=== PATIENT | female | born 1975 | race Caucasian/White ===

== ENCOUNTER 2019-09-11 06:46 | Inpatient (IN) | payer MEDICARE, MEDICAID, SELFPAY ==
[2019-09-11] VITALS (16 sets, daily range): BP systolic 85–106; BP diastolic 39–73; PULSE 70–99; RESP 10–18; TEMP 36.2–36.6; O2SAT 93–100
--- NOTE | ~2019-09-11 | XR_ITS ---
EXAMINATION: XR abdomen NG/feed tube insert DATE: 09/11/2019 12:54 INDICATION: Small bowel traction. TECHNIQUE: An upright view of the abdomen was obtained. COMPARISON: CT abdomen and pelvis 09/11/2019 FINDINGS: The lower abdomen is excluded. There are multiple dilated loops of small bowel. The nasogas tric tube tip is in the stomach. Surgical clips in the right upper quadrant are likely from cholecyst ectomy. Median sternotomy wires are noted. There are retained epicardial pacer wires. IMPRESSION: 1. Nasogastric tube tip in the stomach. 2. Dilated small bowel, consistent with small bowel obstruction. Reviewed, dictated and finalized at location A. LY SHIFT MANAGER
--- NOTE | ~2019-09-11 | XR_ITS ---
EXAMINATION: XR chest 2V DATE: 09/11/2019 07:59 INDICATION: Chest pain. TECHNIQUE: Frontal and lateral views of the chest were obtained. COMPARISON: Chest single view 01/23/2019, CT abdomen and pelvis 06/18/2019 FINDINGS: The chest demonstrates clear lungs without pneumonia, pleural effusion, or pneumothorax. Th ere is blunting of the right posterior costophrenic angle correlating with prominent extrapleural fat on the prior CT. The heart size is normal. There are changes are heart valve replacement. Retained e picardial pacer wires are noted. IMPRESSION: 1. No acute cardiopulmonary disease. Reviewed, dictated and finalized at location A. T PANEL ASSEMBLER
--- NOTE | ~2019-09-11 | XR_ITS ---
EXAMINATION: XR abdomen obstructive series DATE: 09/12/2019 08:14 INDICATION: Possible small bowel obstruction TECHNIQUE: Supine and upright views of the abdomen. FINDINGS: 01/26/2019 and 09/11/2019 The visualized lung parenchyma is normal.. There is a nonobstructive bowel gas pattern. Gas and stool are seen throughout the colon to the level of the rectum. There is no free air. There is evidence f or failed renal transplant in the left pelvis. NG tube in the stomach. There are residual epicardial pacing leads. There are cholecystectomy clips. IMPRESSION: 1. No acute abdominal abnormality. Reviewed, dictated and finalized at location A. CAL UNDERWRITER
--- NOTE | ~2019-09-11 | CT_ITS ---
EXAMINATION: CT abdomen pelvis w con DATE: 09/11/2019 10:09 INDICATION: Mid abdominal pain. TECHNIQUE: Computed tomography (CT) of the abdomen and pelvis was performed with 100 mL Omnipaque 350 intravenous contrast. Automated exposure control and iterative reconstruction technique were employe d. The dose-length product was 510.03 mGy-cm. COMPARISON: CT abdomen and pelvis 06/18/2019 FINDINGS: The visualized portions of the lung bases demonstrate mild atelectasis. No pleural effusion . The heart size is normal. There are changes of tricuspid valve replacement. No pericardial effusion . Epicardial pacer wires are noted. The liver is normal. There are changes of cholecystectomy. The co mmon duct is dilated to 13 mm without change, likely not clinically significant given the normal live r function tests. There is a 7 mm cyst in the spleen. The pancreas and adrenal glands are normal. The re is severe atrophy of the [place] kidneys. There are cysts in the kidneys measuring up to 2.6 cm on the left. There are failed transplant kidneys bilaterally. There is diverticulosis of the colon witho ut evidence of diverticulitis. There are dilated loops of small bowel in the right abdomen with trans ition point, consistent with small bowel obstruction. There are no pathologically enlarged lymph node s. There is trace perihepatic ascites. There is severe lower lumbar spondylosis. There are Schmorl's nodes at multiple levels in the spine. IMPRESSION: 1. Dilated loops of small bowel in right abdomen with transition point, consistent with small bowel o bstruction. Reviewed, dictated and finalized at location A. Y WORKER IMPRESSION: 1. Dilated loops of small bowel in right abdomen with transition point, consist ent with small bowel obstruction.
--- NOTE | 2019-09-11 06:53 | ECG_ITS ---
Measurements Intervals [place] Rate: 83 P: 50 VT: 175 QRS: -64 QRSD: 126 T: 63 QT: 399 QTc: 471 Interpretive Statements SINUS RHYTHM RIGHT BUNDLE BRANCH BLOCK LOW VOLTAGE- PRECORDIAL LEADS BASELINE ARTIFACT- I, II, III, AVR, AVL, AVF, V1-V6 ABNORMAL ECG Electronically Signed On 09-11-2019 8:09:38 PLACER MINER by Geo Jackson D.O.
--- NOTE | 2019-09-11 07:31 | ED.ABDPAIN ---
HPI - Abdominal Pain General Chief Complaint: Abdominal Pain Stated Complaint: abd pain Time Seen by Provider: 09/11/19 07:06 Source: patient and EMS Mode of arrival: EMS Limitations: no limitations History of Present Illness HPI narrative: Patient is a 44-year-old female who presents for evaluation of abdominal pain. Patient reports feeling as if she has a bowel obstruction. She reports dull, aching abdominal pain in the center of her abdomen. Patient also reports chest pressure that began yesterday. She reports nausea without emesis. She is passing some flatus and has had some bowel movements which is atypical for her history of bowel obstruction in the past. She has history of numerous abdominal surgeries, tricuspid valve replacement, history of endocarditis all which were managed at [facility]. She denies fever, chills, cough or shortness of breath. No jaw pain or left arm pain. No recent surgeries. She denies lower extremity swelling or redness. Related Data Home Medications Medication Instructions Recorded Confirmed budesonide-formoterol HFA 160 2 puff INHALATION Q12H 08/20/19 mcg-4.5 mcg/actuation aerosol inhaler cholecalciferol (vitamin D3) 125 10,000 unit PO WEEKLY cap 08/20/19 mcg (5,000 unit) capsule clonazepam 1 mg tablet 1 mg PO BID tablet 08/20/19 levothyroxine 88 mcg tablet 88 mcg PO DAILY 08/20/19 omeprazole 10 mg capsule,delayed 20 mg PO DAILY cap 08/20/19 release warfarin 2 mg tablet 2 mg PO DAILY 08/20/19 warfarin 5 mg tablet 5 mg PO 2XW tablet 08/20/19 Allergies Allergy/AdvReac Type Severity Reaction Status Date / Time baclofen Allergy Unknown Muscle Verified 10/03/17 16:00 weakness hydrocodone Allergy Unknown Unknown Verified 08/20/19 11:47 pramipexole Allergy Unknown Unknown Verified 08/20/19 11:47 tramadol Allergy Unknown made Verified 08/15/17 21:20 restless leg symptoms worse, drowsiness vancomycin Allergy Unknown Unknown Verified 08/20/19 11:47 Review of Systems Review of Systems: Narrative: CONSTITUTIONAL: Denies fever, chills, or sweats. CARDIOVASCULAR: Reports chest pain, denies palpitations or edema RESPIRATORY: Denies cough or dyspnea. GASTROINTESTINAL: Reports abdominal pain and nausea GENITOURINARY: Denies dysuria or hematuria. SKIN: Denies rash or itching. MUSCULOSKELETAL: Denies back pain, joint pain, or myalgia. NEUROLOGIC: Denies headache, numbness, or weakness. [facility] Past Medical History Medical History Anemia in chronic kidney disease Anxiety Asthma Chronic low back pain History of L4-L5 herniated discs Diastolic CHF Last Echo October 2018 demonstrated an EF of 55% to 60% with diastolic dysfunction End-stage renal disease on hemodialysis since age 15 with a history of 3x renal transplants, first in 2000 which failed after 7 days due to factor V Leiden, second transplant 2005 that lasted 1.5 years, then she was converted to hemodialysis 2011. Factor V Leiden On Coumadin History of left heart catheterization History of pulmonary embolus (PE) due to Factor V Leiden on chronic Coumadin Hx SBO with adhesions. 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
[2019-09-11] MEDS: FAMOTIDINE 20 MG/2 ML VIAL IV PUSH ×2 (07:51→20:08)
[2019-09-11] MEDS: ONDANSETRON INJ 4 MG/2 ML VIAL IV PUSH ×2 (07:51→14:40)
[2019-09-11 07:59] LABS: Basophils Percent Auto 0.5 % (0.2-1.2); Hemoglobin 12.6 g/dL (12.0-15.0); Immature Granulocyte Absolute 0.01 K/mm3 (0.00-0.031); Immature Granulocyte Percent A 0.3 % (0-0.5); Lymphocytes Absolute Auto 0.78 K/mm3 (0.9-3.2); Lymphocytes Percent Auto 19.8 % (18.3-44.2); Mean Corpuscular HGB Conc 33.2 g/dl (32-36); Mean Corpuscular Hemoglobin 33.9 pg (26-34); Mean Corpuscular Volume 102.2 fl (80-100); Mean Platelet Volume 10.8 fl (7.4-10.4); Monocytes Absolute Auto 0.2 K/mm3 (0.1-0.6); Monocytes Percent Auto 4.6 % (2.6-8.5); Neutrophils Absolute Auto 2.9 K/mm3 (1.3-6.7); Neutrophils Percent Auto 73.8 % (45.5-73.1); Platelet Count Result 116 k/mm3 (150-375); Red Blood Count 3.72 M/mm3 (4.2-5.4); Red Cell Distribution Width 13.3 % (11.5-14.5); White Blood Count 3.9 K/mm3 (4.5-10.0)
[2019-09-11] MEDS: MORPHINE SULFATE 4 MG/ML INJ IV PUSH ×6 (08:05→23:02)
[2019-09-11] MEDS: SODIUM CHLORIDE 0.9% IV 1,000 ML 999 ML IV CONT ×2 (08:06→12:24)
[2019-09-11 08:11] LABS: INR 1.4; Prothrombin Time 16.6 Seconds (11.1-14.7)
[2019-09-11 08:12] LABS: Partial Thromboplastin Time 39.5 SECONDS (22.3-36.8)
--- NOTE | 2019-09-11 08:49 | PC.NURSE ---
called lab at 0824 to come redraw room 6
[2019-09-11 08:57] LABS: Alanine Aminotransferase 9 U/L (4-35); Albumin Level 3.8 g/dL (3.5-5.1); Alkaline Phosphatase 60 U/L (38-126); Aspartate Amino Transferase 18 U/L (14-36); Bilirubin,Total 0.3 mg/dL (0.2-1.3); Blood Urea Nitrogen 65 mg/dL (7-17); Calcium 6.8 mg/dL (8.4-10.2); Carbon Dioxide 19 mmol/L (22-30); Chloride 98 mmol/L (98-107); Estimated Glomerular Filt Rate 5; Glucose 96 mg/dL (65-105); Lipase 178 U/L (23-300); Potassium 3.9 mmol/L (3.4-5.0); Sodium 135 mmol/L (137-145)
[2019-09-11 09:08] LABS: Troponin I < 0.012 ng/mL (0.000-0.034)
[2019-09-11] MEDS: METOCLOPRAMIDE HCL INJ 10 MG/2 ML VIAL IV PUSH (10:31)
[2019-09-11 11:34] LABS: Troponin I 0.012 ng/mL (0.000-0.034)
--- NOTE | 2019-09-11 12:33 | PM.IMHP ---
H&P: HPI History of Present Illness Chief complaint: SBO Narrative: Shelli Jaramillo is a 44 year old female with the history of ESRD on hemodialysis, multiple abdominal surgeries and small bowel obstructions in the past, who presented to the ER with gradually worsening, waxing and waning, cramping umbilical abdominal pain. The patient reported yesterday around 10:00 a.m. she woke up having some abdominal discomfort. She was passing gas and had a normal bowel movement so she was not suspicious for another small-bowel obstruction. As the day progressed, she tried eating a piece of pizza for dinner then developed worsening sharp abdominal pain, nausea. Denies any vomiting. then around midnight her pain became even worse and she began having some substernal chest ache/ tightness with radiation to her back. She reported feeling similar to heartburn, but denies any belching. Currently she is having upper chest discomfort which she feels like is more muscular in nature from tensing up secondary to her increased pain in nausea. She denies any reproducible chest pain with palpation or pain with taking a deep breath. The patient's chest pain has improved since arrival to the ER after receiving pain meds. She denies any shortness of breath. She reports some chills, but denies any fever. Patient's initial labs showed temperature of 97.5?, blood pressure 106/72, heart rate 99, respiratory rate 13, oxygen saturation 100% on room air. Initial labs showed, leukopenia at 3.9, normal H&H, thrombocytopenia at 116, INR is subtherapeutic at 1.4, PT 16.6, PTT at 39.5, CMP showed slight hyponatremia at 135, creatinine is 9.1, BUN 65, serum bicarb 19, calcium low at 6.8, otherwise normal. Patient's initial troponin was 0.012 and we are trending. CT Abd/Pelvis showed Dilated loops of small bowel in right abdomen with transition point, consistent with small bowel obstruction. The patient was admitted under observation for a small-bowel obstruction, placed NPO, NG tube in place, started on IV fluid hydration, IV antiemetics, IV pain medications. Code Status: Full Code Power of Shuttle Filler: MelerLevon PCP: Dr. Padilla Review of Systems Review of Systems: All systems reviewed & are unremarkable except as noted in HPI and below Constitutional: Constitutional: Reports chills ENT: Denies nasal congestion and Denies nasal discharge Cardiovascular: Cardiovascular: Reports chest pain, Denies leg edema and Denies lightheadedness Respiratory: Respiratory: Denies chest congestion, Denies cough and Denies dyspnea Gastrointestinal: Gastrointestinal: Reports abdominal pain, Reports nausea and Denies vomiting Genitourinary: Comments: Anuria Musculoskeletal: Musculoskeletal: Reports back pain Integumentary/Breasts: Skin/Breast: Denies rash and Denies unusual bruising Neurologic: Denies vertigo and Denies headache(s) [facility] Past Medical History Medical History (Updated 09/11/19 @ 14:05 by Elizabeth Bailey PA-C) Anemia in chronic kidney disease Anxiety Asthma Chronic low back pain History of L4-L5 herniated discs Diastolic CHF Last Echo October 2018 demonstrated an EF of 55% to 60% with diastolic dysfunction End-stage renal disease on hemodialysis since age 15 with a history of 3x renal transplants, first in 2000 which failed after 7 days due to factor V Leiden, second transplant 2005 that lasted 1.5 years, then she was converted to hemodialysis 2011. Factor V Leiden On Coumadin History of left heart catheterization 2012 showed normal coronary arteries and pulmonary hypertension. History of pulmonary embolus (PE) due to Factor V Leiden on chronic Coumadin Hx SBO with adhesions. Patient reports history of 19 SBOs after last transplant in 2014 with the developement of an enterocutaneous fistula Hypertension Hypothyroidism (acquired) Kidney transplant failure and rejection Major depressive disorder Nephrolithiasis OCD (obsessive compulsive disorder)
[2019-09-11] MEDS: LIDOCAINE HCL 2% GEL UROJET 10 ML PKG (12:34)
--- NOTE | 2019-09-11 14:14 | PM.CNNEP ---
Assessment and Plan Assessment and plan (1) End-stage renal disease on hemodialysis: Code(s): N18.6 - End stage renal disease; Z99.2 - Dependence on renal dialysis Status: Acute Assessment and Plan: The patient is on home hemodialysis. She had her last treatment yesterday. Her fluid status looks okay. In fact she might be a little dry but so we will give her some IV fluids. Discussed with TISH Bailey. (2) SBO (small bowel obstruction): Code(s): K56.609 - Unspecified intestinal obstruction, unspecified as to partial versus complete obstruction Status: Acute Assessment and Plan: The patient has a small-bowel obstruction. She did start Velphoro recently. Sevelamer can cause of bezoar but she has not been taking this. She will get NG tube drainage and hopefully things will improve in a few days. (3) Hypothyroidism (acquired): Code(s): E03.9 - Hypothyroidism, unspecified Status: Acute Assessment and Plan: She is on thyroid supplements. (4) Kidney transplant status: Code(s): Z94.0 - Kidney transplant status Status: Acute Assessment and Plan: She has had a kidney transplant. This did not last very long. (5) Factor V Leiden: Code(s): D68.51 - Activated protein C resistance Status: Acute Assessment and Plan: She is on Coumadin for this. Has had clotting events in the past. 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 The patient has had recurrent bowel obstructions from the sclerosing peritonitis in the past. Her last time to the emergency room was about 7 months ago. She was admitted to the hospital, NG tube was placed to suction, she gradually improved with conservative therapy. Surgeons have seen the patient and it is too risky to go in and try operative intervention. The patient says she felt fine yesterday but this morning she could feel it coming on and gradually this some worsened with nausea. She has a little bit of abdominal fullness but no vomiting. When she went to the ER they put the NG tube in and she feels better. although traditionally she has hypertension, lately her blood pressure has been somewhat soft. Review of Systems Constitutional: Constitutional: Reports no additional constitutional complaints Eyes: Eyes: Reports no additional eye complaints ENT: Reports system reviewed and no additional complaints, except as documented Cardiovascular: Cardiovascular: Reports no additional cardiovascular complaints Respiratory: Respiratory: Reports no additional respiratory complaints Gastrointestinal: Gastrointestinal: Reports no additional gastrointestinal complaints Genitourinary: Genitourinary: Reports no additional female genitourinary complaints Musculoskeletal: Musculoskeletal: Reports no additional musculoskeletal complaints Integumentary/Breasts: Skin/Breast: Reports system reviewed and no additional complaints, except as docu Neurologic: Reports system reviewed and no additional complaints, except as documented Psychiatric: Psychiatric: Reports no additional psychiatric complaints PMFSH Past Medical History Medical History Anemia in chronic kidney disease Anxiety Asthma Chronic low back pain History of L4-L5 herniated discs Diastolic CHF Last Echo October 2018 demonstrated an EF of 55% to 60% with diastolic dysfunction End-stage renal disease on hemodialysis since age 15 with a history of 3
[2019-09-11] MEDS: HEPARIN SOD/D5W 100 UNITS/ML 25,000 UNITS/250 ML BAG 8 UNITS IV CONT (14:40)
[2019-09-11] MEDS: SODIUM CHLORIDE 0.9% IV 1,000 ML 60 ML IV CONT (14:40)
--- NOTE | 2019-09-11 15:08 | ADMGEN ---
This patient, Shelli Jaramillo, was admitted to IMU Room 210-01at 1330 on 09/11/2019. Patient/family oriented to hospital policies and general routines including ID bracelet, bed and alarms, visiting hours, pain management, procedures, bathroom and other care routines, personal items, smoking policy, room service/diet, and visiting hours. Valuables list has been completed. Information on how to activate the Rapid Response Team has been discussed. Patient/Family are encouraged to report perceived risks to care and to ask questions if they do not understand what they are told or what they should do.
[2019-09-11 15:16] LABS: Basophils Percent Auto 0.6 % (0.2-1.2); Eosinophils Percent Auto 1.3 % (0-4.4); Hemoglobin 10.5 g/dL (12.0-15.0); Immature Granulocyte Absolute 0.01 K/mm3 (0.00-0.031); Immature Granulocyte Percent A 0.3 % (0-0.5); Lymphocytes Percent Auto 25.6 % (18.3-44.2); Mean Corpuscular HGB Conc 32.8 g/dl (32-36); Mean Corpuscular Hemoglobin 34.4 pg (26-34); Mean Corpuscular Volume 104.9 fl (80-100); Mean Platelet Volume 11.2 fl (7.4-10.4); Monocytes Absolute Auto 0.2 K/mm3 (0.1-0.6); Neutrophils Percent Auto 65.2 % (45.5-73.1); Platelet Count Result 96 k/mm3 (150-375); Red Blood Count 3.05 M/mm3 (4.2-5.4); Red Cell Distribution Width 13.5 % (11.5-14.5); White Blood Count 3.1 K/mm3 (4.5-10.0)
[2019-09-11 15:26] LABS: INR 1.6; Prothrombin Time 18.9 Seconds (11.1-14.7)
[2019-09-11 15:41] LABS: Troponin I < 0.012 ng/mL (0.000-0.034)
[2019-09-11] MEDS: PHENOL/SOD PHENO SPRAY CHERRY (*BKC) 1 SPRAY MUCOUS MEM (16:36)
--- NOTE | 2019-09-11 18:15 | PM.CNGS ---
Assessment and Plan Assessment and plan (1) SBO (small bowel obstruction): Code(s): K56.609 - Unspecified intestinal obstruction, unspecified as to partial versus complete obstruction Status: Acute Assessment and Plan: The risks, benefits, and possible complications of surgery fo a small-bowel obstruction were discussed with the patient. At this time I do not recommend any surgical intervention. We will 1st try conservative management as has worked for her in the past. Will plan on bowel rest with NG decompression. I agree with checking labs in a.m. and I will order a plain film obstructive series of the abdomen for tomorrow morning. This was explained to the patient. I also asked her to walk in the hallways with NG clamped several times tonight at least 3 times a day in the future. (2) Factor V Leiden: Code(s): D68.51 - Activated protein C resistance Status: Acute Assessment and Plan: Hospitalist service as started on her IV heparin and I agree with this until we know whether not she is progressing toward resolution versus surgical intervention. (3) End-stage renal disease on hemodialysis: Code(s): N18.6 - End stage renal disease; Z99.2 - Dependence on renal dialysis Status: Acute Assessment and Plan: As per transportation agent recommendations. History of Present Illness Consult details Consult date: 09/11/19 Reason for consult: abdominal pain Requesting physician: Rashel Bishop MD Narrative: Shelli Jaramillo is a 44 year old female with the history of ESRD on hemodialysis. She has had multiple abdominal surgeries and multiple small bowel obstructions in the past. She presented to the ER today with gradually worsening, waxing and waning, cramping umbilical abdominal pain. The patient reports that yesterday around 10:00 a.m. she woke up having some abdominal discomfort. She was passing gas and had a normal bowel movement so she was not suspicious for another small-bowel obstruction. As the day progressed, she tried eating a piece of pizza for dinner then developed worsening sharp abdominal pain and nausea. She denies any vomiting. Then around midnight her pain became even worse and she began having some substernal chest pain/ ache/ tightness with radiation to her back. She reported it feeling similar to heartburn, but denies any belching. Currently she is not havin any chest discomfort and believes what she had feels like is more muscular in nature from tensing up secondary to her increased pain and nausea. She denies any reproducible chest pain with palpation or pain with taking a deep breath. The patient's chest pain has improved since arrival to the ER after receiving pain meds. She denies any shortness of breath. She reports some chills, but denies any fever. Patient's initial labs showed temperature of 97.5?, blood pressure 106/72, heart rate 99, respiratory rate 13, oxygen saturation 100% on room air. Initial labs showed, leukopenia at 3.9, normal H&H, thrombocytopenia at 116, INR is subtherapeutic at 1.4, PT 16.6, PTT at 39.5, CMP showed slight hyponatremia at 135, creatinine is 9.1, BUN 65, serum bicarb 19, calcium low at 6.8, otherwise normal. Patient's initial troponin was 0.012 and this is being trended. CT Abd/Pelvis showed Dilated loops of small bowel in right abdomen with a transition point, consistent with small bowel obstruction. The patient was admitted under observation for a small-bowel obstruction, placed NPO, NG tube in place, started on IV fluid hydration, IV antiemetics, IV pain medications. I was consulted when she was in the ED and am now seeing her and will follow her. Review of Systems Constitutional: Constitutional: Reports as per HPI and Denies headache(s) Eyes: Eyes: Denies loss of vision and Denies eye pain ENT: Reports Normal hearing present, Denies change in voice, Denies dizziness and Denies headache(s) Cardiovascular: Cardiovascular:
[2019-09-11 21:45] LABS: Partial Thromboplastin Time 100.4 SECONDS (22.3-36.8)
[2019-09-12] VITALS (12 sets, daily range): BP systolic 85–103; BP diastolic 39–51; PULSE 68–98; RESP 18–20; TEMP 36.1–36.8; O2SAT 96–100
[2019-09-12] MEDS: MORPHINE SULFATE 4 MG/ML INJ IV PUSH ×3 (02:15→08:44)
[2019-09-12 04:26] LABS: Basophils Percent Auto 0.6 % (0.2-1.2); Eosinophils Percent Auto 1.2 % (0-4.4); Hematocrit 33.4 % (37.0-47.0); Hemoglobin 10.6 g/dL (12.0-15.0); Immature Granulocyte Absolute 0.02 K/mm3 (0.00-0.031); Immature Granulocyte Percent A 0.6 % (0-0.5); Lymphocytes Absolute Auto 0.47 K/mm3 (0.9-3.2); Lymphocytes Percent Auto 14.6 % (18.3-44.2); Mean Corpuscular HGB Conc 31.7 g/dl (32-36); Mean Corpuscular Volume 107.1 fl (80-100); Mean Platelet Volume 10.6 fl (7.4-10.4); Monocytes Absolute Auto 0.2 K/mm3 (0.1-0.6); Monocytes Percent Auto 6.2 % (2.6-8.5); Neutrophils Absolute Auto 2.5 K/mm3 (1.3-6.7); Neutrophils Percent Auto 76.8 % (45.5-73.1); Platelet Count Result 100 k/mm3 (150-375); Red Blood Count 3.12 M/mm3 (4.2-5.4); Red Cell Distribution Width 13.7 % (11.5-14.5); White Blood Count 3.2 K/mm3 (4.5-10.0)
[2019-09-12 04:43] LABS: Albumin Level 4.2 g/dL (3.5-5.1); Blood Urea Nitrogen 71 mg/dL (7-17); Calcium 7.2 mg/dL (8.4-10.2); Carbon Dioxide 18 mmol/L (22-30); Chloride 100 mmol/L (98-107); Estimated CRCL calculation 7 ml/min; Estimated Glomerular Filt Rate 4; Glucose 94 mg/dL (65-105); Potassium 5.2 mmol/L (3.4-5.0); Sodium 136 mmol/L (137-145)
[2019-09-12 04:48] LABS: INR 1.8; Prothrombin Time 20.5 Seconds (11.1-14.7)
[2019-09-12 04:50] LABS: Partial Thromboplastin Time 118.7 SECONDS (22.3-36.8)
[2019-09-12] MEDS: LEVOTHYROXINE SODIUM INJ 100 MCG/5 ML VIAL 44 MCG IV PUSH (05:31)
[2019-09-12] MEDS: PHENOL/SOD PHENO SPRAY CHERRY (*BKC) 1 SPRAY MUCOUS MEM (08:44)
[2019-09-12] MEDS: ONDANSETRON INJ 4 MG/2 ML VIAL IV PUSH (08:44)
[2019-09-12] MEDS: FAMOTIDINE 20 MG/2 ML VIAL IV PUSH ×2 (08:45→22:43)
[2019-09-12] MEDS: MAGNESIUM HYDROXIDE SUSP 30 ML UDC FEED TUBE (11:18)
[2019-09-12] MEDS: SODIUM CHLORIDE 0.9% IV 1,000 ML 60 ML IV CONT (11:18)
[2019-09-12 12:15] LABS: Partial Thromboplastin Time 129.7 SECONDS (22.3-36.8)
[2019-09-12] MEDS: MORPHINE SULFATE 2 MG/ML INJ IV PUSH ×3 (12:21→20:27)
--- NOTE | 2019-09-12 13:14 | PM.IMPN ---
Progress Note: A&P Assessment and Plan (1) SBO (small bowel obstruction): Code(s): K56.609 - Unspecified intestinal obstruction, unspecified as to partial versus complete obstruction Status: Acute Assessment and Plan: Recurrent issue. General surgery consulted from the emergency room and appreciate input. Continue conservative management. NG tube remains in place but clamped. Remains NPO. Hopefully will resolve without surgical intervention. (2) Chest pain: Qualifiers: Chest pain type: other chest pain Qualified Code(s): R07.89 - Other chest pain Code(s): R07.9 - Chest pain, unspecified Status: Acute Assessment and Plan: Appears to be musculoskeletal. Serial troponin levels are negative. Telemetry reviewed on 09/12/2019 with sinus rhythm. Will transfer to medical floor as stable. (3) End-stage renal disease on hemodialysis: Code(s): N18.6 - End stage renal disease; Z99.2 - Dependence on renal dialysis Status: Acute Assessment and Plan: Nephrology consulted from the emergency room and appreciate input. On hemodialysis at home usually. Treatment here per nephrology. (4) Subtherapeutic international normalized ratio (INR): Code(s): R79.1 - Abnormal coagulation profile Status: Acute Assessment and Plan: INR subtherapeutic on admission at 1.4. Up to 1.8 today. Remains on IV heparin. Will continue to monitor. (5) Factor V Leiden: Code(s): D68.51 - Activated protein C resistance Status: Acute Assessment and Plan: Known mutation. Coumadin currently on hold with NPO status and small bowel obstruction. Continue IV heparin. Resume Coumadin when able. (6) Renovascular hypertension: Code(s): I15.0 - Renovascular hypertension Status: Acute Assessment and Plan: Blood pressure reviewed on 09/12/2019 and remaining low-normal at this time. Will continue low-dose IV fluids. (7) Hypothyroidism (acquired): Code(s): E03.9 - Hypothyroidism, unspecified Status: Acute Assessment and Plan: Continue levothyroxine IV for now. (8) DVT prophylaxis: Code(s): Z29.9 - Encounter for prophylactic measures, unspecified Status: Acute Assessment and Plan: Heparin drip. Time Spent With Patient Time with patient: 15 - 25 minutes Subjective Date/time seen: 09/12/19 13:14 Interval history: Date of Service: 09/12/2019. Admitted with recurrent small-bowel obstruction. Reports abdominal pain is improving. No nausea. Has not passed any gas. No chest pain now but did have chest pain in the emergency room which she feels was musculoskeletal. No shortness of breath. Review of Systems Review of Systems: Narrative: Feeling better. Constitutional: Constitutional: Denies chills and Denies fever(s) ENT: Denies nasal congestion Cardiovascular: Cardiovascular: Denies chest pain Respiratory: Respiratory: Denies dyspnea Gastrointestinal: Gastrointestinal: Reports abdominal pain (Decreasing), Denies nausea and Denies vomiting Genitourinary: Genitourinary: Reports no additional female genitourinary complaints Musculoskeletal: Comments: Generalized pain Integumentary/Breasts: Skin/Breast: Denies rash Neurologic: Denies headache(s) Psychiatric: Psychiatric: Denies anxiety, Denies confusion and Denies depression Exam Narrative: Exam Narrative: Awake and alert. Const: General: no acute distress HENMT: Mouth: Yes moist mucous membranes Other: NG tube in place. Neck: Neck: supple Lymphatic: lymphadenopathy not noted Chest: Other: minimally tender to palpation anteriorly Resp: Auscultation: clear to auscultation bilaterally, no rales and no wheezes Cardio: Rate: regular rate Rhythm: regular rhythm Heart sounds: Murmur heart sound present (3/6 systolic) GI: GI Palp: Yes Soft to palpation and Yes Tenderness to palpation present (GI) (mild tenderness to palpation) Au
--- NOTE | 2019-09-12 13:43 | PM.PNNEP ---
Progress Note: A&P Assessment and Plan (1) End-stage renal disease on hemodialysis: Code(s): N18.6 - End stage renal disease; Z99.2 - Dependence on renal dialysis Status: Acute Assessment and Plan: The patient is on home hemodialysis. She had her last treatment yesterday. Potassium is minimally elevated. We will repeat this. Fluid status looks improved/slightly overloaded. Since she has renal failure, I think we can stop the IV fluids (2) SBO (small bowel obstruction): Code(s): K56.609 - Unspecified intestinal obstruction, unspecified as to partial versus complete obstruction Status: Acute Assessment and Plan: The patient has a small-bowel obstruction. She did start Velphoro recently. Sevelamer can cause a bezoar but she has not been taking this. She is getting NG tube drainage. X-ray is improved. Discussed with Dr. Godwin. He is going to give her cathartics. Lactulose or MiraLax okay. (3) Hypothyroidism (acquired): Code(s): E03.9 - Hypothyroidism, unspecified Status: Acute Assessment and Plan: She is on thyroid supplements. (4) Kidney transplant status: Code(s): Z94.0 - Kidney transplant status Status: Acute Assessment and Plan: She has had a kidney transplant. (5) Factor V Leiden: Code(s): D68.51 - Activated protein C resistance Status: Acute Assessment and Plan: She is on Coumadin for this. Has had clotting events in the past. Subjective Date/time seen: 09/12/19 13:43 Interval history: Patient is feeling better today. Less abdominal discomfort. No nausea. She has not passed any gas. Review of Systems Cardiovascular: Cardiovascular: Reports no additional cardiovascular complaints Respiratory: Respiratory: Reports no additional respiratory complaints Gastrointestinal: Gastrointestinal: Reports no additional gastrointestinal complaints Genitourinary: Genitourinary: Reports no additional female genitourinary complaints Exam Narrative: Exam Narrative: Well developed well-nourished in no acute distress Lungs clear Heart regular without rub Abdomen bowel sounds positive soft mildly uncomfortable with palpation in the epigastric area. Extremities developing a small amount of edema Skin no rash Objective Data Vital Signs Vital Signs: Vital Signs - 24 hr 09/11/19 16:00 09/11/19 18:00 09/11/19 19:37 Temperature 36.6 C 36.4 C Pulse Rate 70 79 76 Respiratory Rate 16 18 Blood Pressure 95/47 L 93/40 L Pulse Oximetry 98 98 09/11/19 19:43 09/11/19 19:50 09/11/19 20:00 Temperature Pulse Rate 72 77 87 Respiratory Rate 16 16 Blood Pressure Pulse Oximetry 09/11/19 22:00 09/11/19 23:34 09/12/19 00:00 Temperature 36.2 C L Pulse Rate 74 77 72 Respiratory Rate 16 Blood Pressure 85/39 L Pulse Oximetry 100 09/12/19 00:11 09/12/19 02:00 09/12/19 02:12 Temperature Pulse Rate 88 Respiratory Rate Blood Pressure 86/50 L 101/51 L Pulse Oximetry 09/12/19 04:00 09/12/19 04:46 09/12/19 06:00 Temperature 36.1 C L Pulse Rate 68 75 Respiratory Rate 18 Blood Pressure 89/42 L 103/45 L Pulse Oximetry 99 09/12/19 08:00 09/12/19 10:00 09/12/19 12:00 Temperature 36.4 C L 36.8 C Pulse Rate 88 89 98 Respiratory Rate 20 18 Blood Pressure 95/44 L 100/47 L Pulse Oximetry 100 100 Intake/Output Intake/Output: Intake & Output 09/09/19 09/10/19 09/11/19 09/12/19 23:59 23:59 23:59 23:59 Intake Total 1999 116 Output Total 150 200 Balance 1850 965 Meds/Results Medications: Active Medications Generic Name Dose Route Start Last Admin Trade Name Freq PRN Reason Stop Dose Admin Budesonide/Formoterol Fumarate 2 puff 09/11/19 20:00 09/12/19 07:50 Symbicort 160-4.5 Mcg (*Sp) Inhaler INHALATION 2 puff Q12HRT CHRIS Administration Famotidine 20 mg 09/11/19 21:00 09/12/19 08:45 Pepcid Iv IV PUSH 20 mg Q12HR S
--- NOTE | 2019-09-12 14:05 | PM.PNGS ---
Progress Note: A&P Assessment and Plan (1) SBO (small bowel obstruction): Onset Date: 09/11/19 Code(s): K56.609 - Unspecified intestinal obstruction, unspecified as to partial versus complete obstruction Status: Acute Assessment and Plan: Abdominal x-ray today shows resolution of small bowel dilation. NG tube output is decreasing. Will try milk a magnesia down the tube x1 then clamping routine on the NG until morning. If patient doing well and starting to pass flatus or have a bowel movement may be able to remove the NG tomorrow. Encourage patient to walk in the hallways Probably need to continue heparin drip until patient prove she can tolerate at least full liquid diet. (2) Factor V Leiden: Onset Date: Unknown Code(s): D68.51 - Activated protein C resistance Status: Acute Assessment and Plan: Probably need to continue heparin drip until patient prove she can tolerate at least full liquid diet (3) End-stage renal disease on hemodialysis: Code(s): N18.6 - End stage renal disease; Z99.2 - Dependence on renal dialysis Status: Acute Assessment and Plan: Discussed with Dr. Bishop what the best bowel regimen for her will be in the future. He prefers we avoid magnesium containing substances. Most likely will use lactulose or MiraLax once she is tolerating diet. Would also suggest patient have available Dulculax suppositories at home and any time she goes more than 48 hours without a bowel movement she should use a suppository to empty the rectum. Subjective Subjective Date/Time Seen: 09/12/19 14:05 patient feeling well. No nausea today. Still denies flatus or BM. Much less abdominal pain however. Review of Systems Constitutional: Constitutional: Reports no additional constitutional complaints ENT: Reports other (Mucous Membranes moist.) Cardiovascular: Cardiovascular: Denies dyspnea Respiratory: Respiratory: Denies pain on inspiration and Denies dyspnea Gastrointestinal: Gastrointestinal: Denies bloating, Reports GI cramping ( Mild), Denies nausea and Denies vomiting Musculoskeletal: Musculoskeletal: Reports other (No calf swelling or edema) Integumentary/Breasts: Skin/Breast: Reports system reviewed and no additional complaints, except as docu Exam Const: General: cooperative, no acute distress, alert and awake Orientation/consciousness: patient oriented x3 HENMT: Mouth: Yes moist mucous membranes Neck: Neck: normal visual inspection Chest: Chest palpation & inspection: normal inspection of the chest Resp: Effort & Inspection: normal respiratory effort Auscultation: clear to auscultation bilaterally Cardio: Jugular venous distension: no JVD Rate: regular rate Rhythm: regular rhythm GI: Auscultation: normal bowel sounds Rectal Exam: deferred Other: scars as described yesterday in the midline and each lower quadrant. Only mild tenderness to palpation today and patient does not seem as bloated. Neuro: General: patient oriented x3 and moves all extremities Speech: normal speech Extrem: General: normal exam except as noted Psych: Mental Status: mental status grossly normal Speech and movement: Normal speech and movement present Affect: normal affect Thought content: Yes Normal thought content present Objective Data Vital Signs Vital Signs: Vital Signs - 24 hr 09/11/19 16:00 09/11/19 18:00 09/11/19 19:37 Temperature 36.6 C 36.4 C Pulse Rate 70 79 76 Respiratory Rate 16 18 Blood Pressure 95/47 L 93/40 L Pulse Oximetry 98 98 09/11/19 19:43 09/11/19 19:50 09/11/19 20:00 Temperature Pulse Rate 72 77 87 Respiratory Rate 16 16 Blood Pressure Pulse Oximetry 09/11/19 22:00 09/11/19 23:34 09/12/19 00:00 Temperature 36.2 C L Pulse Rate 74 77 72 Respiratory Rate 16 Blood Pressure 85/39 L Pulse Oximetry 100 09/12/19 00:11 09/12/19 02:00 09/12/19 02:12 Temperature Pulse Rate 88 Re
[2019-09-12] MEDS: BENZOCAINE/MENTHOL (*BKC) 18 EA LOZENGE 1 LOZENGE PO (15:33)
--- NOTE | 2019-09-12 15:55 | PC.NURSE ---
This patient, Shelli Jaramillo, was received from IMU on 09/12/19 at 1555. Personal belongings list checked and signed. Patient/family oriented to unit policies and routines. Report received from ROBBY Osullivan.
[2019-09-12 19:22] LABS: Partial Thromboplastin Time 65.4 SECONDS (22.3-36.8)
[2019-09-12] MEDS: HEPARIN SODIUM 5,000 UNITS/ML VIAL 2500 UNITS IV PUSH (19:26)
[2019-09-13] VITALS (21 sets, daily range): BP systolic 85–152; BP diastolic 32–75; PULSE 74–112; RESP 16–20; TEMP 36.1–36.9; O2SAT 94–100
[2019-09-13] MEDS: MORPHINE SULFATE 2 MG/ML INJ IV PUSH ×4 (00:29→23:50)
[2019-09-13] MEDS: HEPARIN SOD/D5W 100 UNITS/ML 25,000 UNITS/250 ML BAG 7 UNITS IV CONT (01:35)
[2019-09-13 03:42] LABS: Partial Thromboplastin Time > 200.0 SECONDS (22.3-36.8)
[2019-09-13] MEDS: BENZOCAINE/MENTHOL (*BKC) 18 EA LOZENGE 1 LOZENGE PO (04:27)
[2019-09-13] MEDS: PHENOL/SOD PHENO SPRAY CHERRY (*BKC) 1 SPRAY MUCOUS MEM (04:27)
[2019-09-13 07:25] LABS: Basophils Percent Auto 0.5 % (0.2-1.2); Eosinophils Percent Auto 0.8 % (0-4.4); Hematocrit 28.5 % (37.0-47.0); Hemoglobin 9.3 g/dL (12.0-15.0); Immature Granulocyte Absolute 0.03 K/mm3 (0.00-0.031); Immature Granulocyte Percent A 0.8 % (0-0.5); Immature Platelet Fraction Pct 1.9 % (0.9-11.2); Lymphocytes Absolute Auto 0.62 K/mm3 (0.9-3.2); Lymphocytes Percent Auto 16.1 % (18.3-44.2); Mean Corpuscular HGB Conc 32.6 g/dl (32-36); Mean Corpuscular Hemoglobin 34.3 pg (26-34); Mean Corpuscular Volume 105.2 fl (80-100); Mean Platelet Volume 11.2 fl (7.4-10.4); Monocytes Absolute Auto 0.3 K/mm3 (0.1-0.6); Monocytes Percent Auto 6.7 % (2.6-8.5); Neutrophils Absolute Auto 2.9 K/mm3 (1.3-6.7); Neutrophils Percent Auto 75.1 % (45.5-73.1); Platelet Count Result 67 k/mm3 (150-375); Red Blood Count 2.71 M/mm3 (4.2-5.4); Red Cell Distribution Width 13.9 % (11.5-14.5); White Blood Count 3.9 K/mm3 (4.5-10.0)
[2019-09-13 07:37] LABS: Albumin Level 4.4 g/dL (3.5-5.1); Blood Urea Nitrogen 79 mg/dL (7-17); Calcium 7.3 mg/dL (8.4-10.2); Carbon Dioxide 15 mmol/L (22-30); Chloride 96 mmol/L (98-107); Estimated CRCL calculation 6 ml/min; Estimated Glomerular Filt Rate 3; Glucose 83 mg/dL (65-105); Phosphorus 9.1 mg/dL (2.5-4.5); Potassium 5.5 mmol/L (3.4-5.0); Sodium 132 mmol/L (137-145)
[2019-09-13 07:45] LABS: INR 1.9; Prothrombin Time 21.4 Seconds (11.1-14.7)
--- NOTE | 2019-09-13 08:15 | PM.PNNEP ---
Progress Note: A&P Assessment and Plan (1) End-stage renal disease on hemodialysis: Code(s): N18.6 - End stage renal disease; Z99.2 - Dependence on renal dialysis Status: Acute Assessment and Plan: The patient is on home hemodialysis. Will dialyze today. (2) SBO (small bowel obstruction): Onset Date: 09/11/19 Code(s): K56.609 - Unspecified intestinal obstruction, unspecified as to partial versus complete obstruction Status: Acute Assessment and Plan: The patient has a small-bowel obstruction. NG is clamped off. (3) Hypothyroidism (acquired): Code(s): E03.9 - Hypothyroidism, unspecified Status: Acute Assessment and Plan: She is on thyroid supplements. (4) Kidney transplant status: Code(s): Z94.0 - Kidney transplant status Status: Acute Assessment and Plan: She has had a kidney transplant. (5) Factor V Leiden: Onset Date: Unknown Code(s): D68.51 - Activated protein C resistance Status: Acute Assessment and Plan: She is on Coumadin for this. Has had clotting events in the past. Currently on heparin since she was NPO. Subjective Date/time seen: 09/13/19 08:15 Interval history: Patient is feeling better today. Had 2 bowel movements yesterday. Drinking coffee this morning. Review of Systems Cardiovascular: Cardiovascular: Reports no additional cardiovascular complaints Respiratory: Respiratory: Reports no additional respiratory complaints Gastrointestinal: Gastrointestinal: Reports no additional gastrointestinal complaints Genitourinary: Genitourinary: Reports no additional female genitourinary complaints Exam Narrative: Exam Narrative: Well developed well-nourished in no acute distress Lungs clear Heart regular without rub Abdomen bowel sounds positive soft Extremities developing a small amount of edema Skin no rash or subcu nodules Objective Data Vital Signs Vital Signs: Vital Signs - 24 hr 09/12/19 10:00 09/12/19 12:00 09/12/19 14:00 Temperature 36.8 C Pulse Rate 89 98 97 Respiratory Rate 18 Blood Pressure 100/47 L Pulse Oximetry 100 09/12/19 22:00 09/13/19 06:00 Temperature 36.4 C 36.3 C L Pulse Rate 87 83 Respiratory Rate 18 18 Blood Pressure 85/39 L 111/53 L Pulse Oximetry 96 94 Intake/Output Intake/Output: Intake & Output 09/10/19 09/11/19 09/12/19 09/13/19 23:59 23:59 23:59 23:59 Intake Total 1999 1464 338 Output Total 150 750 Balance 1850 714 338 Meds/Results Medications: Active Medications Generic Name Dose Route Start Last Admin Trade Name Freq PRN Reason Stop Dose Admin Benzocaine 1 lozenge 09/12/19 14:00 09/13/19 04:27 Chloraseptic Lozenge PO 1 lozenge PRN PRN Administration Sore Throat Bisacodyl 10 mg 09/12/19 14:19 Dulcolax Suppository RECTAL QAM PRN Constipation Budesonide/Formoterol Fumarate 2 puff 09/11/19 20:00 09/12/19 20:17 Symbicort 160-4.5 Mcg (*Sp) Inhaler INHALATION 2 puff Q12HRT CHRIS Administration Famotidine 20 mg 09/11/19 21:00 09/12/19 22:43 Pepcid Iv IV PUSH 20 mg Q12HR CHRIS Administration Heparin Sodium (Porcine) 4,000 units 09/11/19 13:45 Heparin Sodium IV PUSH PRN PRN aPTT less than 55 seconds Heparin Sodium (Porcine) 2,500 units 09/11/19 13:45 09/12/19 19:26 Heparin Sodium IV PUSH 2,500 units PRN PRN Administration aPTT 55 - 70 seconds Sodium Chloride 1,000 mls @ 60 mls/hr 09/11/19 12:50 09/12/19 17:09 Normal Saline Iv IV CONT 60 mls/hr .[id number] CHRIS Infusion Heparin Sodium/Dextrose 25,000 units in 250 mls @ 5 mls/hr 09/11/19 14:45 09/13/19 03:33 Heparin Sodium/D5w 100 Units/Ml IV CONT 500 units/hr .Q24H CHRIS 5 mls/hr Titration Protocol Acetaminophen 1,000 mg in 100 mls @ 400 mls/hr 09/12/19 17:35 09/13/19 01:58 Ofirmev 1,000 Mg Ivpb IVPB 09/13/19 17:36 Infused Q6H PRN I
--- NOTE | 2019-09-13 08:54 | PM.PNGS ---
Progress Note: A&P Assessment and Plan (1) SBO (small bowel obstruction): Onset Date: 09/11/19 Code(s): K56.609 - Unspecified intestinal obstruction, unspecified as to partial versus complete obstruction Status: Acute Assessment and Plan: Patient continues to clinically improve. Bowel function returning. Abdominal x-ray yesterday showed normal bowel gas pattern. Will remove NG tube today and start a clear liquid diet. Should probably continue the heparin drip until patient can prove she tolerates at least a full liquid diet. Encouraged to walk in the halls. (2) Factor V Leiden: Onset Date: Unknown Code(s): D68.51 - Activated protein C resistance Status: Acute Assessment and Plan: Currently on heparin drip until tolerating at least a full liquid diet. (3) End-stage renal disease on hemodialysis: Code(s): N18.6 - End stage renal disease; Z99.2 - Dependence on renal dialysis Status: Acute Assessment and Plan: Will avoid magnesium containing medications for bowel regimen and will stick to MiraLax or lactulose for bowel stimulation once she is tolerating a diet. Discussed this with the patient today and she states she knows she should be on a bowel regimen at home but is not currently. We discussed options moving forward for bowel regimen with MiraLax daily as needed and if she does not have a bowel movement for more than 48 hours, then also using a Dulcolax suppository if needed. Subjective Subjective Date/Time Seen: 09/13/19 08:45 Patient reports: no new complaints, feels better, flatus and bowel movement Interval history: Patient seen and examined while in dialysis. Reports feeling much better today. She states she has had 2 bowel movements this morning. She reports tolerating the clear liquids while her NG tube was clamped yesterday. Denies bloating, nausea, or vomiting. Her only complaint is pain in her throat and back, which is why she received morphine earlier this morning. Denies any abdominal pain. Points at this time. Review of Systems Review of Systems: All systems reviewed & are unremarkable except as noted in HPI and below Exam Const: General: cooperative, no acute distress, alert and awake Orientation/consciousness: patient oriented x3 GI: Inspection: normal to inspection, non-distended and scar (lower midline scar with a deep indentation.) GI Palp: No abdominal tenderness, Yes Soft to palpation and No Guarding due to palpation present (GI) Auscultation: normal bowel sounds Rectal Exam: deferred Neuro: General: no focal motor deficits Psych: Appearance: grossly normal Mental Status: mental status grossly normal Attitude: cooperative Objective Data Vital Signs Vital Signs: Vital Signs - 24 hr 09/12/19 10:00 09/12/19 12:00 09/12/19 14:00 Temperature 36.8 C Pulse Rate 89 98 97 Respiratory Rate 18 Blood Pressure 100/47 L Pulse Oximetry 100 09/12/19 22:00 09/13/19 06:00 Temperature 36.4 C 36.3 C L Pulse Rate 87 83 Respiratory Rate 18 18 Blood Pressure 85/39 L 111/53 L Pulse Oximetry 96 94 Intake/Output Intake/Output: Intake & Output 09/10/19 09/11/19 09/12/19 09/13/19 23:59 23:59 23:59 23:59 Intake Total 1999 1464 338 Output Total 150 750 Balance 1850 714 338 Meds/Results Medications: Active Medications Generic Name Dose Route Start Last Admin Trade Name Freq PRN Reason Stop Dose Admin Benzocaine 1 lozenge 09/12/19 14:00 09/13/19 04:27 Chloraseptic Lozenge PO 1 lozenge PRN PRN Administration Sore Throat Bisacodyl 10 mg 09/12/19 14:19 Dulcolax Suppository RECTAL QAM PRN Constipation Budesonide/Formoterol Fumarate 2 puff 09/11/19 20:00 09/12/19 20:17 Symbicort 160-4.5 Mcg (*Sp) Inhaler INHALATION 2 puff Q12HRT CHRIS Administration Famotidine 20 mg 09/11/19 21:00 09/12/19 22:43 Pepcid Iv IV PUSH 20 mg Q12HR CHRIS Administration Heparin S
[2019-09-13] MEDS: HEPARIN SODIUM 1,000 UNITS/ML VIAL 1000 UNITS IV PUSH (09:00)
[2019-09-13] MEDS: EPOETIN ALFA 10,000 UNITS/ML VIAL 10000 UNITS IV PUSH (09:15)
[2019-09-13 11:34] LABS: Partial Thromboplastin Time 54.8 SECONDS (22.3-36.8)
[2019-09-13] MEDS: HEPARIN SODIUM 5,000 UNITS/ML VIAL 4000 UNITS IV PUSH (11:58)
[2019-09-13] MEDS: LEVOTHYROXINE SODIUM INJ 100 MCG/5 ML VIAL 44 MCG IV PUSH (13:44)
[2019-09-13] MEDS: FAMOTIDINE 20 MG/2 ML VIAL IV PUSH ×2 (13:45→21:49)
--- NOTE | 2019-09-13 14:28 | PM.IMPN ---
Progress Note: A&P Assessment and Plan (1) SBO (small bowel obstruction): Onset Date: 09/11/19 Code(s): K56.609 - Unspecified intestinal obstruction, unspecified as to partial versus complete obstruction Status: Acute Assessment and Plan: Recurrent issue. Clinically, pt is improving and bowel function is returning. Abdominal xray reviewed which shows improved bowel gas pattern. NG tube removed. Pt tolerating clear liquid diet well. General surgery consulted from the ED, appreciate continued input. Conservative management for now. Pt is responding well. Will continue IV heparin and will not resume warfarin until pt is tolerating full liquid diet. (2) End-stage renal disease on hemodialysis: Code(s): N18.6 - End stage renal disease; Z99.2 - Dependence on renal dialysis Status: Acute Assessment and Plan: Pt is on home HD q.o.d. and self-cannulates. Nephrology was consulted form the ED, appreciate input. Will avoid magnesium-containing medications for bowel regimen. Pt to continue HD while inpatient per nephrology. (3) Subtherapeutic international normalized ratio (INR): Code(s): R79.1 - Abnormal coagulation profile Status: Acute Assessment and Plan: Pt on warfarin due to hx of pulmonary embolism in the setting of factor V Leidan deficiency. INR remains subtherapeutic at 1.9 today. Will continue to monitor. (4) Factor V Leiden: Onset Date: Unknown Code(s): D68.51 - Activated protein C resistance Status: Acute Assessment and Plan: Pt has known hx of FVL mutation. Pt is on warfarin [facility] [employer] [facility] which is currently being held due to NPO status and small bowel obstruction. Pt is on IV heparin. Will resume warfarin once pt is tolerating full liquid diet. (5) Chest pain: Qualifiers: Chest pain type: other chest pain Qualified Code(s): R07.89 - Other chest pain Code(s): R07.9 - Chest pain, unspecified Status: Resolved Assessment and Plan: Pt reported vague chest discomfort in the ED which has resolved completely and is presumed to be musculoskeletal in nature. ECG was performed and negative for acute ST change. Serial troponins were negative. Continue to monitor closely for development of new sx. (6) DVT prophylaxis: Code(s): Z29.9 - Encounter for prophylactic measures, unspecified Status: Acute Assessment and Plan: Pt is currently on therapeutic IV heparin. Encourage ambulation. (7) Hypothyroidism (acquired): Code(s): E03.9 - Hypothyroidism, unspecified Status: Acute Assessment and Plan: Continue IV levothyroxine. Clinically, pt appears euthyroid. Will transition to PO tomorrow. (8) Renovascular hypertension: Code(s): I15.0 - Renovascular hypertension Status: Acute Assessment and Plan: Pt is not on any antihypertensives prior to admission. Blood pressures reviewed today. Pt is normotensive at time of evaluation. Pt is tolerating PO intake. IV fluids discontinued. Will continue to monitor. Time Spent With Patient Time with patient: 15 - 25 minutes Subjective Date/time seen: 09/13/19 14:28 Interval history: Date of Service: 09/13/2019 Pt is seen and examined at bedside with Dr. Rodriguez. She is s/p hemodialysis this AM. She reports that she is feeling better today. She denies chest pain, abdominal pain, nausea, and vomiting. Pt reports 2 bowel movements this AM. She also endorses flatus. She is tolerating a clear liquid diet well. Pt was tearful about hemodialysis session today. Review of Systems Constitutional: Constitutional: Denies chills, Denies fatigue and Denies fever(s) Eyes: Eyes: Denies change in vision ENT: Denies dysphagia and Denies post nasal drip Cardiovascular: Cardiovascular: Denies chest pain Respiratory: Respiratory: Denies cough, Denies dyspnea and Denies wheezing Gastrointestinal: Gastrointestinal
[2019-09-13 19:17] LABS: Partial Thromboplastin Time > 200.0 SECONDS (22.3-36.8)
[2019-09-13] MEDS: ACETAMINOPHEN 325 MG TABLET 650 MG PO (19:40)
[2019-09-13] MEDS: SODIUM CHLORIDE 0.9% IV 500 ML 999 ML IV CONT (23:41)
[2019-09-14 00:15] VITALS: BP 96/47
[2019-09-14] MEDS: ACETAMINOPHEN 325 MG TABLET 650 MG PO (02:39)
[2019-09-14 03:29] LABS: INR 2.1; Prothrombin Time 23.2 Seconds (11.1-14.7)
[2019-09-14 03:38] LABS: Albumin Level 3.7 g/dL (3.5-5.1); Blood Urea Nitrogen 30 mg/dL (7-17); Calcium 7.4 mg/dL (8.4-10.2); Carbon Dioxide 25 mmol/L (22-30); Chloride 91 mmol/L (98-107); Estimated CRCL calculation 9 ml/min; Estimated Glomerular Filt Rate 5; Glucose 95 mg/dL (65-105); Magnesium 2.2 mg/dL (1.6-2.3); Phosphorus 6.1 mg/dL (2.5-4.5); Sodium 131 mmol/L (137-145)
[2019-09-14 03:42] LABS: Partial Thromboplastin Time 169.1 SECONDS (22.3-36.8)
[2019-09-14] MEDS: MORPHINE SULFATE 2 MG/ML INJ IV PUSH ×5 (04:00→23:59)
[2019-09-14] MEDS: LEVOTHYROXINE SODIUM 88 MCG TABLET PO (05:58)
[2019-09-14 06:00] VITALS: BP 88/41; PULSE 71; RESP 18; TEMP 36.3; O2SAT 97
[2019-09-14] MEDS: HEPARIN SOD/D5W 100 UNITS/ML 25,000 UNITS/250 ML BAG IV CONT (07:22)
--- NOTE | 2019-09-14 08:41 | PM.IMPN ---
Progress Note: A&P Assessment and Plan (1) SBO (small bowel obstruction): Onset Date: 09/11/19 <Amy Perkins PA-C - Last Filed: 09/14/19 16:33> Code(s): K56.609 - Unspecified intestinal obstruction, unspecified as to partial versus complete obstruction <Amy Perkins PA-C - Last Filed: 09/14/19 16:33> Status: Acute <Amy Perkins PA-C - Last Filed: 09/14/19 16:33> Assessment and Plan: Recurrent issue. Clinically, pt is improving and bowel function is returning slowly. Abdominal xray reviewed which shows improved bowel gas pattern. NG tube removed. Patient is on clear liquid diet. General surgery consulted from the ED, appreciate continued input. Conservative management for now. Miralax QD and suppository PRN. Pt tolerated a full liquid diet for lunch and reports bowel movement this AM. Pt will advance to soft renal diet this evening per general surgery. Will discontinue IV heparin and resume home dose of warfarin today. <Amy Perkins PA-C - Last Filed: 09/14/19 16:33> (2) End-stage renal disease on hemodialysis: Code(s): N18.6 - End stage renal disease; Z99.2 - Dependence on renal dialysis <Amy Perkins PA-C - Last Filed: 09/14/19 16:33> Status: Acute <Amy Perkins PA-C - Last Filed: 09/14/19 16:33> Assessment and Plan: Pt is on home HD q.o.d. and self-cannulates. Nephrology was consulted form the ED, appreciate input. Will avoid magnesium-containing medications for bowel regimen. Pt to continue HD while inpatient per nephrology. 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 INR is therapeutic at 2.1 today. Will continue to monitor. <BREN Rodriguez-C - Last Filed: 09/14/19 16:33> (4) Factor V Leiden: Onset Date: Unknown <BREN Rodriguez-C - Last Filed: 09/14/19 16:33> Code(s): D68.51 - Activated protein C resistance <BREN Rodriguez-C - Last Filed: 09/14/19 16:33> Status: Acute <BREN Rodriguez-C - Last Filed: 09/14/19 16:33> Assessment and Plan: Pt has known hx of FVL mutation. Will plan to discontinue IV heparin and resume warfarin at patient's regular dose. <BREN Rodriguez-C - Last Filed: 09/14/19 16:33> (5) Chest pain: Qualifiers: Chest pain type: other chest pain Qualified Code(s): R07.89 - Other chest pain <BREN Rodriguez-C - Last Filed: 09/14/19 16:33> Code(s): R07.9 - Chest pain, unspecified <BREN Rodriguez-C - Last Filed: 09/14/19 16:33> Status: Resolved <Amy Perkins PA-C - Last Filed: 09/14/19 16:33> Assessment and Plan: Pt reported vague chest discomfort in the ED which has resolved completely and is presumed to be musculoskeletal in nature. ECG was performed and negative for acute ST change. Serial troponins were negative. Pt denies chest pain and SOB. Continue to monitor closely for development of new sx. <Amy Perkins PA-C - Last Filed: 09/14/19 16:33> (6) DVT prophylaxis: Code(s): Z29.9 - Encounter for prophylactic measures, unspecified <Amy Perkins PA-C - Last Filed: 09/14/19 16:33> Status: Acute <Amy Perkins PA-C - Last Filed: 09/14/19 16:33> Assessment and Plan: Pt is currently on therapeutic IV heparin and which will be discontinued and home dose of warfarin will be resumed. Encourage ambulation. <Amy Perkins PA-C - Last Filed: 09/14/19 16:33> (7) Hypothyroidi
[2019-09-14] MEDS: FAMOTIDINE 20 MG/2 ML VIAL IV PUSH (08:59)
[2019-09-14] MEDS: polyethylene glycoL 3350 17 GM POWD.PACK PO (08:59)
[2019-09-14 09:30] VITALS: BP 86/49; PULSE 76
--- NOTE | 2019-09-14 10:19 | PM.PNGS ---
Progress Note: A&P Assessment and Plan (1) SBO (small bowel obstruction): Onset Date: 09/11/19 Code(s): K56.609 - Unspecified intestinal obstruction, unspecified as to partial versus complete obstruction Status: Acute Assessment and Plan: This seems to be resolving. Will advance to a full liquid diet this morning. May advance diet as tolerated to soft renal diet if patient has a BM today. Changed the MiraLax from p.r.n. to scheduled daily. If the patient has a bowel movement today and is tolerating a full liquid diet later today, then she could be restarted on her warfarin. Encouraged to walk in the halls. (2) Factor V Leiden: Onset Date: Unknown Code(s): D68.51 - Activated protein C resistance Status: Acute Assessment and Plan: Currently on heparin drip until tolerating at least a full liquid diet. (3) End-stage renal disease on hemodialysis: Code(s): N18.6 - End stage renal disease; Z99.2 - Dependence on renal dialysis Status: Acute Assessment and Plan: Will avoid magnesium containing medications for bowel regimen and will stick to MiraLax or lactulose for bowel stimulation once she is tolerating a diet. Discussed this with the patient and she states she is not currently on a bowel regimen at home. We discussed options moving forward including MiraLax daily and if she does not have a bowel movement for more than 48 hours, then also using a Dulcolax suppository if needed. Subjective Subjective Date/Time Seen: 09/14/19 09:00 Patient reports: no new complaints, feels better and flatus Interval history: Patient seen and examined. Not scheduled for dialysis today. Reports feeling well today with no new complaints. Reports flat is but no BM since yesterday morning. Did not receive MiraLax yet this morning. No other complaints. Review of Systems Review of Systems: All systems reviewed & are unremarkable except as noted in HPI and below Gastrointestinal: Gastrointestinal: Reports as per HPI, Denies abdominal pain, Denies bloating, Denies nausea and Denies vomiting Exam Const: General: cooperative, no acute distress, alert and awake Orientation/consciousness: patient oriented x3 GI: Inspection: non-distended and scar (lower midline scar with a deep indentation.) GI Palp: Yes Soft to palpation, No Tenderness to palpation present (GI), No Guarding due to palpation present (GI) and No Rebound tenderness present Auscultation: normal bowel sounds Neuro: General: moves all extremities and no focal motor deficits Psych: Mental Status: mental status grossly normal Affect: normal affect Attitude: cooperative Objective Data Vital Signs Vital Signs: Vital Signs - 24 hr 09/13/19 10:30 09/13/19 10:45 09/13/19 11:00 Temperature Pulse Rate 74 87 78 Pulse Rate [Radial] Respiratory Rate Blood Pressure 125/66 107/54 L 110/56 L Pulse Oximetry 09/13/19 11:15 09/13/19 11:30 09/13/19 11:45 Temperature Pulse Rate 83 92 87 Pulse Rate [Radial] Respiratory Rate Blood Pressure 118/60 105/66 118/65 Pulse Oximetry 09/13/19 12:00 09/13/19 12:15 09/13/19 12:30 Temperature Pulse Rate 96 92 92 Pulse Rate [Radial] Respiratory Rate Blood Pressure 152/72 H 129/68 147/69 H Pulse Oximetry 09/13/19 12:45 09/13/19 13:00 09/13/19 14:00 Temperature 36.7 C 36.6 C Pulse Rate 90 112 H Pulse Rate [Radial] 90 Respiratory Rate 16 Blood Pressure 150/75 H 114/67 Pulse Oximetry 98 09/13/19 22:00 09/13/19 23:08 09/14/19 00:15 Temperature 36.1 C L Pulse Rate 84 Pulse Rate [Radial] Respiratory Rate 20 Blood Pressure 85/32 L 89/41 L 96/47 L Pulse Oximetry 94 09/14/19 06:00 Temperature 36.3 C L Pulse Rate 71 Pulse Rate [Radial] Respiratory Rate 18 Blood Pressure 88/41 L Pulse Oximetry 97 Intake/Output Intake/Output: Intake & Output 09/11/19 09/12/19 09/13/19 09/14/19 23:59 23:59 23:59 23
--- NOTE | 2019-09-14 10:55 | PM.PNNEP ---
Progress Note: A&P Assessment and Plan (1) End-stage renal disease on hemodialysis: Code(s): N18.6 - End stage renal disease; Z99.2 - Dependence on renal dialysis Status: Acute Assessment and Plan: The patient is on home hemodialysis. She is eager for discharge and she can do her dialysis at home. (2) SBO (small bowel obstruction): Onset Date: 09/11/19 Code(s): K56.609 - Unspecified intestinal obstruction, unspecified as to partial versus complete obstruction Status: Acute Assessment and Plan: The patient has a small-bowel obstruction. NG is out. Hopefully will tolerate food. (3) Hypothyroidism (acquired): Code(s): E03.9 - Hypothyroidism, unspecified Status: Acute Assessment and Plan: She is on thyroid supplements. (4) Kidney transplant status: Code(s): Z94.0 - Kidney transplant status Status: Acute Assessment and Plan: She has had a kidney transplant. (5) Factor V Leiden: Onset Date: Unknown Code(s): D68.51 - Activated protein C resistance Status: Acute Assessment and Plan: She is on Coumadin for this. Has had clotting events in the past. Currently on heparin since she was NPO. INR is 2.0. The plan is to stop the heparin incenter home if okay with surgery Discussed with Dr. Webster and and TISH aPdron Subjective Date/time seen: 09/14/19 10:55 Interval history: Patient is feeling better today. Had a bowel movement this morning. NG tube came out last night. She feels great. Drinking coffee this morning. Review of Systems Cardiovascular: Cardiovascular: Reports no additional cardiovascular complaints Respiratory: Respiratory: Reports no additional respiratory complaints Gastrointestinal: Gastrointestinal: Reports no additional gastrointestinal complaints Genitourinary: Genitourinary: Reports no additional female genitourinary complaints Exam Narrative: Exam Narrative: Well developed well-nourished in no acute distress Lungs clear to auscultation Heart regular without rub Abdomen bowel sounds positive soft Extremities minimal edema Skin no rash or subcu nodules Objective Data Vital Signs Vital Signs: Vital Signs - 24 hr 09/13/19 11:00 09/13/19 11:15 09/13/19 11:30 Temperature Pulse Rate 78 83 92 Pulse Rate [Radial] Respiratory Rate Blood Pressure 110/56 L 118/60 105/66 Pulse Oximetry 09/13/19 11:45 09/13/19 12:00 09/13/19 12:15 Temperature Pulse Rate 87 96 92 Pulse Rate [Radial] Respiratory Rate Blood Pressure 118/65 152/72 H 129/68 Pulse Oximetry 09/13/19 12:30 09/13/19 12:45 09/13/19 13:00 Temperature 36.7 C Pulse Rate 92 90 Pulse Rate [Radial] 90 Respiratory Rate Blood Pressure 147/69 H 150/75 H Pulse Oximetry 09/13/19 14:00 09/13/19 22:00 09/13/19 23:08 Temperature 36.6 C 36.1 C L Pulse Rate 112 H 84 Pulse Rate [Radial] Respiratory Rate 16 20 Blood Pressure 114/67 85/32 L 89/41 L Pulse Oximetry 98 94 09/14/19 00:15 09/14/19 06:00 Temperature 36.3 C L Pulse Rate 71 Pulse Rate [Radial] Respiratory Rate 18 Blood Pressure 96/47 L 88/41 L Pulse Oximetry 97 Intake/Output Intake/Output: Intake & Output 09/11/19 09/12/19 09/13/19 09/14/19 23:59 23:59 23:59 23:59 Intake Total 1999 1605 016 6517 Output Total 150 750 Balance 1850 269 138 7301 Meds/Results Medications: Active Medications Generic Name Dose Route Start Last Admin Trade Name Freq PRN Reason Stop Dose Admin Acetaminophen 650 mg 09/13/19 19:30 09/14/19 02:39 Tylenol Tablet PO 650 mg Q6H PRN Administration Mild Pain (1-3) or Fever Benzocaine 1 lozenge 09/12/19 14:00 09/13/19 04:27 Chloraseptic Lozenge PO 1 lozenge PRN PRN Administration Sore Throat Bisacodyl 10 mg 09/12/19 14:19 Dulcolax Suppository RECTAL QAM PRN Constipation Budesonide/Formoterol Fumarate 2
[2019-09-14 11:54] LABS: Hematocrit 28.6 % (37.0-47.0); Hemoglobin 9.1 g/dL (12.0-15.0); Immature Platelet Fraction Pct 3.7 % (0.9-11.2); Mean Corpuscular HGB Conc 31.8 g/dl (32-36); Mean Corpuscular Hemoglobin 33.8 pg (26-34); Mean Corpuscular Volume 106.3 fl (80-100); Mean Platelet Volume 10.3 fl (7.4-10.4); Platelet Count Result 70 k/mm3 (150-375); Red Blood Count 2.69 M/mm3 (4.2-5.4); Red Cell Distribution Width 13.8 % (11.5-14.5); White Blood Count 2.4 K/mm3 (4.5-10.0)
[2019-09-14 12:05] LABS: Partial Thromboplastin Time 78.7 SECONDS (22.3-36.8)
[2019-09-14] MEDS: CYANOCOBALAMIN INJ 1,000 MCG/ML VIAL 1000 MCG IM (13:32)
[2019-09-14 14:00] VITALS: BP 104/50; PULSE 75; RESP 16; TEMP 36; O2SAT 95
[2019-09-14] MEDS: CLONAZEPAM 0.5 MG TAB PO (17:15)
[2019-09-14 22:00] VITALS: BP 95/49; PULSE 78; RESP 18; TEMP 36.1; O2SAT 96
[2019-09-15] VITALS (19 sets, daily range): BP systolic 83–112; BP diastolic 47–61; PULSE 71–100; RESP 16–18; TEMP 36.1–37; O2SAT 96–98
[2019-09-15 05:53] LABS: Hematocrit 25.2 % (37.0-47.0); Hemoglobin 8.1 g/dL (12.0-15.0); Immature Platelet Fraction Pct 3.9 % (0.9-11.2); Mean Corpuscular HGB Conc 32.1 g/dl (32-36); Mean Corpuscular Hemoglobin 34.3 pg (26-34); Mean Corpuscular Volume 106.8 fl (80-100); Mean Platelet Volume 11.3 fl (7.4-10.4); Platelet Count Result 68 k/mm3 (150-375); Red Blood Count 2.36 M/mm3 (4.2-5.4); Red Cell Distribution Width 13.7 % (11.5-14.5); White Blood Count 2.3 K/mm3 (4.5-10.0)
[2019-09-15 06:12] LABS: Prothrombin Time 22.1 Seconds (11.1-14.7)
[2019-09-15 06:37] LABS: Albumin Level 3.6 g/dL (3.5-5.1); Blood Urea Nitrogen 37 mg/dL (7-17); Calcium 7.3 mg/dL (8.4-10.2); Carbon Dioxide 26 mmol/L (22-30); Chloride 91 mmol/L (98-107); Estimated CRCL calculation 7 ml/min; Estimated Glomerular Filt Rate 4; Glucose 115 mg/dL (65-105); Magnesium 2.4 mg/dL (1.6-2.3); Phosphorus 6.4 mg/dL (2.5-4.5); Potassium 3.8 mmol/L (3.4-5.0); Sodium 130 mmol/L (137-145)
[2019-09-15] MEDS: LEVOTHYROXINE SODIUM 88 MCG TABLET PO (06:50)
[2019-09-15] MEDS: MORPHINE SULFATE 2 MG/ML INJ IV PUSH (06:52)
[2019-09-15] MEDS: CLONAZEPAM 0.5 MG TAB PO (08:07)
[2019-09-15] MEDS: PANTOPRAZOLE SOD SESQUIHYDRATE 20 MG TAB PO (08:07)
[2019-09-15] MEDS: polyethylene glycoL 3350 17 GM POWD.PACK PO (08:09)
--- NOTE | 2019-09-15 09:21 | PC.NURSE ---
To dialysis per bed.
--- NOTE | 2019-09-15 13:29 | PM.IMPN ---
Progress Note: A&P Assessment and Plan (1) SBO (small bowel obstruction): Onset Date: 09/11/19 <Amy Perkins PA-C - Last Filed: 09/15/19 13:53> Code(s): K56.609 - Unspecified intestinal obstruction, unspecified as to partial versus complete obstruction <Amy Perkins PA-C - Last Filed: 09/15/19 13:53> Status: Acute <Amy Perkins PA-C - Last Filed: 09/15/19 13:53> Assessment and Plan: Recurrent issue. Clinically, pt is improving and bowel function is returning. Abdominal xray reviewed which shows improved bowel gas pattern. NG tube removed. Patient is on clear liquid diet. General surgery consulted from the ED, appreciate continued input. Conservative management for now. Miralax QD and suppository PRN. Pt tolerated soft renal diet for dinner last night and breakfast this AM. She reports a soft BM today and did not require suppository. She denies nausea, vomiting, and abdominal pain. I discussed her care with TISH Walden with general surgery, who advised that discharge is fine from a general surgery standpoint if she is tolerating a soft diet and bowel function is appropriate. Additional general surgery instructions (per [facility] and chart review of Dr. Godwin's notes) include: -Slow advancement to regular renal diet over the next few days. -Continue miralax daily -Begin metamucil daily to increase fiber content -Try fruits and vegetables blended into the form of a smoothie -Use a suppository if there is no BM for 24 hr <Amy Perkins PA-C - Last Filed: 09/15/19 13:53> (2) End-stage renal disease on hemodialysis: Code(s): N18.6 - End stage renal disease; Z99.2 - Dependence on renal dialysis <Amy Perkins PA-C - Last Filed: 09/15/19 13:53> Status: Acute <Amy Perkins PA-C - Last Filed: 09/15/19 13:53> Assessment and Plan: Pt is on home HD q.o.d. and self-cannulates. Nephrology was consulted form the ED, appreciate input. Will avoid magnesium-containing medications for bowel regimen. Pt to continue HD while inpatient per nephrology. 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 INR is therapeutic at 2.0 today. Will continue to monitor. <BREN Rodriguez-C - Last Filed: 09/15/19 13:53> (4) Factor V Leiden: Onset Date: Unknown <BREN Rodriguez-C - Last Filed: 09/15/19 13:53> Code(s): D68.51 - Activated protein C resistance <BREN Rodriguez-C - Last Filed: 09/15/19 13:53> Status: Acute <BREN Rodriguez-C - Last Filed: 09/15/19 13:53> Assessment and Plan: Pt has known hx of FVL mutation. Heparin was discontinued and pt is therapeutic on her [employer] dose of warfarin today. <BREN Rodriguez-C - Last Filed: 09/15/19 13:53> (5) Chest pain: Qualifiers: Chest pain type: other chest pain Qualified Code(s): R07.89 - Other chest pain <Amy Perkins PA-C - Last Filed: 09/15/19 13:53> Code(s): R07.9 - Chest pain, unspecified <Amy Riccivivian PA-C - Last Filed: 09/15/19 13:53> Status: Resolved <Amy Riccivivian PA-C - Last Filed: 09/15/19 13:53> Assessment and Plan: Pt reported vague chest discomfort in the ED which has resolved completely and is presumed to be musculoskeletal in nature. ECG was performed and negative for acute ST change. Serial troponins were negative. Pt denies chest pain and SOB. Continue to monitor closely for development of new sx. <Amy Perkins PA-C - Last
--- NOTE | 2019-09-15 14:12 | PC.NURSE ---
Patient return from dialysis at 1400.
--- NOTE | 2019-09-15 14:27 | PCCCNOTE ---
On 09/15/19, the student, [Tahira Rahman ], provided care and completed [facility] documentation on this patient. I have reviewed the student's documentation and agree with the findings.
--- NOTE | 2019-09-15 14:31 | PM.PNGS ---
Progress Note: A&P Assessment and Plan (1) SBO (small bowel obstruction): Onset Date: 09/11/19 Code(s): K56.609 - Unspecified intestinal obstruction, unspecified as to partial versus complete obstruction Status: Acute Assessment and Plan: Resolve with conservative management and the patient is now tolerating a soft renal diet. Okay from a surgical standpoint to discharge patient today. Follow up only on an as-needed basis. Continue eating a soft diet and slowly advance to your regular renal diet as tolerated if bowels continue to move well. Would recommend daily MiraLax and a p.r.n. Dulcolax suppository if no bowel movement in greater than 24 hours. (2) Factor V Leiden: Onset Date: Unknown Code(s): D68.51 - Activated protein C resistance Status: Acute (3) End-stage renal disease on hemodialysis: Code(s): N18.6 - End stage renal disease; Z99.2 - Dependence on renal dialysis Status: Acute Subjective Subjective Date/Time Seen: 09/15/19 14:31 Patient reports: no new complaints, feels better, flatus and bowel movement (x1 today) Interval history: Patient seen and examined. Reports feeling well today. No new complaints. Denies any nausea, vomiting, or bloating. Still tolerating a soft diet. Review of Systems Review of Systems: All systems reviewed & are unremarkable except as noted in HPI and below Exam Const: General: cooperative, no acute distress, alert and awake Orientation/consciousness: patient oriented x3 GI: Inspection: normal to inspection, non-distended and scar (lower midline scar with a deep indentation.) GI Palp: Yes Soft to palpation, No Tenderness to palpation present (GI), No Guarding due to palpation present (GI) and No Rebound tenderness present Auscultation: normal bowel sounds Rectal Exam: deferred Psych: Appearance: grossly normal Mental Status: mental status grossly normal Attitude: cooperative Objective Data Vital Signs Vital Signs: Vital Signs - 24 hr 09/14/19 22:00 09/15/19 06:00 09/15/19 09:30 Temperature 36.1 C L 36.2 C L 36.6 C Pulse Rate 78 77 84 Respiratory Rate 18 18 16 Blood Pressure 95/49 L 89/47 L 99/53 L Pulse Oximetry 96 98 09/15/19 09:41 09/15/19 10:00 09/15/19 10:15 Temperature Pulse Rate 78 75 77 Respiratory Rate Blood Pressure 97/57 L 101/55 L 83/50 L Pulse Oximetry 09/15/19 10:30 09/15/19 10:52 09/15/19 11:00 Temperature Pulse Rate 74 76 77 Respiratory Rate Blood Pressure 95/57 L 94/52 L 106/58 L Pulse Oximetry 09/15/19 11:15 09/15/19 11:30 09/15/19 11:45 Temperature Pulse Rate 74 76 74 Respiratory Rate Blood Pressure 92/50 L 88/48 L 92/50 L Pulse Oximetry 09/15/19 12:02 09/15/19 12:15 09/15/19 12:30 Temperature Pulse Rate 79 75 74 Respiratory Rate Blood Pressure 107/58 L 95/57 L 99/54 L Pulse Oximetry 09/15/19 12:45 09/15/19 13:00 09/15/19 13:16 Temperature Pulse Rate 71 71 76 Respiratory Rate Blood Pressure 97/52 L 104/57 L 99/51 L Pulse Oximetry 09/15/19 13:25 Temperature 36.4 C Pulse Rate 78 Respiratory Rate 16 Blood Pressure 108/57 L Pulse Oximetry Intake/Output Intake/Output: Intake & Output 09/12/19 09/13/19 09/14/19 09/15/19 23:59 23:59 23:59 23:59 Intake Total 9881 703 5518.6 1040 Output Total 750 90 Balance 282 913 8106.6 950 Meds/Results Medications: Active Medications Generic Name Dose Route Start Last Admin Trade Name Freq PRN Reason Stop Dose Admin Acetaminophen 650 mg 09/13/19 19:30 09/14/19 02:39 Tylenol Tablet PO 650 mg Q6H PRN Administration Mild Pain (1-3) or Fever Benzocaine 1 lozenge 09/12/19 14:00 09/13/19 04:27 Chloraseptic Lozenge PO 1 lozenge PRN PRN Administration Sore Throat Bisacodyl 10 mg 09/12/19 14:19 Dulcolax Suppository RECTAL QAM PRN Constipation Budesonide/Formoterol Fumarate 2 puff 09/11/19 20:00 09/15/19 08:23
--- NOTE | 2019-09-15 14:53 | PM.PNNEP ---
Progress Note: A&P Assessment and Plan (1) End-stage renal disease on hemodialysis: Code(s): N18.6 - End stage renal disease; Z99.2 - Dependence on renal dialysis Status: Acute Assessment and Plan: The patient is on home hemodialysis. Getting dialysis today. We are taking a little bit of fluid off. We can't take much off at 1 time because of her low blood pressure. She is going to treat herself at home several days in a row to get the rest of the fluid off. (2) SBO (small bowel obstruction): Onset Date: 09/11/19 Code(s): K56.609 - Unspecified intestinal obstruction, unspecified as to partial versus complete obstruction Status: Acute Assessment and Plan: The patient has a small-bowel obstruction. This is resolved. She is eating again. (3) Hypothyroidism (acquired): Code(s): E03.9 - Hypothyroidism, unspecified Status: Acute Assessment and Plan: She is on thyroid supplements. (4) Kidney transplant status: Code(s): Z94.0 - Kidney transplant status Status: Acute Assessment and Plan: She has had a kidney transplant. (5) Factor V Leiden: Onset Date: Unknown Code(s): D68.51 - Activated protein C resistance Status: Acute Assessment and Plan: She is on Coumadin for this. Subjective Date/time seen: 09/15/19 14:53 Interval history: Patient is feeling better today. Having bowel movements. Ate well. On dialysis and tolerating it well. She was seen at 11:05 a.m. Review of Systems Cardiovascular: Cardiovascular: Reports no additional cardiovascular complaints Respiratory: Respiratory: Reports no additional respiratory complaints Gastrointestinal: Gastrointestinal: Reports no additional gastrointestinal complaints Genitourinary: Genitourinary: Reports no additional female genitourinary complaints Exam Narrative: Exam Narrative: Well developed well-nourished in no acute distress Lungs clear to auscultation Heart regular without rub or gallop Abdomen bowel sounds positive soft Extremities minimal edema Skin no rash Objective Data Vital Signs Vital Signs: Vital Signs - 24 hr 09/14/19 22:00 09/15/19 06:00 09/15/19 09:30 Temperature 36.1 C L 36.2 C L 36.6 C Pulse Rate 78 77 84 Respiratory Rate 18 18 16 Blood Pressure 95/49 L 89/47 L 99/53 L Pulse Oximetry 96 98 09/15/19 09:41 09/15/19 10:00 09/15/19 10:15 Temperature Pulse Rate 78 75 77 Respiratory Rate Blood Pressure 97/57 L 101/55 L 83/50 L Pulse Oximetry 09/15/19 10:30 09/15/19 10:52 09/15/19 11:00 Temperature Pulse Rate 74 76 77 Respiratory Rate Blood Pressure 95/57 L 94/52 L 106/58 L Pulse Oximetry 09/15/19 11:15 09/15/19 11:30 09/15/19 11:45 Temperature Pulse Rate 74 76 74 Respiratory Rate Blood Pressure 92/50 L 88/48 L 92/50 L Pulse Oximetry 09/15/19 12:02 09/15/19 12:15 09/15/19 12:30 Temperature Pulse Rate 79 75 74 Respiratory Rate Blood Pressure 107/58 L 95/57 L 99/54 L Pulse Oximetry 09/15/19 12:45 09/15/19 13:00 09/15/19 13:16 Temperature Pulse Rate 71 71 76 Respiratory Rate Blood Pressure 97/52 L 104/57 L 99/51 L Pulse Oximetry 09/15/19 13:25 Temperature 36.4 C Pulse Rate 78 Respiratory Rate 16 Blood Pressure 108/57 L Pulse Oximetry Intake/Output Intake/Output: Intake & Output 09/12/19 09/13/19 09/14/19 09/15/19 23:59 23:59 23:59 23:59 Intake Total 5900 375 0070.6 1040 Output Total 750 90 Balance 644 893 5479.6 950 Meds/Results Medications: Active Medications Generic Name Dose Route Start Last Admin Trade Name Freq PRN Reason Stop Dose Admin Acetaminophen 650 mg 09/13/19 19:30 09/14/19 02:39 Tylenol Tablet PO 650 mg Q6H PRN Administration Mild Pain (1-3) or Fever Benzocaine 1 lozenge 09/12/19 14:00 09/13/19 04:27 Chloraseptic Lozenge PO 1 lozenge PRN PRN Administration Sor
--- NOTE | 2019-09-15 16:47 | PM.DS ---
DS: Diagnosis Admitting Diagnosis Admitting Diagnosis: Small Bowel Obstruction <Amy Perkins PA-C - Last Filed: 09/15/19 17:00> DS: Summary Hospital Course Reason for hospitalization: Ms. Jaramillo is a 44 y.o. female with PMH significant for ESRD on HD, who presented to the ED with c/o gradually worsening, waxing and waning umbilical abdominal pain. Her PMH is significant for multiple abdominal surgeries complicated by multiple small bowel obstructions in the past. CT abd/pelvis was performed which revealed dilated loops of small bowel in right abdomen with transition point, consistent with small bowel obstruction. She was admitted for small bowel obstruction, made NPO, NG tube was placed, and she was started on IV fluids, IV antiemetic, and IV pain medication. <Amy Perkins PA-C - Last Filed: 09/15/19 17:00> Status at Discharge Functional status at discharge: independent ambulation <Amy Perkins PA-C - Last Filed: 09/15/19 17:00> Overall status at discharge: patient is progressing back to baseline <Amy Perkins PA-C - Last Filed: 09/15/19 17:00> Time Spent with Patient Time attestation: Total time spent providing and/or coordinating discharge services: 35 minutes <Amy Perkins PA-C - Last Filed: 09/15/19 17:00> Time spent: Greater than 30 minutes <NASRIN Rodriguez Last Filed: 09/15/19 17:00> Exam Const: General: comfortable, no acute distress and alert; No confusion <NASRIN Rodriguez Last Filed: 09/15/19 17:00> Nutritional Appearance: average body habitus <NASRIN Rodriguez Last Filed: 09/15/19 17:00> Orientation/consciousness: No confusion <NASRIN Rodriguez Last Filed: 09/15/19 17:00> HENMT: Head: normocephalic and atraumatic <Amy Perkins PA-C - Last Filed: 09/15/19 17:00> Mouth: Yes moist mucous membranes <Amy Riccivivian NASRIN - Last Filed: 09/15/19 17:00> Resp: Effort & Inspection: normal respiratory effort <Amy RicciBREN parkRoxann Trevino Last Filed: 09/15/19 17:00> Auscultation: clear to auscultation bilaterally, no rales, no rhonchi and no wheezes <Amy RicciBREN parkRoxann - Last Filed: 09/15/19 17:00> Cardio: Rate: regular rate <Amy RicciBREN parkRoxann Trevino Last Filed: 09/15/19 17:00> Rhythm: regular rhythm <Amy RicciBREN parkRoxann Trevino Filed: 09/15/19 17:00> Heart sounds: S1 normal heart sound present and S2 normal heart sound present <Amy Shankar AsajeffreynannetteBREN parkRoxann Trevino Last Filed: 09/15/19 17:00> Bruits: no carotid bruits <Amy RicciBREN parkRoxann Last Filed: 09/15/19 17:00> GI: GI Palp: No abdominal tenderness, Yes Soft to palpation, No Tenderness to palpation present (GI) and No Guarding due to palpation present (GI) <Amy Shankar Maddie NASRIN Last Filed: 09/15/19 17:00> Auscultation: normal bowel sounds <Amy Shankar BREN PerkinsRoxann Trevino Last Filed: 09/15/19 17:00> Skin: General skin exam: normal color and no rashes or lesions noted <Amy Shankar BREN PerkinsRoxann Trevino Last Filed: 09/15/19 17:00> Neuro: General: No confusion <Amy ChristineBREN EsquedaRoxann Last Filed: 09/15/19 17:00> Cranial nerves: Yes facial symmetry <Amy ChristineGEOFFREY EsquedaNehal Trevino Last Filed: 09/15/19 17:00> Speech: normal speech and No Abnormal speech present <Amy BREN CarrascoRoxann Trevino Last Filed: 09/15/19 17:00> Extrem: General: full ROM and no edema <Amy Perkins PA-C - Last Filed: 09/15/19 17:00> Psych: Appearance: grossly normal <Amy Perkins PA-C - Last Filed: 09/15/19 17:00> Speech and movement: Normal speech and movement present <Amy Perkins PA-C - Last Filed: 09/15/19 17:00> Affect: normal affect <Amy Perkins PA-C - Last Filed: 09/15/19 17:00> Thought process: Normal thought process present <NASRIN Rodriguez Last Filed: 09/15/19 17:00> DS: Data Data Completed and Pending Labs on day of discharge: Labs from last 24 hours 09/15/19 09/15/19 09/15/19 04:54 04:54 04:5
== END 2019-09-15 15:50 | disposition home or self-care (01) | DRG 388 ==
LOC: ANHED 10:39 → ANHIMU 12:39 → ANH2MED 09-12 16:03
PROVIDERS: Family Medicine; Internal Medicine Nephrology; Physician Assistant; Admitting Provider Hospitalist; Emergency Provider Emergency Medicine; PCP Family Medicine; Visit Provider Internal Medicine
DX: K56.609 Unspecified intestinal obstruction, unspecified as to partial versus complete obstruction (principal); N18.6 End stage renal disease; D61.818 Other pancytopenia; I13.2 Hypertensive heart and chronic kidney disease with heart failure and with stage 5 chronic kidney disease, or end stage renal disease; I50.32 Chronic diastolic (congestive) heart failure; Z94.0 Kidney transplant status; D68.51 Activated protein C resistance; E53.8 Deficiency of other specified B group vitamins; D63.1 Anemia in chronic kidney disease; F41.9 Anxiety disorder, unspecified; E03.9 Hypothyroidism, unspecified; F42.9 Obsessive-compulsive disorder, unspecified; R79.1 Abnormal coagulation profile; K21.9 Gastro-esophageal reflux disease without esophagitis; F32.9 Major depressive disorder, single episode, unspecified; E55.9 Vitamin D deficiency, unspecified; J45.909 Unspecified asthma, uncomplicated; Z95.2 Presence of prosthetic heart valve; Z86.711 Personal history of pulmonary embolism; Z79.01 Long term (current) use of anticoagulants; Z99.2 Dependence on renal dialysis; Z90.49 Acquired absence of other specified parts of digestive tract; Z87.891 Personal history of nicotine dependence
CPT/HCPCS: 36415; 71046; 74019; 74177; 80048; 80053; 80069; 82040; 83690; 83735; 84100; 84443; 84484; 85025; 85027; 85055; 85610; 85730; 87081; 93005; 94640; 96361; 96365; 96366; 96374; 96375; 96376; 99285; A9270; G0257; G0378; J0131; J1644; J2270; J2405; J2765; J3420; J7030; J7040; Q4081; Q9967

== ENCOUNTER 2020-03-18 16:03 | Inpatient (IN) | payer MEDICARE, MEDICAID, SELFPAY ==
--- NOTE | ~2020-03-18 | XR_ITS ---
EXAMINATION: XR abdomen NG/feed tube insert EXAM DATE: 03/18/2020 18:57 INDICATION: Gastric tube placement. Small bowel obstruction. TECHNIQUE: Frontal projection(s) of the abdomen for interpretation. Comparison is made to prior exami nation from 10/11/2019. FINDINGS: Feeding tube tip and side-port overlying expected position of gastric antrum and body resp ectively, expected position. Moderately dilated small bowel seen on CT not well appreciated on this x -ray, likely due to being fluid-filled. Sternotomy wires. There are cholecystectomy clips. There is no organomegaly. Calcified left pelvic transplant kidney. IMPRESSION: Feeding tube in position. Reviewed, dictated and finalized at location A. IMPRESSION: Feeding tube in position.
--- NOTE | ~2020-03-18 | CT_ITS ---
EXAMINATION: CT abdomen pelvis wo con EXAM DATE: 03/18/2020 16:48 INDICATION: Nausea and vomiting. History small bowel obstruction. TECHNIQUE: Spiral CT of the abdomen and pelvis was performed without contrast. Axial, coronal and s agittal images were reviewed. The dose-length product (DLP) for this examination was 517.42 mGy-cm. The exposure was tailored according to patient size (auto mA exposure control), and iterative recons truction (ASIR) was used as additional dose reduction technique. Comparison is made to prior examinat ion from 09/11/2019. FINDINGS: Multiple loops of moderately dilated jejunum, with some tenting identified in the right low er quadrant. Findings consistent with at least partial small bowel obstruction. Small amount of colon ic fluid. No free intraperitoneal air. Patient has severely atrophic [place] kidneys and a left pelvic transplant with extensive calcification. Cholecystectomy. Liver, spleen, adrenal glands and pancreas are unremarkable. Uterus is unremarkable. Bladder is collapsed. Basilar subsegmental atelectasis. Sternotomy wires and cardiac pacemaker leads . There are no osteoblastic or osteolytic lesions identified. Compared to September, there is very similar appearance to the bowel on that exam. Please correlate wi th patient's prior treatment, course. IMPRESSION: 1. Findings consistent with at least partial small bowel obstruction. 2. Chronic findings above. Reviewed, dictated and finalized at location A.
--- NOTE | ~2020-03-18 | XR_ITS ---
EXAMINATION: XR UGI water soluble w sbs DATE: 03/19/2020 13:31 INDICATION: Recurrent small bowel obstruction. Abdominal pain. TECHNIQUE: Water-soluble contrast was administered due to the patient's existing nasogastric tube. Fl uoroscopic images of the stomach, and proximal small bowel were obtained. Additional overhead radiogr aphs were obtained during the transit through the small bowel. A total of 2 overhead radiographs and 22 fluoroscopic images were obtained. Fluoroscopy exposure time was 0.6 minutes. COMPARISON: CT dated 03/18/2020 FINDINGS: Enginehouse Brakeman image demonstrates nasogastric tube in the stomach as well as cholecystectomy clips in right up per quadrant. Median sternotomy wires and retained epicardial pacemaker leads project over the base o f the heart. Stomach is normal with no hiatal hernia. Approximately 1 cm diameter diverticulum is see n arising from the fourth portion of the duodenum. On the fluoroscopic images there is a active peris talsis with normal normal caliber and mucosal fold pattern in the duodenum and proximal jejunum. Transit time from the stomach to proximal colon was less than 30 minutes with contrast seen extending throughout the colon to the rectum on the 30 minute image. Terminal ileum is normal. There are no fr ankly dilated loops of small bowel. There are couple short segments of persistent narrowing in the il eum of the right lower quadrant with similar configuration as seen on the prior CT) with adjacent pos toperative changes suggesting a likely fixed stricture. Incidentally noted is a calcified transplant kidney in the left hemipelvis. IMPRESSION: 1. Suggestion of fixed strictures along a couple segments of distal ileum in the right lower quadrant but without significant obstruction with no frankly dilated loops of small bowel and with contrast r eaching the colon in less than 30 minutes. Reviewed, dictated and finalized at location A. IMPRESSION: 1. Suggestion of fixed strictures along a couple segments of distal ileum in th e right lower quadrant but without significant obstruction with no frankly dila cindy loops of small bowel and with contrast reaching the colon in less than 30 m inutes.
--- NOTE | ~2020-03-18 | XR_ITS ---
EXAMINATION: XR abdomen obstructive series DATE: 03/19/2020 08:00 INDICATION: Small bowel obstruction. TECHNIQUE: Frontal supine and upright views of the abdomen were obtained. COMPARISON: 03/18/2020 FINDINGS: Nasogastric tube tip at the gastric antrum with proximal side-port in the body of the stomach. Cholec ystectomy clips in right upper quadrant. Small amount of gas within the stomach, colon and a couple l oops of small bowel. No dilated gas-filled bowel to suggest obstruction. No pneumatosis or free intra peritoneal gas. Calcified transplant kidney in the left hemipelvis. Multiple surgical clips in the ri ght hemipelvis likely related to prior inguinal hernia repair. Linear discoid atelectasis/scarring in the right lower lobe. Heart size is normal. Median sternotomy wires and mediastinal surgical clips a re seen, likely from prior coronary artery bypass grafting. Retained epicardial pacemaker leads. IMPRESSION: 1. No free intraperitoneal gas or dilated gas-filled loops of bowel to suggest obstruction. Reviewed, dictated and finalized at location A.
[2020-03-18 16:07] VITALS: BP 122/75; PULSE 101; RESP 18; TEMP 36.8; O2SAT 99
--- NOTE | 2020-03-18 16:22 | ED.GENADULT ---
HPI - General Adult General Chief complaint: Abdominal Pain Stated complaint: abd pain, hx SBO Time Seen by Provider: 03/18/20 16:21 Source: patient Mode of arrival: ambulatory Limitations: no limitations History of Present Illness HPI narrative: 24-year-old female here for evaluation of possible small bowel obstruction. Patient has a long medical history of multiple renal transplants and bowel surgery. She has had numerous bowel obstructions. She states that for the past 3 days she has been vomiting and had small amounts of diarrhea. Reports there is no blood in the diarrhea it is normal color. She has hemodialysis 5 days a week at home. She denies any fever. She has been trying to stay hydrated at home by drinking small amounts of water, she has not been able to eat for several days. Onset (ago): day(s) Pain Consistency: constant Relieving factors: none Associated symptoms: denies other symptoms Treatments prior to arrival: none Related Data Home Medications Medication Instructions Recorded Confirmed budesonide-formoterol HFA 160 2 puff INHALATION Q12H 08/20/19 03/18/20 mcg-4.5 mcg/actuation aerosol inhaler cholecalciferol (vitamin D3) 125 10,000 unit PO WEEKLY cap 08/20/19 03/18/20 mcg (5,000 unit) capsule omeprazole 10 mg capsule,delayed 20 mg PO DAILY cap 08/20/19 03/18/20 release clonazepam 2 mg PO HS 03/18/20 03/18/20 polyethylene glycol 3350 [Miralax] 17 g PO QAM PRN 03/18/20 03/18/20 warfarin 2 mg PO QTUTHSASU 03/18/20 03/18/20 warfarin 4 mg PO QMWF 03/18/20 03/18/20 warfarin 5 mg PO DAILY 03/18/20 03/18/20 Allergies Allergy/AdvReac Type Severity Reaction Status Date / Time baclofen Allergy Other Verified 03/18/20 16:11 diphenhydramine Allergy Other Verified 03/18/20 16:11 [From Benadryl] vancomycin Allergy Hives Verified 03/18/20 16:11 Review of Systems Review of Systems: All systems reviewed & are unremarkable except as noted in HPI and below PMFSH Past Medical History Medical History Anemia in chronic kidney disease Anxiety Asthma Chronic low back pain History of L4-L5 herniated discs Diastolic CHF Last Echo October 2018 demonstrated an EF of 55% to 60% with diastolic dysfunction End-stage renal disease on hemodialysis since age 15 with a history of 3x renal transplants, first in 2000 which failed after 7 days due to factor V Leiden, second transplant 2005 that lasted 1.5 years, then she was converted to hemodialysis 2011. Factor V Leiden (Unknown) On Coumadin History of left heart catheterization 2012 showed normal coronary arteries and pulmonary hypertension. History of pulmonary embolus (PE) due to Factor V Leiden on chronic Coumadin Hx SBO with adhesions. 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 Surgical History Surgical History H/O parathyroidectomy H/O right heart catheterization H/O tricuspid valve replacement History of cholecystectomy S/P kidney transplant x3 Status post ORIF of fracture of ankle Social History Social History Smoking packs per day: 1 Smoking cigarettes per day: 20.0 Years smoked: 15 Smoking pack-years: 15.00 Smoking status: Former smoker Tobacco type: cigarettes Smoking end date: 08/11/01 Alcohol intake: former Substance use: never Substance use type: does not use Additional occupation/education comments: On disability Gender identity (if verbalized by the patient): Female Spiritual care concerns: No Agree to blood products: Yes Exam Const:
[2020-03-18 16:47] LABS: Basophils Percent Auto 0.4 % (0.2-1.2); Eosinophils Absolute Auto 0.1 K/mm3 (0-0.3); Eosinophils Percent Auto 1.1 % (0-4.4); Hematocrit 37.5 % (37.0-47.0); Hemoglobin 12.4 g/dL (12.0-15.0); Immature Granulocyte Absolute 0.01 K/mm3 (0.00-0.031); Immature Granulocyte Percent A 0.2 % (0-0.5); Lymphocytes Absolute Auto 0.72 K/mm3 (0.9-3.2); Lymphocytes Percent Auto 16.1 % (18.3-44.2); Mean Corpuscular HGB Conc 33.1 g/dl (32-36); Mean Corpuscular Hemoglobin 33.3 pg (26-34); Mean Corpuscular Volume 100.8 fl (80-100); Mean Platelet Volume 11.1 fl (7.4-10.4); Monocytes Absolute Auto 0.2 K/mm3 (0.1-0.6); Monocytes Percent Auto 5.2 % (2.6-8.5); Neutrophils Absolute Auto 3.4 K/mm3 (1.3-6.7); Platelet Count Result 161 k/mm3 (150-375); Red Blood Count 3.72 M/mm3 (4.2-5.4); Red Cell Distribution Width 14.6 % (11.5-14.5); White Blood Count 4.5 K/mm3 (4.5-10.0)
[2020-03-18 16:57] LABS: INR 1.6
[2020-03-18 16:58] LABS: Partial Thromboplastin Time 42.6 SECONDS (22.3-36.8)
[2020-03-18 17:00] LABS: Alanine Aminotransferase 11 U/L (4-35); Albumin Level 4.7 g/dL (3.5-5.1); Alkaline Phosphatase 71 U/L (38-126); Anion Gap 17 mmol/L (8-16); Aspartate Amino Transferase 24 U/L (14-36); Bilirubin,Total 0.6 mg/dL (0.2-1.3); Blood Urea Nitrogen 63 mg/dL (7-17); Calcium 7.7 mg/dL (8.4-10.2); Carbon Dioxide 21 mmol/L (22-30); Chloride 97 mmol/L (98-107); Estimated CRCL calculation 7 ml/min; Estimated Glomerular Filt Rate 4; Glucose 97 mg/dL (65-105); Potassium 5.4 mmol/L (3.4-5.0); Sodium 135 mmol/L (137-145)
[2020-03-18] MEDS: SODIUM CHLORIDE 0.9% IV 1,000 ML 999 ML IV CONT (17:28)
[2020-03-18 18:45] VITALS: BP 123/70; PULSE 98; RESP 12; O2SAT 99
--- NOTE | 2020-03-18 19:40 | ADMGEN ---
This patient, Shelli Jaramillo, was admitted to 2 Medical Room 240-01 at 1925 .Patient/family oriented to hospital policies and general routines including ID bracelet, bed and alarms, visiting hours, pain management, procedures, bathroom and other care routines, personal items, smoking policy, room service/diet, and visiting hours. Valuables list has been completed. Information on how to activate the Rapid Response Team has been discussed. Patient/Family are encouraged to report perceived risks to care and to ask questions if they do not understand what they are told or what they should do.
--- NOTE | 2020-03-18 19:50 | PM.IMHP ---
H&P: HPI History of Present Illness Date/Time: 03/18/20 19:50 Chief complaint: Abdominal pain. Narrative: Shelli Jaramillo is a very pleasant yet unfortunate 44-year-old female with a complicated medical history including end-stage renal disease on hemodialysis since 2000 with 3 failed renal transplants factor 5 Leiden mutation with history of pulmonary embolism on long-term warfarin, endocarditis status post tricuspid valve annuloplasty, and anxiety who presented to the emergency department earlier today with complaints of abdominal pain. She has had upwards of 19 small-bowel obstructions due to adhesions from multiple surgeries, all which have resolved with conservative therapy. Over the past 3 days she has had generalized abdominal distension and discomfort as well as nausea, all similar to her previous obstructions. She has really only been drinking liquids since that time, and has been hoping it would resolve on its own however it has not. She had a small, loose stool yesterday but nothing since that time. She feels a bit better after the NG tube has been inserted. Currently she complains of a slight sore throat secondary to the NG tube as well as mild nausea. She has not had fever, chills, or sweats. No vomiting. No chest pain or shortness of breath. No recent cold or flu symptoms. Review of Systems Review of Systems: Narrative: Twelve systems were reviewed with pertinent positives and negatives as per HPI. No headache. No recent cold or flu symptoms. She denies recent travel and sick contacts. No chest pain or shortness of breath. No cough. She does hemodialysis at home, with her last treatment being last evening. She no longer urinates. except as documented, all other systems were reviewed and are negative. [facility] Past Medical History Medical History (Updated 03/18/20 @ 23:26 by Li Lopez PA-C) Anemia in chronic kidney disease Anxiety Asthma Chronic low back pain History of L4-L5 herniated discs. 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 End-stage renal disease on hemodialysis She was diagnosed with kidney disease at the age of 15, after she was found to have significant proteinuria on a physical done prior to high school. Status post renal transplant x 3, first in 2000 which failed after 7 days due to factor V Leiden, second transplant 2005 that lasted 1.5 years, then she was converted to hemodialysis 2011 which she does at home. Endocarditis of tricuspid valve (~2014) Status post annuloplasty. Factor V Leiden (Unknown) On Coumadin. History of left heart catheterization 2012 showed normal coronary arteries and pulmonary hypertension. History of pulmonary embolus (PE) Due to Factor V Leiden on chronic Coumadin. Hypertension Hypothyroidism (acquired) Kidney transplant failure and rejection Major depressive disorder Nephrolithiasis OCD (obsessive compulsive disorder) Small bowel obstruction This will be her 20th small-bowel obstruction in the last 5 years, all resolved with conservative therapy. Surgical History Surgical History (Updated 03/18/20 @ 23:21 by Li Lopez PA-C) History of cardiac catheterization History of cholecystectomy History of parathyroidectomy History of renal transplant x3, all which have failed. History of tricuspid valve annuloplasty (~2014) Status post ORIF of fracture of ankle Family History Family History Mother Family history of rheumatoid arthritis Family history of malignant neoplasm of breast in first degree relative Hypertension Patient's mother is Family history of renal failure Father Patient's father is Sibling Family history of elevated blood lipids Grandparent Cerebrovascular accident Other Family history of arthritis Family history of malignant neoplasm
[2020-03-18 19:54] VITALS: BP 112/68; PULSE 84; RESP 20; TEMP 36.3; O2SAT 99
[2020-03-18 22:46] LABS: Basophils Percent Auto 0.8 % (0.2-1.2); Eosinophils Absolute Auto 0.1 K/mm3 (0-0.3); Eosinophils Percent Auto 1.5 % (0-4.4); Hematocrit 37.1 % (37.0-47.0); Hemoglobin 12.2 g/dL (12.0-15.0); Immature Granulocyte Absolute 0.01 K/mm3 (0.00-0.031); Immature Granulocyte Percent A 0.3 % (0-0.5); Lymphocytes Absolute Auto 0.92 K/mm3 (0.9-3.2); Lymphocytes Percent Auto 23.4 % (18.3-44.2); Mean Corpuscular HGB Conc 32.9 g/dl (32-36); Mean Corpuscular Hemoglobin 33.9 pg (26-34); Mean Corpuscular Volume 103.1 fl (80-100); Mean Platelet Volume 10.7 fl (7.4-10.4); Monocytes Absolute Auto 0.3 K/mm3 (0.1-0.6); Monocytes Percent Auto 6.3 % (2.6-8.5); Neutrophils Absolute Auto 2.7 K/mm3 (1.3-6.7); Neutrophils Percent Auto 67.7 % (45.5-73.1); Platelet Count Result 148 k/mm3 (150-375); Red Cell Distribution Width 14.7 % (11.5-14.5); White Blood Count 3.9 K/mm3 (4.5-10.0)
[2020-03-18 22:57] LABS: INR 1.7; Prothrombin Time 19.6 Seconds (11.1-14.7)
[2020-03-18 22:58] LABS: Partial Thromboplastin Time 41.1 SECONDS (22.3-36.8)
[2020-03-18 22:59] LABS: Anion Gap 17 mmol/L (8-16); Blood Urea Nitrogen 64 mg/dL (7-17); Calcium 7.4 mg/dL (8.4-10.2); Carbon Dioxide 18 mmol/L (22-30); Chloride 100 mmol/L (98-107); Estimated CRCL calculation 7 ml/min; Estimated Glomerular Filt Rate 4; Glucose 91 mg/dL (65-105); Potassium 5.1 mmol/L (3.4-5.0); Sodium 135 mmol/L (137-145)
[2020-03-18] MEDS: HEPARIN SOD/D5W 100 UNITS/ML 25,000 UNITS/250 ML BAG 11 UNITS IV CONT (23:10)
[2020-03-18] MEDS: PHENOL/SOD PHENO SPRAY CHERRY (*BKC) 1 SPRAY MUCOUS MEM (23:19)
[2020-03-18] MEDS: SODIUM CHLORIDE 0.9% IV 1,000 ML 60 ML IV CONT (23:47)
[2020-03-19] VITALS (7 sets, daily range): BP systolic 98–120; BP diastolic 50–64; PULSE 54–80; RESP 12–18; TEMP 36.2–37; O2SAT 98–100
[2020-03-19 05:37] LABS: Basophils Percent Auto 0.9 % (0.2-1.2); Eosinophils Absolute Auto 0.1 K/mm3 (0-0.3); Eosinophils Percent Auto 2.2 % (0-4.4); Hematocrit 34.8 % (37.0-47.0); Immature Granulocyte Absolute 0.01 K/mm3 (0.00-0.031); Immature Granulocyte Percent A 0.3 % (0-0.5); Lymphocytes Absolute Auto 1.06 K/mm3 (0.9-3.2); Lymphocytes Percent Auto 33.1 % (18.3-44.2); Mean Corpuscular HGB Conc 31.6 g/dl (32-36); Mean Corpuscular Hemoglobin 32.7 pg (26-34); Mean Corpuscular Volume 103.6 fl (80-100); Mean Platelet Volume 10.5 fl (7.4-10.4); Monocytes Absolute Auto 0.2 K/mm3 (0.1-0.6); Monocytes Percent Auto 6.6 % (2.6-8.5); Neutrophils Absolute Auto 1.8 K/mm3 (1.3-6.7); Neutrophils Percent Auto 56.9 % (45.5-73.1); Platelet Count Result 141 k/mm3 (150-375); Red Blood Count 3.36 M/mm3 (4.2-5.4); Red Cell Distribution Width 14.8 % (11.5-14.5); White Blood Count 3.2 K/mm3 (4.5-10.0)
[2020-03-19 06:02] LABS: Alanine Aminotransferase 8 U/L (4-35); Albumin Level 4.2 g/dL (3.5-5.1); Alkaline Phosphatase 59 U/L (38-126); Anion Gap 17 mmol/L (8-16); Aspartate Amino Transferase 21 U/L (14-36); Bilirubin,Total 0.6 mg/dL (0.2-1.3); Blood Urea Nitrogen 70 mg/dL (7-17); Calcium 7.2 mg/dL (8.4-10.2); Carbon Dioxide 20 mmol/L (22-30); Chloride 98 mmol/L (98-107); Estimated CRCL calculation 6 ml/min; Estimated Glomerular Filt Rate 4; Glucose 84 mg/dL (65-105); Magnesium 2.2 mg/dL (1.6-2.3); Phosphorus 7.7 mg/dL (2.5-4.5); Potassium 4.8 mmol/L (3.4-5.0); Sodium 135 mmol/L (137-145)
[2020-03-19 06:11] LABS: Partial Thromboplastin Time > 200.0 SECONDS (22.3-36.8)
--- NOTE | 2020-03-19 06:17 | PC.NURSE ---
Stopped heparin for an hour decreased by 2 as per protocol
[2020-03-19] MEDS: PANTOPRAZOLE SODIUM IV 40 MG VIAL IV PUSH (08:55)
[2020-03-19] MEDS: ONDANSETRON INJ 4 MG/2 ML VIAL IV PUSH (13:00)
--- NOTE | 2020-03-19 13:37 | PM.CNGS ---
Assessment and Plan Assessment and plan (1) Small bowel obstruction: Code(s): K56.609 - Unspecified intestinal obstruction, unspecified as to partial versus complete obstruction Status: Acute Assessment and Plan: seems to be resolved by clinical and radiographic evaluation. Will get Gastrografin upper GI small-bowel follow-through stat this morning. If transit is normal will DC NG and start oral intake. (2) End-stage renal disease on hemodialysis: Code(s): N18.6 - End stage renal disease; Z99.2 - Dependence on renal dialysis Status: Chronic (3) Factor V Leiden: Onset Date: Unknown Code(s): D68.51 - Activated protein C resistance Status: Chronic (4) Pancytopenia: Code(s): D61.818 - Other pancytopenia Status: Chronic Assessment and Plan: Stable from previous lab testing earlier this year. 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 (6) Anemia in chronic kidney disease: Code(s): N18.9 - Chronic kidney disease, unspecified; D63.1 - Anemia in chronic kidney disease Status: Chronic History of Present Illness Consult details Consult date: 03/19/20 Reason for consult: abdominal pain ( Vomiting, small-bowel obstruction for 3 days) Narrative: the patient is a 44-year-old woman with multiple medical problems and multiple previous abdominal surgeries. She has end-stage renal disease and is on home hemodialysis 5 days a week. She has had 3 failed kidney transplants. She has also had several episodes of small-bowel obstruction which have resolved with conservative management. She came to the emergency room yesterday after 3 days of abdominal pain nausea and vomiting. Imaging again showed small-bowel obstruction. NG tube was placed and position was excellent. After overnight NG suction she was feeling much better with only some abdominal soreness but no cramping pain. Plain films suggested resolution of the small-bowel obstruction. She is seen now in consultation for recurrent small-bowel obstruction. Patient also is chronically anticoagulated on warfarin for factor 5 Leiden. She has a protime of 1.9 and an INR of 1.6 on this admission. Review of Systems Review of Systems: All systems reviewed & are unremarkable except as noted in HPI and below Constitutional: Constitutional: Denies headache(s) Cardiovascular: Cardiovascular: Denies chest pain and Denies dyspnea Respiratory: Respiratory: Denies cough and Denies dyspnea Gastrointestinal: Gastrointestinal: Reports as per HPI Neurologic: Denies confusion and Denies headache(s) [facility] Past Medical History Medical History Anemia in chronic kidney disease Anxiety Asthma Chronic low back pain History of L4-L5 herniated discs. Current use of skilled nursing anticoagulation Diastolic CHF Last Echo October 2018 demonstrated an EF of 55% to 60% with diastolic dysfunction. End-stage renal disease on hemodialysis She was diagnosed with kidney disease at the age of 15, after she was found to have significant proteinuria on a physical done prior to high school. Status post renal transplant x 3, first in 2000 which failed after 7 days due to factor V Leiden, second transplant 2005 that lasted 1.5 years, then she was converted to hemodialysis 2011 which she does at home. Endocarditis of tricuspid valve (~2014) Status post annuloplasty. Factor V Leiden (Unknown) On Coumadin. History of left heart catheterization 2012 showed normal coronary arteries and pulmonary hypertension. History of pulmonary embolus (PE) Due to Factor V Leiden on chronic Coumadin. Hypertension Hypothyroidism (acquired) Kidney transplant failure and rejection Major depressive disorder Nephrolithiasis OCD (obsessive compulsive disorder) Small bowel obstructi
[2020-03-19 13:59] LABS: Partial Thromboplastin Time 107.7 SECONDS (22.3-36.8)
--- NOTE | 2020-03-19 14:07 | PM.IMPN ---
Progress Note: A&P Assessment and Plan (1) Small bowel obstruction: Code(s): K56.609 - Unspecified intestinal obstruction, unspecified as to partial versus complete obstruction Status: Acute Assessment and Plan: -----Likely d/t multiple sx causing adhesions. Follow through study did make it to her colon but also made her throw up. Spoke with Dr. becerril who suggested d/c the NG and start clear liquids. Will see how she does and advance diet as tolerated. (2) End-stage renal disease on hemodialysis: Code(s): N18.6 - End stage renal disease; Z99.2 - Dependence on renal dialysis Status: Chronic Assessment and Plan: -----usually does home dialysis. Nephrology consulted for dialysis orders. (3) Current use of longterm anticoagulation: Code(s): Z79.01 - residential (current) use of anticoagulants Status: Chronic Assessment and Plan: ----- Usually On long-term warfarin for factor 5 Leiden mutation with history of pulmonary embolism. Continue heparin drip. (4) Anemia in chronic kidney disease: Code(s): N18.9 - Chronic kidney disease, unspecified; D63.1 - Anemia in chronic kidney disease Status: Chronic Assessment and Plan: -----hgb 11.0, pt usually runs 9-10 average. Monitor (5) Dehydration: Code(s): E86.0 - Dehydration Status: Acute Assessment and Plan: ----- Secondary to minimal oral intake over the last 3 days given symptoms of small-bowel obstruction. Given IV fluids overnight and discontinued this am. Trial of clear liquids. Time Spent With Patient Time with patient: 25 - 35 minutes Subjective Date/time seen: 03/19/20 14:07 Interval history: Pt is a 44-year-old female here for small bowel obstruction who has history of chronic kidney disease on dialysis. Patient was seen today and states she was very nauseated and threw up after doing the small-bowel follow-through. At this time she is feeling better and has no abdominal pain. She has not tried eat or drink anything. She had diarrhea after her test and has been passing gas. She has no chest pain, shortness of breath, fevers, chills or cough. She usually does dialysis daily at home but when she gets into the hospital she switches to 3 day a week dialysis during her hospitalizations Review of Systems Review of Systems: All systems reviewed & are unremarkable except as noted in HPI and below Exam Narrative: Exam Narrative: General: Well developed well nourished patient in NAD HEENT: normocephalic Neck: supple Neuro: Alert and oriented x4 CV:RRR with significant murmur heard in all joyce. Resp:CTA Abd: Soft, non distended. No pain to palpation. scarce bowel sounds Extremities: No swelling, erythema, or pain to palpation. Objective Data Vital Signs Vital Signs: Vital Signs - 24 hr 03/18/20 16:07 03/18/20 18:45 03/18/20 19:54 Temperature 98.2 F 97.3 F L Pulse Rate 101 H 98 84 Respiratory Rate 18 12 20 Blood Pressure 122/75 123/70 112/68 Pulse Oximetry 99 99 99 03/19/20 02:00 03/19/20 05:39 03/19/20 10:00 Temperature 97.3 F L 97.1 F L 98.6 F Pulse Rate 68 75 80 Respiratory Rate 16 16 17 Blood Pressure 120/64 106/51 L 106/56 L Pulse Oximetry 100 99 99 Intake/Output Intake/Output: Intake & Output 03/16/20 03/17/20 03/18/20 03/19/20 23:59 23:59 23:59 23:59 Intake Total 1000 730 Output Total 800 Balance 1000 -70 Meds/Results Medications: Active Medications Generic Name Dose Route Start Last Admin Trade Name Freq PRN Reason Stop Dose Admin Budesonide/Formoterol Fumarate 2 puff 03/19/20 08:00 03/19/20 09:13 Symbicort 160-4.5 Mcg (*Sp) Inhaler INHALATION 2 puff Q12HRT CHRIS Administration Heparin Sodium (Porcine) 5,500 units 03/18/20 22:12 Heparin Sodium IV PUSH PRN PRN aPTT less than 55 seconds Heparin Sodium (Porcine) 3,000 units 03/18/20 22:12 Heparin Sodium IV PUS
--- NOTE | 2020-03-19 14:17 | PM.CNNEP ---
Assessment and Plan Assessment and plan (1) End stage renal disease: Code(s): N18.6 - End stage renal disease Status: Acute (2) Small bowel obstruction: Code(s): K56.609 - Unspecified intestinal obstruction, unspecified as to partial versus complete obstruction Status: Acute (3) Factor V Leiden: Onset Date: Unknown Code(s): D68.51 - Activated protein C resistance Status: Chronic (4) Subtherapeutic international normalized ratio (INR): Code(s): R79.1 - Abnormal coagulation profile Status: Acute Assessment and Plan: . Additional Plan Shelli has end-stage renal disease and she normally does home hemodialysis every other day. Her last hemodialysis treatment at home was on Friday prior to admission. She has no critical electrolyte abnormalities and her acid-base status appears to be stable as well. Furthermore, she is probably more on the volume depleted side given her poor oral intake in the last day or so as well. I will tentatively plan for her next hemodialysis treatment tomorrow (Friday) unless of course she is deemed stable to be discharged in which case she could return home and do her regular scheduled home hemodialysis treatment there which obviously would be more simpler and easier on her. Surgery consultation recommendations have already been noted and as already mentioned, the hope is that her NG tube will be discontinued today and her diet will be advanced and assuming she continues to do well, hopefully, no other further intervention needs to be done. I will continue follow the patient with you while she remains hospitalized make further recommendations during hospital course. I will continue to follow her CKD parameters make further adjustments in her medications and dialysis treatment as deemed necessary Thank you for allowing me to participate in the care this patient. History of Present Illness Reason for Consult Consult date: 03/19/20 Reason for consult: end stage renal disease Chief Complaint Chief complaint: Abdominal pain. History of Present Illness Narrative: The patient is a 44-year-old [place] female with an extensive medical history as outlined below who presented to the [facility] ER yesterday with complaints of abdominal pain. The patient has had multiple small-bowel obstructions due to adhesions from multiple abdominal surgeries and the majority of them have resolved with conservative therapy rather than operative intervention/surgery. Over the past 3 days she has had generalized abdominal distension and discomfort as well as nausea all similar to her previous obstructions. She has really only been drinking liquids since that time, and has been hoping it would resolve on its own. Unfortunately, due to persistence of these symptoms (she had hoped this would resolve on its own), she came to the ER for further evaluation. Workup and evaluation in the emergency room demonstrated the patient to be hemodynamically stable but in some discomfort with regard to her abdominal pain. Routine blood test demonstrated labs consistent with her known history of end-stage renal disease and with no other significant abnormalities. She underwent a CT scan of the abdomen pelvis which demonstrated what appeared to be a partial small-bowel obstruction. Given her history, an NG tube was placed in the hopes of decompression and she was subsequently admitted to the hospital for further evaluation and therapy. Since her admission, her symptoms have improved with placement of the NG tube. She has already been seen by surgery who feel that perhaps maybe her obstruction may already be resolved by their assessment. A small-bowel follow-through done just earlier this morning seems indicate that there is transient of the contrast through her bowels. According to the patient, her NG tube will likely be discontinued and she will be advanced to a clear liquid diet.
[2020-03-19] MEDS: HEPARIN SOD/D5W 100 UNITS/ML 25,000 UNITS/250 ML BAG 10 UNITS IV CONT (20:33)
[2020-03-19 21:05] LABS: Partial Thromboplastin Time > 200.0 SECONDS (22.3-36.8)
[2020-03-20] VITALS: BP 92/54; PULSE 64; RESP 12; TEMP 36.6; O2SAT 99
[2020-03-20 04:00] VITALS: BP 101/39; PULSE 58; RESP 12; TEMP 36.6; O2SAT 100
[2020-03-20 04:26] LABS: Hematocrit 29.5 % (37.0-47.0); Hemoglobin 9.6 g/dL (12.0-15.0); Mean Corpuscular HGB Conc 32.5 g/dl (32-36); Mean Corpuscular Hemoglobin 33.8 pg (26-34); Mean Corpuscular Volume 103.9 fl (80-100); Mean Platelet Volume 10.5 fl (7.4-10.4); Platelet Count Result 123 k/mm3 (150-375); Red Blood Count 2.84 M/mm3 (4.2-5.4); Red Cell Distribution Width 14.7 % (11.5-14.5); White Blood Count 2.7 K/mm3 (4.5-10.0)
[2020-03-20 04:40] LABS: Albumin Level 3.8 g/dL (3.5-5.1); Anion Gap 14 mmol/L (8-16); Blood Urea Nitrogen 74 mg/dL (7-17); Calcium 6.6 mg/dL (8.4-10.2); Carbon Dioxide 21 mmol/L (22-30); Chloride 97 mmol/L (98-107); Glucose 91 mg/dL (65-105); Phosphorus 8.7 mg/dL (2.5-4.5); Potassium 5.8 mmol/L (3.4-5.0); Sodium 132 mmol/L (137-145)
[2020-03-20 04:42] LABS: Partial Thromboplastin Time 194.6 SECONDS (22.3-36.8)
[2020-03-20 04:52] LABS: Estimated CRCL calculation 5 ml/min; Estimated Glomerular Filt Rate 3
--- NOTE | 2020-03-20 06:56 | PM.PNGS ---
Progress Note: A&P Assessment and Plan (1) Small bowel obstruction: Code(s): K56.609 - Unspecified intestinal obstruction, unspecified as to partial versus complete obstruction Status: Acute Assessment and Plan: Advance to renal diet. Small bowel obstruction has resolved. Okay to discharge from surgical standpoint. No surgical follow-up is needed. (2) Current use of care home anticoagulation: Code(s): Z79.01 - snf (current) use of anticoagulants Status: Chronic Assessment and Plan: Okay to resume warfarin (3) Factor V Leiden: Onset Date: Unknown Code(s): D68.51 - Activated protein C resistance Status: Chronic (4) End-stage renal disease on hemodialysis: Code(s): N18.6 - End stage renal disease; Z99.2 - Dependence on renal dialysis Status: Chronic Subjective Subjective Date/Time Seen: 03/20/20 06:56 Patient reports: feels better, pain is less, tolerating liquids well and afebrile Review of Systems Review of Systems: All systems reviewed & are unremarkable except as noted in HPI and below Cardiovascular: Cardiovascular: Denies chest pain and Denies dyspnea Respiratory: Respiratory: Denies cough and Denies dyspnea Gastrointestinal: Gastrointestinal: Reports as per HPI, Denies abdominal pain, Denies nausea and Denies vomiting Neurologic: Denies confusion and Denies headache(s) Exam Const: General: comfortable and no acute distress; No confusion Orientation/consciousness: patient oriented x3 and No confusion GI: Inspection: non-distended and scar GI Palp: Yes Soft to palpation, No Tenderness to palpation present (GI), No Guarding due to palpation present (GI) and No Rebound tenderness present Auscultation: normal bowel sounds Neuro: General: patient oriented x3, no focal motor deficits and No confusion Extrem: General: no calf tenderness and no edema Psych: Affect: normal affect Insight: Good insight present (Psych) Judgement: Good judgement present (Psych) Objective Data Vital Signs Vital Signs: Vital Signs - 24 hr 03/19/20 10:00 03/19/20 14:00 03/19/20 16:00 Temperature 37.0 C 36.9 C 36.5 C Pulse Rate 80 63 54 L Respiratory Rate 17 14 12 Blood Pressure 106/56 L 104/50 L 109/64 Pulse Oximetry 99 98 99 03/19/20 21:08 03/19/20 22:00 03/20/20 00:00 Temperature 36.7 C 36.6 C Pulse Rate 61 63 64 Respiratory Rate 18 12 12 Blood Pressure 98/54 L 92/54 L Pulse Oximetry 98 99 03/20/20 04:00 Temperature 36.6 C Pulse Rate 58 L Respiratory Rate 12 Blood Pressure 101/39 L Pulse Oximetry 100 Intake/Output Intake/Output: Intake & Output 03/17/20 03/18/20 03/19/20 03/20/20 23:59 23:59 23:59 23:59 Intake Total 1000 1910 740 Output Total 800 0 Balance 1000 1110 740 Meds/Results Medications: Active Medications Generic Name Dose Route Start Last Admin Trade Name Freq PRN Reason Stop Dose Admin Budesonide/Formoterol Fumarate 2 puff 03/19/20 08:00 03/19/20 21:07 Symbicort 160-4.5 Mcg (*Sp) Inhaler INHALATION 2 puff Q12HRT CHRIS Administration Epoetin Cirilo-epbx 10,000 units 03/20/20 18:41 Retacrit IV PUSH 03/20/20 18:42 ONCE ONE Heparin Sodium (Porcine) 5,500 units 03/18/20 22:12 Heparin Sodium IV PUSH PRN PRN aPTT less than 55 seconds Heparin Sodium (Porcine) 3,000 units 03/18/20 22:12 Heparin Sodium IV PUSH PRN PRN aPTT 55 - 70 seconds Hydromorphone HCl 0.5 mg 03/18/20 23:33 03/19/20 21:53 Dilaudid Inj IV PUSH 0.5 mg Q3H PRN Administration Pain Rated 7-10 Heparin Sodium/Dextrose 25,000 units in 250 mls @ 6 mls/hr 03/18/20 22:15 03/20/20 05:51 Heparin Sodium/D5w 100 Units/Ml IV CONT 600 units/hr .Q24H CHRIS 6 mls/hr Titration Protocol 600 UNITS/HR Acetaminophen 1,000 mg in 100 mls @ 400 mls/hr 03/19/20 10:23 03/19/20 20:39 Ofirmev 1,000 Mg Ivpb IVPB 03/20/20 10:24 Infused Q6H PRN Infusion
[2020-03-20 06:58] LABS: Folic Acid 12.8 ng/mL (2.76->20)
[2020-03-20] MEDS: PANTOPRAZOLE SODIUM IV 40 MG VIAL IV PUSH (08:35)
[2020-03-20] MEDS: ACETAMINOPHEN 500 MG TABLET 1000 MG PO (08:52)
[2020-03-20 09:44] LABS: INR 1.9
[2020-03-20 10:00] VITALS: BP 97/59; PULSE 66; RESP 14; TEMP 36.2; O2SAT 100
--- NOTE | 2020-03-20 10:46 | PM.DS ---
DS: Admitting Diagnosis Admitting Diagnosis Admitting Diagnosis: Unspecified intestinal obstruction, unspecified as to partial versus complete obstruction DS: Discharge Diagnosis Discharge Diagnosis (1) Small bowel obstruction: Code(s): K56.609 - Unspecified intestinal obstruction, unspecified as to partial versus complete obstruction Status: Acute Assessment and Plan: ----- fortunately resolved with conservative measures. Likely d/t multiple sx causing adhesions. she had a small-bowel follow-through which had a normal transit time and tolerated a regular diet thereafter. Patient is feeling better the day of discharge and ready to go. (2) End-stage renal disease on hemodialysis: Code(s): N18.6 - End stage renal disease; Z99.2 - Dependence on renal dialysis Status: Chronic Assessment and Plan: -----usually does home dialysis. I spoke with nephrology who said since she is discharing today I spoke with Dr. Nava who recommended continuing her regular home dialysis. I reviewed the BMP, including K and Cr with him. 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 INR 1.9 (4) Anemia in chronic kidney disease: Code(s): N18.9 - Chronic kidney disease, unspecified; D63.1 - Anemia in chronic kidney disease Status: Chronic Assessment and Plan: -----hgb 9.6, pt usually runs 9-10 average. Monitor (5) Dehydration: Code(s): E86.0 - Dehydration Status: Acute Assessment and Plan: ----- improved DS: Summary Hospital Course Reason for hospitalization: Small-bowel obstruction Hospital Course: patient is a 44-year-old female with a history of multiple abdominal surgeries and frequent small bowel obstructions who presented emergency room with intractable nausea and vomiting found have a small-bowel obstruction. She was admitted to the hospitalist service and started on conservative treatment which included an NG tube with mild IV fluids. The patient improved with this therapy and underwent a small-bowel follow-through which showed normal transition time. Her pain had improved. she usually does home dialysis and was not dialyzed during the stay. I spoke with Dr. Nava about patient's potassium and creatinine. Reviewed the numbers with me and stated that she can just do her dialysis at home when she gets there [place]. He confirmed that there was no dialysis needed before discharge. patient was feeling back to her baseline and ready to go home. She was educated about the worrisome signs and symptoms come back to emergency room for and was discharged in stable condition. Status at Discharge Functional status at discharge: independent ambulation Overall status at discharge: patient is back to baseline Time Spent with Patient Time attestation: Total time spent providing and/or coordinating discharge services:34 min Time spent: Greater than 30 minutes Exam Narrative: Exam Narrative: General: Well developed well nourished patient in NAD HEENT: normocephalic Neck: supple Neuro: Alert and oriented x4 CV:RRR with significant murmur heard in all joyce. Resp:CTA Abd: Soft, non distended. No pain to palpation. Positive bowel sounds Extremities: No swelling, erythema, or pain to palpation. DS: Data Data Completed and Pending Labs on day of discharge: Labs from last 24 hours 03/20/20 03/20/20 03/20/20 09:01 04:04 04:04 WBC 2.7 L RBC 2.84 L Hgb 9.6 L Hct 29.5 L MCV 103.9 H MCH 33.8 MCHC 32.5 RDW 14.7 H Plt Count 123 L MPV 10.5 H PT 21.0 H INR 1.9 APTT Sodium 132 L Potassium 5.8 H Chloride 97 L Carbon Dioxide 21 L Anion Gap 14 BUN 74 H Creat
[2020-03-20 11:44] LABS: Hepatitis B Surface Antigen Negative (Negative)
[2020-03-20 11:59] LABS: Hepatitis B Surface Antibody > 1000.00 s/c
[2020-03-20 12:20] LABS: Hepatitis B Surface Anti Res Positive
--- NOTE | 2020-03-28 15:17 | PC.NURSE ---
Blood cx are negative.
== END 2020-03-20 11:15 | disposition home or self-care (01) | DRG 388 ==
LOC: ANHED 18:11 → ANH2MED 18:16
PROVIDERS: Internal Medicine; Internal Medicine Nephrology; Physician Assistant; Admitting Provider Internal Medicine; Emergency Provider Emergency Medicine; PCP Family Medicine; Visit Provider Physician Assistant
DX: K56.51 Intestinal adhesions [bands], with partial obstruction (principal); N18.6 End stage renal disease; I13.2 Hypertensive heart and chronic kidney disease with heart failure and with stage 5 chronic kidney disease, or end stage renal disease; I50.32 Chronic diastolic (congestive) heart failure; Z94.0 Kidney transplant status; D68.51 Activated protein C resistance; D61.818 Other pancytopenia; D63.1 Anemia in chronic kidney disease; E86.0 Dehydration; E03.9 Hypothyroidism, unspecified; F42.9 Obsessive-compulsive disorder, unspecified; R79.1 Abnormal coagulation profile; F32.9 Major depressive disorder, single episode, unspecified; F41.9 Anxiety disorder, unspecified; Z99.2 Dependence on renal dialysis; Z79.01 Long term (current) use of anticoagulants; Z86.711 Personal history of pulmonary embolism; Z95.2 Presence of prosthetic heart valve; Z90.49 Acquired absence of other specified parts of digestive tract; Z87.891 Personal history of nicotine dependence
CPT/HCPCS: 36415; 74019; 74176; 74240; 74248; 80048; 80053; 80069; 82607; 82746; 83735; 84100; 85025; 85027; 85610; 85730; 86706; 87040; 87340; 94640; 96374; 99285; A9270; C9113; J0131; J1170; J1644; J2405; J7030

== ENCOUNTER 2020-05-27 17:42 | Inpatient (IN) | payer MEDICARE, MEDICAID, SELFPAY ==
[2020-05-27] VITALS (7 sets, daily range): BP systolic 104–147; BP diastolic 70–89; PULSE 81–109; RESP 16–20; TEMP 36.1–36.7; O2SAT 95–100; BMI 31.9
--- NOTE | ~2020-05-27 | XR_ITS ---
EXAMINATION: XR abdomen obstructive series DATE: 05/28/2020 07:37 INDICATION: Small bowel obstruction. TECHNIQUE: Upright and supine views of the abdomen on 3 radiographs were obtained. COMPARISON: CT abdomen and pelvis 03/18/2020 FINDINGS: There is dilated small bowel in right abdomen. The colon is normal in caliber. There is a p aucity of stool in the colon. There are surgical clips in right pelvis. There is a calcified transpla nt kidney in left pelvis. No free intraperitoneal gas. The nasogastric tube tip is in the stomach. Me ammy sternotomy wires are noted. There are retained epicardial pacer wires. Surgical clips in the rig ht upper quadrant are likely from cholecystectomy. IMPRESSION: 1. Dilated small bowel, consistent with adynamic ileus versus small bowel obstruction. Reviewed, dictated and finalized at location A. IMPRESSION: 1. Dilated small bowel, consistent with adynamic ileus versus small bowel obstr uction.
--- NOTE | ~2020-05-27 | XR_ITS ---
XR abdomen NG/feed tube insert DATE: 05/27/2020 20:31 INDICATION: NG tube placement TECHNIQUE: Portable upright AP view COMPARISON: None FINDINGS: A nasogastric tube is in the proximal stomach, the proximal port approximately 2 cm distal to the diaphragmatic hiatus. Small bowel air fluid levels are noted, suggesting adynamic ileus or small bowel obstruction. No intraperitoneal free air. IMPRESSION: Nasogastric tube in proximal stomach Reviewed, dictated and finalized at Location A. Reviewed, dictated and finalized at location A.
--- NOTE | ~2020-05-27 | XR_ITS ---
XR abdomen obstructive series 05/29/2020 08:07 Indication: Small bowel obstruction. Abdomen pain. Procedure: AP supine view of the abdomen Comparison: Comparison to multiple prior studies sequentially, with oldest reviewed study dated 04/2020. Findings: NG tube in the stomach. There are residual epicardial pacing leads. There are cholecystecto my clips. There are surgical clips in the right pelvis. Bowel pattern is nonobstructive. There is a c alcified transplant kidney in the left pelvis. Impression: 1: No acute abdominal abnormality. Reviewed, dictated and finalized at location B. Impression: 1: No acute abdominal abnormality.
--- NOTE | ~2020-05-27 | XR_ITS ---
EXAMINATION: XR abdomen obstructive series DATE: 05/31/2020 08:04 INDICATION: Partial small bowel obstruction TECHNIQUE: Supine and upright views of the abdomen. FINDINGS: Comparison to multiple prior studies sequentially, with oldest reviewed study dated 2019. The visualized lung parenchyma is normal.. There is a nonobstructive bowel gas pattern. Gas and stool are seen throughout the colon to the level of the rectum. There is no free air. There is a calcifie d renal transplant in the left pelvis. There are residual epicardial pacing leads. There are cholecys tectomy clips. IMPRESSION: 1. No acute abdominal abnormality. Reviewed, dictated and finalized at location B.
--- NOTE | ~2020-05-27 | XR_ITS ---
XR abdomen obstructive series DATE: 05/27/2020 18:32 INDICATION: Bloating. Nausea. TECHNIQUE: Supine and upright AP views COMPARISON: 03/29/2020, 09/12/2019 obstructive series 09/11/2019 CT abdomen pelvis FINDINGS: Status post sternotomy. Again noted is a left pelvic transplant kidney with extensive calcification. Surgical clips, right upper quadrant, consistent with cholecystectomy Surgical clips, right inguinal area consistent with right inguinal herniorrhaphy. There are scattered small bowel air-fluid levels and mild small bowel dilatation at the right midabdo men. Consider adynamic ileus versus partial or early small bowel obstruction. No intraperitoneal free air is detected. IMPRESSION: Mild adynamic ileus versus early or partial small bowel obstruction Reviewed, dictated and finalized at Location A. Reviewed, dictated and finalized at location A.
--- NOTE | 2020-05-27 18:29 | PC.NURSE ---
Patient in radiology at this time.
[2020-05-27 18:37] LABS: Basophils Percent Auto 0.8 % (0.2-1.2); Eosinophils Percent Auto 1.6 % (0-4.4); Hematocrit 31.6 % (37.0-47.0); Hemoglobin 10.4 g/dL (12.0-15.0); Immature Granulocyte Absolute 0.01 K/mm3 (0.00-0.031); Immature Granulocyte Percent A 0.4 % (0-0.5); Lymphocytes Absolute Auto 0.66 K/mm3 (0.9-3.2); Lymphocytes Percent Auto 26.2 % (18.3-44.2); Mean Corpuscular HGB Conc 32.9 g/dl (32-36); Mean Corpuscular Volume 100.3 fl (80-100); Mean Platelet Volume 10.6 fl (7.4-10.4); Monocytes Absolute Auto 0.2 K/mm3 (0.1-0.6); Monocytes Percent Auto 6.3 % (2.6-8.5); Neutrophils Absolute Auto 1.6 K/mm3 (1.3-6.7); Neutrophils Percent Auto 64.7 % (45.5-73.1); Platelet Count Result 117 k/mm3 (150-375); Red Blood Count 3.15 M/mm3 (4.2-5.4); Red Cell Distribution Width 14.4 % (11.5-14.5); White Blood Count 2.5 K/mm3 (4.5-10.0)
--- NOTE | 2020-05-27 18:40 | PC.NURSE ---
Patient reports that she does not make urine.
--- NOTE | 2020-05-27 18:42 | ED.GENADULT ---
HPI - General Adult General Chief complaint: Abdominal Pain Stated complaint: Bowel obstruction Time Seen by Provider: 05/27/20 17:46 History of Present Illness HPI narrative: Patient is a 45-year-old female who presents ER with concerns for bowel obstruction. Patient reports she has had 21 bowel obstruction since having her kidney transplant. Most recent was couple months ago. She was hospitalized here. They tend to resolve with bowel rest. She reports she started having discomfort 4 days ago and switched to a liquid diet. She had one loose stool today and has not had a formed stool since the discomfort began. Today she started to feel much more nauseated like she is going to vomit so she opted to come to the hospital. Related Data Allergies Allergy/AdvReac Type Severity Reaction Status Date / Time baclofen Allergy Unresponsiv Verified 05/27/20 18:56 e vancomycin AdvReac Redness of Verified 05/27/20 18:56 Skin Review of Systems Review of Systems: All systems reviewed & are unremarkable except as noted in HPI and below Constitutional: Constitutional: Denies chills, Denies fever(s) and Denies weakness ENT: Denies nasal congestion and Denies sore throat Cardiovascular: Cardiovascular: Denies chest pain and Denies radiating jaw, neck or arm pain Gastrointestinal: Gastrointestinal: Reports abdominal pain, Reports bloating, Reports diarrhea, Reports nausea and Denies vomiting [facility] Past Medical History Medical History (Updated 05/27/20 @ 20:38 by Bin Ochoa MD) Anemia in chronic kidney disease Anxiety Asthma Chronic low back pain History of L4-L5 herniated disc. Current use of group home anticoagulation On long-term warfarin due to factor V Leiden. Depression Diastolic congestive heart failure Echocardiogram in October 2018 demonstrated ejection fraction 55 to 60% with diastolic dysfunction End-stage renal disease on hemodialysis She was diagnosed with kidney disease at the age of 15 after she was found to have significant proteinuria on a physical done prior to high school. She is status post renal transplant x3, the first in 2000 which failed after 7 days due to factor V Leiden, her second transplant in 2005 that lasted 1.5 years, and she was converted to hemodialysis in 2011 after her last transplant failed. She does home hemodialysis and is a patient of Dr. Rashel Bishop. 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 Essential hypertension Factor V Leiden History of left heart catheterization (~2012) Showing normal coronary arteries and pulmonary hypertension. History of pulmonary embolism Hypothyroidism Nephrolithiasis Obsessive compulsive disorder Small bowel obstruction Reported 21 partial or total small bowel obstructions in the last 5 years. Surgical History Surgical History (Updated 05/27/20 @ 20:38 by Li Lopez PA-C) History of cardiac catheterization History of cholecystectomy History of parathyroidectomy History of renal transplant X3, all have failed. History of tricuspid valve annuloplasty (~2014) Status post ORIF of fracture of ankle Family History Family History (Updated 05/27/20 @ 20:39 by Li Lopez PA-C) Mother Rheumatoid arthritis Breast cancer Hypertension Social History Social History (Updated 05/27/20 @ 20:42 by Li Lopez PA-C) Social History: The patient lives in her home in [place], [place] with her cat. She is on disability. She smoked 1 pack of cigarettes per day for 15 years and quit in 2001. No alcohol or illicit substance use. Her brother, Levon Jaramillo, is her healthcare power of divorce attorney and she wishes to be DO NOT RESUSCITATE. Exam Narrative: Exam Narrative: GENERAL: Uncomfortable-appearing, well-nourished, and in no acute distress. HEAD: Normocephalic, atraumatic. ENT: Mucous membranes moist. CHEST: Clear to auscultation. No respiratory distress. HEART: Regular rate and rhythm. Normal
[2020-05-27 18:49] LABS: Alanine Aminotransferase 11 U/L (4-35); Albumin Level 4.6 g/dL (3.5-5.1); Alkaline Phosphatase 71 U/L (38-126); Anion Gap 14 mmol/L (8-16); Aspartate Amino Transferase 24 U/L (14-36); Bilirubin,Total 0.5 mg/dL (0.2-1.3); Blood Urea Nitrogen 46 mg/dL (7-17); Calcium 7.7 mg/dL (8.4-10.2); Carbon Dioxide 26 mmol/L (22-30); Chloride 96 mmol/L (98-107); Estimated CRCL calculation 8 ml/min; Estimated Glomerular Filt Rate 5; Glucose 104 mg/dL (65-105); Lipase 126 U/L (23-300); Potassium 4.7 mmol/L (3.4-5.0); Sodium 136 mmol/L (137-145)
[2020-05-27] MEDS: MORPHINE SULFATE (*CRX) 4 MG/ML INJ IV PUSH (19:00)
[2020-05-27] MEDS: ONDANSETRON INJ 4 MG/2 ML VIAL IV PUSH ×2 (19:25→22:46)
[2020-05-27 19:35] LABS: INR 2.3
[2020-05-27 19:42] LABS: Partial Thromboplastin Time 60.8 SECONDS (22.3-36.8)
--- NOTE | 2020-05-27 20:00 | PM.IMHP ---
H&P: HPI History of Present Illness Date/Time: 05/27/20 20:00 <Li Lopez PA-C - Last Filed: 05/27/20 20:52> Chief complaint: partial small bowel obstruction <Li Lopez PA-C - Last Filed: 05/27/20 20:52> Narrative: Shelli Jaramillo is a very pleasant yet unfortunate 44-year-old female with a complicated medical history including end-stage renal disease on hemodialysis since 2000 with 3 failed renal transplants, factor 5 Leiden mutation with history of pulmonary embolism on long-term warfarin, endocarditis status post tricuspid valve annuloplasty, and anxiety who presented to the emergency department earlier today with complaints of abdominal pain. She has had upwards of 21 small-bowel obstructions due to adhesions from multiple surgeries, all which have resolved with conservative therapy. Approximately 4 days ago she developed diffuse cramping/occasionally sharp and shooting abdominal pain that seems to be more so on the right side, similar to prior bowel obstructions. She attempted a liquid diet and even an n.p.o. diet for a period of time without much benefit. The pain got worse within the past day and a half after she attempted to eat some chicken noodle soup. KUB done on arrival to the emergency department showed adynamic ileus versus partial small bowel obstruction and she is being admitted in the setting. At the time my evaluation she rates her pain 6/10, with no significant aggravating or alleviating factors. Associated symptoms include pretty severe nausea but she has not had vomiting. Her last bowel movement was this morning, very small amount of loose stool. She has not had fever, chills, or sweats. No blood or mucus in the stool. No chest pain or shortness of breath. <Li Lopez PA-C - Last Filed: 05/27/20 20:52> Review of Systems Review of Systems: Narrative: 12 systems are reviewed with pertinent positives and negatives as per HPI. No cold or flu symptoms. She denies sick contacts. No recent travel. No exposure to those positive for COVID-19. She does hemodialysis at home, with her last treatment this morning. She is a patient of Dr. Rashel Bishop. She no longer urinates. Except as documented, all other systems were reviewed and are negative. <NASRIN Doe Last Filed: 05/27/20 20:52> [facility] Past Medical History Medical History: Medical History (Updated 05/27/20 @ 20:51 by Li Lopez PA-C) Anemia in chronic kidney disease Anxiety Asthma Chronic low back pain History of L4-L5 herniated disc. 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 Depression Diastolic congestive heart failure Echocardiogram in October 2018 demonstrated ejection fraction 55 to 60% with diastolic dysfunction End-stage renal disease on hemodialysis She was diagnosed with kidney disease at the age of 15 after she was found to have significant proteinuria on a physical done prior to high school. She is status post renal transplant x3, the first in 2000 which failed after 7 days due to factor V Leiden, her second transplant in 2005 that lasted 1.5 years, and she was converted to hemodialysis in 2011 after her last transplant failed. She does home hemodialysis and is a patient of Dr. Rashel Bishop. 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 Factor V Leiden History of left heart catheterization (~2012) Showing normal coronary arteries and pulmonary hypertension. History of pulmonary embolism Hypothyroidism Nephrolithiasis Obsessive compulsive disorder Small bowel obstruction Reported 21 partial or total small bowel obstructions in the last 5 years. <Li Lopez PA-C - Last Filed: 05/27/20 20:52> Surgical History Surgical History: Surgical History (Updated 05/27/20 @ 20:38 by Li Lopez PA-C) History of cardiac catheterization History of cholecystectomy History of parathyroidectomy Histor
[2020-05-27] MEDS: BENZOCAINE/TETRACAINE SPRAY (*SP) 56 ML AEROSOL 1 SPRAY (20:19)
[2020-05-27] MEDS: HYDROmorphone HCL INJ (*CRX) 1 MG/ML SYR IV PUSH (20:35)
--- NOTE | 2020-05-27 22:06 | ADMGEN ---
This patient, Shelli Jaramillo, was admitted to 3 [facility] Surg Room 307-01. Patient/family oriented to hospital policies and general routines including ID bracelet, bed and alarms, visiting hours, pain management, procedures, bathroom and other care routines, personal items, smoking policy, room service/diet, and visiting hours. Information on how to activate the Rapid Response Team has been discussed. Patient/Family are encouraged to report perceived risks to care and to ask questions if they do not understand what they are told or what they should do.
[2020-05-27] MEDS: HYDROmorphone HCL INJ (*CRX) 1 MG/ML SYR 0.5 MG IV PUSH (22:47)
[2020-05-27] MEDS: SODIUM CHLORIDE 0.9% IV 500 ML 50 ML IV CONT (22:51)
[2020-05-28] MEDS: HYDROmorphone HCL INJ (*CRX) 1 MG/ML SYR 0.5 MG IV PUSH ×8 (02:25→22:51)
[2020-05-28] MEDS: ONDANSETRON INJ 4 MG/2 ML VIAL IV PUSH ×4 (02:26→15:40)
[2020-05-28] MEDS: PHENOL/SOD PHENO SPRAY CHERRY (*BKC) 1 SPRAY MUCOUS MEM (02:26)
[2020-05-28 06:00] VITALS: BP 100/48; PULSE 69; RESP 18; TEMP 36.2; O2SAT 98
[2020-05-28 06:28] LABS: Hematocrit 29.4 % (37.0-47.0); Hemoglobin 9.8 g/dL (12.0-15.0); Mean Corpuscular HGB Conc 33.3 g/dl (32-36); Mean Corpuscular Hemoglobin 33.4 pg (26-34); Mean Corpuscular Volume 100.3 fl (80-100); Platelet Count Result 121 k/mm3 (150-375); Red Blood Count 2.93 M/mm3 (4.2-5.4); Red Cell Distribution Width 14.6 % (11.5-14.5)
[2020-05-28 08:39] LABS: INR 2.2; Prothrombin Time 24.1 Seconds (11.1-14.7)
[2020-05-28 09:22] LABS: Anion Gap 15 mmol/L (8-16); Blood Urea Nitrogen 56 mg/dL (7-17); Calcium 7.5 mg/dL (8.4-10.2); Carbon Dioxide 22 mmol/L (22-30); Chloride 101 mmol/L (98-107); Estimated CRCL calculation 7 ml/min; Estimated Glomerular Filt Rate 4; Glucose 95 mg/dL (65-105); Magnesium 2.4 mg/dL (1.6-2.3); Phosphorus 7.7 mg/dL (2.5-4.5); Potassium 4.8 mmol/L (3.4-5.0); Sodium 138 mmol/L (137-145)
[2020-05-28 10:42] VITALS: O2SAT 98
--- NOTE | 2020-05-28 11:20 | PM.CNGS ---
Assessment and Plan Assessment and plan (1) Partial small bowel obstruction: Code(s): K56.600 - Partial intestinal obstruction, unspecified as to cause Status: Acute Assessment and Plan: patient is admitted again for recurrent small-bowel obstruction. I have reviewed the abdominal x-rays and discussed the treatment course with the patient. She is well aware of the typical routine with NG decompression and bowel rest. Will try to stimulate bowels tomorrow if she still has not had any bowel function. Will consider CT with oral contrast or Gastrografin small-bowel follow-through if we still are not seeing any improvement in symptoms over the next couple days. Any surgery on her will be extremely difficult and extensive due to her prior surgical history. She has previously seen a surgeon at [place] who also voiced these concerns and stated that he would not recommend surgery unless there was no other option. (2) Anemia in chronic kidney disease: Code(s): N18.9 - Chronic kidney disease, unspecified; D63.1 - Anemia in chronic kidney disease Status: Acute (3) Factor V Leiden: Code(s): D68.51 - Activated protein C resistance Status: Inactive (4) Current use of long winder tender anticoagulation: Code(s): Z79.01 - FPC (current) use of anticoagulants Status: Acute (5) End-stage renal disease on hemodialysis: Code(s): N18.6 - End stage renal disease; Z99.2 - Dependence on renal dialysis Status: Acute History of Present Illness Consult details Consult date: 05/28/20 Reason for consult: abdominal pain Requesting physician: Bin Ochoa MD Narrative: this is a 45-year-old woman who presented to the emergency department last night with worsening abdominal pain over the past several days. She is known to this service and frequently has episodes of partial small-bowel obstructions. 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 Her last episode of small-bowel obstruction was about 4 months ago. She does not recall eating anything abnormal recently that could have caused a blockage. She states that her symptoms are the same as her recent episodes. She gets pain in the right upper quadrant region. It has been a couple days since her last bowel movement and she is not currently passing any flatus. Abdominal x-rays were obtained in the emergency department and this showed small-bowel obstruction. NG tube was placed and she was admitted for further treatment. Her pain is better since admission, but she still is not passing any flatus or had a bowel movement. Review of Systems Review of Systems: All systems reviewed & are unremarkable except as noted in HPI and below Constitutional: Constitutional: Denies chills and Denies fever(s) Eyes: Eyes: Denies change in vision ENT: Denies hearing loss, Denies neck pain and Denies sore throat Cardiovascular: Cardiovascular: Denies chest pain and Denies dyspnea Respiratory: Respiratory: Denies cough, Denies dyspnea and Denies wheezing Gastrointestinal: Gastrointestinal: Reports as per HPI Genitourinary: Genitourinary: Denies hematuria and Denies dysuria Musculoskeletal: Musculoskeletal: Denies arthralgias, Denies joint swelling and Denies neck pain Allergic/Immunologic: Allergic/Immunologic: Denies wheezing [facility] Past Medical History Medical History Anemia in chronic kidney disease Anxiety Asthma Chronic low back pain History of L4-L5 herniated disc. Current use of long winder tender anticoagulation On long-term warfarin due to factor V Leiden. Depression Diastolic congestive heart failure Echocardiogram in October 2018 demonstrated ejection fraction 55 to 60% with diastolic dysfunction End-stage renal disease on hemodialysis She was diagnosed with kidney diseas
--- NOTE | 2020-05-28 11:27 | PM.CNNEP ---
Assessment and Plan Assessment and plan (1) Partial small bowel obstruction: Code(s): K56.600 - Partial intestinal obstruction, unspecified as to cause Status: Acute Assessment and Plan: patient has a bowel obstruction. Surgery has been consulted. I discussed with Dr. Cornell. Will continue conservative therapy. she has an NG tube in place and is NPO. (2) End-stage renal disease on hemodialysis: Code(s): N18.6 - End stage renal disease; Z99.2 - Dependence on renal dialysis Status: Acute Assessment and Plan: The patient is due for dialysis tomorrow. Will write orders. (3) Anemia in chronic kidney disease: Code(s): N18.9 - Chronic kidney disease, unspecified; D63.1 - Anemia in chronic kidney disease Status: Acute Assessment and Plan: Will give Epogen. (4) Asthma: Code(s): J45.909 - Unspecified asthma, uncomplicated Status: Acute Assessment and Plan: She is getting supportive care (5) Factor V Leiden: Code(s): D68.51 - Activated protein C resistance Status: Acute Assessment and Plan: the patient is getting Coumadin History of Present Illness Reason for Consult Consult date: 05/28/20 Chief Complaint Chief complaint: partial small bowel obstruction History of Present Illness Narrative: Kelli is a very pleasant 45-year-old lady who has multiple medical problems including end-stage renal disease on dialysis at home 4 times per week, hypertension, several kidney transplants, 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 She has had several bowel obstructions in the past. 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 She eventually lost the kidney and the wound eventually healed after a prolonged period of time. Recently she has had several episodes of obstruction which have resolved with conservative therapy. Sometimes these are triggered by changes in medications such as phosphorus binders. Lately we have decided not to give her any phosphorus binders at all and it seems like it has been awhile since she has had an obstruction. The patient says that about a week ago she started getting some rumbling in her belly which she thought might be the fluid. Is gradually worsened and developed more into of pattern of symptoms similar to her obstruction with nausea vomiting and minimal passage of gas and stool. She tried going NPO at home to see if this would help but unfortunately she continued to worsened started having nausea and vomiting so came into the emergency room. In the ER the patient had x-rays which showed obstruction so she had an NG-tube placed and she was admitted to the floor. Currently the patient feels a little bit better. She has no chest pain or shortness of breath. She is due for dialysis tomorrow Review of Systems Constitutional: Constitutional: Reports no additional constitutional complaints Eyes: Eyes: Reports no additional eye complaints ENT: Reports system reviewed and no additional complaints, except as documented Cardiovascular: Cardiovascular: Reports no additional cardiovascular complaints Respiratory: Respiratory: Reports no additional respiratory complaints Gastrointestinal: Gastrointestinal: Reports no additional gastrointestinal complaints Genitourinary: Genitourinary: Reports no additional female genitourinary complaints Musculoskeletal: Musculoskeletal: Reports no additional musculoskeletal complaints Integumentary/Breasts: Skin/Breast: Reports system reviewed and no additional complaints, except as docu Neurologic: Reports system reviewed and no additional complaints, except as documente
[2020-05-28 12:18] LABS: INR 2.2; Prothrombin Time 23.7 Seconds (11.1-14.7)
[2020-05-28] MEDS: DEXTROSE 5%/0.9% SOD CHL 1,000 ML 75 ML IV CONT (12:53)
--- NOTE | 2020-05-28 12:59 | PM.IMPN ---
Progress Note: A&P Assessment and Plan (1) Partial small bowel obstruction: Code(s): K56.600 - Partial intestinal obstruction, unspecified as to cause Status: Acute Assessment and Plan: -----Pts symptoms have improved but still no flatus or BMs. She has a long hx of bowel obstructions that usually resolve with conservative treatment. Will continue with that for now. She is a high surgical risk so hopefully this will resolve on its own. INR WNL today and will recheck tomorrow. Once it drops below 2.0 we can stop a heparin drip. (2) End-stage renal disease on hemodialysis: Code(s): N18.6 - End stage renal disease; Z99.2 - Dependence on renal dialysis Status: Acute Assessment and Plan: -----continue with nephrologys orders (3) Anemia in chronic kidney disease: Code(s): N18.9 - Chronic kidney disease, unspecified; D63.1 - Anemia in chronic kidney disease Status: Acute Assessment and Plan: -----Stable. Last Hgb 9.8. (4) Current use of mcfp anticoagulation: Code(s): Z79.01 - FDC (current) use of anticoagulants Status: Acute Assessment and Plan: -----Warfarin on hold d/t NPO status. See above for plan. Additional Plan Pt has another MR # where you can find more information on prior visitis-[id number] Time Spent With Patient Time with patient: 25 - 35 minutes Subjective Date/time seen: 05/28/20 12:59 Interval history: Pt is a 45 y/o female here for SBO. Pt was seen today and feels okay. Her nausea is improving and she has not had any vomiting. She has pain to her abdomen that is constant with intermittent times of worsening. She has not had any BMs or passed gas. No CP, SOB, or leg swelling. She usually does dialysis as home. Review of Systems Review of Systems: All systems reviewed & are unremarkable except as noted in HPI and below Exam Narrative: Exam Narrative: General: Well developed well nourished patient in NAD HEENT: normocephalic, NG intact Neck: supple Neuro: Alert and oriented x4 CV:RRR Resp:CTA Abd: Soft, non distended.Surgical changes noted. Pain to palpation mostly to the right/epigastric area of the abodmen. Positive bowel sounds in the upper quadrants with none in the lower. Extremities: No swelling, erythema, or pain to palpation. Objective Data Vital Signs Vital Signs: Vital Signs - 24 hr 05/27/20 17:43 05/27/20 18:37 05/27/20 19:00 Temperature 97.9 F 98.1 F Pulse Rate 109 H 81 88 Respiratory Rate 20 20 19 Blood Pressure 147/79 H 124/81 131/80 Pulse Oximetry 100 100 100 05/27/20 20:31 05/27/20 21:15 05/27/20 21:35 Temperature 97.9 F 97.3 F L 97.0 F L Pulse Rate 85 87 86 Respiratory Rate 20 16 18 Blood Pressure 124/70 104/89 130/71 Pulse Oximetry 99 95 98 05/27/20 22:02 05/28/20 06:00 05/28/20 10:42 Temperature 97.3 F L 97.1 F L Pulse Rate 87 69 Respiratory Rate 16 18 Blood Pressure 104/89 100/48 L Pulse Oximetry 95 98 98 Intake/Output Intake/Output: Intake & Output 05/25/20 05/26/20 05/27/20 05/28/20 23:59 23:59 23:59 23:59 Output Total 300 Balance -300 Meds/Results Medications: Active Medications Generic Name Dose Route Start Last Admin Trade Name Freq PRN Reason Stop Dose Admin Epoetin Cirilo-epbx 10,000 units 05/29/20 12:00 Epoetin Cirilo-Epbx 10,000 Units/Ml Vial IV PUSH MOWEFR CHRIS Hydromorphone HCl 0.5 mg 05/27/20 21:16 05/28/20 12:07 Hydromorphone Hcl Inj (*Crx) 1 Mg/Ml Syr IV PUSH 0.5 mg Q3H PRN Administration Pain Rated 7-10 Acetaminophen 1,000 mg in 100 mls @ 400 mls/hr 05/27/20 20:19 Ofirmev 1,000 Mg Ivpb IVPB 05/28/20 20:20 Q6H PRN Mild Pain (1-3) or Fever Albumin Human 50 mls @ 999 mls/hr 05/28/20 11:36 Albutein IVPB 05/29/20 11:37 Q10M PRN HYPOTENSION Dextrose/Sodium Chloride 1,000 mls @ 75 mls/hr 05/28/20 12:30 05/28/20 12:53 Dextrose 5% Sodium Chloride 0.9% IV
[2020-05-28 13:26] LABS: Hepatitis B Surface Antigen Negative (Negative)
[2020-05-28 14:00] VITALS: BP 95/45; PULSE 76; RESP 16; TEMP 36.6; O2SAT 97
--- NOTE | 2020-05-28 18:55 | PC.NURSE ---
Pt still feeling intense cramping rating pain 6/10 after 0.5 mg dilaudid IVP. Called Dr. Webster and got an additional 0.5 mg one time dose of dilaudid at 1800. Pt has warfarin due, but she is unable to tolerate clamping at this time. Dr. Webster said it is okay to hold this dose for tonight, but that we can give it later if she can tolerate it then.
[2020-05-28 22:00] VITALS: BP 112/63; PULSE 83; RESP 18; TEMP 36.4; O2SAT 99
[2020-05-29] VITALS (24 sets, daily range): BP systolic 100–156; BP diastolic 46–75; PULSE 72–102; RESP 16–20; TEMP 36–37; O2SAT 94–99
[2020-05-29] MEDS: HYDROmorphone HCL INJ (*CRX) 1 MG/ML SYR 0.5 MG IV PUSH ×6 (01:58→23:23)
[2020-05-29] MEDS: ONDANSETRON INJ 4 MG/2 ML VIAL IV PUSH (01:58)
[2020-05-29] MEDS: DEXTROSE 5%/0.9% SOD CHL 1,000 ML 75 ML IV CONT (02:01)
[2020-05-29 06:37] LABS: Hematocrit 27.3 % (37.0-47.0); Hemoglobin 8.7 g/dL (12.0-15.0); Mean Corpuscular HGB Conc 31.9 g/dl (32-36); Mean Corpuscular Hemoglobin 33.5 pg (26-34); Mean Platelet Volume 10.3 fl (7.4-10.4); Platelet Count Result 95 k/mm3 (150-375); Red Cell Distribution Width 14.6 % (11.5-14.5); White Blood Count 2.7 K/mm3 (4.5-10.0)
[2020-05-29 06:52] LABS: Albumin Level 3.8 g/dL (3.5-5.1); Anion Gap 13 mmol/L (8-16); Blood Urea Nitrogen 58 mg/dL (7-17); Calcium 6.8 mg/dL (8.4-10.2); Carbon Dioxide 26 mmol/L (22-30); Chloride 99 mmol/L (98-107); Estimated CRCL calculation 5 ml/min; Estimated Glomerular Filt Rate 3; Glucose 102 mg/dL (65-105); Phosphorus 7.6 mg/dL (2.5-4.5); Potassium 4.7 mmol/L (3.4-5.0); Sodium 138 mmol/L (137-145)
[2020-05-29 06:52] LABS: INR 2.3; Prothrombin Time 25.2 Seconds (11.1-14.7)
--- NOTE | 2020-05-29 10:22 | PM.IMPN ---
Progress Note: A&P Assessment and Plan (1) Partial small bowel obstruction: Code(s): K56.600 - Partial intestinal obstruction, unspecified as to cause Status: Acute Assessment and Plan: -----Pts symptoms have improved but still no flatus or BMs. xray does not show obstruction. Will await for surgery's recommendations in regards of clamping or removing NG tube or further studies. She has a long hx of bowel obstructions that usually resolve with conservative treatment. Will continue with that for now. She is a high surgical risk so hopefully this will resolve on its own. INR WNL today and will recheck tomorrow. Hopefully we can restart oral meds soon and avoid heparin drip. Would consider stopping fluids once pt is tolerating a liquid diet. (2) End-stage renal disease on hemodialysis: Code(s): N18.6 - End stage renal disease; Z99.2 - Dependence on renal dialysis Status: Acute Assessment and Plan: -----continue with nephrologys orders, I believe the plan is to dialyze today. (3) Anemia in chronic kidney disease: Code(s): N18.9 - Chronic kidney disease, unspecified; D63.1 - Anemia in chronic kidney disease Status: Acute Assessment and Plan: -----Stable. Last Hgb 8.7 no signs of bleeding. 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 See above for plan. Additional Plan Pt has another MR # where you can find more information on prior visitis-[id number] Subjective Date/time seen: 05/29/20 10:22 Interval history: Pt is a 45 y/o female here for SBO. Patient was seen today and states she has at sinus headache that she thinks the NG is causing. She also has throat discomfort as well. She would like some Tylenol for the headache. She states that her abdominal pain is better and she has not passed gas or had a bowel movement but she feels things moving and thinks it will be soon. She denies chest pain, shortness of breath or leg swelling. Exam Narrative: Exam Narrative: General: Well developed well nourished patient in NAD HEENT: normocephalic, NG intact, hoarse voice Neck: supple Neuro: Alert and oriented x4 . Cranial nerves 2-12 intact. Equal strength the upper lower extremities 5/5 CV:RRR Resp:CTA Abd: Soft, non distended.Surgical changes noted. Pain to palpation mostly to the right/epigastric area of the abodmen. Positive bowel sounds Extremities: No swelling, erythema, or pain to palpation. Objective Data Vital Signs Vital Signs: Vital Signs - 24 hr 05/28/20 10:42 05/28/20 14:00 05/28/20 22:00 Temperature 97.9 F 97.6 F Pulse Rate 76 83 Respiratory Rate 16 18 Blood Pressure 95/45 L 112/63 Pulse Oximetry 98 97 99 05/29/20 06:00 Temperature 97.8 F Pulse Rate 81 Respiratory Rate 20 Blood Pressure 116/70 Pulse Oximetry 99 Intake/Output Intake/Output: Intake & Output 05/26/20 05/27/20 05/28/20 05/29/20 23:59 23:59 23:59 23:59 Intake Total 0 1249 Output Total 1100 400 Balance -1100 849 Meds/Results Medications: Active Medications Generic Name Dose Route Start Last Admin Trade Name Freq PRN Reason Stop Dose Admin Epoetin Cirilo-epbx 10,000 units 05/29/20 12:00 Epoetin Cirilo-Epbx 10,000 Units/Ml Vial IV PUSH MOWEFR CHRIS Hydromorphone HCl 0.5 mg 05/27/20 21:16 05/29/20 08:57 Hydromorphone Hcl Inj (*Crx) 1 Mg/Ml Syr IV PUSH 0.5 mg Q3H PRN Administration Pain Rated 7-10 Albumin Human 50 mls @ 999 mls/hr 05/28/20 11:36 Albutein IVPB 05/29/20 11:37 Q10M PRN HYPOTENSION Dextrose/Sodium Chloride 1,000 mls @ 75 mls/hr 05/28/20 12:30 05/29/20 05:37 Dextrose 5% Sodium Chloride 0.9% IV CONT 75 mls/hr .[id number] CHRIS Infusion Acetaminophen 1,000 mg in 100 mls @ 400 mls/hr 05/29/20 10:22 Ofirmev 1,000 Mg Ivpb IVPB 05/29
--- NOTE | 2020-05-29 11:12 | PM.PNGS ---
Progress Note: A&P Assessment and Plan (1) Partial small bowel obstruction: Code(s): K56.600 - Partial intestinal obstruction, unspecified as to cause Status: Acute Assessment and Plan: Await return of bowel function, continue NG decompression. Will try a Dulcolax suppository this AM. 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 Pain mostly from NG tube. Not much abdominal pain. Exam GI: GI Palp: Yes Soft to palpation, No Tenderness to palpation present (GI) and No Guarding due to palpation present (GI) Auscultation: normal bowel sounds Objective Data Vital Signs Vital Signs: Vital Signs - 24 hr 05/28/20 14:00 05/28/20 22:00 05/29/20 06:00 Temperature 36.6 C 36.4 C 36.6 C Pulse Rate 76 83 81 Respiratory Rate 16 18 20 Blood Pressure 95/45 L 112/63 116/70 Pulse Oximetry 97 99 99 Intake/Output Intake/Output: Intake & Output 05/26/20 05/27/20 05/28/20 05/29/20 23:59 23:59 23:59 23:59 Intake Total 0 1249 Output Total 1100 400 Balance -1100 849 Meds/Results Medications: Active Medications Generic Name Dose Route Start Last Admin Trade Name Freq PRN Reason Stop Dose Admin Epoetin Cirilo-epbx 10,000 units 05/29/20 12:00 Epoetin Cirilo-Epbx 10,000 Units/Ml Vial IV PUSH MOWEFR CHRIS Hydromorphone HCl 0.5 mg 05/27/20 21:16 05/29/20 08:57 Hydromorphone Hcl Inj (*Crx) 1 Mg/Ml Syr IV PUSH 0.5 mg Q3H PRN Administration Pain Rated 7-10 Albumin Human 50 mls @ 999 mls/hr 05/28/20 11:36 Albutein IVPB 05/29/20 11:37 Q10M PRN HYPOTENSION Dextrose/Sodium Chloride 1,000 mls @ 75 mls/hr 05/28/20 12:30 05/29/20 05:37 Dextrose 5% Sodium Chloride 0.9% IV CONT 75 mls/hr .[id number] [facility] Infusion Acetaminophen 1,000 mg in 100 mls @ 400 mls/hr 05/29/20 11:11 Ofirmev 1,000 Mg Ivpb IVPB 05/30/20 11:12 Q6H PRN Pain Rated 1-3 Lorazepam 1.5 mg 05/28/20 07:12 Lorazepam Inj (*Crx) 2 Mg/Ml Vial IV PUSH Q6H PRN Anxiety Ondansetron HCl 4 mg 05/27/20 20:19 05/29/20 01:58 Ondansetron Inj 4 Mg/2 Ml Vial IV PUSH 4 mg Q4H PRN Administration Nausea Phenol 1 spray 05/28/20 00:00 05/28/20 02:26 Phenol/Sod Pheno [place] Holder (*Bkc) MUCOUS MEM 1 spray PRN PRN Administration Sore Throat Warfarin Sodium 2 mg/ Warfarin 7 mg 05/28/20 17:00 05/28/20 20:51 Sodium 5 mg PO Not Given DAILY@1700 [facility] Radiology Results: ITS Impressions Abdomen X-Ray 05/29/20 08:40 Impression: 1: No acute abdominal abnormality. Labs Labs: Laboratory Results - last 24 hr 05/28/20 05/28/20 05/29/20 11:54 11:54 06:14 WBC 2.7 L RBC 2.60 L Hgb 8.7 L Hct 27.3 L MCV 105.0 H MCH 33.5 MCHC 31.9 L RDW 14.6 H Plt Count 95 L MPV 10.3 PT 23.7 H INR 2.2 Sodium Potassium Chloride Carbon Dioxide Anion Gap BUN Creatinine Estim Creat Clear Calc Estimated GFR Glucose Calcium Phosphorus Albumin Hep Bs Antigen Negative 05/29/20 05/29/20 06:14 06:15 WBC RBC Hgb Hct MCV MCH MCHC RDW Plt Count MPV PT 25.2 H INR 2.3 Sodium 138 Potassium 4.7 Chloride 99 Carbon Dioxide 26 Anion Gap 13 BUN 58 H Creatinine 13.10 H Estim Creat Clear Calc 5 Estimated GFR 3 L Glucose 102 Calcium 6.8 L Phosphorus 7.6 H Albumin 3.8 Hep Bs Antigen Quality VTE Prophylaxis VTE prophylaxis: mechanical ordered
--- NOTE | 2020-05-29 15:47 | PM.PNNEP ---
Progress Note: A&P Assessment and Plan (1) End-stage renal disease on hemodialysis: Code(s): N18.6 - End stage renal disease; Z99.2 - Dependence on renal dialysis Status: Acute Assessment and Plan: patient is on dialysis and tolerating it well. (2) Partial small bowel obstruction: Code(s): K56.600 - Partial intestinal obstruction, unspecified as to cause Status: Acute Assessment and Plan: Things seem to be loosening up a little bit. Bowel sounds are a little bit more audible and the patient passed a little gas (3) Anemia in chronic kidney disease: Code(s): N18.9 - Chronic kidney disease, unspecified; D63.1 - Anemia in chronic kidney disease Status: Acute Assessment and Plan: hemoglobin is low at 8.7. She is getting Epogen (4) Factor V Leiden: Code(s): D68.51 - Activated protein C resistance Status: Acute Additional Plan she is on anticoagulants Subjective Date/time seen: 05/29/20 15:47 Interval history: patient is alert. Throat is sore from the NG tube. She is passing some gas. She has less pain. Generally feels a little better she is on dialysis and tolerating it well. Her blood pressure was a little low early on and got some fluid. Right now the blood pressure is 120. She was seen at 3:30 p.m. Review of Systems Cardiovascular: Cardiovascular: Reports no additional cardiovascular complaints Respiratory: Respiratory: Reports no additional respiratory complaints Gastrointestinal: Gastrointestinal: Reports no additional gastrointestinal complaints Genitourinary: Genitourinary: Reports no additional female genitourinary complaints Exam Narrative: Exam Narrative: WDWN in NAD skin no rash head ncat lungs clear cor reg no rub abd BS+ but hypoactive nontender and soft ext no edema. Objective Data Vital Signs Vital Signs: Vital Signs - 24 hr 05/28/20 22:00 05/29/20 06:00 05/29/20 14:00 Temperature 36.4 C 36.6 C 36.1 C L Pulse Rate 83 81 72 Respiratory Rate 18 20 16 Blood Pressure 112/63 116/70 100/46 L Pulse Oximetry 99 99 96 Intake/Output Intake/Output: Intake & Output 05/26/20 05/27/20 05/28/20 05/29/20 23:59 23:59 23:59 23:59 Intake Total 0 1349 Output Total 1100 400 Balance -1100 949 Meds/Results Medications: Active Medications Generic Name Dose Route Start Last Admin Trade Name Freq PRN Reason Stop Dose Admin Epoetin Cirilo-epbx 10,000 units 05/29/20 14:00 Epoetin Cirilo-Epbx 10,000 Units/Ml Vial IV PUSH MoWeFr@1400 [facility] Hydromorphone HCl 0.5 mg 05/27/20 21:16 05/29/20 14:45 Hydromorphone Hcl Inj (*Crx) 1 Mg/Ml Syr IV PUSH 0.5 mg Q3H PRN Administration Pain Rated 7-10 Dextrose/Sodium Chloride 1,000 mls @ 75 mls/hr 05/28/20 12:30 05/29/20 05:37 Dextrose 5% Sodium Chloride 0.9% IV CONT 75 mls/hr .[id number] [facility] Infusion Acetaminophen 1,000 mg in 100 mls @ 400 mls/hr 05/29/20 11:11 Ofirmev 1,000 Mg Ivpb IVPB 05/30/20 11:12 Q6H PRN Pain Rated 1-3 Lorazepam 1.5 mg 05/28/20 07:12 Lorazepam Inj (*Crx) 2 Mg/Ml Vial IV PUSH Q6H PRN Anxiety Ondansetron HCl 4 mg 05/27/20 20:19 05/29/20 01:58 Ondansetron Inj 4 Mg/2 Ml Vial IV PUSH 4 mg Q4H PRN Administration Nausea Phenol 1 spray 05/28/20 00:00 05/28/20 02:26 Phenol/Sod Pheno [place] Holder (*Bkc) MUCOUS MEM 1 spray PRN PRN Administration Sore Throat Warfarin Sodium 2 mg/ Warfarin 7 mg 05/28/20 17:00 05/28/20 20:51 Sodium 5 mg PO Not Given DAILY@1700 [facility] Radiology Results: ITS Impressions Abdomen X-Ray 05/29/20 08:40 Impression: 1: No acute abdominal abnormality. Labs Labs: Laboratory Results - last 24 hr 05/29/20 05/29/20 05/29/20 06:14 06:14 06:15 WBC 2.7 L RBC 2.60 L Hgb 8.7 L Hct 27.3 L MCV 105.0 H MCH 33.5 MCHC 31.9 L RDW 14.6 H Plt Count 95 L MPV 10.3 PT 25.2 H INR
[2020-05-29 17:10] LABS: Hepatitis B Surface Antibody > 1000.00 s/c
[2020-05-29 18:28] LABS: Hepatitis B Surface Anti Res Positive
[2020-05-29] MEDS: WARFARIN (*PBKC) 2 MG, WARFARIN (*PBKC) 5 MG 7 MG PO (18:47)
[2020-05-29] MEDS: LORazepam INJ (*CRX) 2 MG/ML VIAL 1.5 MG IV PUSH (21:53)
[2020-05-30] MEDS: HYDROmorphone HCL INJ (*CRX) 1 MG/ML SYR 0.5 MG IV PUSH ×9 (02:58→21:04)
[2020-05-30 06:00] VITALS: BP 132/84; PULSE 72; RESP 20; TEMP 36.9; O2SAT 92
[2020-05-30 06:03] LABS: Hematocrit 27.1 % (37.0-47.0); Hemoglobin 8.6 g/dL (12.0-15.0); Mean Corpuscular HGB Conc 31.7 g/dl (32-36); Mean Corpuscular Hemoglobin 32.3 pg (26-34); Mean Corpuscular Volume 101.9 fl (80-100); Mean Platelet Volume 10.1 fl (7.4-10.4); Platelet Count Result 101 k/mm3 (150-375); Red Blood Count 2.66 M/mm3 (4.2-5.4); Red Cell Distribution Width 14.2 % (11.5-14.5); White Blood Count 2.7 K/mm3 (4.5-10.0)
[2020-05-30 06:15] LABS: INR 2.4; Prothrombin Time 25.5 Seconds (11.1-14.7)
[2020-05-30 06:22] LABS: Albumin Level 3.8 g/dL (3.5-5.1); Anion Gap 11 mmol/L (8-16); Blood Urea Nitrogen 23 mg/dL (7-17); Calcium 7.8 mg/dL (8.4-10.2); Carbon Dioxide 26 mmol/L (22-30); Chloride 100 mmol/L (98-107); Estimated CRCL calculation 9 ml/min; Estimated Glomerular Filt Rate 6; Glucose 80 mg/dL (65-105); Phosphorus 5.5 mg/dL (2.5-4.5); Potassium 4.3 mmol/L (3.4-5.0); Sodium 137 mmol/L (137-145)
[2020-05-30 08:00] VITALS: PULSE 72; RESP 20; O2SAT 92
--- NOTE | 2020-05-30 09:42 | PM.IMPN ---
Progress Note: A&P Assessment and Plan (1) Partial small bowel obstruction: Code(s): K56.600 - Partial intestinal obstruction, unspecified as to cause Status: Acute Assessment and Plan: Symptoms improved. Passing flatus this AM, no BM yet. Patient has history of several bowel obstructions typically managed conservatively. Patient seen this AM with Dr Cornell at the bedside. Noted his plan for trial of NG clamping with clear liquids for today and monitor. Will continue IV hydration for now. (2) End-stage renal disease on hemodialysis: Code(s): N18.6 - End stage renal disease; Z99.2 - Dependence on renal dialysis Status: Chronic Assessment and Plan: Continue hemodialysis recommendations per nephrology - appreciate input. 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 (3) Anemia in chronic kidney disease: Code(s): N18.9 - Chronic kidney disease, unspecified; D63.1 - Anemia in chronic kidney disease Status: Acute Assessment and Plan: H&H is low without signs or symptoms of acute bleeding. Suspect related to renal failure. She is getting Epo. Monitor H&H. 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 INR 2.4 today. Warfarin resumed 05/29, continue. Monitor INR daily. Subjective Date/time seen: 05/30/20 09:15 Interval history: Ms. Jaramillo is a 45yo F admitted for partial small bowel obstruction. NG still intact. NG causing her throat discomfort. She has passed gas, no BM yet. She denies abdominal pain, nausea, or vomiting this morning. She denies any chest pain or shortness of breath. Review of Systems Review of Systems: All systems reviewed & are unremarkable except as noted in HPI and below Exam Narrative: Exam Narrative: General: Female resting supine in bed in no acute distress. HEENT: Normocephalic, EOMI, oral mucosa tacky. NG intact left nare. Cardiovascular: Rate and rhythm are regular. Respiratory: Lungs clear to auscultation anteriorly and laterally. Non-labored breathing. Abdomen: Soft, non-tender, non-distended, bowel sounds hypoactive but present. Extremities: Peripheral pulses intact. No edema. Neuro: No focal neurological deficits. Speech is clear. Objective Data Vital Signs Vital Signs: Last Vital Signs Temp 98.5 F 05/30/20 06:00 Pulse 72 05/30/20 06:00 Resp 20 05/30/20 06:00 BP 132/84 05/30/20 06:00 Pulse Ox 92 05/30/20 06:00 Intake/Output Intake/Output: Intake & Output 05/27/20 05/28/20 05/29/20 05/30/20 23:59 23:59 23:59 23:59 Intake Total 0 2200 100 Output Total 1100 400 750 Balance -1100 1800 -650 Meds/Results Medications: Active Medications Generic Name Dose Route Start Last Admin Trade Name Freq PRN Reason Stop Dose Admin Epoetin Cirilo-epbx 10,000 units 05/29/20 14:00 Epoetin Cirilo-Epbx 10,000 Units/Ml Vial IV PUSH MoWeFr@1400 [facility] Hydromorphone HCl 0.5 mg 05/27/20 21:16 05/30/20 08:42 Hydromorphone Hcl Inj (*Crx) 1 Mg/Ml Syr IV PUSH 0.5 mg Q3H PRN Administration Pain Rated 7-10 Dextrose/Sodium Chloride 1,000 mls @ 75 mls/hr 05/28/20 12:30 05/29/20 18:13 Dextrose 5% Sodium Chloride 0.9% IV CONT Not Given .[id number] [facility] Acetaminophen 1,000 mg in 100 mls @ 400 mls/hr 05/29/20 11:11 05/30/20 04:25 Ofirmev 1,000 Mg Ivpb IVPB 05/30/20 11:12 Infused Q6H PRN Infusion Pain Rated 1-3 Lorazepam 1.5 mg 05/28/20 07:12 05/29/20 21:53 Lorazepam Inj (*Crx) 2 Mg/Ml Vial IV PUSH 1.5 mg Q6H PRN Administration Anxiety Ondansetron H
--- NOTE | 2020-05-30 11:47 | PM.PNGS ---
Progress Note: A&P Assessment and Plan (1) Partial small bowel obstruction: Code(s): K56.600 - Partial intestinal obstruction, unspecified as to cause Status: Acute Assessment and Plan: Slowly showing signs of resolution Patient does not want to have SBFT done if possible Will try to clamp NG and try clear liquids. Give dose of Lactulose today. Possibly remove NG later today if bowels moving. 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 No abdominal pain. Just pain from NG tube. Exam GI: Inspection: non-distended GI Palp: Yes Soft to palpation, No Tenderness to palpation present (GI) and No Guarding due to palpation present (GI) Objective Data Vital Signs Vital Signs: Vital Signs - 24 hr 05/29/20 14:00 05/29/20 14:40 05/29/20 14:45 Temperature 36.1 C L 36.7 C Pulse Rate 72 82 82 Respiratory Rate 16 18 Blood Pressure 100/46 L 130/64 130/64 Pulse Oximetry 96 05/29/20 14:53 05/29/20 15:00 05/29/20 15:15 Temperature Pulse Rate 76 73 73 Respiratory Rate Blood Pressure 133/70 129/66 124/63 Pulse Oximetry 05/29/20 15:30 05/29/20 15:43 05/29/20 15:45 Temperature 36.7 C Pulse Rate 73 72 Respiratory Rate Blood Pressure 118/60 117/63 Pulse Oximetry 05/29/20 16:00 05/29/20 16:15 05/29/20 16:30 Temperature Pulse Rate 77 74 74 Respiratory Rate Blood Pressure 112/63 120/66 118/64 Pulse Oximetry 05/29/20 16:45 05/29/20 17:00 05/29/20 17:15 Temperature Pulse Rate 76 89 86 Respiratory Rate Blood Pressure 147/55 H 132/70 156/70 H Pulse Oximetry 05/29/20 17:30 05/29/20 17:45 05/29/20 18:06 Temperature Pulse Rate 82 90 81 Respiratory Rate Blood Pressure 138/59 L 145/75 H 137/70 Pulse Oximetry 05/29/20 18:30 05/29/20 18:32 05/29/20 20:00 Temperature 36.8 C Pulse Rate 102 H 96 96 Respiratory Rate 18 18 Blood Pressure 141/69 H 148/46 H Pulse Oximetry 96 05/29/20 22:00 05/30/20 06:00 05/30/20 08:00 Temperature 37.0 C 36.9 C Pulse Rate 93 72 72 Respiratory Rate 20 20 20 Blood Pressure 114/67 132/84 Pulse Oximetry 94 92 92 Intake/Output Intake/Output: Intake & Output 05/27/20 05/28/20 05/29/20 05/30/20 23:59 23:59 23:59 23:59 Intake Total 0 2200 100 Output Total 1100 400 750 Balance -1100 1800 -650 Meds/Results Medications: Active Medications Generic Name Dose Route Start Last Admin Trade Name Freq PRN Reason Stop Dose Admin Epoetin Cirilo-epbx 10,000 units 05/29/20 14:00 Epoetin Cirilo-Epbx 10,000 Units/Ml Vial IV PUSH MoWeFr@1400 [facility] Hydromorphone HCl 0.5 mg 05/27/20 21:16 05/30/20 08:42 Hydromorphone Hcl Inj (*Crx) 1 Mg/Ml Syr IV PUSH 0.5 mg Q3H PRN Administration Pain Rated 7-10 Dextrose/Sodium Chloride 1,000 mls @ 75 mls/hr 05/28/20 12:30 05/29/20 18:13 Dextrose 5% Sodium Chloride 0.9% IV CONT Not Given .[id number] [facility] Lorazepam 1.5 mg 05/28/20 07:12 05/29/20 21:53 Lorazepam Inj (*Crx) 2 Mg/Ml Vial IV PUSH 1.5 mg Q6H PRN Administration Anxiety Ondansetron HCl 4 mg 05/27/20 20:19 05/29/20 01:58 Ondansetron Inj 4 Mg/2 Ml Vial IV PUSH 4 mg Q4H PRN Administration Nausea Phenol 1 spray 05/28/20 00:00 05/28/20 02:26 Phenol/Sod Pheno [place] Holder (*Bkc) MUCOUS MEM 1 spray PRN PRN Administration Sore Throat Warfarin Sodium 2 mg/ Warfarin 7 mg 05/28/20 17:00 05/29/20 18:47 Sodium 5 mg PO 7 mg DAILY@1700 [facility] Administration Radiology Results: ITS Impressions Abdomen X
[2020-05-30] MEDS: LACTULOSE 20 GM/30 ML UDC FEED TUBE (12:07)
--- NOTE | 2020-05-30 13:15 | PC.NURSE ---
SPOKE WITH DR PAULSON REPORTED HYPOACTIVE BS AND N-G CLAMPED SINCE 0700 THIS AM ORDERS RECEVEID.
[2020-05-30 14:00] VITALS: BP 122/65; PULSE 79; RESP 18; TEMP 36.5; O2SAT 97
[2020-05-30] MEDS: WARFARIN (*PBKC) 2 MG, WARFARIN (*PBKC) 5 MG 7 MG PO ×2 (17:08)
[2020-05-30] MEDS: DEXTROSE 5%/0.9% SOD CHL 1,000 ML 75 ML IV CONT (17:10)
[2020-05-30] MEDS: BISACODYL 10 MG SUPPOSITORY (17:46)
--- NOTE | 2020-05-30 20:34 | PM.PNNEP ---
Progress Note: A&P Assessment and Plan (1) End-stage renal disease on hemodialysis: Code(s): N18.6 - End stage renal disease; Z99.2 - Dependence on renal dialysis Status: Chronic Assessment and Plan: Due for HD tomorrow (2) Partial small bowel obstruction: Code(s): K56.600 - Partial intestinal obstruction, unspecified as to cause Status: Acute Assessment and Plan: NG still in. passing a little gas. bs mildly positive (3) Anemia in chronic kidney disease: Code(s): N18.9 - Chronic kidney disease, unspecified; D63.1 - Anemia in chronic kidney disease Status: Acute Assessment and Plan: hemoglobin is low at 8.7. She is getting Epogen (4) Factor V Leiden: Code(s): D68.51 - Activated protein C resistance Status: Acute Additional Plan she is on anticoagulants Subjective Date/time seen: 05/30/20 20:34 Interval history: patient is alert. NGT still in. during dialysis yesterday the tube was clamped She did okay she is passing some gas still Review of Systems Cardiovascular: Cardiovascular: Reports no additional cardiovascular complaints Respiratory: Respiratory: Reports no additional respiratory complaints Gastrointestinal: Gastrointestinal: Reports no additional gastrointestinal complaints Genitourinary: Genitourinary: Reports no additional female genitourinary complaints Exam Narrative: Exam Narrative: WDWN in NAD skin no rash or sq nodules head ncat lungs clear bilaterally cor reg no rub abd BS+ but hypoactive nontender and soft ext no edema. Objective Data Vital Signs Vital Signs: Vital Signs - 24 hr 05/29/20 22:00 05/30/20 06:00 05/30/20 08:00 Temperature 37.0 C 36.9 C Pulse Rate 93 72 72 Respiratory Rate 20 20 20 Blood Pressure 114/67 132/84 Pulse Oximetry 94 92 92 05/30/20 14:00 Temperature 36.5 C Pulse Rate 79 Respiratory Rate 18 Blood Pressure 122/65 Pulse Oximetry 97 Intake/Output Intake/Output: Intake & Output 05/27/20 05/28/20 05/29/20 05/30/20 23:59 23:59 23:59 23:59 Intake Total 0 2200 1300 Output Total 1100 400 800 Balance -1100 1800 500 Meds/Results Medications: Active Medications Generic Name Dose Route Start Last Admin Trade Name Freq PRN Reason Stop Dose Admin Epoetin Cirilo-epbx 10,000 units 05/29/20 14:00 Epoetin Cirilo-Epbx 10,000 Units/Ml Vial IV PUSH MoWeFr@1400 [facility] Hydromorphone HCl 0.5 mg 05/27/20 21:16 05/30/20 18:15 Hydromorphone Hcl Inj (*Crx) 1 Mg/Ml Syr IV PUSH 0.5 mg Q3H PRN Administration Pain Rated 7-10 Dextrose/Sodium Chloride 1,000 mls @ 75 mls/hr 05/28/20 12:30 05/30/20 17:10 Dextrose 5% Sodium Chloride 0.9% IV CONT 75 mls/hr .[id number] [facility] Administration Lorazepam 1.5 mg 05/28/20 07:12 05/29/20 21:53 Lorazepam Inj (*Crx) 2 Mg/Ml Vial IV PUSH 1.5 mg Q6H PRN Administration Anxiety Ondansetron HCl 4 mg 05/27/20 20:19 05/29/20 01:58 Ondansetron Inj 4 Mg/2 Ml Vial IV PUSH 4 mg Q4H PRN Administration Nausea Phenol 1 spray 05/28/20 00:00 05/28/20 02:26 Phenol/Sod Pheno [place] Holder (*Bkc) MUCOUS MEM 1 spray PRN PRN Administration Sore Throat Warfarin Sodium 2 mg/ Warfarin 7 mg 05/28/20 17:00 05/30/20 17:08 Sodium 5 mg PO 7 mg DAILY@1700 [facility] Administration Radiology Results: ITS Impressions Abdomen X-Ray 05/29/20 08:40 Impression: 1: No acute abdominal abnormality. Labs Labs: Laboratory Results - last 24 hr 05/30/20 05/30/20 05/30/20 05:28 05:28 05:28 WBC 2.7 L RBC 2.66 L Hgb 8.6 L Hct 27.1 L MCV 101.9 H MCH 32.3 MCHC 31.7 L RDW 14.2 Plt Count 101 L MPV 10.1 PT 25.5 H INR 2.4 Sodium 137 Potassium 4.3 Chloride 100 Carbon Dioxide 26 Anion Gap 11 BUN 23 H D Creatinine 7.00 H Estim Creat Clear Calc 9 Estimated GFR 6 L Glucose 80 Calcium 7.8 L Phosphorus
[2020-05-30] MEDS: LORazepam INJ (*CRX) 2 MG/ML VIAL 1.5 MG IV PUSH (21:03)
[2020-05-30 21:40] VITALS: BP 120/60; PULSE 80; RESP 16; TEMP 36.2; O2SAT 99
[2020-05-31] MEDS: HYDROmorphone HCL INJ (*CRX) 1 MG/ML SYR 0.5 MG IV PUSH ×3 (00:05→06:21)
[2020-05-31 06:00] VITALS: BP 132/75; PULSE 79; RESP 16; TEMP 36.2; O2SAT 100
[2020-05-31] MEDS: DEXTROSE 5%/0.9% SOD CHL 1,000 ML 75 ML IV CONT (06:21)
[2020-05-31 06:33] LABS: Basophils Percent Auto 0.7 % (0.2-1.2); Eosinophils Absolute Auto 0.1 K/mm3 (0-0.3); Eosinophils Percent Auto 3.3 % (0-4.4); Hematocrit 27.1 % (37.0-47.0); Hemoglobin 8.8 g/dL (12.0-15.0); Lymphocytes Absolute Auto 0.89 K/mm3 (0.9-3.2); Lymphocytes Percent Auto 33.1 % (18.3-44.2); Mean Corpuscular HGB Conc 32.5 g/dl (32-36); Mean Corpuscular Hemoglobin 33.1 pg (26-34); Mean Corpuscular Volume 101.9 fl (80-100); Mean Platelet Volume 10.5 fl (7.4-10.4); Monocytes Absolute Auto 0.2 K/mm3 (0.1-0.6); Monocytes Percent Auto 7.1 % (2.6-8.5); Neutrophils Absolute Auto 1.5 K/mm3 (1.3-6.7); Neutrophils Percent Auto 55.8 % (45.5-73.1); Platelet Count Result 113 k/mm3 (150-375); Red Blood Count 2.66 M/mm3 (4.2-5.4); Red Cell Distribution Width 14.1 % (11.5-14.5); White Blood Count 2.7 K/mm3 (4.5-10.0)
[2020-05-31 06:44] LABS: Albumin Level 3.8 g/dL (3.5-5.1); Anion Gap 11 mmol/L (8-16); Blood Urea Nitrogen 27 mg/dL (7-17); Calcium 7.5 mg/dL (8.4-10.2); Carbon Dioxide 29 mmol/L (22-30); Chloride 98 mmol/L (98-107); Estimated CRCL calculation 8 ml/min; Estimated Glomerular Filt Rate 4; Glucose 109 mg/dL (65-105); Magnesium 2.1 mg/dL (1.6-2.3); Phosphorus 5.1 mg/dL (2.5-4.5); Potassium 4.2 mmol/L (3.4-5.0); Sodium 138 mmol/L (137-145)
[2020-05-31 06:47] LABS: Prothrombin Time 38.1 Seconds (11.1-14.7)
[2020-05-31] MEDS: LACTULOSE 20 GM/30 ML UDC PO (08:51)
[2020-05-31] MEDS: ACETAMINOPHEN 325 MG TABLET 650 MG PO (09:04)
[2020-05-31] MEDS: FLUTICASONE PROPIONATE 0.05% NA SPR 16 GM BTL (*BKC) 1 SPRAY NASAL (09:24)
--- NOTE | 2020-05-31 12:03 | PM.PNGS ---
Progress Note: A&P Assessment and Plan (1) Partial small bowel obstruction: Code(s): K56.600 - Partial intestinal obstruction, unspecified as to cause Status: Acute Assessment and Plan: Will try to advance to full liquids for dinner Increase activity Lactulose daily to prevent constipation Possibly home tomorrow if continuing to improve (2) End-stage renal disease on hemodialysis: Code(s): N18.6 - End stage renal disease; Z99.2 - Dependence on renal dialysis Status: Chronic (3) Factor V Leiden: Code(s): D68.51 - Activated protein C resistance Status: Acute (4) Current use of longterm anticoagulation: Code(s): Z79.01 - assisted (current) use of anticoagulants Status: Acute Subjective Subjective Date/Time Seen: 05/31/20 12:03 1 small BM. Tolerating clears. Passing flatus. No abdominal pain. Exam GI: Inspection: non-distended and scar GI Palp: Yes Soft to palpation, No Tenderness to palpation present (GI) and No Guarding due to palpation present (GI) Percussion: Yes normal to percussion Auscultation: normal bowel sounds Objective Data Vital Signs Vital Signs: Vital Signs - 24 hr 05/30/20 14:00 05/30/20 21:40 05/31/20 06:00 Temperature 36.5 C 36.2 C L 36.2 C L Pulse Rate 79 80 79 Respiratory Rate 18 16 16 Blood Pressure 122/65 120/60 132/75 Pulse Oximetry 97 99 100 Intake/Output Intake/Output: Intake & Output 05/28/20 05/29/20 05/30/20 05/31/20 23:59 23:59 23:59 23:59 Intake Total 0 2200 1300 2460 Output Total 1100 400 800 Balance -1100 6651 710 5209 Meds/Results Medications: Active Medications Generic Name Dose Route Start Last Admin Trade Name Freq PRN Reason Stop Dose Admin Acetaminophen 650 mg 05/31/20 08:55 05/31/20 09:04 Acetaminophen 325 Mg Tablet PO 650 mg Q4H PRN Administration Headache Epoetin Cirilo-epbx 10,000 units 05/29/20 14:00 Epoetin Cirilo-Epbx 10,000 Units/Ml Vial IV PUSH MoWeFr@1400 [facility] Fluticasone Propionate 1 spray 05/31/20 09:00 05/31/20 09:24 Fluticasone Propionate 0.05% Na Spr 16 Gm Btl (*Bkc) NASAL 1 spray Q12HR [facility] Administration Hydromorphone HCl 0.5 mg 05/27/20 21:16 05/31/20 06:21 Hydromorphone Hcl Inj (*Crx) 1 Mg/Ml Syr IV PUSH 0.5 mg Q3H PRN Administration Pain Rated 7-10 Lactulose 20 gm 05/31/20 09:00 05/31/20 08:51 Lactulose 20 Gm/30 Ml Udc PO 20 gm QAM [facility] Administration Lorazepam 1.5 mg 05/28/20 07:12 05/30/20 21:03 Lorazepam Inj (*Crx) 2 Mg/Ml Vial IV PUSH 1.5 mg Q6H PRN Administration Anxiety Ondansetron HCl 4 mg 05/27/20 20:19 05/29/20 01:58 Ondansetron Inj 4 Mg/2 Ml Vial IV PUSH 4 mg Q4H PRN Administration Nausea Phenol 1 spray 05/28/20 00:00 05/28/20 02:26 Phenol/Sod Pheno [place] Holder (*Bkc) MUCOUS MEM 1 spray PRN PRN Administration Sore Throat Warfarin Sodium 2 mg/ Warfarin 7 mg 05/28/20 17:00 05/30/20 17:08 Sodium 5 mg PO 7 mg DAILY@1700 [facility] Administration Radiology Results: ITS Impressions Abdomen X-Ray 05/31/20 08:11 IMPRESSION: 1. No acute abdominal abnormality. Labs Labs: Laboratory Results - last 24 hr 05/31/20 05/31/20 05/31/20 06:12 06:12 06:12 WBC 2.7 L RBC 2.66 L Hgb 8.8 L Hct 27.1 L MCV 101.9 H MCH 33.1 MCHC 32.5 RDW 14.1 Plt Count 113 L MPV 10.5 H Immature Gran % (Auto) 0.0 Neut % (Auto) 55.8 Lymph % (Auto) 33.1 [place] % (Auto) 7.1 Eos % (Auto) 3.3 Baso % (Auto) 0.7 Lymph # (Auto) 0.89 L [place] # (Auto) 0.2 Eos # (Auto) 0.1 Baso # (Auto) 0.0 Abs Immat Gran (auto) 0.00 Absolute Neuts (auto) 1.5 Absolute Nucleated RBC 0.0 Nucleated RBC % 0.0 PT 38.1 H D INR 4.0 Sodium 138 Potassium 4.2 Chloride 98 Carbon Dioxide 29 Anion Gap 11 BUN 27 H Creatinine 9.60 H Estim Creat Clear Calc 8 Estimated GFR 4 L Gluc
--- NOTE | 2020-05-31 12:21 | PM.IMPN ---
Progress Note: A&P Assessment and Plan (1) Partial small bowel obstruction: Code(s): K56.600 - Partial intestinal obstruction, unspecified as to cause Status: Acute Assessment and Plan: NG tube was removed the evening of 05/30. Symptoms continue to improve. She reports two small bowel movements and she is passing flatus. She has a history of several bowel obstructions typically managed conservatively. Plan to advance to full liquid diet for dinner and monitor closely with possible discharge tomorrow. Discontinue IV fluids as she is tolerating PO intake with clear liquid diet well. (2) End-stage renal disease on hemodialysis: Code(s): N18.6 - End stage renal disease; Z99.2 - Dependence on renal dialysis Status: Chronic Assessment and Plan: Continue hemodialysis recommendations per nephrology - appreciate input. 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 She is scheduled for hemodialysis today. (3) Anemia in chronic kidney disease: Code(s): N18.9 - Chronic kidney disease, unspecified; D63.1 - Anemia in chronic kidney disease Status: Acute Assessment and Plan: H&H is low but stable without signs or symptoms of acute bleeding. Suspect related to renal failure. She is getting Epo. Monitor H&H. (4) Current use of assisted anticoagulation: Code(s): Z79.01 - long-term (current) use of anticoagulants Status: Acute Assessment and Plan: She is on chronic warfarin due to history of PE and Factor V Leiden mutation; history of endocarditis s/p valve repair. INR is supratherapeutic at 4.0 today. Warfarin was held 05/28 and resumed 05/29, continue. Monitor INR daily. Will hold dose for tonight and repeat PT/INR tomorrow. Discussed with cardiology who follows her warfarin. INR was subtherapeutic 05/17 and she was advised to take 7mg T,,Fri,Fri and 9mg ,,. The patient reports that she was taking 7mg daily with the exception of 9mg on Friday. Cardiology recommends 10% decrease in total weekly dose if INR remains supratherapeutic. Subjective Date/time seen: 05/31/20 12:21 Ms. Jaramillo is a 45 y.o. 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 NG was removed yesterday due to throat discomfort. She reports a small bowel movement yesterday and an additional small bowel movement today. She is passing flatus as well and tolerating clear liquid diet. She denies nausea, vomiting, and abdominal pain. She feels bloated and notes that she thinks she needs dialysis which she is scheduled for today. She had a sinus headache which was relived with tylenol. She denies chest pain, palpitations, and dyspnea. She hopes to advance her diet today as she is hungry and eager to eat. She notes that she got up to ambulate with her niece in the [place] today. She has no other concerns. Review of Systems Review of Systems: All systems reviewed & are unremarkable except as noted in HPI and below Exam Narrative: Exam Narrative: General: Pleasant, well-developed, well-nourished 45 y.o. female sitting up in bed in no acute distress. Non-toxic appearing. HEENT: Normocephalic and atraumatic. Scleare anicteric. Conjunctivae without injection or exudate. EOMI. Oral mucosa moist. Neck: Supple. Cardiac: Regular rate and rhythm. Lungs: Effort normal. Lungs clear to auscultation bilaterally. Abdomen: Multiple abdominal scars. Bowel sounds are normoactive. Abdomen is soft, non-tender, and non-distended. Extremities: Lower extremities without edema. No calf tenderness. Verito negative. Pedal pulses palpable. Neurological: Alert and oriented x3. No focal neurological deficits noted. Speech is clear. Psychiatric: Judgment and insight intact. Pleasant mood and appropraite affect. Objective Data
[2020-05-31 14:00] VITALS: BP 126/72; PULSE 77; RESP 18; TEMP 36.6; O2SAT 100
--- NOTE | 2020-05-31 17:23 | PM.PNNEP ---
Progress Note: A&P Assessment and Plan (1) End-stage renal disease on hemodialysis: Code(s): N18.6 - End stage renal disease; Z99.2 - Dependence on renal dialysis Status: Chronic Assessment and Plan: Due for HD today. Multiple emergency is have put this off. We might just do this tomorrow morning. (2) Partial small bowel obstruction: Code(s): K56.600 - Partial intestinal obstruction, unspecified as to cause Status: Acute Assessment and Plan: NG Is out and she is tolerating clear liquids passing gas. bs Positive. (3) Anemia in chronic kidney disease: Code(s): N18.9 - Chronic kidney disease, unspecified; D63.1 - Anemia in chronic kidney disease Status: Acute Assessment and Plan: hemoglobin is low at 8.8. She is getting Epogen (4) Factor V Leiden: Code(s): D68.51 - Activated protein C resistance Status: Acute Additional Plan she is on Coumadin Subjective Date/time seen: 05/31/20 17:23 Interval history: patient is alert. NGT is out. She tolerated clear liquids for breakfast and lunch. She is eager to advance her diet. Review of Systems Cardiovascular: Cardiovascular: Reports no additional cardiovascular complaints Respiratory: Respiratory: Reports no additional respiratory complaints Gastrointestinal: Gastrointestinal: Reports no additional gastrointestinal complaints Genitourinary: Genitourinary: Reports no additional female genitourinary complaints Exam Narrative: Exam Narrative: WDWN in NAD skin no rash or sq nodules head ncat lungs clear bilaterally cor reg no rub abd BS+ And soft ext no edema. Objective Data Vital Signs Vital Signs: Vital Signs - 24 hr 05/30/20 21:40 05/31/20 06:00 05/31/20 14:00 Temperature 36.2 C L 36.2 C L 36.6 C Pulse Rate 80 79 77 Respiratory Rate 16 16 18 Blood Pressure 120/60 132/75 126/72 Pulse Oximetry 99 100 100 Intake/Output Intake/Output: Intake & Output 05/28/20 05/29/20 05/30/20 05/31/20 23:59 23:59 23:59 23:59 Intake Total 0 2200 1300 2460 Output Total 1100 400 800 Balance -1100 4577 010 7237 Meds/Results Medications: Active Medications Generic Name Dose Route Start Last Admin Trade Name Freq PRN Reason Stop Dose Admin Acetaminophen 650 mg 10/21/20 08:55 05/31/20 09:04 Acetaminophen 325 Mg Tablet PO 650 mg Q4H PRN Administration Headache Epoetin Cirilo-epbx 10,000 units 05/29/20 14:00 Epoetin Cirilo-Epbx 10,000 Units/Ml Vial IV PUSH MoWeFr@1400 CHRIS Fluticasone Propionate 1 spray 05/31/20 09:00 05/31/20 09:24 Fluticasone Propionate 0.05% Na Spr 16 Gm Btl (*Bkc) NASAL 1 spray Q12HR CHRIS Administration Hydromorphone HCl 0.5 mg 05/27/20 21:16 05/31/20 06:21 Hydromorphone Hcl Inj (*Crx) 1 Mg/Ml Syr IV PUSH 0.5 mg Q3H PRN Administration Pain Rated 7-10 Lactulose 20 gm 05/31/20 09:00 05/31/20 08:51 Lactulose 20 Gm/30 Ml Udc PO 20 gm QAM CHRIS Administration Lorazepam 1.5 mg 05/28/20 07:12 05/30/20 21:03 Lorazepam Inj (*Crx) 2 Mg/Ml Vial IV PUSH 1.5 mg Q6H PRN Administration Anxiety Ondansetron HCl 4 mg 05/27/20 20:19 05/29/20 01:58 Ondansetron Inj 4 Mg/2 Ml Vial IV PUSH 4 mg Q4H PRN Administration Nausea Phenol 1 spray 05/28/20 00:00 05/28/20 02:26 Phenol/Sod Pheno [place] Holder (*Bkc) MUCOUS MEM 1 spray PRN PRN Administration Sore Throat Warfarin Sodium 2 mg/ Warfarin 7 mg 05/28/20 17:00 05/30/20 17:08 Sodium 5 mg PO 7 mg DAILY@1700 [facility] Administration Radiology Results: ITS Impressions Abdomen X-Ray 05/31/20 08:11 IMPRESSION: 1. No acute abdominal abnormality. Labs Labs: Laboratory Results - last 24 hr 05/31/20 05/31/20 05/31/20 06:12 06:12 06:12 WBC 2.7 L RBC 2.66 L Hgb 8.8 L Hct 27.1 L MCV 101.9 H MCH 33.1 MCHC 32.5 RDW 14.1 Plt Count 113 L MPV 10.5 H Im
[2020-05-31] MEDS: LORazepam INJ (*CRX) 2 MG/ML VIAL 1.5 MG IV PUSH (21:09)
[2020-05-31 21:53] VITALS: BP 118/64; PULSE 66; RESP 18; TEMP 37.1; O2SAT 100
[2020-06-01] VITALS (21 sets, daily range): BP systolic 108–124; BP diastolic 56–70; PULSE 64–79; RESP 18–20; TEMP 35.9–37; O2SAT 99
[2020-06-01] MEDS: HYDROmorphone HCL INJ (*CRX) 1 MG/ML SYR 0.5 MG IV PUSH ×3 (00:01→06:05)
[2020-06-01 06:06] LABS: Hematocrit 23.8 % (37.0-47.0); Hemoglobin 7.9 g/dL (12.0-15.0); Mean Corpuscular HGB Conc 33.2 g/dl (32-36); Mean Corpuscular Hemoglobin 33.6 pg (26-34); Mean Corpuscular Volume 101.3 fl (80-100); Mean Platelet Volume 10.5 fl (7.4-10.4); Platelet Count Result 86 k/mm3 (150-375); Red Blood Count 2.35 M/mm3 (4.2-5.4); Red Cell Distribution Width 14.1 % (11.5-14.5)
[2020-06-01 06:18] LABS: Anion Gap 12 mmol/L (8-16); Blood Urea Nitrogen 32 mg/dL (7-17); Calcium 7.1 mg/dL (8.4-10.2); Carbon Dioxide 25 mmol/L (22-30); Chloride 100 mmol/L (98-107); Estimated CRCL calculation 7 ml/min; Estimated Glomerular Filt Rate 4; Glucose 103 mg/dL (65-105); Potassium 4.1 mmol/L (3.4-5.0); Sodium 137 mmol/L (137-145)
[2020-06-01 06:33] LABS: INR 3.6; Prothrombin Time 35.6 Seconds (11.1-14.7)
[2020-06-01 06:43] LABS: White Blood Count 1.8 K/mm3 (4.5-10.0)
[2020-06-01] MEDS: LACTULOSE 20 GM/30 ML UDC PO (08:23)
[2020-06-01] MEDS: FLUTICASONE PROPIONATE 0.05% NA SPR 16 GM BTL (*BKC) 1 SPRAY NASAL (08:28)
--- NOTE | 2020-06-01 09:35 | PM.PNGS ---
Progress Note: A&P Assessment and Plan (1) Partial small bowel obstruction: Code(s): K56.600 - Partial intestinal obstruction, unspecified as to cause Status: Acute Assessment and Plan: Tolerating regular soft diet. OK to discharge from surgical standpoint. Discussed maintaining soft diet, recommended smoothies or other pureed food occasionally, discussed warning signs of recurrent obstructions. 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 Bowels moving. No abdominal pain or bloating. Exam GI: Inspection: non-distended and scar GI Palp: Yes Soft to palpation, No Tenderness to palpation present (GI) and No Guarding due to palpation present (GI) Percussion: Yes normal to percussion Auscultation: normal bowel sounds Objective Data Vital Signs Vital Signs: Vital Signs - 24 hr 05/31/20 14:00 05/31/20 21:53 06/01/20 05:54 Temperature 36.6 C 37.1 C 36.9 C Pulse Rate 77 66 71 Respiratory Rate 18 18 18 Blood Pressure 126/72 118/64 110/56 L Pulse Oximetry 100 100 99 Intake/Output Intake/Output: Intake & Output 05/29/20 05/30/20 05/31/20 06/01/20 23:59 23:59 23:59 23:59 Intake Total 2200 1300 3660 240 Output Total 400 800 Balance 1995 508 7319 240 Meds/Results Medications: Active Medications Generic Name Dose Route Start Last Admin Trade Name Freq PRN Reason Stop Dose Admin Acetaminophen 650 mg 05/31/20 08:55 05/31/20 09:04 Acetaminophen 325 Mg Tablet PO 650 mg Q4H PRN Administration Headache Epoetin Cirilo-epbx 10,000 units 05/29/20 14:00 Epoetin Cirilo-Epbx 10,000 Units/Ml Vial IV PUSH MoWeFr@1400 CHRIS Fluticasone Propionate 1 spray 05/31/20 09:00 06/01/20 08:28 Fluticasone Propionate 0.05% Na Spr 16 Gm Btl (*Bkc) NASAL 1 spray Q12HR CHRIS Administration Hydromorphone HCl 0.5 mg 05/27/20 21:16 06/01/20 06:05 Hydromorphone Hcl Inj (*Crx) 1 Mg/Ml Syr IV PUSH 0.5 mg Q3H PRN Administration Pain Rated 7-10 Lactulose 20 gm 05/31/20 09:00 06/01/20 08:23 Lactulose 20 Gm/30 Ml Udc PO 20 gm QAM CHRIS Administration Lorazepam 1.5 mg 05/28/20 07:12 05/31/20 21:09 Lorazepam Inj (*Crx) 2 Mg/Ml Vial IV PUSH 1.5 mg Q6H PRN Administration Anxiety Ondansetron HCl 4 mg 05/27/20 20:19 05/29/20 01:58 Ondansetron Inj 4 Mg/2 Ml Vial IV PUSH 4 mg Q4H PRN Administration Nausea Phenol 1 spray 05/28/20 00:00 05/28/20 02:26 Phenol/Sod Pheno [place] Holder (*Bkc) MUCOUS MEM 1 spray PRN PRN Administration Sore Throat Warfarin Sodium 2 mg/ Warfarin 7 mg 05/28/20 17:00 05/30/20 17:08 Sodium 5 mg PO 7 mg DAILY@1700 CHRIS Administration Radiology Results: ITS Impressions Abdomen X-Ray 05/31/20 08:11 IMPRESSION: 1. No acute abdominal abnormality. Labs Labs: Laboratory Results - last 24 hr 06/01/20 06/01/20 06/01/20 05:41 05:41 05:41 WBC 1.8 L* RBC 2.35 L Hgb 7.9 L Hct 23.8 L MCV 101.3 H MCH 33.6 MCHC 33.2 RDW 14.1 Plt Count 86 L MPV 10.5 H PT 35.6 H INR 3.6 Sodium 137 Potassium 4.1 Chloride 100 Carbon Dioxide 25 Anion Gap 12 BUN 32 H Creatinine 11.30 H Estim Creat Clear Calc 7 Estimated GFR 4 L Glucose 103 Calcium 7.1 L Quality VTE Prophylaxis VTE prophylaxis: pharmacologic ordered (Home warfarin)
--- NOTE | 2020-06-01 11:49 | PM.DS ---
DS: Admitting Diagnosis Admitting Diagnosis Admitting Diagnosis: partial small bowel obstruction DS: Discharge Diagnosis Discharge Diagnosis (1) Partial small bowel obstruction: Code(s): K56.600 - Partial intestinal obstruction, unspecified as to cause Status: Acute Assessment and Plan: Date of Admission 05/27/20 Date of Discharge/ DOS 06/01/20 Ms. 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 She is known to have several bowel obstructions secondary to adhesions from multiple abdominal surgeries, all of which have resolved with conservative therapy. She estimates she has had around 21 bowel obstructions in the last 5 years. In any event, she developed diffuse abdominal pain with nausea around 4 days prior to arrival of this admission. Like normal, she cut back her diet to try to manage herself but her pain worsened and she presented to ED. KUB demonstrated adynamic ileus vs partial bowel obstruction and she was admitted to the hospitalist service in this setting. NG tube was placed to suction. She was evaluated by general surgery, Dr Cornell, and managed conservatively with NG decompression, bowel rest, IV hydration, antiemetics and pain control. Symptoms resolved, NG was removed 05/30, bowel function was restored and repeat imaging showed improvement. She was feeling well and was hemodynamically stable for discharge 06/01/20. She is a patient of Dr Bishop and continued with hemodialysis here. She was again noted to have pancytopenia, chronic for her. She has followed with Dr Arora in the past for B12 injections, but admits she hasn't done this in awhile. I encouraged her to call Dr Arora's office and see him again in follow up. See below regarding her INR and warfarin dosing. (2) End-stage renal disease on hemodialysis: Code(s): N18.6 - End stage renal disease; Z99.2 - Dependence on renal dialysis Status: Chronic Assessment and Plan: Continued on hemodialysis here per nephrology. 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 She is scheduled for hemodialysis today. (3) Anemia in chronic kidney disease: Code(s): N18.9 - Chronic kidney disease, unspecified; D63.1 - Anemia in chronic kidney disease Status: Chronic Assessment and Plan: H&H is low but stable without signs or symptoms of acute bleeding. Suspect related to renal failure. She received Epo here. Pancytopenia noted. She has followed with Dr Arora in the past, encouraged her to call Dr Arora's office to make a follow up appointment. 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 Warfarin was initially held 05/28 due to NPO status. INR was monitored daily. INR remained therapeutic while warfarin was held, but when her home dose of warfarin was resumed 05/29, her INR became supratherapeutic at 4.0. Warfarin was again held for that evening. Day of discharge INR was 3.6 and she was instructed to continue 7mg daily and follow up with Dr Rodas's office for further adjustments. (Discussed with cardiology who follows her warfarin. INR was subtherapeutic 05/17 and she was advised to take 7mg T,Th,Fri,Fri and 9mg M,W,. The patient reports that she was taking actually just 7mg daily with the exception of 9mg on Friday.) DS: Joyce
[2020-06-01] MEDS: EPOETIN ALFA-EPBX 10,000 UNITS/ML VIAL 10000 UNITS IV PUSH (12:50)
== END 2020-06-01 15:20 | disposition home or self-care (01) | DRG 388 ==
LOC: ANHED 20:38 → ANH3MEDSUR 20:50
PROVIDERS: Internal Medicine Nephrology; Physician Assistant; Admitting Provider Family Medicine; Emergency Provider Emergency Medicine; PCP Family Medicine; Visit Provider Physician Assistant
DX: K56.600 Partial intestinal obstruction, unspecified as to cause (principal); N18.6 End stage renal disease; D68.51 Activated protein C resistance; I50.32 Chronic diastolic (congestive) heart failure; D61.818 Other pancytopenia; Z94.0 Kidney transplant status; D63.1 Anemia in chronic kidney disease; F41.9 Anxiety disorder, unspecified; E03.9 Hypothyroidism, unspecified; F42.9 Obsessive-compulsive disorder, unspecified; J45.909 Unspecified asthma, uncomplicated; M54.5 Low back pain; Z99.2 Dependence on renal dialysis; Z79.01 Long term (current) use of anticoagulants; Z86.711 Personal history of pulmonary embolism; Z90.49 Acquired absence of other specified parts of digestive tract; Z66 Do not resuscitate
CPT/HCPCS: 36415; 74019; 80048; 80053; 80069; 83690; 83735; 84100; 85025; 85027; 85610; 85730; 86706; 87340; 96374; 96375; 96376; 99285; A9270; G0257; G0378; J0131; J1170; J2060; J2270; J2405; J7030; J7040; J7042; Q5106

== ENCOUNTER 2020-09-11 12:17 | Outpatient (CLI) | payer MEDICARE, MEDICAID, SELFPAY ==
--- NOTE | ~2020-09-11 | US_ITS ---
EXAMINATION: US pelvic complete w TV DATE: 09/11/2020 12:54 INDICATION: Postmenopausal bleeding Comparison:12/14/2013 TECHNIQUE: Multiple transabdominal and endovaginal sonographic images of the pelvis performed. FINDINGS: The uterus measures 8 x 3 x 2.5 cm. The endometrial complex measures 4 mm. The right ovary measures 1.2 x 0.8 x 1.3 cm and the left ovary measures 1.2 x 1.2 x 1 cm. There are small follicles in each ovary. There is no free fluid in the pelvis. There are no abnormal masses seen on either side. IMPRESSION: 1. Mild endometrial prominence measuring 4 mm. Reviewed, dictated and finalized at location A. [employer]SF[employer]UDENTS
== END 2020-09-11 12:18 | disposition home or self-care (01) ==
LOC: ANHIMG 12:28
PROVIDERS: PCP Family Medicine; Visit Provider Family Medicine
DX: K56.609 Unspecified intestinal obstruction, unspecified as to partial versus complete obstruction (principal); N18.6 End stage renal disease; D63.1 Anemia in chronic kidney disease; Z79.01 Long term (current) use of anticoagulants
CPT/HCPCS: 76830; 76856

== ENCOUNTER 2020-10-22 20:32 | Inpatient (IN) | payer MEDICARE, MEDICAID, SELFPAY ==
--- NOTE | ~2020-10-22 | XR_ITS ---
EXAMINATION: XR abdomen NG/feed tube insert DATE: 10/22/2020 22:38 INDICATION: Nasogastric tube placement. TECHNIQUE: An upright view of the abdomen was obtained on 2 radiographs. COMPARISON: CT abdomen and pelvis 10/22/2020 FINDINGS: There are no gas-filled dilated loops of bowel. The nasogastric tube tip is in the distal s tomach. There is a calcified transplant kidney in left iliac fossa. Median sternotomy wires are noted . IMPRESSION: 1. Nasogastric tube tip in the distal stomach. Reviewed, dictated and finalized at location A.
--- NOTE | ~2020-10-22 | CT_ITS ---
EXAMINATION: CT abdomen pelvis wo con DATE: 10/24/2020 10:00 INDICATION: Severe abdominal pain. TECHNIQUE: Computed tomography (CT) of the abdomen and pelvis was performed without intravenous contr ast. Automated exposure control and iterative reconstruction technique were employed. The dose-length product was 1018.82 mGy-cm. COMPARISON: CT abdomen and pelvis 10/22/2020 FINDINGS: The visualized portions of the lung bases demonstrate mild atelectasis. No pleural effusion . Cardiomegaly is noted. There are coronary artery calcifications. There are changes of tricuspid ximena ve replacement. Retained epicardial pacer wires are noted. The nasogastric tube tip is in the first p ortion of the duodenum. The liver and spleen are normal. There are changes of cholecystectomy. The co mmon duct is dilated to 13 mm, likely not clinically significant given the recent normal liver functi on tests. The pancreas and adrenal glands are normal. There is severe atrophy of the inaja kidneys. There is a 3.0 cm cyst in left kidney. There are calcified transplant kidneys in the lower abdomen bi laterally. There is diverticulosis of the colon without evidence of diverticulitis. The appendix is n ot visualized. There are multiple dilated loops of small bowel containing oral contrast. There is a t ransition point in right abdomen. There is no oral contrast beyond the transition point. There are no pathologically enlarged lymph nodes. There is no free intraperitoneal fluid. There is severe lower l umbar spondylosis. IMPRESSION: 1. Small bowel obstruction. Reviewed, dictated and finalized at location A. IMPRESSION: 1. Small bowel obstruction.
--- NOTE | ~2020-10-22 | XR_ITS ---
EXAMINATION: XR sm bowel follow through WS EXAM DATE: 10/23/2020 17:13 INDICATION: Small bowel obstruction. Please place hypaque thru NG. TECHNIQUE: Labor Law Professor radiograph was acquired. Small bowel series was performed with water-soluble solut ion. Fluoroscopy time of 0.0 minutes with 9 KUB images obtained. Exam was stopped after 4 hours of im aging. Patient was imaged portably for the last 3 hours. A total of 240 cc of Omnipaque 350 was instilled through the feeding tube confirmed in position on sc out image. Between the 2 and 3 hour projections, nurse placed patient's nasogastric tube back on suct ion as she became nauseated. FINDINGS: Severely distended mid small bowel loops opacified progressively during the 4 hours of imag ing. This did not enter the colon. No contrast extravasation. Calcified failed kidney transplant. Rig ht inguinal surgical clips. IMPRESSION: Small bowel obstruction. Reviewed, dictated and finalized at location A. IMPRESSION: Small bowel obstruction.
--- NOTE | ~2020-10-22 | CT_ITS ---
EXAMINATION: CT abdomen pelvis wo con DATE: 10/22/2020 21:20 INDICATION: Abdominal pain. History of small bowel obstruction. TECHNIQUE: Computed tomography (CT) of the abdomen and pelvis was performed without intravenous contr ast. The dose-length product was 676.96 mGy-cm. Automated exposure control and iterative reconstructi on technique were employed. COMPARISON: CT dated 03/18/2020. FINDINGS: There is lower lobe atelectasis bilaterally. Moderate cardiomegaly. No significant pleural or pericardial effusion. No significant vascular abnormality. There are calcified left pelvic transpl ant kidney. There is possible right pelvic transplant kidney in the right lower abdomen anteriorly. T here are severely atrophic kidneys. Status post cholecystectomy with expected prominence of the bile ducts. There are dilated small bowel loops of the duodenum and jejunum extending into the right lower abdomen, consistent with obstruction. There are extensive postsurgical changes in the right lower ab domen. Colonic diverticulosis without evidence for diverticulitis. Lumbar spondylosis. IMPRESSION: 1. Dilated proximal and mid small bowel into the jejunum, compatible with small bowel obstruction. 2: Bilateral lower lobe atelectasis. 3: Moderate cardiomegaly. Reviewed, dictated and finalized at location A.
--- NOTE | ~2020-10-22 | XR_ITS ---
EXAMINATION: XR abdomen/kub 1V DATE: 10/24/2020 06:09 INDICATION: Small bowel obstruction. TECHNIQUE: A supine view of the abdomen on 2 radiographs was obtained. COMPARISON: Small bowel series 10/23/2020 FINDINGS: There are multiple dilated loops of small bowel with oral contrast. The colon is decompress ed. The nasogastric tube tip is in the stomach. There is a calcified kidney transplant in left iliac fossa. Surgical clips overlie right abdomen. IMPRESSION: 1. Persistently dilated small bowel with oral contrast, consistent with small bowel obstruction. Reviewed, dictated and finalized at location A. IMPRESSION: 1. Persistently dilated small bowel with oral contrast, consistent with small b owel obstruction.
[2020-10-22 20:34] VITALS: BP 184/90; PULSE 82; RESP 16; TEMP 35.8; O2SAT 100
[2020-10-22 20:42] VITALS: BP 163/83; PULSE 85; RESP 17; TEMP 36.8; O2SAT 97
[2020-10-22 20:57] LABS: Eosinophils Absolute Auto 0.1 K/mm3 (0-0.3); Eosinophils Percent Auto 1.6 % (0-4.4); Hematocrit 34.2 % (37.0-47.0); Hemoglobin 10.9 g/dL (12.0-15.0); Lymphocytes Absolute Auto 0.74 K/mm3 (0.9-3.2); Lymphocytes Percent Auto 24.1 % (18.3-44.2); Mean Corpuscular HGB Conc 31.9 g/dl (32-36); Mean Corpuscular Hemoglobin 32.7 pg (26-34); Mean Corpuscular Volume 102.7 fl (80-100); Mean Platelet Volume 12.2 fl (7.4-10.4); Monocytes Absolute Auto 0.2 K/mm3 (0.1-0.6); Monocytes Percent Auto 4.9 % (2.6-8.5); Neutrophils Absolute Auto 2.1 K/mm3 (1.3-6.7); Neutrophils Percent Auto 68.4 % (45.5-73.1); Platelet Count Result 116 k/mm3 (150-375); Red Blood Count 3.33 M/mm3 (4.2-5.4); Red Cell Distribution Width 15.5 % (11.5-14.5); White Blood Count 3.1 K/mm3 (4.5-10.0)
[2020-10-22] MEDS: SODIUM CHLORIDE 0.9% IV 1,000 ML 999 ML IV CONT (21:04)
[2020-10-22] MEDS: ONDANSETRON INJ 4 MG/2 ML VIAL IV PUSH ×2 (21:04→22:34)
[2020-10-22] MEDS: MORPHINE SULFATE (*CRX) 4 MG/ML INJ IV PUSH ×2 (21:04→22:21)
--- NOTE | 2020-10-22 21:08 | PC.NURSE ---
Pt. requesting medication before going to CT
[2020-10-22 21:19] LABS: Alanine Aminotransferase 17 U/L (4-35); Albumin Level 4.7 g/dL (3.5-5.1); Alkaline Phosphatase 65 U/L (38-126); Anion Gap 10 mmol/L (8-16); Aspartate Amino Transferase 27 U/L (14-36); Bilirubin,Total 0.7 mg/dL (0.2-1.3); Blood Urea Nitrogen 41 mg/dL (7-17); Calcium 8.4 mg/dL (8.4-10.2); Carbon Dioxide 29 mmol/L (22-30); Chloride 94 mmol/L (98-107); Estimated CRCL calculation 9 ml/min; Estimated Glomerular Filt Rate 5; Glucose 105 mg/dL (65-105); Lipase 196 U/L (23-300); Potassium 4.7 mmol/L (3.4-5.0); Sodium 133 mmol/L (137-145)
[2020-10-22 21:30] LABS: Magnesium 2.2 mg/dL (1.6-2.3)
--- NOTE | 2020-10-22 21:38 | ED.GENADULT ---
HPI - General Adult General Chief complaint: Abdominal Pain Stated complaint: poss bowel obstruction Time Seen by Provider: 10/22/20 20:44 History of Present Illness HPI narrative: Patient is a 45-year-old female who presents the emergency department with chief complaint of abdominal pain nausea and vomiting. Patient reports that she started having discomfort today and states that it feels similar to whenever she has had bowel obstructions before in the past. Patient reports she has history of end-stage renal disease and is currently on home hemodialysis. The patient reports that she completed her run prior to coming to the emergency department. The patient reports that she is had multiple abdominal surgeries and was on peritoneal dialysis before in the past she also has had for failed renal transplants. She also reports that she has history of factor V Leiden. The patient states that she has diffuse abdominal pain reports nausea and vomiting. States this feels exactly like whenever she is had bowel obstructions in the past. Related Data Home Medications Medication Instructions Recorded Confirmed cholecalciferol (vitamin D3) 125 10,000 unit PO WEEKLY cap 08/20/19 03/23/20 mcg (5,000 unit) capsule ergocalciferol (vitamin D2) 1,250 mcg PO WEEKLY 05/27/20 05/27/20 warfarin 7 mg PO DAILY 05/27/20 05/27/20 Allergies Allergy/AdvReac Type Severity Reaction Status Date / Time baclofen Allergy Unresponsiv Verified 10/22/20 20:40 e diphenhydramine Allergy Other Verified 10/22/20 20:40 [From Benadryl] vancomycin AdvReac Redness of Verified 10/22/20 20:40 Skin Review of Systems Review of Systems: Narrative: A 10 system review of systems was completed on the patient and is negative except for what is stated in the HPI. Nursing and ancillary documentation was reviewed. [facility] Past Medical History Medical History Acid reflux Anemia in chronic kidney disease Anemia in chronic kidney disease Anxiety Anxiety Asthma Asthma Chronic low back pain History of L4-L5 herniated disc. Chronic low back pain History of L4-L5 herniated discs. 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 Current use of half-way anticoagulation Depression Diastolic CHF Last Echo October 2018 demonstrated an EF of 55% to 60% with diastolic dysfunction. Diastolic congestive heart failure Echocardiogram in October 2018 demonstrated ejection fraction 55 to 60% with diastolic dysfunction End-stage renal disease on hemodialysis She was diagnosed with kidney disease at the age of 15 after she was found to have significant proteinuria on a physical done prior to high school. She is status post renal transplant x3, the first in 2000 which failed after 7 days due to factor V Leiden, her second transplant in 2005 that lasted 1.5 years, and she was converted to hemodialysis in 2011 after her last transplant failed. She does home hemodialysis and is a patient of Dr. Rashel Bishop. End-stage renal disease on hemodialysis She was diagnosed with kidney disease at the age of 15, after she was found to have significant proteinuria on a physical done prior to high school. Status post renal transplant x 3, first in 2000 which failed after 7 days due to factor V Leiden, second transplant 2005 that lasted 1.5 years, then she was converted to hemodialysis 2011 which she does at home. 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 Endocarditis of tricuspid valve (~2014) Status post annuloplasty. Factor V Leiden Factor V Leiden (Unknown) On Coumadin. History of left heart catheterization (~2012) Showing normal coronary arteries and pulmonary hypertension. History of left heart catheterization 2012 showed normal coronary arteries and pulmonary hypertension. History of pulmonary embolism History of pulmonary embolus (PE) Due to Factor V Leide
[2020-10-22 21:58] LABS: Partial Thromboplastin Time 27.5 SECONDS (22.3-36.8)
[2020-10-22] MEDS: HEPARIN SODIUM 5,000 UNITS/ML VIAL 7000 UNITS IV PUSH (22:24)
--- NOTE | 2020-10-22 22:32 | PM.IMHP ---
H&P: HPI History of Present Illness Date/Time: 10/22/20 22:32 Chief Complaint: abdominal pain and nausea Narrative: Patient is a 45-year-old female who presents the emergency department with chief complaint of abdominal pain nausea that started since yesterday. no vomitng. she had a bowel movement this am. she has had severe bowel obstructions in the past and this is her 21st one. She reports she usually resolves bowel obstructions with NG decompression and conservative management. She also has underlying histor yof ESRD on home HD. she had three prior attempts of kidney transplant which failed. No fever, chills. she reports that she is hurting in her back since this as well. She also reprots hx of disc herniation in the back and takes pain medications for this. Review of Systems Constitutional: Constitutional: Denies fatigue and Denies weakness Eyes: Eyes: Denies blurry vision and Denies photophobia ENT: Denies epistaxis, Denies nasal congestion and Denies nasal discharge Cardiovascular: Cardiovascular: Denies chest pain, Denies diaphoresis, Denies lightheadedness and Denies palpitations Respiratory: Respiratory: Denies cough, Denies dyspnea and Denies dyspnea on exertion Gastrointestinal: Gastrointestinal: Reports abdominal pain, Denies constipation, Denies diarrhea, Reports nausea and Denies vomiting Genitourinary: Genitourinary: Denies nocturia, Denies dysuria and Denies flank pain Musculoskeletal: Musculoskeletal: Reports back pain and Denies neck pain Integumentary/Breasts: Skin/Breast: Denies dry skin and Denies rash Neurologic: Denies Abnormal speech present, Denies abnormal gait, Denies confusion and Denies headache(s) Psychiatric: Psychiatric: Denies anxiety and Denies behavioral changes Endocrine: Endocrine: Denies cold intolerance, Denies excessive sweating and Denies heat intolerance Hematologic/Lymphatic: Hematologic/Lymphatic: Denies easy bleeding and Denies lymphadenopathy Allergic/Immunologic: Allergic/Immunologic: Denies urticaria and Denies lip swelling PMFSH Past Medical History Medical History Acid reflux Anemia in chronic kidney disease Anemia in chronic kidney disease Anxiety Anxiety Asthma Asthma Chronic low back pain History of L4-L5 herniated disc. Chronic low back pain History of L4-L5 herniated discs. 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 Current use of snf anticoagulation Depression Diastolic CHF Last Echo October 2018 demonstrated an EF of 55% to 60% with diastolic dysfunction. Diastolic congestive heart failure Echocardiogram in October 2018 demonstrated ejection fraction 55 to 60% with diastolic dysfunction End-stage renal disease on hemodialysis She was diagnosed with kidney disease at the age of 15 after she was found to have significant proteinuria on a physical done prior to high school. She is status post renal transplant x3, the first in 2000 which failed after 7 days due to factor V Leiden, her second transplant in 2005 that lasted 1.5 years, and she was converted to hemodialysis in 2011 after her last transplant failed. She does home hemodialysis and is a patient of Dr. Rashel Bishop. End-stage renal disease on hemodialysis She was diagnosed with kidney disease at the age of 15, after she was found to have significant proteinuria on a physical done prior to high school. Status post renal transplant x 3, first in 2000 which failed after 7 days due to factor V Leiden, second transplant 2005 that lasted 1.5 years, then she was converted to hemodialysis 2011 which she does at home. 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 Endocarditis of tricuspid valve (~2014) Status post annuloplasty. Factor V Leiden Factor V Leiden (Unknown) On Coumadin. History of left heart catheterization (~2012) Showing normal coronary arteries and pulmonary hypertensi
[2020-10-22 22:52] VITALS: BP 148/92; PULSE 92; RESP 18; O2SAT 96
[2020-10-22] MEDS: HEPARIN SOD/D5W 100 UNITS/ML 25,000 UNITS/250 ML BAG 13 UNITS IV CONT (22:59)
[2020-10-22 23:27] VITALS: BP 132/74; PULSE 71; RESP 19; O2SAT 94
--- NOTE | 2020-10-22 23:30 | PC.NURSE ---
This patient, Shelli Jaramillo, was admitted to 3 [facility] Surg Room 300-01. Patient/family oriented to hospital policies and general routines including ID bracelet, bed and alarms, visiting hours, pain management, procedures, bathroom and other care routines, personal items, smoking policy, room service/diet, and visiting hours. Information on how to activate the Rapid Response Team has been discussed. Patient/Family are encouraged to report perceived risks to care and to ask questions if they do not understand what they are told or what they should do.
[2020-10-22 23:35] VITALS: BMI 31.4
[2020-10-22 23:46] VITALS: BP 140/81; PULSE 74; RESP 20; TEMP 36.6; O2SAT 100
[2020-10-23] MEDS: ONDANSETRON INJ 4 MG/2 ML VIAL IV PUSH ×5 (02:34→22:26)
[2020-10-23] MEDS: MORPHINE SULFATE (*CRX) 4 MG/ML INJ IV PUSH (02:34)
[2020-10-23] MEDS: SODIUM CHLORIDE 0.9% IV 1,000 ML 50 ML IV CONT (02:42)
[2020-10-23 04:00] VITALS: BP 107/55; PULSE 66; RESP 16; TEMP 36.6; O2SAT 96
[2020-10-23 05:45] LABS: Basophils Percent Auto 0.7 % (0.2-1.2); Eosinophils Absolute Auto 0.1 K/mm3 (0-0.3); Hematocrit 31.8 % (37.0-47.0); Hemoglobin 9.9 g/dL (12.0-15.0); Immature Granulocyte Absolute 0.01 K/mm3 (0.00-0.031); Immature Granulocyte Percent A 0.3 % (0-0.5); Lymphocytes Absolute Auto 0.84 K/mm3 (0.9-3.2); Mean Corpuscular HGB Conc 31.1 g/dl (32-36); Mean Corpuscular Hemoglobin 32.8 pg (26-34); Mean Corpuscular Volume 105.3 fl (80-100); Mean Platelet Volume 11.4 fl (7.4-10.4); Monocytes Absolute Auto 0.2 K/mm3 (0.1-0.6); Neutrophils Absolute Auto 1.9 K/mm3 (1.3-6.7); Platelet Count Result 80 k/mm3 (150-375); Red Blood Count 3.02 M/mm3 (4.2-5.4); Red Cell Distribution Width 15.6 % (11.5-14.5)
[2020-10-23 05:58] LABS: Magnesium 2.2 mg/dL (1.6-2.3)
[2020-10-23] MEDS: MORPHINE SULFATE (*CRX) 2 MG/ML INJ IV PUSH (06:32)
[2020-10-23 06:39] LABS: Partial Thromboplastin Time > 200.0 SECONDS (22.3-36.8)
[2020-10-23 08:00] VITALS: BP 125/58; PULSE 64; RESP 18; TEMP 36.5; O2SAT 98
--- NOTE | 2020-10-23 08:05 | PM.CNNEP ---
Assessment and Plan Assessment and plan (1) End stage renal disease: Code(s): N18.6 - End stage renal disease Status: Acute Assessment and Plan: Jordon has end-stage renal disease. She is on home hemodialysis. She just had a treatment yesterday. Her potassium is okay. Her fluid status looks fine. We will do a treatment tomorrow. Will take off 1 or 2L tomorrow is to keep fluid even. Will recheck a potassium in the morning as well to make sure that the bath potassium is appropriately prescribed. She gets 4 treatments a week at home, will continue standard intermittent dialysis for 3 times a week. (2) Small bowel obstruction: Code(s): K56.609 - Unspecified intestinal obstruction, unspecified as to partial versus complete obstruction Status: Acute Assessment and Plan: The patient has another small bowel obstruction. She is getting NG tube to drainage. (3) Hypertension: Code(s): I10 - Essential (primary) hypertension Status: Acute Assessment and Plan: Blood pressure is under good control. The patient is not on any antihypertensives lately. (4) Anemia in chronic kidney disease: Code(s): N18.9 - Chronic kidney disease, unspecified; D63.1 - Anemia in chronic kidney disease Status: Chronic Assessment and Plan: Hemoglobin is 9.9. Will give EPO on dialysis (5) Factor V Leiden: Onset Date: Unknown Code(s): D68.51 - Activated protein C resistance Status: Chronic Assessment and Plan: She is on IV anticoagulation because her INR was normal when she was admitted. 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 The patient says she was fine on Friday. Friday she started becoming nauseated and had abdominal discomfort. Yesterday the patient was worse. She did have a bowel movement but after that she stopped passing any gas. Yesterday evening the patient felt worse so she came to the ER. She was found to have a small-bowel obstruction. She had an NG-tube placed. She is no longer having any nausea or vomiting. She says she has some oozing of blood from her IV sites and also from his at this on her left forehead. She has not noted any black or bloody stools. Patient has some black material coming from her NG tube. She does not have any fevers or chills. No cough or shortness of breath. Review of Systems Constitutional: Constitutional: Reports no additional constitutional complaints Eyes: Eyes: Reports no additional eye complaints ENT: Reports system reviewed and no additional complaints, except as documented Cardiovascular: Cardiovascular: Reports no additional cardiovascular complaints Respiratory: Respiratory: Reports no additional respiratory complaints Gastrointestinal: Gastrointestinal: Reports no additional gastrointestinal complaints Genitourinary: Genitourinary: Reports no additional female genitourinary complaints Musculoskeletal: Musculoskeletal: Reports no additional musculoskeletal complaints Integumentary/Breasts: Skin/Breast: Reports system reviewed and no additional complaints, except as docu Neurologic: Reports system reviewed and no additional complaints, except as documented Psychiatric: Psychiatric: Reports no additional psychiatric complaints Endocrine: Endocrine: Reports no
[2020-10-23 08:17] LABS: INR 1.8; Prothrombin Time 21.8 Seconds (11.1-14.7)
[2020-10-23 08:33] LABS: Partial Thromboplastin Time > 200.0 SECONDS (22.3-36.8)
[2020-10-23 08:51] VITALS: O2SAT 96
[2020-10-23] MEDS: MORPHINE SULFATE (*CRX) 2 MG/ML INJ 1 MG IV PUSH (09:39)
[2020-10-23 09:47] LABS: Partial Thromboplastin Time > 200.0 SECONDS (22.3-36.8)
--- NOTE | 2020-10-23 11:28 | PM.IMPN ---
Progress Note: A&P Assessment and Plan (1) Small bowel obstruction: Code(s): K56.609 - Unspecified intestinal obstruction, unspecified as to partial versus complete obstruction Status: Acute Assessment and Plan: Appreciate general surgery recommendations. Continue bowel rest with NG decompression, pain control, gentle IV hydration, antiemetics. She has had over 20 SBO in the last 5 years that have resolved with conservative therapy, last one in May 2020. Notified by RN of dark vomit while NG was clamped for SBFT. Send emesis for gastric occult blood testing and consider GI consultation if positive. (2) Chronic low back pain: Qualifiers: Back pain laterality: unspecified Sciatica presence: unspecified whether sciatica present Qualified Code(s): M54.5 - Low back pain; G89.29 - Other chronic pain Code(s): M54.5 - Low back pain; G89.29 - Other chronic pain Status: Chronic Assessment and Plan: Related to lumbar disc herniation. Continue pain regimen for above and monitor. (3) Subtherapeutic international normalized ratio (INR): Code(s): R79.1 - Abnormal coagulation profile Status: Acute Assessment and Plan: She takes warfarin for history of DVT with Factor V Leiden mutation. She notes she missed a couple doses of warfarin this weekend due to being ill. INR 1.0 on arrival thus she was started on heparin gtt. INR up to 1.8 this morning. Heparin drip has been on hold all day, initially due to PTT>200, then with nosebleed/oozing. PTT this afternoon was 37 thus heparin gtt was resumed, up until she vomited dark emesis, hold heparin again. (4) Current use of custodial anticoagulation: Code(s): Z79.01 - technician terminal and repeater (current) use of anticoagulants Status: Chronic Assessment and Plan: See above. (5) End stage renal disease: Code(s): N18.6 - End stage renal disease Status: Chronic Assessment and Plan: ESRD on home hemodialysis every other day managed by Dr Bishop. Appreciate recommendations for continuing HD here. Long history of renal failure dating back to her teenage years, has had three kidney transplants in the past last in 2014. Monitor renal function. (6) Anemia in chronic kidney disease: Qualifiers: Chronic kidney disease stage: on chronic dialysis Qualified Code(s): N18.6 - End stage renal disease; D63.1 - Anemia in chronic kidney disease; Z99.2 - Dependence on renal dialysis Code(s): N18.9 - Chronic kidney disease, unspecified; D63.1 - Anemia in chronic kidney disease Status: Chronic Assessment and Plan: Hgb low but stable. Monitor H&H closely. Emesis sent for gastric occult blood testing. Subjective Date/time seen: 10/23/20 11:00 Interval history: Ms. Jaramillo is a 45yo F admitted for small bowel obstruction. Feeling poorly today. Still mildly nauseous with NG intact. Describes she had a nosebleed this morning and IV/lab draw sites were oozing, which is resolved now. Abdominal pain 9/10 at present. Last BM was yesterday morning, has not passed gas since. Notified later by RN that patient had NG clamped for sbft and started to vomit and emesis was very dark almost black. RN notified surgery of same. Review of Systems Review of Systems: All systems reviewed & are unremarkable except as noted in HPI and below Exam Narrative: Exam Narrative: General: Moderately ill-appearing female resting supine in bed, uncomfortable with abd pain. HEENT: Normocephalic, EOMI, oral mucosa tacky, NG intact left nare. Cardiovascular: Rate and rhythm are regular. Respiratory: Lungs clear to auscultation bilaterally. Respirations even and non-labored. Ab
--- NOTE | 2020-10-23 11:41 | PM.CNGS ---
Assessment and Plan Assessment and plan (1) Small bowel obstruction: Code(s): K56.609 - Unspecified intestinal obstruction, unspecified as to partial versus complete obstruction Status: Acute Assessment and Plan: exam largely benign, cont NG decompression and bowel rest, will get SBS for further eval (2) End stage renal disease: Code(s): N18.6 - End stage renal disease Status: Acute Assessment and Plan: stable, Nephrology following, HD tomorrow (3) Factor V Leiden: Onset Date: Unknown Code(s): D68.51 - Activated protein C resistance Status: Chronic Assessment and Plan: cont to hold Coumadin, cont Heparin History of Present Illness Consult details Consult date: 10/23/20 Reason for consult: abdominal pain Requesting physician: Crystal Tian PA-C Narrative: Pt is a 45 y/o F c multiple med issues including ESRD on HD, Factor 5 Leiden Def on Coumadin, presenting to hospital c/o severe crampy abdominal pain since Friday. Pt reports pain progressively worsened and was assoc c N/V. Pt did have normal BM on Friday but reports no bowel fxn since that time. Pt reports similar episodes in the past and resolved c conservative tx. Pt has had multiple abd surgeries including kidney txp. Review of Systems Constitutional: Constitutional: Reports anorexia, Reports body ache(s), Denies chills, Reports fatigue, Denies fever(s), Denies headache(s), Denies increased appetite, Reports lethargy, Reports malaise, Reports poor appetite, Reports weakness, Denies weight gain and Denies weight loss Eyes: Eyes: Reports no additional eye complaints ENT: Reports system reviewed and no additional complaints, except as documented Cardiovascular: Cardiovascular: Reports no additional cardiovascular complaints Respiratory: Respiratory: Reports no additional respiratory complaints Gastrointestinal: Gastrointestinal: Reports as per HPI Musculoskeletal: Musculoskeletal: Reports no additional musculoskeletal complaints Integumentary/Breasts: Skin/Breast: Reports system reviewed and no additional complaints, except as docu Neurologic: Reports system reviewed and no additional complaints, except as documented Psychiatric: Psychiatric: Reports no additional psychiatric complaints Endocrine: Endocrine: Reports no additional endocrine complaints Hematologic/Lymphatic: Hematologic/Lymphatic: Reports no additional hematologic/lymphatic complaints Allergic/Immunologic: Allergic/Immunologic: Reports no additional allergic/immunologic complaints [facility] Past Medical History Medical History Acid reflux Anemia in chronic kidney disease Anemia in chronic kidney disease Anxiety Anxiety Asthma Asthma Chronic low back pain History of L4-L5 herniated disc. Chronic low back pain History of L4-L5 herniated discs. Current use of fpc anticoagulation On long-term warfarin due to factor V Leiden. Current use of fpc anticoagulation Depression Diastolic CHF Last Echo October 2018 demonstrated an EF of 55% to 60% with diastolic dysfunction. Diastolic congestive heart failure Echocardiogram in October 2018 demonstrated ejection fraction 55 to 60% with diastolic dysfunction End-stage renal disease on hemodialysis She was diagnosed with kidney disease at the age of 15 after she was found to have significant proteinuria on a physical done prior to high school. She is status post renal transplant x3, the first in 2000 which failed after 7 days due to factor V Leiden, her second transplant in 2005 that lasted 1.5 years, and she was converted to hemodialysis in 2011 after her last transplant failed. She does home hemodialysis and is a patient of Dr. Rashel Bishop. End-stage renal disease on hemodialysis She was diagnosed with kidney disease at the age of 15, after she was found to have significant proteinuria on a physical done prior to high school.
--- NOTE | 2020-10-23 11:44 | PM.PNGS ---
Subjective Subjective Date/Time Seen: 10/23/20 11:44 Patient reports: feels better, still having pain, nausea and vomiting Interval history: Patient is a 45-year-old woman well known to the general surgery service from recurrent episodes of partial small bowel obstruction. She has Factor 5 Leiden and has had numerous surgeries including renal transplant. She presents again with abdominal pain nausea and vomiting. CT scan shows evidence of a recurrent partial small-bowel obstruction. She has been readmitted and an NG tube was placed. She feels a little better but is still having abdominal pain. She got to the floor about midnight last night. Review of Systems Review of Systems: All systems reviewed & are unremarkable except as noted in HPI and below Constitutional: Constitutional: Denies headache(s) Cardiovascular: Cardiovascular: Denies chest pain and Denies dyspnea Respiratory: Respiratory: Denies cough and Denies dyspnea Gastrointestinal: Gastrointestinal: Reports as per HPI Neurologic: Denies confusion and Denies headache(s) Exam Const: General: comfortable and no acute distress; No confusion Orientation/consciousness: patient oriented x3 and No confusion GI: Inspection: distended and scar ( Large lower abdominal midline in tented scar) GI Palp: Yes Firmness to palpation present (GI), Yes Tenderness to palpation present (GI) ( diffuse, mild tenderness), No Guarding due to palpation present (GI) and No Rebound tenderness present Auscultation: absent bowel sounds Neuro: General: patient oriented x3, no focal motor deficits and No confusion Extrem: General: no calf tenderness and no edema Psych: Affect: normal affect Insight: Good insight present (Psych) Judgement: Good judgement present (Psych) Objective Data Vital Signs Vital Signs: Vital Signs - 24 hr 10/22/20 20:34 10/22/20 20:42 10/22/20 22:52 Temperature 35.8 C L 36.8 C Pulse Rate 82 85 92 Respiratory Rate 16 17 18 Blood Pressure 184/90 H 163/83 H 148/92 H Pulse Oximetry 100 97 96 10/22/20 23:27 10/22/20 23:46 10/23/20 04:00 Temperature 36.6 C 36.6 C Pulse Rate 71 74 66 Respiratory Rate 19 20 16 Blood Pressure 132/74 140/81 107/55 L Pulse Oximetry 94 100 96 10/23/20 08:00 10/23/20 08:51 Temperature 36.5 C Pulse Rate 64 Respiratory Rate 18 Blood Pressure 125/58 L Pulse Oximetry 98 96 Intake/Output Intake/Output: Intake & Output 10/20/20 10/21/20 10/22/20 10/23/20 22:59 22:59 23:59 23:59 Intake Total 0 Output Total 0 Balance 0 Meds/Results Medications: Active Medications Generic Name Dose Route Start Last Admin Trade Name Freq PRN Reason Stop Dose Admin Budesonide/Formoterol Fumarate 2 puff 10/22/20 22:55 10/23/20 08:51 Budesonide/Form 160-4.5 Mcg (*Sp) INHALATION 2 puff Q12HRT CHRIS Administration Epoetin Cirilo-epbx 10,000 units 10/24/20 18:00 Epoetin Cirilo-Epbx 10,000 Units/Ml Vial IV PUSH TuThSa@1800 CHRIS Heparin Sodium (Porcine) 5,500 units 10/22/20 22:05 Heparin Sodium 5,000 Units/Ml Vial IV PUSH PRN PRN aPTT less than 55 seconds Heparin Sodium (Porcine) 3,000 units 10/22/20 22:05 Heparin Sodium 5,000 Units/Ml Vial IV PUSH PRN PRN aPTT 55 - 70 seconds Hydromorphone HCl 0.5 mg 10/23/20 11:22 Hydromorphone Hcl Inj (*Crx) 1 Mg/Ml Syr IV PUSH Q3H PRN Pain Rated 7-10 Heparin Sodium/Dextrose 25,000 units in 250 mls @ 0 mls/hr 10/22/20 22:05 10/23/20 06:42 Heparin Sodium/D5w 100 Units/Ml IV CONT 0 units/hr .Q0M CHRIS 0 mls/hr Titration Protocol 0 UNITS/HR Sodium Chloride 1,000 mls @ 50 mls/hr 10/22/20 22:55 10/23/20 02:42 Normal Saline Iv IV CONT 50 mls/hr .Q20H CHRIS Administration Ondansetron HCl 4 mg 10/22/20 22:05 10/23/20 06:32 Ondansetron Inj 4 Mg/2 Ml Vial IV PUSH 4 mg Q4H PRN Administration Nausea Radiology Results: ITS Impressions Abdomen/Pelvis CT 10/22/20
[2020-10-23 12:00] VITALS: BP 116/70; PULSE 69; RESP 18; TEMP 36.7; O2SAT 98
[2020-10-23] MEDS: HYDROmorphone HCL INJ (*CRX) 1 MG/ML SYR 0.5 MG IV PUSH ×5 (12:22→23:16)
[2020-10-23 15:16] LABS: Partial Thromboplastin Time 39.7 SECONDS (22.3-36.8)
[2020-10-23 16:00] VITALS: BP 160/80; PULSE 78; RESP 20; TEMP 36.5; O2SAT 100
[2020-10-23 17:22] LABS: Occult Blood Gastric Fluid Positive; pH Gastric Fluid 3 (1-8)
[2020-10-23 17:23] LABS: Gastric Negative Control Negative; Gastric Positive Control Positive
[2020-10-23 20:00] VITALS: BP 141/72; PULSE 85; RESP 20; TEMP 36.7; O2SAT 96
[2020-10-24] VITALS (23 sets, daily range): BP systolic 99–158; BP diastolic 56–90; PULSE 82–111; RESP 14–20; TEMP 35.8–37.1; O2SAT 91–96
[2020-10-24] MEDS: SODIUM CHLORIDE 0.9% IV 1,000 ML 50 ML IV CONT ×2 (01:22→19:14)
[2020-10-24] MEDS: ONDANSETRON INJ 4 MG/2 ML VIAL IV PUSH ×4 (02:47→19:15)
[2020-10-24] MEDS: HYDROmorphone HCL INJ (*CRX) 1 MG/ML SYR 0.5 MG IV PUSH ×6 (02:48→19:14)
[2020-10-24 06:21] LABS: Hematocrit 37.6 % (37.0-47.0); Hemoglobin 11.8 g/dL (12.0-15.0); Mean Corpuscular HGB Conc 31.4 g/dl (32-36); Mean Corpuscular Hemoglobin 33.2 pg (26-34); Mean Corpuscular Volume 105.9 fl (80-100); Mean Platelet Volume 11.3 fl (7.4-10.4); Platelet Count Result 90 k/mm3 (150-375); Red Blood Count 3.55 M/mm3 (4.2-5.4); Red Cell Distribution Width 15.8 % (11.5-14.5); White Blood Count 4.1 K/mm3 (4.5-10.0)
[2020-10-24 06:29] LABS: INR 1.4; Prothrombin Time 17.3 Seconds (11.1-14.7)
[2020-10-24 06:37] LABS: Albumin Level 4.6 g/dL (3.5-5.1); Anion Gap 14 mmol/L (8-16); Blood Urea Nitrogen 50 mg/dL (7-17); Calcium 8.6 mg/dL (8.4-10.2); Carbon Dioxide 23 mmol/L (22-30); Chloride 98 mmol/L (98-107); Estimated CRCL calculation 7 ml/min; Estimated Glomerular Filt Rate 4; Glucose 105 mg/dL (65-105); Magnesium 2.3 mg/dL (1.6-2.3); Phosphorus 5.4 mg/dL (2.5-4.5); Sodium 135 mmol/L (137-145)
--- NOTE | 2020-10-24 07:15 | PM.PNNEP ---
Progress Note: A&P Assessment and Plan (1) End stage renal disease: Code(s): N18.6 - End stage renal disease Status: Chronic Assessment and Plan: Jordon has end-stage renal disease. She is due for dialysis today. She does not have very much fluid on. She is getting some IV fluids but also has active NG drainage. CO2 is maintaining at a normal number. Potassium is 6 so will change her bath. (2) Small bowel obstruction: Code(s): K56.609 - Unspecified intestinal obstruction, unspecified as to partial versus complete obstruction Status: Acute Assessment and Plan: The patient has another small bowel obstruction. She is getting NG tube to drainage. Yesterday. Nurses have notified Dr. Godwin. (3) Hypertension: Code(s): I10 - Essential (primary) hypertension Status: Acute Assessment and Plan: Blood pressure is under good control. Current systolic is 140. The patient is not on any antihypertensives lately. (4) Anemia in chronic kidney disease: Qualifiers: Chronic kidney disease stage: on chronic dialysis Qualified Code(s): N18.6 - End stage renal disease; D63.1 - Anemia in chronic kidney disease; Z99.2 - Dependence on renal dialysis Code(s): N18.9 - Chronic kidney disease, unspecified; D63.1 - Anemia in chronic kidney disease Status: Chronic Assessment and Plan: Hemoglobin is up to 11.8 now. Possibly hemoconcentration? The hemoglobin has varied the last 3 checks from 9.9-11.8. Check another tomorrow. (5) Factor V Leiden: Onset Date: Unknown Code(s): D68.51 - Activated protein C resistance Status: Chronic Assessment and Plan: She is on heparin because her INR was normal when she was admitted. (6) Renal osteodystrophy: Code(s): N25.0 - Renal osteodystrophy Status: Acute Assessment and Plan: Phosphorus is under good control (7) Hyperkalemia: Code(s): E87.5 - Hyperkalemia Status: Acute Assessment and Plan: Potassium is high. Yesterday when her PTT was so high she might have had some GI bleeding which may have led to the high potassium today. Subjective Date/time seen: 10/24/20 07:15 Interval history: Jordon is miserable. She has lots of belly pain. This is diffuse. She is not passing any gas. NG tube is still draining. Review of Systems Cardiovascular: Cardiovascular: Reports no additional cardiovascular complaints Respiratory: Respiratory: Reports no additional respiratory complaints Gastrointestinal: Gastrointestinal: Reports no additional gastrointestinal complaints Genitourinary: Genitourinary: Reports no additional female genitourinary complaints Exam Narrative: Exam Narrative: WDWN in NAD skin no rash or subcu nodules head ncat lungs clear cor reg no rub abd BS+ but hypoactive. Very tender. ext no edema. Objective Data Vital Signs Vital Signs: Vital Signs - 24 hr 10/23/20 08:00 10/23/20 08:51 10/23/20 12:00 Temperature 36.5 C 36.7 C Pulse Rate 64 69 Respiratory Rate 18 18 Blood Pressure 125/58 L 116/70 Pulse Oximetry 98 96 98 10/23/20 16:00 10/23/20 20:00 10/24/20 00:00 Temperature 36.5 C 36.7 C 36.3 C L Pulse Rate 78 85 86 Respiratory Rate 20 20 20 Blood Pressure 160/80 H 141/72 H 133/71 Pulse Oximetry 100 96 91 10/24/20 04:00 Temperature 36.8 C Pulse Rate 83 Respiratory Rate 20 Blood Pressure 140/77 Pulse Oximetry 95 Intake/Output Intake/Output: Intake & Output 10/21/20 10/22/20 10/23/20 10/24/20 22:59 23:59 23:59 23:59 Intake Total 1000 0 Output Total 450 0 Balance 550 0 Meds/Results Medications: Active Medications Generic Name Dose Route Start Last Admin Trade Name Sandorq PRN Reason Stop Dose Admin Budesonide/Formoterol Fumarate 2 puff 10/22/20 22:55 10/23/20 20:22 Budesonide/Form 160-4.5 Mcg (*Sp) INHALATION 2 puff Q12HRT CHRIS Administration Dextr
[2020-10-24] MEDS: INSULIN HUMAN REGULAR (*BKC) 100 UNITS/ML 10 UNITS IV PUSH (08:45)
[2020-10-24] MEDS: SODIUM BICARBONATE 8.4% 50 MEQ/50 ML VIAL IV PUSH (08:47)
[2020-10-24] MEDS: DEXTROSE 50% 25 GM/50 ML SYRINGE IV PUSH (08:48)
[2020-10-24] MEDS: CALCIUM GLUC 1,000 MG/NS 50 ML 1,000 MG/50 ML BAG 100 MG IVPB (08:48)
[2020-10-24 09:03] LABS: Lactic Acid Reflex 0.6 mmol/L (0.7-2.1)
[2020-10-24] MEDS: EPOETIN ALFA-EPBX 10,000 UNITS/ML VIAL 10000 UNITS IV PUSH (12:03)
[2020-10-24] MEDS: PANTOPRAZOLE SODIUM IV 40 MG VIAL IV PUSH (12:46)
--- NOTE | 2020-10-24 13:42 | PM.PNGS ---
Progress Note: A&P Assessment and Plan (1) Small bowel obstruction: Code(s): K56.609 - Unspecified intestinal obstruction, unspecified as to partial versus complete obstruction Status: Acute Assessment and Plan: not responding to conservative mgmt, will likely need operative intervention, given her past surgical history including multiple kidney txp and comorbidities would be better served at a tertiary care facility, I d/w pt and will try to facilitate transfer Subjective Subjective Date/Time Seen: 10/24/20 13:42 Pt seen in HD today. Pt reports worsening crampy abdominal pain. Pt c nausea and emesis c SBS. Pt denies any bowel fxn. Review of Systems Review of Systems: All systems reviewed & are unremarkable except as noted in HPI and below Exam Const: General: cooperative, alert, awake, Physically active, acute distress moderate and ill appearing Orientation/consciousness: patient oriented x3 Resp: Auscultation: diminished lung sounds Cardio: Rate: regular rate Rhythm: regular rhythm GI: Inspection: normal to inspection, distended and incision GI Palp: Yes Soft to palpation and Yes Tenderness to palpation present (GI) Other: soft, dist, mod TTP diffusely, no peritoneal signs Objective Data Vital Signs Vital Signs: Vital Signs - 24 hr 10/23/20 16:00 10/23/20 20:00 10/24/20 00:00 Temperature 36.5 C 36.7 C 36.3 C L Pulse Rate 78 85 86 Respiratory Rate 20 20 20 Blood Pressure 160/80 H 141/72 H 133/71 Pulse Oximetry 100 96 91 10/24/20 04:00 10/24/20 08:00 10/24/20 10:10 Temperature 36.8 C 35.8 C L 35.8 C L Pulse Rate 83 82 83 Respiratory Rate 20 18 18 Blood Pressure 140/77 142/89 H 158/90 H Pulse Oximetry 95 96 10/24/20 10:20 10/24/20 10:30 10/24/20 10:45 Temperature Pulse Rate 87 82 84 Respiratory Rate Blood Pressure 144/82 H 133/76 128/66 Pulse Oximetry 10/24/20 11:00 10/24/20 11:15 10/24/20 11:30 Temperature Pulse Rate 84 90 97 Respiratory Rate Blood Pressure 153/75 H 122/71 129/70 Pulse Oximetry 10/24/20 11:45 10/24/20 12:00 10/24/20 12:15 Temperature Pulse Rate 111 H 98 100 Respiratory Rate Blood Pressure 140/73 118/62 139/76 Pulse Oximetry 10/24/20 12:30 10/24/20 12:45 10/24/20 13:00 Temperature Pulse Rate 102 H 104 H 97 Respiratory Rate Blood Pressure 136/75 115/68 113/59 L Pulse Oximetry 10/24/20 13:15 10/24/20 13:20 10/24/20 13:25 Temperature 36.6 C Pulse Rate 94 95 94 Respiratory Rate 14 Blood Pressure 108/56 L 99/57 L 120/59 L Pulse Oximetry Intake/Output Intake/Output: Intake & Output 10/21/20 10/22/20 10/23/20 10/24/20 22:59 23:59 23:59 23:59 Intake Total 1000 0 Output Total 450 0 Balance 550 0 Meds/Results Medications: Active Medications Generic Name Dose Route Start Last Admin Trade Name Freq PRN Reason Stop Dose Admin Budesonide/Formoterol Fumarate 2 puff 10/22/20 22:55 10/23/20 20:22 Budesonide/Form 160-4.5 Mcg (*Sp) INHALATION 2 puff Q12HRT CHRIS Administration Dextrose 12.5 gm 10/24/20 06:51 Dextrose 50% 25 Gm/50 Ml Syringe IV PUSH PRN PRN Hypoglycemia Protocol Epoetin Cirilo-epbx 10,000 units 10/24/20 18:00 10/24/20 12:03 Epoetin Cirilo-Epbx 10,000 Units/Ml Vial IV PUSH 10,000 units TuThSa@1800 CHRIS Administration Glucagon 1 mg 10/24/20 06:51 Glucagon For Inj 1 Mg Vial IM PRN PRN Hypoglycemia Protocol Hydromorphone HCl 0.5 mg 10/23/20 11:22 10/24/20 12:46 Hydromorphone Hcl Inj (*Crx) 1 Mg/Ml Syr IV PUSH 0.5 mg Q3H PRN Administration Pain Rated 7-10 Sodium Chloride 1,000 mls @ 50 mls/hr 10/22/20 22:55 10/24/20 01:22 Normal Saline Iv IV CONT 50 mls/hr .Q20H CHRIS Administration Dextrose 1,000 mls @ 100 mls/hr 10/24/20 06:51 Dextrose 5% 1,000 Ml IVPB PRN PRN Hypoglycemia Protocol Acetaminophen 1,000 mg in 100 mls @ 400 mls/hr 10/24/20 12:00 10/24/20 12
[2020-10-24 14:54] LABS: Hepatitis B Surface Antigen Negative (Negative)
--- NOTE | 2020-10-24 14:55 | PM.TDS ---
Transfer Discharge Sum: Prov Provider Date of admission: 10/22/20 22:06 Primary care physician: Trenton Padilla MD Admitting clinician: John Cordon MD Consults: 10/22/20 22:07 Consult to Physician Routine Comment: spoke to dr bishop @[phone] (,[place]) Consulting Provider: Rashel Bishop bilingual call center representative/MD group to consult: nephrology Dr. Bishop or lesson instructor notify in am. Reason for consultation: ESRD On HD for inpatient HD Has provider been notified: Yes 10/23/20 Consult to Physician Routine Comment: spoke to dr yan @[phone] (,[place]) Consulting Provider: Goldy Aguilar bilingual call center representative/MD group to consult: GI Reason for consultation: Gastric Occult Blood Positive Has provider been notified: Yes 10/23/20 07:58 Consult to Physician Routine Comment: spoke to abida @[phone] (,[place]) Consulting Provider: Landy Kebede bilingual call center representative/MD group to consult: general surgery Reason for consultation: small bowel obstruction Has provider been notified: Yes Anticipated date of transfer: 10/26/20 Receiving physician/facility: Dr. Perez [facility] hospital DS: Admitting Diagnosis Admitting Diagnosis Admitting Diagnosis: sbo DS: Discharge Diagnosis Discharge Diagnosis (1) Small bowel obstruction: Code(s): K56.609 - Unspecified intestinal obstruction, unspecified as to partial versus complete obstruction Status: Acute Assessment and Plan: Patient does not appear to be doing well -her lactic is normal and her repeat abdomen pelvis does not show any perforation or free air but does show consistent small-bowel obstruction -patient is very high risk because she has had multiple abdominal surgeries and has frequent small-bowel obstruction -I have seen the patient many times before and she appears much more ill than she typically it is -she has been accepted for transfer at [facility] under Dr. Perez and was discharged on 10/24/20 -she had bloody emesis yesterday which is likely from the NG tube and not necessarily a GI bleed since her hemoglobin has been stable. Her heparin drip has been turned off at this time. She has no active DVTs but does have factor 5. Her gastric occult blood is positive. She was started on protonix and pt should be resumed on heparin if she remains stable at the OSH. (2) Chronic low back pain: Qualifiers: Back pain laterality: unspecified Sciatica presence: unspecified whether sciatica present Qualified Code(s): M54.5 - Low back pain; G89.29 - Other chronic pain Code(s): M54.5 - Low back pain; G89.29 - Other chronic pain Status: Chronic Assessment and Plan: Related to lumbar disc herniation. Continue pain regimen for above and monitor. (3) Subtherapeutic international normalized ratio (INR): Code(s): R79.1 - Abnormal coagulation profile Status: Acute Assessment and Plan: She takes warfarin for history of DVT with Factor V Leiden mutation. She notes she missed a couple doses of warfarin this weekend due to being ill. -INR 1.0 on arrival thus she was started on heparin gtt -Heparin drip has been on hold since 10/23 due to elevated PTT and then possible bloody emesis as stated above -she had bloody emesis yesterday which is likely from the NG tube and not necessarily a GI bleed since her hemoglobin has been stable. Her heparin drip has been turned off at this time. She has no active DVTs but does have factor 5. Her gastric occult blood is positive. 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
--- NOTE | 2020-10-24 14:56 | PM.IMPN ---
Progress Note: A&P Assessment and Plan (1) Small bowel obstruction: Code(s): K56.609 - Unspecified intestinal obstruction, unspecified as to partial versus complete obstruction Status: Acute Assessment and Plan: Patient does not appear to be doing well -her lactic is normal and her repeat abdomen pelvis does not show any perforation or free air but does show consistent small-bowel obstruction -patient is very high risk because she has had multiple abdominal surgeries and has frequent small-bowel obstruction -I have seen the patient many times before and she appears much more ill than she typically it is -she has been accepted for transfer at [facility] according to surgery, awaiting bed -she had bloody emesis yesterday which is likely from the NG tube and not necessarily a GI bleed since her hemoglobin has been stable. Her heparin drip has been turned off at this time. She has no active DVTs but does have factor 5. Her gastric occult blood is positive. At this time I am going to start Protonix and see how she does. We can add in the heparin as soon as we feel comfortable. GI is on board (2) Chronic low back pain: Qualifiers: Back pain laterality: unspecified Sciatica presence: unspecified whether sciatica present Qualified Code(s): M54.5 - Low back pain; G89.29 - Other chronic pain Code(s): M54.5 - Low back pain; G89.29 - Other chronic pain Status: Chronic Assessment and Plan: Related to lumbar disc herniation. Continue pain regimen for above and monitor. (3) Subtherapeutic international normalized ratio (INR): Code(s): R79.1 - Abnormal coagulation profile Status: Acute Assessment and Plan: She takes warfarin for history of DVT with Factor V Leiden mutation. She notes she missed a couple doses of warfarin this weekend due to being ill. -INR 1.0 on arrival thus she was started on heparin gtt -Heparin drip has been on hold since 10/23 due to elevated PTT and then possible bloody emesis as stated above -she had bloody emesis yesterday which is likely from the NG tube and not necessarily a GI bleed since her hemoglobin has been stable. Her heparin drip has been turned off at this time. She has no active DVTs but does have factor 5. Her gastric occult blood is positive. At this time I am going to start Protonix and see how she does. We can add in the heparin as soon as we feel comfortable. 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 She received the insulin protocol and got dialysis today -repeat BMP pending (6) Anemia in chronic kidney disease: Qualifiers: Chronic kidney disease stage: on chronic dialysis Qualified Code(s): N18.6 - End stage renal disease; D63.1 - Anemia in chronic kidney disease; Z99.2 - Dependence on renal dialysis Code(s): N18.9 - Chronic kidney disease, unspecified; D63.1 - Anemia in chronic kidney disease Status: Chronic Assessment and Plan: Hgb low but stable. Monitor H&H closely. Time Spent With Patient Time with patient: 25 - 35 minutes Subjective Date/time seen: 10/24/20 14:56 Interval history: Pt is a 45-year-old female here for small bowel obstruction. Patient was seen today and was significantly in pain. She states that this is the worst small-bowel obstruction she has ever and she has had a lot in her life. She says her abdomen feels raw and she has been constantly throwing up yellow bile. She has not thrown up any more consistency that looks like blood. She says she has never had a history
[2020-10-24 15:04] LABS: Albumin Level 4.3 g/dL (3.5-5.1); Anion Gap 9 mmol/L (8-16); Blood Urea Nitrogen 20 mg/dL (7-17); Calcium 8.7 mg/dL (8.4-10.2); Carbon Dioxide 32 mmol/L (22-30); Chloride 94 mmol/L (98-107); Estimated CRCL calculation 14 ml/min; Estimated Glomerular Filt Rate 9; Glucose 89 mg/dL (65-105); Phosphorus 3.4 mg/dL (2.5-4.5); Potassium 3.6 mmol/L (3.4-5.0); Sodium 135 mmol/L (137-145)
--- NOTE | 2020-10-24 17:15 | WPDGICN ---
Assessment and Plan Assessment and plan (1) Small bowel obstruction: Code(s): K56.609 - Unspecified intestinal obstruction, unspecified as to partial versus complete obstruction Status: Acute Assessment and Plan: persistent SBO and still uncomfortable agree with transfer to [facility] given complex case surgery on board NGT for now and pain management (2) Coffee ground emesis: Code(s): K92.0 - Hematemesis Status: Acute Assessment and Plan: could be gastritis, from NGT, etc hb is stable no need to proceed with egd as by now she will go to another hospital (3) End-stage renal disease on hemodialysis: Code(s): N18.6 - End stage renal disease; Z99.2 - Dependence on renal dialysis Status: Chronic Assessment and Plan: on dialysis, unfortunately failed kidney transplant (4) Factor V Leiden: Onset Date: Unknown Code(s): D68.51 - Activated protein C resistance Status: Chronic (5) Kidney transplant status: Code(s): Z94.0 - Kidney transplant status Status: Acute GI Consult Note Consult date/time: 10/24/20 17:15 Reason for consult: SBO, coffee ground emesis HPI: Shelli Jaramillo is a 45 year old female with multiple admissions to hospital because SBO, she has a complicated medical history with 3 failed kidney transplant unfortunately she is back on dialysis again. She came here again with moderate to severe abdominal pain with nausea and vomiting. She had bowel movement day before admission. She says that normally SBO treated medically. Her other medical problems include factor 5 leiden antibody, history of DVT, on Coumadin, diastolic dysfunction, tricuspid valve annuloplasty, pulmonary hypertension, anemia of chronic kidney disease, renal osteodystrophy. CT scan reviewed that showed dilated proximal and mid small bowel into the jejunum, compatible with small bowel obstruction, bilateral lower lobe atelectasis and moderate cardiomegaly. NGT in place with dark brown fluid (positive for occult blood), surgery evaluated patient. She is very uncomfortable and primary team will transfer to tertiary hospital given complex history. Hb 11.8 which is above baseline, no report of melena. Actually she is not passing gas. Also reviewed SB XR that showed persistently dilated small bowel with oral contrast, consistent with small bowel obstruction. Review of Systems Constitutional: Constitutional: Denies chills Eyes: Eyes: Reports no additional eye complaints ENT: Reports system reviewed and no additional complaints, except as documented Cardiovascular: Cardiovascular: Reports no additional cardiovascular complaints Respiratory: Respiratory: Reports no additional respiratory complaints Gastrointestinal: Gastrointestinal: Reports abdominal pain, Reports bloating, Reports nausea and Reports vomiting Genitourinary: Comments: on dialysis Musculoskeletal: Musculoskeletal: Reports no additional musculoskeletal complaints Neurologic: Reports system reviewed and no additional complaints, except as documented Psychiatric: Psychiatric: Reports anxiety [facility] Past Medical History Medical History (Updated 10/24/20 @ 17:23 by Goldy Aguilar MD) Acid reflux Anemia in chronic kidney disease Anemia in chronic kidney disease Anxiety Anxiety Asthma Asthma Chronic low back pain History of L4-L5 herniated disc. Chronic low back pain History of L4-L5 herniated discs. Coffee ground emesis Current use of nursing home anticoagulation On long-term warfarin due to factor V Leiden. Current use of nursing home anticoagulation Depression Diastolic CHF Last Echo October 2018 demonstrated an EF of 55% to 60% with diastolic dysfunction. Diastolic congestive heart failure Echocardiogram in October 2018 demonstrated ejection fraction 55 to 60% with diastolic dysfunction End-stage renal disease on hemodialysis She was diagnosed with kidney disease at the age of 15 after she was found
== END 2020-10-24 20:18 | disposition short-term general hospital (02) | DRG 388 ==
LOC: ANHED 21:40 → ANH3MEDSUR 10-23 09:50 → ANHIMU 10-26 12:19
PROVIDERS: Emergency Medicine; Internal Medicine; Internal Medicine Nephrology; Physician Assistant; Admitting Provider Family Medicine; Emergency Provider Emergency Medicine; PCP Family Medicine; Visit Provider Physician Assistant
DX: K56.609 Unspecified intestinal obstruction, unspecified as to partial versus complete obstruction (principal); N18.6 End stage renal disease; K29.01 Acute gastritis with bleeding; I13.0 Hypertensive heart and chronic kidney disease with heart failure and stage 1 through stage 4 chronic kidney disease, or unspecified chronic kidney disease; I50.32 Chronic diastolic (congestive) heart failure; D68.51 Activated protein C resistance; Z94.0 Kidney transplant status; K94.21 Gastrostomy hemorrhage; N25.0 Renal osteodystrophy; N18.9 Chronic kidney disease, unspecified; G89.29 Other chronic pain; M54.5 Low back pain; R79.1 Abnormal coagulation profile; D63.1 Anemia in chronic kidney disease; E87.5 Hyperkalemia; J45.909 Unspecified asthma, uncomplicated; E03.9 Hypothyroidism, unspecified; F42.9 Obsessive-compulsive disorder, unspecified; Z99.2 Dependence on renal dialysis; F41.8 Other specified anxiety disorders; T45.515A Adverse effect of anticoagulants, initial encounter; Z86.711 Personal history of pulmonary embolism; Z79.01 Long term (current) use of anticoagulants; Z90.49 Acquired absence of other specified parts of digestive tract; Z87.891 Personal history of nicotine dependence
CPT/HCPCS: 36415; 74018; 74176; 74250; 80053; 80069; 82271; 83605; 83690; 83735; 83986; 85025; 85027; 85610; 85730; 87340; 94640; 96361; 96374; 96375; 99285; A9270; C9113; G0257; J0131; J0610; J1170; J1644; J1815; J2270; J2405; J7030; Q5106

== ENCOUNTER 2020-12-13 10:14 | Inpatient (IN) | payer MEDICARE, MEDICAID, SELFPAY ==
--- NOTE | ~2020-12-13 | CT_ITS ---
EXAMINATION: CT abdomen pelvis wo con DATE: 12/13/2020 10:56 INDICATION: Abdominal pain, concern for bowel obstruction TECHNIQUE: Computed tomography (CT) of the abdomen and pelvis was performed without intravenous contr ast. The dose-length product (DLP) was 382.05 mGy-cm. Automated exposure control and iterative recons truction technique were employed. COMPARISON: 10/24/2020 FINDINGS: Cardiomegaly is noted. There is mild atelectasis of the lung bases. There are surgical ford ges in the tricuspid valve. The liver, spleen, pancreas, and adrenal glands are normal. The gallbladd er is surgically absent. There is severe atrophy of the agdaagux kidneys. A 3 cm cyst is noted in the l eft kidney. There are multiple persistently dilated loops of small bowel. The transition point is dif ficult to identify however the distal small bowel loops are decompressed. There is no free intraperit grady gas. No pathologically enlarged abdominal or pelvic lymph nodes are identified. Calcified trans plant kidneys are noted in the left and right pelvis. There is severe lumbar spondylosis at L5-S1. IMPRESSION: 1. Small bowel obstruction. Reviewed, dictated and finalized at location A. IMPRESSION: 1. Small bowel obstruction.
--- NOTE | ~2020-12-13 | XR_ITS ---
EXAMINATION: XR sm bowel follow through DATE: 12/16/2020 15:57 INDICATION: Small bowel obstruction. TECHNIQUE: Oral contrast was administered, and a time course of radiographs of the abdomen was obtain ed. Fluoroscopy of the small bowel was not performed. Fluoroscopy exposure time was 0 minutes. The to keila number of images was 9. COMPARISON: CT abdomen and pelvis 12/13/2020 FINDINGS: The nasogastric tube tip is in the stomach. There are multiple dilated loops of proximal small bowel. There is a small volume of contrast in nondilated mid small bowel at 3 hours and 45 minutes.. There is a calcified transplant kidney in left iliac fossa. There are surgical clips overlying right pelvis . IMPRESSION: 1. High-grade partial small bowel obstruction. Reviewed, dictated and finalized at location A.
--- NOTE | ~2020-12-13 | XR_ITS ---
EXAMINATION: XR abdomen obstructive series DATE: 12/16/2020 08:23 INDICATION: Small bowel obstruction TECHNIQUE: Supine and upright views of the abdomen. FINDINGS: Comparison to multiple prior studies sequentially, with oldest reviewed study dated 021. The visualized lung parenchyma is normal.. There is a nonobstructive bowel gas pattern. Gas and stool are seen throughout the colon to the level of the rectum. There is no free air. There is a densely calcified transplant kidney in the left pelvis. NG tube in the stomach. There are epicardial pacing l rosette. IMPRESSION: 1. No acute abdominal abnormality. Reviewed, dictated and finalized at location A.
--- NOTE | ~2020-12-13 | XR_ITS ---
EXAMINATION: XR abdomen NG/feed tube insert EXAM DATE: 12/13/2020 11:59 INDICATION: Nasogastric tube placement. TECHNIQUE: Frontal projection(s) of the abdomen for interpretation. Correlation is made to CT abdomen earlier same day. FINDINGS: Feeding tube tip and side-port project over the gastric body and cardia respectively, adequ ate. Several loops of distended upper abdominal small bowel identified. Sternotomy wires. Couple of c ardiac. There are cholecystectomy clips. Lung bases unremarkable. IMPRESSION: Feeding tube in position. Small bowel obstruction. Reviewed, dictated and finalized at location B.
--- NOTE | ~2020-12-13 | XR_ITS ---
XR abdomen obstructive series 12/17/2020 08:13 Indication: Small bowel obstruction Procedure: Supine and upright views of the abdomen Comparison: Small bowel series dated 12/16/2020 Findings: There is residual contrast in nondilated colon. There is a small amount residual contrast in dilated small bowel of the upper abdomen. There is a densely calcified left pelvic transplant kidney. There a re surgical clips in the right pelvis. NG tube in the stomach. Impression: 1: Mildly dilated small bowel with relatively decompressed colon, consistent with small bowel obstruc tion. Reviewed, dictated and finalized at location A. Impression: 1: Mildly dilated small bowel with relatively decompressed colon, consistent wi th small bowel obstruction.
--- NOTE | ~2020-12-13 | XR_ITS ---
EXAMINATION: XR chest 2V DATE: 12/18/2020 12:37 INDICATION: Right-sided wheezing. TECHNIQUE: Frontal and lateral views of the chest were obtained. COMPARISON: Chest 2 views 09/11/2019, CT abdomen and pelvis 12/13/2020 FINDINGS: There is mild atelectasis at right lung base. No pleural effusion or pneumothorax. The hear t size is normal. There are changes of heart valve replacement. Retained epicardial pacer wires are n oted. The nasogastric tube tip is in the stomach. Surgical clips in the right upper quadrant are like ly from cholecystectomy. IMPRESSION: 1. Mild atelectasis in right lung base. Reviewed, dictated and finalized at location B.
[2020-12-13 10:27] VITALS: BP 115/82; PULSE 120; RESP 18; TEMP 36.5; O2SAT 99
[2020-12-13 10:35] LABS: Basophils Percent Auto 0.8 % (0.2-1.2); Eosinophils Absolute Auto 0.1 K/mm3 (0-0.3); Eosinophils Percent Auto 2.3 % (0-4.4); Hematocrit 32.1 % (37.0-47.0); Hemoglobin 10.8 g/dL (12.0-15.0); Immature Granulocyte Absolute 0.01 K/mm3 (0.00-0.031); Immature Granulocyte Percent A 0.2 % (0-0.5); Lymphocytes Percent Auto 14.6 % (18.3-44.2); Mean Corpuscular HGB Conc 33.6 g/dl (32-36); Mean Corpuscular Hemoglobin 33.2 pg (26-34); Mean Corpuscular Volume 98.8 fl (80-100); Mean Platelet Volume 10.8 fl (7.4-10.4); Monocytes Absolute Auto 0.4 K/mm3 (0.1-0.6); Monocytes Percent Auto 7.3 % (2.6-8.5); Neutrophils Absolute Auto 3.6 K/mm3 (1.3-6.7); Neutrophils Percent Auto 74.8 % (45.5-73.1); Platelet Count Result 134 k/mm3 (150-375); Red Blood Count 3.25 M/mm3 (4.2-5.4); Red Cell Distribution Width 15.7 % (11.5-14.5); White Blood Count 4.8 K/mm3 (4.5-10.0)
[2020-12-13] MEDS: PANTOPRAZOLE SODIUM IV 40 MG VIAL IV PUSH (10:43)
[2020-12-13 10:44] LABS: Lactic Acid Reflex 1.2 mmol/L (0.7-2.1)
[2020-12-13] MEDS: ONDANSETRON INJ 4 MG/2 ML VIAL IV PUSH ×4 (10:46→18:55)
[2020-12-13] MEDS: FAMOTIDINE 20 MG/2 ML VIAL IV PUSH (10:46)
[2020-12-13 10:49] LABS: Alanine Aminotransferase 16 U/L (4-35); Albumin Level 3.9 g/dL (3.5-5.1); Alkaline Phosphatase 94 U/L (38-126); Anion Gap 23 mmol/L (8-16); Aspartate Amino Transferase 26 U/L (14-36); Bilirubin,Total 0.9 mg/dL (0.2-1.3); Blood Urea Nitrogen 65 mg/dL (7-17); Calcium 8.5 mg/dL (8.4-10.2); Carbon Dioxide 18 mmol/L (22-30); Chloride 93 mmol/L (98-107); Glucose 74 mg/dL (65-105); Lipase 230 U/L (23-300); Potassium 3.8 mmol/L (3.4-5.0); Sodium 134 mmol/L (137-145)
[2020-12-13 10:52] LABS: Estimated CRCL calculation 4 ml/min; Estimated Glomerular Filt Rate 2
[2020-12-13] MEDS: SODIUM CHLORIDE 0.9% IV 500 ML 999 ML IV CONT (11:02)
--- NOTE | 2020-12-13 11:16 | ED.GENADULT ---
HPI - General Adult General Chief complaint: Nausea/Vomiting/Diarrhea <NASRIN Patrick Last Filed: 12/14/20 16:42> Stated complaint: stomach issues <NASRIN Patrick Last Filed: 12/14/20 16:42> Time Seen by Provider: 12/13/20 10:16 <NASRIN Patrick Last Filed: 12/14/20 16:42> Source: patient, RN notes reviewed and old records reviewed <NASRIN Patrick Last Filed: 12/14/20 16:42> Mode of arrival: ambulatory <NASRIN Patrick Last Filed: 12/14/20 16:42> Limitations: no limitations <NASRIN Patrick Last Filed: 12/14/20 16:42> History of Present Illness HPI narrative: Patient is a 45-year-old female who presents to emergency department noting that she has been having emesis for the last month since being released from [facility] she had been admitted at that time for bowel obstruction and has a longstanding history of bowel obstructions patient has been having emesis typically in the morning and evening 1 or 2 episodes at a time. Patient notes again this morning she had some emesis after eating some crackers and peanut butter this morning . Patient has been seen by her primary care doctor for this Dr. Padilla who prescribed her Keflex which sounds like thinking that the patient may have H. pylori patient. Completed this medication with no improvement patient has not been taking any nausea medication for her emesis patient has multiple comorbidities and is on warfarin and receives renal dialysis. Patient notes that she completed renal dialysis yesterday and is followed by Dr. Bishop for this. Patient notes mild discomfort of the abdomen. Patient is also currently on a PPI. Patient notes last bowel movement was a day and a half ago and was normal patient denies any hematemesis <NASRIN Patrick Last Filed: 12/14/20 16:42> Related Data Home medications: Home Medications Medication Instructions Recorded Confirmed ergocalciferol (vitamin D2) 1,250 mcg PO WEEKLY 05/27/20 12/14/20 warfarin 7 mg PO DAILY 05/27/20 12/14/20 docusate sodium 100 mg capsule 100 mg PO DAILY 11/27/20 12/14/20 <Tom Christy PA-C - Last Filed: 12/14/20 16:42> Allergies/adverse reactions: Allergies Allergy/AdvReac Type Severity Reaction Status Date / Time baclofen Allergy Unresponsiv Verified 12/13/20 10:36 e diphenhydramine Allergy Other Verified 12/13/20 10:36 [From Benadryl] vancomycin AdvReac Redness of Verified 12/13/20 10:36 Skin <Tom Christy PA-C - Last Filed: 12/14/20 16:42> Review of Systems Review of Systems: All systems reviewed & are unremarkable except as noted in HPI and below <Tom Christy PA-C - Last Filed: 12/14/20 16:42> [facility] Past Medical History Medical History: Medical History Acid reflux Anemia in chronic kidney disease Anxiety Asthma Chronic low back pain History of L4-L5 herniated disc. Coffee ground emesis Current use of [facility] anticoagulation On long-term warfarin due to factor V Leiden. Depression Diastolic CHF Last Echo October 2018 demonstrated an EF of 55% to 60% with diastolic dysfunction. Diastolic congestive heart failure Echocardiogram in October 2018 demonstrated ejection fraction 55 to 60% with diastolic dysfunction End-stage renal disease on hemodialysis She was diagnosed with kidney disease at the age of 15 after she was found to have significant proteinuria on a physical done prior to high school. She is status post renal transplant x3, the first in 2000 which failed after 7 days due to factor V Leiden, her second transplant in 2005 that lasted 1.5 years, and she was converted to hemodialysis in 2011 after her last transplant failed. She does home hemodialysis and is a patient of Dr. Rashel Bishop. 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 Factor V Leiden Factor V Leiden (Un
[2020-12-13 11:24] LABS: INR 1.1; Magnesium 2.1 mg/dL (1.6-2.3); Phosphorus 6.3 mg/dL (2.5-4.5); Prothrombin Time 14.6 Seconds (11.1-14.7)
[2020-12-13 11:25] LABS: Partial Thromboplastin Time 39.4 SECONDS (22.3-36.8)
--- NOTE | 2020-12-13 11:45 | PC.NURSE ---
pt complaining of pain verbal order to BREN Christy for 4mg of morphine IVP and 4mg zofran IV STAT
[2020-12-13] MEDS: MORPHINE SULFATE (*CRX) 4 MG/ML INJ IV PUSH ×5 (11:51→23:29)
[2020-12-13 13:44] VITALS: BP 131/85; PULSE 98; RESP 10; O2SAT 100
[2020-12-13] MEDS: ONDANSETRON INJ 4 MG/2 ML VIAL (13:51)
[2020-12-13 15:45] VITALS: BP 123/71; PULSE 91; RESP 14; O2SAT 100
[2020-12-13 18:02] VITALS: BP 129/79; PULSE 89; RESP 16; O2SAT 100
[2020-12-13 19:40] VITALS: BP 101/70; PULSE 88; RESP 12; TEMP 36.6; O2SAT 98
--- NOTE | 2020-12-13 19:41 | PC.NURSE ---
Pt resting on cart with no complaints or concerns voiced at this time. Vitals are stable and in pt is in no obvious distress. NG tube is at low intermittent suctioning and is patent and draining well. Pt is alert and oriented x4 and denies all pain and discomfort at this time. Call button and personal items are within reach and pt advised to press call button for assistance.
--- NOTE | 2020-12-13 20:11 | PC.NURSE ---
19:40 - called [facility], spoke to Chidi. We are waiting for a surgical bed for this patient.
--- NOTE | 2020-12-13 20:18 | PC.NURSE ---
Pt noted to have x1 episode of emesis. EDMD notified and advises that he will place orders.
[2020-12-13 20:20] LABS: SARS-CoV-2 RNA PCR Negative
[2020-12-13] MEDS: PROCHLORPERAZINE EDISYLATE 10 MG/2 ML VIAL IV PUSH (20:28)
[2020-12-13] MEDS: LORazepam INJ (*CRX) 2 MG/ML VIAL 1 MG IV PUSH (20:28)
--- NOTE | 2020-12-13 20:33 | PC.NURSE ---
Pt resting on cart alert and oriented x4. Breathing even and unlabored with stable vitals. Pt has no complaints or concerns at this time. Call button and personal items within reach. Advised to press call button for assistance.
--- NOTE | 2020-12-13 21:30 | PC.NURSE ---
Pt states she feels better since medication administration and denies nausea and emesis. Pt resting on cart in its lowest position with call button and personal items within reach. Advised to press call button for assistance.
[2020-12-13 22:29] VITALS: BP 99/63; PULSE 89; RESP 12; O2SAT 96
[2020-12-14] VITALS (19 sets, daily range): BP systolic 92–114; BP diastolic 47–75; PULSE 10–110; RESP 10–24; TEMP 36.1–36.4; O2SAT 93–100; BMI 27.3; BMI 27.6
[2020-12-14] MEDS: MORPHINE SULFATE (*CRX) 4 MG/ML INJ IV PUSH ×2 (02:12→07:47)
[2020-12-14] MEDS: PROCHLORPERAZINE EDISYLATE 10 MG/2 ML VIAL IV PUSH (02:12)
--- NOTE | 2020-12-14 03:30 | PC.NURSE ---
pt on cart sleeping with call button and personal items within reach. Vitals stable and pt in no obvious distress.
--- NOTE | 2020-12-14 04:53 | PC.NURSE ---
Spoke with Tawnya at [facility]/[place] [facility]. No bed available, yet, for patient.
--- NOTE | 2020-12-14 04:54 | PC.NURSE ---
Received a call from Sán[facility] who requested more info on pt and states pt remains on wait list for bed and as soon as there is a bed available, they will call back.
[2020-12-14] MEDS: ONDANSETRON INJ 4 MG/2 ML VIAL IV PUSH ×4 (07:47→19:59)
--- NOTE | 2020-12-14 09:36 | PC.NURSE ---
brought hospital bed down to switch out current stretcher for more comfort. pt transfered beds without difficulty.
--- NOTE | 2020-12-14 09:41 | PC.NURSE ---
called phlebotomy to draw blood due to pt condition.
[2020-12-14 10:07] LABS: Basophils Percent Auto 0.7 % (0.2-1.2); Eosinophils Absolute Auto 0.1 K/mm3 (0-0.3); Hematocrit 34.2 % (37.0-47.0); Hemoglobin 10.9 g/dL (12.0-15.0); Immature Granulocyte Absolute 0.01 K/mm3 (0.00-0.031); Immature Granulocyte Percent A 0.2 % (0-0.5); Lymphocytes Absolute Auto 0.64 K/mm3 (0.9-3.2); Lymphocytes Percent Auto 15.6 % (18.3-44.2); Mean Corpuscular HGB Conc 31.9 g/dl (32-36); Mean Corpuscular Hemoglobin 34.3 pg (26-34); Mean Corpuscular Volume 107.5 fl (80-100); Mean Platelet Volume 11.5 fl (7.4-10.4); Monocytes Absolute Auto 0.3 K/mm3 (0.1-0.6); Monocytes Percent Auto 8.3 % (2.6-8.5); Neutrophils Percent Auto 73.2 % (45.5-73.1); Platelet Count Result 119 k/mm3 (150-375); Red Blood Count 3.18 M/mm3 (4.2-5.4); Red Cell Distribution Width 16.2 % (11.5-14.5); White Blood Count 4.1 K/mm3 (4.5-10.0)
[2020-12-14] MEDS: DEXTROSE 5%/0.9% SOD CHL 1,000 ML 75 ML IV CONT (10:11)
[2020-12-14] MEDS: FAMOTIDINE 20 MG/2 ML VIAL IV PUSH ×2 (10:12→21:06)
[2020-12-14] MEDS: LORazepam INJ (*CRX) 2 MG/ML VIAL 0.5 MG IV PUSH (10:12)
[2020-12-14 10:48] LABS: Alanine Aminotransferase 13 U/L (4-35); Albumin Level 3.5 g/dL (3.5-5.1); Alkaline Phosphatase 91 U/L (38-126); Anion Gap 24 mmol/L (8-16); Aspartate Amino Transferase 21 U/L (14-36); Bilirubin,Total 0.7 mg/dL (0.2-1.3); Blood Urea Nitrogen 71 mg/dL (7-17); Calcium 8.5 mg/dL (8.4-10.2); Carbon Dioxide 13 mmol/L (22-30); Chloride 97 mmol/L (98-107); Glucose 66 mg/dL (65-105); Potassium 4.5 mmol/L (3.4-5.0); Sodium 134 mmol/L (137-145)
[2020-12-14 11:36] LABS: Estimated CRCL calculation 3 ml/min; Estimated Glomerular Filt Rate 2
[2020-12-14] MEDS: BENZOCAINE/TETRACAINE SPRAY (*SP) 56 ML AEROSOL 1 SPRAY (13:43)
[2020-12-14] MEDS: MORPHINE SULFATE (*CRX) 2 MG/ML INJ IV PUSH ×3 (13:43→23:25)
--- NOTE | 2020-12-14 14:08 | PC.NURSE ---
[facility] transfer center called for updates on patient, no bed at this time.
[2020-12-14] MEDS: HEPARIN SODIUM 5,000 UNITS/ML VIAL 5000 UNITS SUB-Q ×2 (15:32→21:27)
[2020-12-14] MEDS: LORazepam INJ (*CRX) 2 MG/ML VIAL 1 MG IV PUSH (16:06)
--- NOTE | 2020-12-14 16:30 | PM.CNGS ---
Assessment and Plan Assessment and plan (1) Small bowel obstruction: Code(s): K56.609 - Unspecified intestinal obstruction, unspecified as to partial versus complete obstruction Status: Acute Assessment and Plan: recurrent and chronic, will likely need some surgical intervention, await transfer to surgical team at [facility], cont NG decompression, bowel rest, gentle IV hydration for now (2) End stage renal disease: Code(s): N18.6 - End stage renal disease Status: Acute Assessment and Plan: mgmt per nephrology, gentle IV hydration (3) Factor V Leiden: Code(s): D68.51 - Activated protein C resistance Status: Acute Assessment and Plan: would hold Coumadin given that she likely will need surgical intervention, would do Heparin gtt History of Present Illness Consult details Consult date: 12/14/20 Reason for consult: abdominal pain Requesting physician: Judson Vee MD Narrative: Pt is a 45 y/o F c multiple med issues including ESRD, Factor 5 Leiden Def presenting c/o intractable N/V, crampy abdominal pain. Pt reports symptoms presents off and on over last month. Pt was actually just released from [facility] last month after episode of SBO. 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 Pt has had surgeries at [facility]. Pt reports she has had multiple SBO and now just lives in this condition. Pt has actually been accepted by the surgical team at [facility] and is just awaiting a room for transfer. Review of Systems Constitutional: Constitutional: Reports anorexia, Reports chills, Reports fatigue, Denies fever(s), Reports lethargy, Reports malaise, Reports poor appetite and Reports weakness Eyes: Eyes: Reports no additional eye complaints ENT: Reports system reviewed and no additional complaints, except as documented Cardiovascular: Cardiovascular: Reports no additional cardiovascular complaints Respiratory: Respiratory: Reports no additional respiratory complaints Gastrointestinal: Gastrointestinal: Reports as per HPI Genitourinary: Genitourinary: Reports no additional female genitourinary complaints Musculoskeletal: Musculoskeletal: Reports no additional musculoskeletal complaints Integumentary/Breasts: Skin/Breast: Reports system reviewed and no additional complaints, except as docu Neurologic: Reports system reviewed and no additional complaints, except as documented Psychiatric: Psychiatric: Reports no additional psychiatric complaints Endocrine: Endocrine: Reports no additional endocrine complaints Hematologic/Lymphatic: Hematologic/Lymphatic: Reports no additional hematologic/lymphatic complaints Allergic/Immunologic: Allergic/Immunologic: Reports no additional allergic/immunologic complaints PMFSH Past Medical History Medical History Acid reflux Anemia in chronic kidney disease Anemia in chronic kidney disease Anxiety Anxiety Asthma Asthma Chronic low back pain History of L4-L5 herniated disc. Chronic low back pain History of L4-L5 herniated discs. Coffee ground emesis Current use of jail anticoagulation On long-term warfarin due to factor V Leiden. Current use of jail anticoagulation Depression Diastolic CHF Last Echo October 2018 demonstrated an EF of 55% to 60% with diastolic dysfunction. Diastolic congestive heart failure Echocardiogram in October 2018 demonstrated ejection fraction 55 to 60% with diastolic dysfunction End-stage renal disease on hemodialysis She was diagnosed with kidney disease at the age of 15 after she was found to have significant proteinuria on a physical done prior to high school. She is status post renal transplant x3, the first in 2000 which failed after 7 days due to factor V Leiden, her second transplant in 2005 that lasted 1.5 years, and she was converted to hemodialysis in 2011 after her
--- NOTE | 2020-12-14 17:19 | ADMGEN ---
This patient, Shelli Jaramillo, was admitted to IMU Room 232-01. Patient/family oriented to hospital policies and general routines including ID bracelet, bed and alarms, visiting hours, pain management, procedures, bathroom and other care routines, personal items, smoking policy, room service/diet, and visiting hours. Information on how to activate the Rapid Response Team has been discussed. Patient/Family are encouraged to report perceived risks to care and to ask questions if they do not understand what they are told or what they should do.
--- NOTE | 2020-12-14 18:46 | PM.IMHP ---
H&P: HPI History of Present Illness Date/Time: 12/14/20 18:46 this is a very unfortunate 45-year-old female patient who has a history of end-stage renal disease and has dialysis at least 4 times a week. She stated every other day +1 typically she goes to dialysis. The patient also has had multiple small-bowel obstructions at least 23 possibly due to scar tissue. The patient is admitted quite frequently for small-bowel obstructions. The patient was transferred to [facility] on 10/24/2020 and the patient was discharged from [facility] on 11/18/2020. The patient had been hospitalized there for 25 days. There was some mention about a possible G-tube in the near future. The patient had been placed on a heparin drip due to factor 5 leiden. She is typically on Coumadin but is unable to take anything orally. The patient had been on a heparin drip at [facility] during her stay. Once her NG tube was out the patient was transient send back to [facility]. The patient also received TPN while she was at [facility]. The patient came in with nausea vomiting and abdominal pain. The patient noted to have emesis for the last month since she was discharged from [facility]. The patient was seen by her primary care doctor and was given Keflex for possible H pylori. There was no improvement in her symptoms. The patient has a GI specialist at [facility]. [facility] was notified and they did accept the patient but have no medical beds at this time. The patient had been in our ER for approximately 30 hours and the ER provider spoke with the lease examiner as well as the surgeon and they agreed to consult on the patient while she is here until she is transferred to [facility]. Patient has NG tube to the right naris. Abdominal x-ray from yesterday was read as feeding to position small-bowel obstruction. The patient is being admitted to inpatient until she is transferred to [facility] on the date of service of 12/14/2020. Chief Complaint: Abdominal pain Review of Systems Review of Systems: All systems reviewed & are unremarkable except as noted in HPI and below Constitutional: Constitutional: Reports as per HPI and Reports no additional constitutional complaints Eyes: Eyes: Reports as per HPI and Reports no additional eye complaints ENT: Reports system reviewed and no additional complaints, except as documented and Reports Normal hearing present Cardiovascular: Cardiovascular: Reports no additional cardiovascular complaints Respiratory: Respiratory: Reports no additional respiratory complaints and Reports no additional respiratory complaints Gastrointestinal: Gastrointestinal: Reports as per HPI and Reports no additional gastrointestinal complaints Musculoskeletal: Musculoskeletal: Reports no additional musculoskeletal complaints Integumentary/Breasts: Skin/Breast: Reports system reviewed and no additional complaints, except as docu and Reports as per HPI Neurologic: Reports system reviewed and no additional complaints, except as documented, Reports as per HPI and Reports Normal hearing present Psychiatric: Psychiatric: Reports no additional psychiatric complaints and Reports as per HPI Endocrine: Endocrine: Reports no additional endocrine complaints Hematologic/Lymphatic: Hematologic/Lymphatic: Reports no additional hematologic/lymphatic complaints Allergic/Immunologic: Allergic/Immunologic: Reports no additional allergic/immunologic complaints [facility] Past Medical History Medical History (Updated 12/14/20 @ 18:58 by Marlen Ricci NP) Acid reflux Anemia in chronic kidney disease Anxiety Asthma Chronic low back pain History of L4-L5 herniated disc. 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 Depression Diastolic CHF Last Echo October 2018 demonstrated an EF of 55% to 60% with diastolic dysfuncti
[2020-12-14] MEDS: PANTOPRAZOLE SODIUM IV 40 MG VIAL IV PUSH (21:06)
[2020-12-15] VITALS (30 sets, daily range): BP systolic 90–134; BP diastolic 47–75; PULSE 69–106; RESP 14–18; TEMP 36.1–37; O2SAT 16–100; BMI 27.3
--- NOTE | 2020-12-15 | ECHO_ITS ---
Patient Info Name: Shelli Jaramillo Age: 45 years : 1975 Gender: Female Ht: 66 in Wt: 169 lbs BSA: 1.91 m2 HR: 107 bpm BP: 107 / 59 mmHg Heart Rhythm: Sinus Rhythm, Tachycardia Technical Quality: Good Exam Date: 12/15/2020 3:52 PM [facility] Room: 232 Patient Status: Inpatient Admit Date: 12/14/2020 Staff Ordering Physician: Lucia Jenkins PA-C Mine Motor Engineer: Za Collins RDCS Attending Provider: Lucia Jenkins PA-C Referring Physician: Alice MARINO; Exam Type: CA echo doppler color flow Study Info Indications - hx/o TRICUSPID VALVE REPAIR ON HEMODIALYSIS VTACH Complete two-dimensional, color flow and Doppler transthoracic echocardiogram is performed. Summary 1. Complete two-dimensional, color flow and Doppler transthoracic echocardiogram is performed. 2. Left ventricular systolic function is normal, estimated at 65-70%. 3. There is no increased left ventricular wall thickness. 4. Right ventricular chamber dimension is normal. 5. Right ventricular systolic function is reduced. 6. There is mild tricuspid valve regurgitation. 7. Moderate pulmonary hypertension, estimated pulmonary arterial systolic pressure is 57 mmHg. 8. The tricuspid valve leaflets are normal. Annular echodensity consistent with tricuspid valve repair. Left Ventricle Left ventricular chamber dimension is normal. Left ventricular systolic function is normal, estimated at 65-70%. There is no increased left ventricular wall thickness. The left ventricular diastolic function is grade I diastolic dysfunction. Right Ventricle Right ventricular chamber dimension is normal. Right ventricular systolic function is reduced. Left Atria Left atrial chamber dimension is normal. Right Atria Right atrial chamber dimension is normal. Aortic Valve The aortic valve is trileaflet. There is no aortic valve stenosis. There is no aortic valve regurgitation. Pulmonic Valve The pulmonic valve is normal. There is trace pulmonic regurgitation. Mitral Valve The mitral valve has normal leaflets. There is no mitral valve regurgitation. Tricuspid Valve The tricuspid valve leaflets are normal. Annular echodensity consistent with tricuspid valve repair. There is mild tricuspid valve regurgitation. Moderate pulmonary hypertension, estimated pulmonary arterial systolic pressure is 57 mmHg. Pericardium/Pleural The pericardium appears normal. There is no pericardial effusion. Inferior Vena Cava Normal inferior vena cava with >50% collapse upon inspiration consistent with normal right atrial pressure, 5 mmHg. Aorta The aortic root size at the sinus of Valsalva is normal. Left Ventricular Outflow Tract Name Value Normal LVOT 2D LVOT Diameter 2.0 cm LVOT Doppler LVOT Peak Gradient 7 mmHg LVOT Mean Gradient 4 mmHg LVOT VTI 21 cm LVOT VTI/AV VTI Ratio 0.8 LVOT Stroke Volume 64 ml LVOT CO 18.3 l/min
[2020-12-15] MEDS: DEXTROSE 5%/0.9% SOD CHL 1,000 ML 75 ML IV CONT ×2 (01:23→21:15)
[2020-12-15] MEDS: ONDANSETRON INJ 4 MG/2 ML VIAL IV PUSH ×4 (02:02→21:27)
--- NOTE | 2020-12-15 03:10 | ECG_ITS ---
Measurements Intervals [place] Rate: 92 P: 43 MO: 144 QRS: -36 QRSD: 126 T: 7 QT: 392 QTc: 487 Interpretive Statements SINUS RHYTHM VENTRICULAR PREMATURE COMPLEX RIGHT BUNDLE BRANCH BLOCK ABNORMAL ECG Electronically Signed On 12-15-2020 7:50:13 CDT by Geo Jackson D.O.
[2020-12-15 04:05] LABS: Basophils Percent Auto 0.8 % (0.2-1.2); Eosinophils Absolute Auto 0.1 K/mm3 (0-0.3); Eosinophils Percent Auto 2.1 % (0-4.4); Hematocrit 30.9 % (37.0-47.0); Immature Granulocyte Absolute 0.02 K/mm3 (0.00-0.031); Immature Granulocyte Percent A 0.5 % (0-0.5); Lymphocytes Absolute Auto 0.62 K/mm3 (0.9-3.2); Lymphocytes Percent Auto 16.6 % (18.3-44.2); Mean Corpuscular HGB Conc 32.4 g/dl (32-36); Mean Corpuscular Hemoglobin 33.4 pg (26-34); Mean Corpuscular Volume 103.3 fl (80-100); Mean Platelet Volume 10.8 fl (7.4-10.4); Monocytes Absolute Auto 0.4 K/mm3 (0.1-0.6); Monocytes Percent Auto 9.7 % (2.6-8.5); Neutrophils Absolute Auto 2.6 K/mm3 (1.3-6.7); Neutrophils Percent Auto 70.3 % (45.5-73.1); Platelet Count Result 111 k/mm3 (150-375); Red Blood Count 2.99 M/mm3 (4.2-5.4); Red Cell Distribution Width 15.9 % (11.5-14.5); White Blood Count 3.7 K/mm3 (4.5-10.0)
[2020-12-15 04:21] LABS: Anion Gap 17 mmol/L (8-16); Blood Urea Nitrogen 71 mg/dL (7-17); Calcium 8.1 mg/dL (8.4-10.2); Carbon Dioxide 20 mmol/L (22-30); Chloride 98 mmol/L (98-107); Estimated CRCL calculation 3 ml/min; Estimated Glomerular Filt Rate 2; Glucose 103 mg/dL (65-105); Phosphorus 7.6 mg/dL (2.5-4.5); Potassium 3.9 mmol/L (3.4-5.0); Sodium 135 mmol/L (137-145)
[2020-12-15 04:24] LABS: NT Pro B Type Natriuretic Pept 12600 pg/mL (5-100)
[2020-12-15 04:27] LABS: Troponin I 0.025 ng/mL (0.000-0.034)
--- NOTE | 2020-12-15 04:40 | PM.EVENT ---
Event Note Event Note Event Note: Precious had an episode of sustained ventricular tachycardia which resolved spontaneously after approximately few minutes around 3 am. she was alert and awake, felt slight palpitations during the episode. BP stable. no further recurrences. stat labs were checked which were reviewed. mg level was good. K normal. P is high due to renal dysfunction. tropnoin is negative. will also metoprolol iv prn for rate control now. if further recurs, warrants antiarrhythmic and cardiology evaluation.
[2020-12-15] MEDS: HEPARIN SODIUM 5,000 UNITS/ML VIAL 5000 UNITS SUB-Q ×2 (05:53→22:00)
[2020-12-15] MEDS: PANTOPRAZOLE SODIUM IV 40 MG VIAL IV PUSH ×2 (08:38→21:26)
[2020-12-15] MEDS: FAMOTIDINE 20 MG/2 ML VIAL IV PUSH ×2 (08:39→21:25)
[2020-12-15] MEDS: MORPHINE SULFATE (*CRX) 2 MG/ML INJ IV PUSH ×4 (08:54→22:01)
[2020-12-15] MEDS: BUDESONIDE/FORMOTEROL (*SP) 160-4.5 MCG 6 GM INH 2 PUFF INHALATION ×2 (09:22→21:26)
--- NOTE | 2020-12-15 09:31 | PM.PNGS ---
Progress Note: A&P Assessment and Plan (1) Small bowel obstruction: Code(s): K56.609 - Unspecified intestinal obstruction, unspecified as to partial versus complete obstruction Status: Acute Assessment and Plan: exam improved, await bowel fxn, await transfer to [facility], cont NG decompression, bowel rest for now, encourage OOB Subjective Subjective Date/Time Seen: 12/15/20 09:31 feels a little better, still c some mild abd soreness, no further N/V Review of Systems Review of Systems: All systems reviewed & are unremarkable except as noted in HPI and below Exam Const: General: cooperative, no acute distress and ill appearing Nutritional Appearance: overweight Orientation/consciousness: patient oriented x3 Limitations: no limitations Resp: Auscultation: clear to auscultation bilaterally Cardio: Rate: regular rate Rhythm: regular rhythm GI: Inspection: normal to inspection, distended and incision GI Palp: Yes Soft to palpation and Yes Tenderness to palpation present (GI) Other: soft, decreased dist, mild TTP diffusely, no peritoneal signs Objective Data Vital Signs Vital Signs: Vital Signs - 24 hr 12/14/20 09:39 12/14/20 10:24 12/14/20 11:44 Temperature Pulse Rate 96 95 96 Respiratory Rate 12 12 18 Blood Pressure 95/55 L 104/55 L 109/56 L Pulse Oximetry 95 100 100 12/14/20 14:08 12/14/20 15:34 12/14/20 16:25 Temperature Pulse Rate 97 110 H 104 H Respiratory Rate 15 24 H 10 L Blood Pressure 100/58 L 107/62 114/75 Pulse Oximetry 100 97 97 12/14/20 17:18 12/14/20 17:33 12/14/20 18:00 Temperature 36.4 C Pulse Rate 103 H 102 H 102 H Respiratory Rate 18 18 14 Blood Pressure 100/63 100/53 L 107/65 Pulse Oximetry 100 100 98 12/14/20 18:14 12/14/20 20:00 12/14/20 20:30 Temperature 36.1 C L Pulse Rate 96 103 H 100 Respiratory Rate 18 16 Blood Pressure 94/47 L Pulse Oximetry 98 100 93 12/14/20 22:00 12/14/20 22:12 12/14/20 23:09 Temperature Pulse Rate 98 Respiratory Rate Blood Pressure 95/64 L 106/50 L Pulse Oximetry 12/15/20 00:00 12/15/20 02:00 12/15/20 04:00 Temperature 36.1 C L 36.2 C L Pulse Rate 104 H 103 H 93 Respiratory Rate 16 16 Blood Pressure 90/50 L 94/47 L Pulse Oximetry 100 16 L 12/15/20 06:00 12/15/20 08:00 12/15/20 09:22 Temperature 36.1 C L Pulse Rate 84 105 H Respiratory Rate 16 Blood Pressure 134/75 Pulse Oximetry 100 99 Intake/Output Intake/Output: Intake & Output 12/12/20 12/13/20 12/14/20 12/15/20 23:59 23:59 23:59 23:59 Intake Total 500 1100 100 Output Total 150 Balance 500 1100 -50 Meds/Results Medications: Active Medications Generic Name Dose Route Start Last Admin Trade Name Freq PRN Reason Stop Dose Admin Budesonide/Formoterol Fumarate 2 puff 12/15/20 08:00 12/15/20 09:22 Budesonide/Formoterol (*Sp) 160-4.5 Mcg 6 Gm Inh INHALATION 2 puff Q12HRT CHRIS Administration Dextrose 12.5 gm 12/14/20 16:43 Dextrose 50% 25 Gm/50 Ml Syringe IV PUSH PRN PRN Hypoglycemia Protocol Famotidine 20 mg 12/14/20 21:00 12/15/20 08:39 Famotidine 20 Mg/2 Ml Vial IV PUSH 20 mg Q12HR CHRIS Administration Glucagon 1 mg 12/14/20 16:43 Glucagon For Inj 1 Mg Vial IM PRN PRN Hypoglycemia Protocol Heparin Sodium (Porcine) 5,000 units 12/14/20 14:00 12/15/20 05:53 Heparin Sodium 5,000 Units/Ml Vial SUB-Q 5,000 units Q8HR CHRIS Administration Dextrose/Sodium Chloride 1,000 mls @ 75 mls/hr 12/14/20 09:30 12/15/20 01:23 Dextrose 5% Sodium Chloride 0.9% IV CONT 75 mls/hr .[id number] CHRIS Administration Dextrose 1,000 mls @ 100 mls/hr 12/14/20 16:43 Dextrose 5% 1,000 Ml IVPB PRN PRN Hypoglycemia Protocol Acetaminophen 1,000 mg in 100 mls @ 400 mls/hr 12/15/20 08:34 Ofirmev 1,000 Mg Ivpb IVPB 12/15/20 16:44 Q6H PRN Mild Pain (1-5) Or Fever Lorazepam 0.5 mg 12/14/20 19:13 Lorazepam Inj (*C
--- NOTE | 2020-12-15 10:11 | PM.IMPN ---
Progress Note: A&P Assessment and Plan (1) V tach: Code(s): I47.2 - Ventricular tachycardia Status: Acute Assessment and Plan: Patient was in sustained V-tach at 3:00 a.m. this morning -this improved with metoprolol and Valsalva -The only symptoms she had during this was palpitations, no chest pain and some SOB -electrolytes okay -echo ordered, Cardiology consult since she sees Dr. Rodas (2) Small bowel obstruction: Code(s): K56.609 - Unspecified intestinal obstruction, unspecified as to partial versus complete obstruction Status: Acute Assessment and Plan: Patient has history of multiple bowel obstructions likely due to adhesions due to abdominal surgery in the past -continue NG, patient has not had any vomiting since yesterday -there are a few bowel sounds on exam but she is not passing gas or having bowel movements -surgery on board, continue conservative measures -patient has been admitted to [facility] but is awaiting a bed (3) Dependence on renal dialysis: Code(s): Z99.2 - Dependence on renal dialysis Status: Acute Assessment and Plan: Plan for dialysis today I believe - Nephrology has been consulted. - The patient stated that she gets 4+1 day of dialysis. 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 - Further recommendations per bosom presser (4) Anemia in chronic kidney disease: Qualifiers: Chronic kidney disease stage: on chronic dialysis Qualified Code(s): N18.6 - End stage renal disease; D63.1 - Anemia in chronic kidney disease; Z99.2 - Dependence on renal dialysis Code(s): N18.9 - Chronic kidney disease, unspecified; D63.1 - Anemia in chronic kidney disease Status: Chronic Assessment and Plan: Hemoglobin of 10, at baseline -no evidence of bleeding (5) Anxiety: Code(s): F41.9 - Anxiety disorder, unspecified Status: Acute Assessment and Plan: Chronic and stable, P.r.n. Ativan (6) Factor V Leiden: Onset Date: Unknown Code(s): D68.51 - Activated protein C resistance Status: Chronic Assessment and Plan: The patient is on subcu heparin at this time (7) Asthma: Code(s): J45.909 - Unspecified asthma, uncomplicated Status: Acute Assessment and Plan: Chronic and stable, no wheezing - Continue with home dose of inhalers. Time Spent With Patient Time with patient: 25 - 35 minutes Subjective Date/time seen: 12/15/20 10:11 Interval history: Pt is a 45-year-old female here for small bowel obstruction. Patient was seen today and states she has 6/10 pain in her abdominal area. She has been nauseated but has not thrown up since last night. She is not passing gas nor has she had a bowel movement. We reviewed the events overnight. She said she was awake and alert and was reaching for the covers when she noticed that she started having palpitations. She did not have any chest pain but she felt like it took her breath away . She said this has never happened to her before. She sees Dr. Rodas for valvular disease. She has no temperature, fevers or chills. Review of Systems Review of Systems: All systems reviewed & are unremarkable except as noted in HPI and below Exam Narrative: Exam Narrative: General: Chronically ill appearing patient resting comfortably in bed in no acute distress HEENT: normocephalic Neck: supple Neuro: Alert and oriented x4 CV:RRR with 3/6 systolic murmur heard on exam. Telemetry shows sinus tachycardia 102. She did have sustained V-tach at 3:00 a.m. no recurrence since Resp:CTA Abd: Soft, non distended. Pain to palpation to the abdomen diffusely. Multiple old well healing surgical scars. Few bowel sounds heard throughout the abdomen. Extremities: No swelling, erythema, or pain to palpation. Chronic bruising Objective Data Vital Signs Vital Signs
[2020-12-15 11:00] LABS: Hepatitis B Surface Antigen Negative (Negative)
[2020-12-15 11:06] LABS: Hepatitis B Core IgM Result Negative (Negative)
[2020-12-15 11:18] LABS: Hepatitis B Surface Antibody > 1000.00 s/c
--- NOTE | 2020-12-15 12:26 | PM.CNNEP ---
Assessment and Plan Assessment and plan (1) End stage renal disease: Code(s): N18.6 - End stage renal disease Status: Chronic Assessment and Plan: Shelli has end-stage renal disease. She has getting dialysis this morning. She does not look like she has any fluid on. Because of the NG tube I suspect she might be a little bit dry. She is a bit tachycardic as well. Will give her some IV fluids with the treatment. (2) Small bowel obstruction: Code(s): K56.609 - Unspecified intestinal obstruction, unspecified as to partial versus complete obstruction Status: Acute Assessment and Plan: The patient has sclerosing peritonitis. She has recurrent abdominal obstruction due to this. She has an NG tube in now. Awaiting transfer to [facility] (3) V tach: Code(s): I47.2 - Ventricular tachycardia Status: Acute Assessment and Plan: the patient had V-tach last night. Reviewed the note by Dr. Fitzgerald. (4) Hyperkalemia: Code(s): E87.5 - Hyperkalemia Status: Acute Assessment and Plan: potassium was okay today (5) Hypertension: Code(s): I10 - Essential (primary) hypertension Status: Acute Assessment and Plan: blood pressure is a bit soft. She is going to get some IV fluids (6) Renal osteodystrophy: Code(s): N25.0 - Renal osteodystrophy Status: Acute Assessment and Plan: phosphorus is a bit high from her renal failure. (7) Factor V Leiden: Onset Date: Unknown Code(s): D68.51 - Activated protein C resistance Status: Chronic Assessment and Plan: She gets Coumadin for this. This is on hold for now due to NPO status. She is getting subcu heparin. History of Present Illness Reason for Consult Consult date: 12/15/20 Chief Complaint Chief complaint: small bowel obstruction History of Present Illness Narrative: Shelli is a very pleasant 45-year-old female who has multiple medical problems including end-stage renal disease on dialysis at home 4 times a week, hypertension, valvular heart disease, trichotillomania, anemia, renal osteodystrophy, factor 5 laiden disorder, on chronic Coumadin. The patient has been having recurrent admissions for bowel obstruction. She has sclerosing peritonitis. Last time she was here she had severe symptoms and so she was sent to [facility]. There a ventrally she improved and was sent home. Since at home she has not been able to tolerate p.o. solids. I am not sure if this is because she did not tolerate them or if she was afraid to try swallowing them. She was sticking to mostly liquid nutrition such as soda and Ensure. I saw her in the clinic a couple of weeks ago in the dialysis clinic and was suggested putting soon other sources in nutrition like that. We also applied for her to have ID PN which is a form of TPN while she is getting dialysis. This has been approved. In the last couple of days the patient has been having more nausea and vomiting is not been able to keep anything down so she came into the hospital On Friday. The emergency room called [facility] and they accepted her but had no beds so she spent the night in the emergency room on Friday night and it did not look like [facility] was going to have any beds yesterday so she was admitted [facility] for further care. She has an NG tube in for she has not had any more nausea or vomiting since then. Review of Systems Constitutional: Constitutional: Reports no additional constitutional complaints Eyes: Eyes: Reports no additional eye complaints ENT: Reports system reviewed and no additional complaints, except as documented Cardiovascular: Cardiovascular: Reports no additional cardiovascular complaints Respiratory: Respiratory: Reports no additional respiratory complaints Gastrointestinal: Gastrointestinal: Reports no additional gastrointestinal complaints Genitourinary: Ge
[2020-12-15 14:17] LABS: Hepatitis B Surface Anti Res Positive
--- NOTE | 2020-12-15 15:05 | PM.CNCAR ---
History of Present Illness History of Present Illness Consult date/time: 12/15/20 15:05 Reason For Visit: small bowel obstruction Narrative: This is a 45-year-old woman that I am seeing at the request of the hospitalist because of wide QRS tachycardia that was interpreted as ventricular tachycardia. The patient is unknown to me but is well known to Dr. Rodas our practice. She was hospitalized here yesterday with symptoms of abdominal pain and was found to have a small-bowel obstruction. A according to the chart this very unfortunate lady has had numerous small bowel obstructions which is being managed by the [facility] at [facility]. 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 She has had many admissions with bowel obstruction which are being managed conservatively. Because of this she has NG tube in suction in place and is NPO. She is being awaiting a bed for transfer to [place] for further treatment and evaluation of this. While she is here at [place] she was on telemetry for reasons that are not entirely clear but in any event at about 4:00 a.m. in the morning she had palpitations and was noted to suddenly be in a wide QRS tachycardia. This persisted for about 3 minutes and was self-limited and restored back into normal sinus rhythm with resolution of her symptoms. The patient has been having occasional episodes of palpitations which are self-limited over the last several years according to some of Dr. renteria follow-up notes but monitoring has never demonstrated any arrhythmia of any significance. She follows with to our office because of a history of tricuspid valve disease. She has a history of severe tricuspid valve regurgitation and was referred for tricuspid valve repair many years ago in May of 2013. This was done with a ring annuloplasty. The patient has end-stage renal disease and has been on hemodialysis she says for about 22 years. At 1 point in the past she had a renal transplant which apparently failed shortly after implantation. She also has a history of factor 5 laden and a previous pulmonary embolism. For this reason she is systemically anticoagulated with warfarin. When I came by to see the patient she is in hemodialysis and is completely asymptomatic and offers no cardiac symptoms. I did review her ECGs/rhythm strips from last night that carefully. After careful review I do not believe we are looking at ventricular tachycardia. I say this because the arrhythmia started out very rapid with heart rates about 180 but the morphology of the QRS was identical to the intrinsic QRS when she is in sinus rhythm. As the arrhythmia persisted then the QRS widened further but the heart rate remained the same. It seems clear that this started out as a supraventricular tachycardia and with persistence became more aberrant. This is far more likely than ventricular tachycardia in this patient who does not have any substrate to put her at risk for this. Her office notes and hospital notes indicate she is known to have normal LV systolic function and she is known not to have coronary artery disease. She has never had a syncopal episode. She states that the episode of tachycardia/palpitations that she had early this morning was probably the most prominent 1 that she can remember. Review of Systems Constitutional: Constitutional: Reports weakness Eyes: Eyes: Reports no additional eye complaints ENT: Reports system reviewed and no additional complaints, except as documented Cardiovascular: Cardiovascular: Reports as per HPI and Reports palpitations Respiratory: Respiratory: Reports no additional respiratory complaints Gastrointestinal: Gastrointestinal: Reports as per HPI and Reports abdominal pain Musculoskeletal: Musculoskeletal: Reports no additional musculoskeletal complaints Integumentary/Breasts: S
[2020-12-16] VITALS (13 sets, daily range): BP systolic 98–115; BP diastolic 47–70; PULSE 81–99; RESP 14–18; TEMP 35.9–36.4; O2SAT 98–100
[2020-12-16 05:02] LABS: Hematocrit 26.5 % (37.0-47.0); Hemoglobin 8.8 g/dL (12.0-15.0)
[2020-12-16 05:19] LABS: Albumin Level 2.7 g/dL (3.5-5.1); Anion Gap 5 mmol/L (8-16); Blood Urea Nitrogen 17 mg/dL (7-17); Calcium 7.9 mg/dL (8.4-10.2); Carbon Dioxide 28 mmol/L (22-30); Chloride 102 mmol/L (98-107); Estimated CRCL calculation 7 ml/min; Estimated Glomerular Filt Rate 5; Glucose 109 mg/dL (65-105); Magnesium 1.7 mg/dL (1.6-2.3); Phosphorus 4.2 mg/dL (2.5-4.5); Potassium 3.6 mmol/L (3.4-5.0); Sodium 135 mmol/L (137-145)
[2020-12-16] MEDS: ONDANSETRON INJ 4 MG/2 ML VIAL IV PUSH ×5 (05:21→19:53)
[2020-12-16] MEDS: HEPARIN SODIUM 5,000 UNITS/ML VIAL 5000 UNITS SUB-Q ×3 (05:21→21:50)
[2020-12-16] MEDS: MORPHINE SULFATE (*CRX) 2 MG/ML INJ IV PUSH ×7 (05:29→22:57)
--- NOTE | 2020-12-16 07:34 | PM.IMPN ---
Progress Note: A&P Assessment and Plan (1) Small bowel obstruction: Code(s): K56.609 - Unspecified intestinal obstruction, unspecified as to partial versus complete obstruction Status: Acute Assessment and Plan: Patient has history of multiple bowel obstructions and sclerosing peritonitis likely causing her small-bowel obstruction -she has no bowel sounds and has not had any gas or movements -will check abdominal films this morning -continue NG, patient has not had any vomiting since yesterday -surgery on board, continue conservative measures -patient has been admitted to [facility] but is awaiting a bed. Night nurse did check overnight and she is still on the list. -will continue fluids but decrease rate as the patient is a dialysis patient but the NG tube and NPO status is making her a little dehydrated (2) Dependence on renal dialysis: Code(s): Z99.2 - Dependence on renal dialysis Status: Acute Assessment and Plan: Patient was dialyzed yesterday, no issues - Nephrology has been consulted. - The patient stated that she gets 4+1 day of dialysis. 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 - Further recommendations per anatomic pathology manager (3) Anemia in chronic kidney disease: Qualifiers: Chronic kidney disease stage: on chronic dialysis Qualified Code(s): N18.6 - End stage renal disease; D63.1 - Anemia in chronic kidney disease; Z99.2 - Dependence on renal dialysis Code(s): N18.9 - Chronic kidney disease, unspecified; D63.1 - Anemia in chronic kidney disease Status: Chronic Assessment and Plan: Hemoglobin of 8.8 today, a little less than baseline -no evidence of bleeding -monitor with daily labs (4) Anxiety: Code(s): F41.9 - Anxiety disorder, unspecified Status: Acute Assessment and Plan: Chronic and stable, P.r.n. Ativan (5) Factor V Leiden: Onset Date: Unknown Code(s): D68.51 - Activated protein C resistance Status: Chronic Assessment and Plan: The patient is on subcu heparin at this time -patient is on warfarin at home but on admission INR was low (6) Asthma: Code(s): J45.909 - Unspecified asthma, uncomplicated Status: Acute Assessment and Plan: Chronic and stable, no wheezing - Continue with home dose of inhalers. (7) SVT (supraventricular tachycardia): Code(s): I47.1 - Supraventricular tachycardia Status: Acute Assessment and Plan: Noted surgeon partner 12/15/20 -improved with Valsalva and metoprolol -No recurrence -echo pending -metoprolol p.r.n. as needed -cardiology consulted Subjective Date/time seen: 12/16/20 07:34 Interval history: Pt is a 45-year-old female here for small bowel obstruction. Patient was seen today and states she continues to have abdominal pain and rating it a 5/10. She has not had much nausea and has not thrown up in the last 24 hours. She is still not passing gas or having bowel movements. Her throat is irritated from the NG tube. She denies any further palpitations or any chest pain, shortness of breath, fevers, chills or leg swelling. Exam Narrative: Exam Narrative: General: Chronically ill appearing patient resting comfortably in bed in no acute distress HEENT: normocephalic Neck: supple Neuro: Alert and oriented x4 CV:RRR with 3/6 systolic murmur heard on exam. Telemetry currently showing normal sinus rhythm at 84. She has some occasional episodes of tachycardia up to 130. No further SVT Resp:CTA, no crackles Abd: Soft, non distended. Pain to palpation to the abdomen diffusely. Multiple old well healing surgical scars. No bowel sounds today Extremities: No swelling, erythema, or pain to palpation. Chronic bruising Objective Data Vital Signs Vital Signs: Vital Signs - 24 hr 12/15/20 08:00 12/15/20 09:22 12/15/20 10:00 Temperature 96.9 F L
[2020-12-16] MEDS: PANTOPRAZOLE SODIUM IV 40 MG VIAL IV PUSH ×2 (08:56→19:53)
[2020-12-16] MEDS: FAMOTIDINE 20 MG/2 ML VIAL IV PUSH ×2 (08:57→19:53)
[2020-12-16] MEDS: BUDESONIDE/FORMOTEROL (*SP) 160-4.5 MCG 6 GM INH 2 PUFF INHALATION ×2 (09:02→19:52)
--- NOTE | 2020-12-16 10:54 | PM.PNGS ---
Progress Note: A&P Assessment and Plan (1) Small bowel obstruction: Code(s): K56.609 - Unspecified intestinal obstruction, unspecified as to partial versus complete obstruction Status: Acute Assessment and Plan: patient not a surgical candidate from my perspective. Judging by her history and her abdominal exam, expect a frozen abdomen unable to dissect out 1 tissue from another. Continue NG suction. I will decrease the frequency of her analgesics. Awaiting transfer to [place]. Subjective Subjective Date/Time Seen: 12/16/20 10:54 Patient reports: still having pain ( Pain medication not lasting until next dose. IV acetaminophen not helpful at all) Review of Systems Review of Systems: All systems reviewed & are unremarkable except as noted in HPI and below ( HPI) Exam GI: Inspection: scar GI Palp: Yes Firmness to palpation present (GI), No Tenderness to palpation present (GI), No Guarding due to palpation present (GI) and No Rebound tenderness present Objective Data Vital Signs Vital Signs: Vital Signs - 24 hr 12/15/20 11:00 12/15/20 11:06 12/15/20 11:15 Temperature 36.5 C Pulse Rate 90 79 90 Respiratory Rate 18 Blood Pressure 106/58 L 113/49 L 115/63 Pulse Oximetry 12/15/20 11:30 12/15/20 11:45 12/15/20 12:00 Temperature Pulse Rate 90 69 95 Respiratory Rate Blood Pressure 97/60 L 107/51 L 105/57 L Pulse Oximetry 12/15/20 12:15 12/15/20 12:30 12/15/20 12:49 Temperature Pulse Rate 96 96 90 Respiratory Rate Blood Pressure 107/56 L 103/55 L 93/53 L Pulse Oximetry 12/15/20 13:00 12/15/20 13:15 12/15/20 13:30 Temperature Pulse Rate 100 92 96 Respiratory Rate Blood Pressure 110/61 102/53 L 107/59 L Pulse Oximetry 12/15/20 13:45 12/15/20 14:00 12/15/20 14:15 Temperature Pulse Rate 96 97 102 H Respiratory Rate Blood Pressure 110/55 L 106/55 L 100/59 L Pulse Oximetry 12/15/20 14:36 12/15/20 14:46 12/15/20 15:35 Temperature 36.7 C 36.1 C L Pulse Rate 103 H 93 100 Respiratory Rate 16 14 Blood Pressure 105/59 L 108/57 L 107/59 L Pulse Oximetry 100 12/15/20 16:00 12/15/20 18:00 12/15/20 20:00 Temperature 36.2 C L Pulse Rate 99 101 H 105 H Respiratory Rate 14 Blood Pressure 103/58 L Pulse Oximetry 100 12/15/20 22:00 12/16/20 00:00 12/16/20 02:00 Temperature 36.4 C Pulse Rate 104 H 94 88 Respiratory Rate 14 Blood Pressure 98/47 L Pulse Oximetry 98 12/16/20 04:00 12/16/20 06:00 12/16/20 08:00 Temperature 36.1 C L 36.1 C L Pulse Rate 94 88 85 Respiratory Rate 16 16 Blood Pressure 115/56 L 114/62 Pulse Oximetry 99 100 Intake/Output Intake/Output: Intake & Output 12/13/20 12/14/20 12/15/20 12/16/20 23:59 23:59 23:59 23:59 Intake Total 500 1100 1200 512 Output Total 650 925 Balance 500 1100 550 -413 Meds/Results Medications: Active Medications Generic Name Dose Route Start Last Admin Trade Name Freq PRN Reason Stop Dose Admin Budesonide/Formoterol Fumarate 2 puff 12/15/20 08:00 12/16/20 09:02 Budesonide/Formoterol (*Sp) 160-4.5 Mcg 6 Gm Inh INHALATION 2 puff Q12HRT CHRIS Administration Dextrose 12.5 gm 12/14/20 16:43 Dextrose 50% 25 Gm/50 Ml Syringe IV PUSH PRN PRN Hypoglycemia Protocol Famotidine 20 mg 12/14/20 21:00 12/16/20 08:57 Famotidine 20 Mg/2 Ml Vial IV PUSH 20 mg Q12HR CHRIS Administration Glucagon 1 mg 12/14/20 16:43 Glucagon For Inj 1 Mg Vial IM PRN PRN Hypoglycemia Protocol Heparin Sodium (Porcine) 5,000 units 12/14/20 14:00 12/16/20 05:21 Heparin Sodium 5,000 Units/Ml Vial SUB-Q 5,000 units Q8HR CHRIS Administration Dextrose/Sodium Chloride 1,000 mls @ 40 mls/hr 12/14/20 09:30 12/16/20 08:02 Dextrose 5% Sodium Chloride 0.9% IV CONT 40 mls/hr .Q24H CHRIS Infusion Dextrose 1,000 mls @ 100 mls/hr 12/14/20 16:43 Dextrose 5% 1,000 Ml IVPB PRN PRN Hypoglycem
[2020-12-16] MEDS: PROCHLORPERAZINE EDISYLATE 10 MG/2 ML VIAL IV PUSH ×2 (11:26→17:17)
--- NOTE | 2020-12-16 11:49 | PM.PNNEP ---
Progress Note: A&P Assessment and Plan (1) End stage renal disease: Code(s): N18.6 - End stage renal disease Status: Chronic Assessment and Plan: Shelli has end-stage renal disease. She had dialysis yesterday. Her numbers look a lot better. (2) Small bowel obstruction: Code(s): K56.609 - Unspecified intestinal obstruction, unspecified as to partial versus complete obstruction Status: Acute Assessment and Plan: The patient has sclerosing peritonitis. She has recurrent abdominal obstruction due to this. She has an NG tube in now. She continues to have nausea and dry heaving. Will try Compazine. (3) V tach: Code(s): I47.2 - Ventricular tachycardia Status: Deleted Assessment and Plan: the patient had V-tach (4) Hyperkalemia: Code(s): E87.5 - Hyperkalemia Status: Acute Assessment and Plan: potassium was okay today (5) Hypertension: Code(s): I10 - Essential (primary) hypertension Status: Acute Assessment and Plan: blood pressure is better today. She is on IV fluids. (6) Renal osteodystrophy: Code(s): N25.0 - Renal osteodystrophy Status: Acute Assessment and Plan: phosphorus is a bit high from her renal failure. (7) Factor V Leiden: Onset Date: Unknown Code(s): D68.51 - Activated protein C resistance Status: Chronic Assessment and Plan: She gets Coumadin for this. This is on hold for now due to NPO status. She is getting subcu heparin. Subjective Date/time seen: 12/16/20 11:49 Interval history: Shelli is miserable. She has been dry heaving. NG tube is still in. At 6:00 a.m. she has had quite a bit of GI contents removed. She is still nauseated. She is using Chloraseptic spray to spray in the back of her throat because it is irritated. She has received Zofran but has not helped. I gave the nurse a verbal order for Compazine to see if that would work. Jordon has had this before and has tolerated it okay. Review of Systems Cardiovascular: Cardiovascular: Reports no additional cardiovascular complaints Respiratory: Respiratory: Reports no additional respiratory complaints Gastrointestinal: Gastrointestinal: Reports no additional gastrointestinal complaints Genitourinary: Genitourinary: Reports no additional female genitourinary complaints Exam Narrative: Exam Narrative: WDWN female nauseated and uncomfortable skin no rash head ncat lungs clear cor reg no rub abd BS+ but hypoactive ext no edema. Objective Data Vital Signs Vital Signs: Vital Signs - 24 hr 12/15/20 12:00 12/15/20 12:15 12/15/20 12:30 Temperature Pulse Rate 95 96 96 Respiratory Rate Blood Pressure 105/57 L 107/56 L 103/55 L Pulse Oximetry 12/15/20 12:49 12/15/20 13:00 12/15/20 13:15 Temperature Pulse Rate 90 100 92 Respiratory Rate Blood Pressure 93/53 L 110/61 102/53 L Pulse Oximetry 12/15/20 13:30 12/15/20 13:45 12/15/20 14:00 Temperature Pulse Rate 96 96 97 Respiratory Rate Blood Pressure 107/59 L 110/55 L 106/55 L Pulse Oximetry 12/15/20 14:15 12/15/20 14:36 12/15/20 14:46 Temperature 36.7 C Pulse Rate 102 H 103 H 93 Respiratory Rate 16 Blood Pressure 100/59 L 105/59 L 108/57 L Pulse Oximetry 12/15/20 15:35 12/15/20 16:00 12/15/20 18:00 Temperature 36.1 C L Pulse Rate 100 99 101 H Respiratory Rate 14 Blood Pressure 107/59 L Pulse Oximetry 100 12/15/20 20:00 12/15/20 22:00 12/16/20 00:00 Temperature 36.2 C L 36.4 C Pulse Rate 105 H 104 H 94 Respiratory Rate 14 14 Blood Pressure 103/58 L 98/47 L Pulse Oximetry 100 98 12/16/20 02:00 12/16/20 04:00 12/16/20 06:00 Temperature 36.1 C L Pulse Rate 88 94 88 Respiratory Rate 16 Blood Pressure 115/56 L Pulse Oximetry 99 12/16/20 08:00 Temperature 36.1 C L Pulse Rate 85 Respiratory Rate 16 Blood Press
[2020-12-16] MEDS: DEXTROSE 5%/0.9% SOD CHL 1,000 ML 40 ML IV CONT (17:22)
[2020-12-17] VITALS (14 sets, daily range): BP systolic 104–118; BP diastolic 52–68; PULSE 68–98; RESP 16–18; TEMP 35.9–36.6; O2SAT 97–100
[2020-12-17] MEDS: MORPHINE SULFATE (*CRX) 2 MG/ML INJ IV PUSH ×4 (02:15→18:46)
[2020-12-17] MEDS: ONDANSETRON INJ 4 MG/2 ML VIAL IV PUSH ×3 (02:15→11:32)
[2020-12-17 05:45] LABS: Hematocrit 25.7 % (37.0-47.0); Hemoglobin 8.1 g/dL (12.0-15.0); Mean Corpuscular HGB Conc 31.5 g/dl (32-36); Mean Corpuscular Hemoglobin 33.3 pg (26-34); Mean Corpuscular Volume 105.8 fl (80-100); Mean Platelet Volume 11.7 fl (7.4-10.4); Platelet Count Result 79 k/mm3 (150-375); Red Blood Count 2.43 M/mm3 (4.2-5.4); Red Cell Distribution Width 16.1 % (11.5-14.5); White Blood Count 2.4 K/mm3 (4.5-10.0)
[2020-12-17] MEDS: HEPARIN SODIUM 5,000 UNITS/ML VIAL 5000 UNITS SUB-Q ×3 (05:46→20:26)
[2020-12-17] MEDS: MORPHINE SULFATE (*CRX) 4 MG/ML INJ IV PUSH ×6 (06:51→23:05)
[2020-12-17 07:10] LABS: Albumin Level 2.5 g/dL (3.5-5.1); Anion Gap 8 mmol/L (8-16); Blood Urea Nitrogen 21 mg/dL (7-17); Calcium 7.9 mg/dL (8.4-10.2); Carbon Dioxide 27 mmol/L (22-30); Chloride 103 mmol/L (98-107); Estimated CRCL calculation 7 ml/min; Estimated Glomerular Filt Rate 4; Glucose 87 mg/dL (65-105); Magnesium 1.9 mg/dL (1.6-2.3); Phosphorus 4.9 mg/dL (2.5-4.5); Potassium 3.4 mmol/L (3.4-5.0); Sodium 138 mmol/L (137-145)
[2020-12-17] MEDS: PANTOPRAZOLE SODIUM IV 40 MG VIAL IV PUSH ×2 (09:15→20:27)
[2020-12-17] MEDS: FAMOTIDINE 20 MG/2 ML VIAL IV PUSH ×2 (09:19→20:27)
[2020-12-17] MEDS: BUDESONIDE/FORMOTEROL (*SP) 160-4.5 MCG 6 GM INH 2 PUFF INHALATION ×2 (09:20→20:30)
--- NOTE | 2020-12-17 09:35 | PM.PNNEP ---
Progress Note: A&P Assessment and Plan (1) End stage renal disease: Code(s): N18.6 - End stage renal disease Status: Chronic Assessment and Plan: Shelli has end-stage renal disease. She is due for dialysis tomorrow. (2) Small bowel obstruction: Code(s): K56.609 - Unspecified intestinal obstruction, unspecified as to partial versus complete obstruction Status: Acute Assessment and Plan: The patient has sclerosing peritonitis. She has recurrent abdominal obstruction due to this. She had a small-bowel follow-through done. Apparently contrast migrated in to the rectum. So there is a little bit of a passage way. Patient is not eating enough calories to survive. Talked with Dr. Suarez. Will consult surgery to place a [place] catheter and put her on TPN. Perhaps she might do better at home on TPN and eating/drinkng only for comfort if her stomach tolerates it. I talked with the patient at length was on board for this. She does have a little bit of a fear because at [place] she when on TPN and got fluid overloaded. However she was getting normal saline and also heparin drip and so was getting lots of fluid besides that. If it is just TPN we can keep up with that with the dialysis. (3) V tach: Code(s): I47.2 - Ventricular tachycardia Status: Deleted Assessment and Plan: the patient had V-tach (4) Hyperkalemia: Code(s): E87.5 - Hyperkalemia Status: Acute Assessment and Plan: potassium was okay today (5) Hypertension: Code(s): I10 - Essential (primary) hypertension Status: Acute Assessment and Plan: blood pressure is better today. She is on IV fluids. (6) Renal osteodystrophy: Code(s): N25.0 - Renal osteodystrophy Status: Acute Assessment and Plan: phosphorus is better. She does not tolerate binders because of her obstruction. (7) Factor V Leiden: Onset Date: Unknown Code(s): D68.51 - Activated protein C resistance Status: Chronic Assessment and Plan: She gets Coumadin for this. This is on hold for now due to NPO status. She is getting subcu heparin. Will check a PTT Subjective Date/time seen: 12/17/20 09:35 Interval history: Shelli is feeling a little bit better today. She occasionally has a little bit of gagging but has not had any dry heaving recently. NG tube is still in. She has had basically very little nutrition the past few days. Review of Systems Cardiovascular: Cardiovascular: Reports no additional cardiovascular complaints Respiratory: Respiratory: Reports no additional respiratory complaints Gastrointestinal: Gastrointestinal: Reports no additional gastrointestinal complaints Genitourinary: Genitourinary: Reports no additional female genitourinary complaints Exam Narrative: Exam Narrative: WDWN female nauseated and uncomfortable skin no rash head ncat lungs clear bilaterally cor reg no rub abd BS+ but hypoactive ext no edema. Objective Data Vital Signs Vital Signs: Vital Signs - 24 hr 12/16/20 10:00 12/16/20 12:00 12/16/20 14:00 Temperature Pulse Rate 85 98 88 Respiratory Rate Blood Pressure Pulse Oximetry 12/16/20 16:00 12/16/20 18:00 12/16/20 19:55 Temperature 35.9 C L 36.4 C Pulse Rate 91 93 83 Respiratory Rate 18 16 Blood Pressure 115/70 115/52 L Pulse Oximetry 99 100 12/16/20 20:00 12/16/20 22:00 12/17/20 00:00 Temperature 36.4 C L Pulse Rate 94 81 84 Respiratory Rate 16 Blood Pressure 117/56 L Pulse Oximetry 100 12/17/20 02:00 12/17/20 04:00 12/17/20 06:00 Temperature 36.1 C L Pulse Rate 86 79 75 Respiratory Rate 16 Blood Pressure 118/52 L Pulse Oximetry 97 12/17/20 08:00 Temperature 36.6 C Pulse Rate 87 Respiratory Rate 17 Blood Pressure 104/58 L Pulse Oximetry 99 Intake/Output Intake/Output: Intake & Output 12/14/20 12/15/2012/16
--- NOTE | 2020-12-17 10:33 | PM.PNGS ---
Subjective Subjective Date/Time Seen: 12/17/20 10:33 Patient reports: still having pain, no bowel movement and afebrile Interval history: No bowel movement after water-soluble upper GI small-bowel follow-through yesterday. Study showed persistent partial small bowel obstruction. Review of Systems Review of Systems: All systems reviewed & are unremarkable except as noted in HPI and below Constitutional: Constitutional: Denies headache(s) Cardiovascular: Cardiovascular: Denies chest pain and Denies dyspnea Respiratory: Respiratory: Denies cough and Denies dyspnea Gastrointestinal: Gastrointestinal: Reports as per HPI, Reports abdominal pain, Reports bloating, Reports constipation, Reports GI cramping and Denies nausea Neurologic: Denies confusion and Denies headache(s) Exam Const: General: cooperative, comfortable, no acute distress, alert, awake and tired appearing; No confusion Orientation/consciousness: patient oriented x3 and No confusion GI: Inspection: non-distended and scar ( heavily indented lower abdominal scar) GI Palp: Yes Soft to palpation, Yes Firmness to palpation present (GI) ( hardness associated with lower abdominal scar), Yes Tenderness to palpation present (GI), No Guarding due to palpation present (GI) and No Rebound tenderness present Auscultation: Hypoactive bowel sounds present Neuro: General: patient oriented x3, no focal motor deficits and No confusion Extrem: General: no calf tenderness and no edema Psych: Affect: normal affect Insight: Good insight present (Psych) Judgement: Good judgement present (Psych) Objective Data Vital Signs Vital Signs: Vital Signs - 24 hr 12/16/20 12:00 12/16/20 14:00 12/16/20 16:00 Temperature 35.9 C L Pulse Rate 98 88 91 Respiratory Rate 18 Blood Pressure 115/70 Pulse Oximetry 99 12/16/20 18:00 12/16/20 19:55 12/16/20 20:00 Temperature 36.4 C Pulse Rate 93 83 94 Respiratory Rate 16 Blood Pressure 115/52 L Pulse Oximetry 100 12/16/20 22:00 12/17/20 00:00 12/17/20 02:00 Temperature 36.4 C L Pulse Rate 81 84 86 Respiratory Rate 16 Blood Pressure 117/56 L Pulse Oximetry 100 12/17/20 04:00 12/17/20 06:00 12/17/20 08:00 Temperature 36.1 C L 36.6 C Pulse Rate 79 75 87 Respiratory Rate 16 17 Blood Pressure 118/52 L 104/58 L Pulse Oximetry 97 99 Intake/Output Intake/Output: Intake & Output 12/14/20 12/15/20 12/16/20 12/17/20 23:59 23:59 23:59 23:59 Intake Total 1100 1200 1000 411 Output Total 650 1325 650 Balance 1100 937 -691 -145 Meds/Results Medications: Active Medications Generic Name Dose Route Start Last Admin Trade Name Freq PRN Reason Stop Dose Admin Budesonide/Formoterol Fumarate 2 puff 12/15/20 08:00 12/17/20 09:20 Budesonide/Formoterol (*Sp) 160-4.5 Mcg 6 Gm Inh INHALATION 2 puff Q12HRT CHRIS Administration Dextrose 12.5 gm 12/14/20 16:43 Dextrose 50% 25 Gm/50 Ml Syringe IV PUSH PRN PRN Hypoglycemia Protocol Famotidine 20 mg 12/14/20 21:00 12/17/20 09:19 Famotidine 20 Mg/2 Ml Vial IV PUSH 20 mg Q12HR CHRIS Administration Glucagon 1 mg 12/14/20 16:43 Glucagon For Inj 1 Mg Vial IM PRN PRN Hypoglycemia Protocol Heparin Sodium (Porcine) 5,000 units 12/14/20 14:00 12/17/20 05:46 Heparin Sodium 5,000 Units/Ml Vial SUB-Q 5,000 units Q8HR CHRIS Administration Dextrose/Sodium Chloride 1,000 mls @ 40 mls/hr 12/14/20 09:30 12/17/20 04:47 Dextrose 5% Sodium Chloride 0.9% IV CONT 40 mls/hr .Q24H CHRIS Infusion Dextrose 1,000 mls @ 100 mls/hr 12/14/20 16:43 Dextrose 5% 1,000 Ml IVPB PRN PRN Hypoglycemia Protocol Ibuprofen 800 mg in 200 mls @ 400 mls/hr 12/16/20 07:49 Caldolor 800 Mg/200 Ml IVPB Q6H PRN Pain Rated 1-3 Lorazepam 0.5 mg 12/14/20 19:13 Lorazepam Inj (*Crx) 2 Mg/Ml Vial IV PUSH Q6H PRN Anxiety Metoprolol Tartrate 2.5 mg 12/15/20 03:39
[2020-12-17 10:51] LABS: Partial Thromboplastin Time 81.6 SECONDS (22.3-36.8)
--- NOTE | 2020-12-17 15:45 | PM.IMPN ---
Progress Note: A&P Assessment and Plan (1) Small bowel obstruction: Code(s): K56.609 - Unspecified intestinal obstruction, unspecified as to partial versus complete obstruction Status: Acute (2) Dependence on renal dialysis: Code(s): Z99.2 - Dependence on renal dialysis Status: Acute (3) Anemia in chronic kidney disease: Qualifiers: Chronic kidney disease stage: on chronic dialysis Qualified Code(s): N18.6 - End stage renal disease; D63.1 - Anemia in chronic kidney disease; Z99.2 - Dependence on renal dialysis Code(s): N18.9 - Chronic kidney disease, unspecified; D63.1 - Anemia in chronic kidney disease Status: Chronic (4) Anxiety: Code(s): F41.9 - Anxiety disorder, unspecified Status: Acute (5) Factor V Leiden: Onset Date: Unknown Code(s): D68.51 - Activated protein C resistance Status: Chronic (6) Asthma: Code(s): J45.909 - Unspecified asthma, uncomplicated Status: Acute (7) SVT (supraventricular tachycardia): Code(s): I47.1 - Supraventricular tachycardia Status: Acute Assessment and Plan: Noted jewel diameter gauger 12/15/20 -improved with Valsalva and metoprolol -No recurrence -echo pending -metoprolol p.r.n. as needed -cardiology consulted - Continue with home dose of inhalers. -patient is on warfarin at home but on admission INR was low -Chronic and stable, P.r.n. Ativan Hemoglobin of 8.8 today, a little less than baseline -no evidence of bleeding -mPatient was dialyzed yesterday, no issues - Nephrology has been consulted. - The patient stated that she gets 4+1 day of dialysis. 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 Night nurse did check overnight and she is still on the list. -will continue fluids but decrease rate as the patient is a dialysis patient but the NG tube and NPO status is making her a little dehydrated 12/17/20 patient doing okay continues on conservative therapy. NGT in place to low intermittent suction. No p.m., no flatus, no signs of bowel ischemia or other worrisome signs. Pending transfer to [facility]. Spoke with nephrology recommends initiation of TPN. Patient will need central line or catheter for prolonged TPN administration. Consult placed to dietary and the pharmacy as well as surgery for placement of appropriate access. off warfarin (h/o PE while hospitalized w PNA and Factor V Leiden (unclear if double mutation or single) currently on heparin SQ ) Subjective Date/time seen: 12/17/20 15:[address] to low intermittent suction and dark brown fluid in canister. Patient reports that she would not like to be transferred anywhere other than [facility]. I advised her that no bed is available they have been 80 unit surgical floor and no discharges today it is unsure when bed will become available. Patient frustrated because she was told that we could always transfer her easily hear from this hospital to [facility]. I advised her that was an accurate information provided to her. Spoke with Nephrology requesting TPN central line placement will need Hull for prolonged feeding. Exam Narrative: Exam Narrative: General: Chronically ill appearing patient resting comfortably in bed in no acute distress HEENT: normocephalic NGT present w dark fluid draining through tubing Neck: supple no JVD Neuro: Alert and oriented x3 CV:RRR Resp:CTA, no crackles Abd: Soft, non distended. Pain to palpation to the
[2020-12-17] MEDS: DEXTROSE 5%/0.9% SOD CHL 1,000 ML 40 ML IV CONT (18:40)
[2020-12-18] VITALS (27 sets, daily range): BP systolic 109–141; BP diastolic 55–81; PULSE 74–102; RESP 18–20; TEMP 36–36.7; O2SAT 98–100
[2020-12-18] MEDS: MORPHINE SULFATE (*CRX) 2 MG/ML INJ IV PUSH ×6 (01:11→22:56)
[2020-12-18 05:25] LABS: Hematocrit 28.4 % (37.0-47.0); Hemoglobin 8.6 g/dL (12.0-15.0); Mean Corpuscular HGB Conc 30.3 g/dl (32-36); Mean Corpuscular Hemoglobin 33.5 pg (26-34); Mean Corpuscular Volume 110.5 fl (80-100); Mean Platelet Volume 11.2 fl (7.4-10.4); Platelet Count Result 82 k/mm3 (150-375); Red Blood Count 2.57 M/mm3 (4.2-5.4); Red Cell Distribution Width 15.9 % (11.5-14.5); White Blood Count 2.6 K/mm3 (4.5-10.0)
[2020-12-18] MEDS: HEPARIN SODIUM 5,000 UNITS/ML VIAL 5000 UNITS SUB-Q ×2 (05:30→20:14)
[2020-12-18 05:40] LABS: Albumin Level 2.8 g/dL (3.5-5.1); Anion Gap 7 mmol/L (8-16); Blood Urea Nitrogen 22 mg/dL (7-17); Calcium 8.4 mg/dL (8.4-10.2); Carbon Dioxide 27 mmol/L (22-30); Chloride 107 mmol/L (98-107); Estimated CRCL calculation 6 ml/min; Estimated Glomerular Filt Rate 3; Glucose 87 mg/dL (65-105); Phosphorus 4.8 mg/dL (2.5-4.5); Potassium 3.6 mmol/L (3.4-5.0); Sodium 141 mmol/L (137-145)
--- NOTE | 2020-12-18 08:15 | PM.PNGS ---
Progress Note: A&P Assessment and Plan (1) Small bowel obstruction: Code(s): K56.609 - Unspecified intestinal obstruction, unspecified as to partial versus complete obstruction Status: Acute Assessment and Plan: cont NG decompression, await bowel fxn, will need surgical intervention, awaiting transfer to [facility], will need TPN (2) End-stage renal disease on hemodialysis: Code(s): N18.6 - End stage renal disease; Z99.2 - Dependence on renal dialysis Status: Chronic Assessment and Plan: plan for HD today per nephrology Subjective Subjective Date/Time Seen: 12/18/20 08:15 no acute changes, still c limited bowel fxn (very little flatus), NG output decreased, no pain Review of Systems Review of Systems: All systems reviewed & are unremarkable except as noted in HPI and below Exam Const: General: cooperative, no acute distress and ill appearing Nutritional Appearance: obese Orientation/consciousness: patient oriented x3 Limitations: no limitations Chest: Chest palpation & inspection: normal inspection of the chest Resp: Effort & Inspection: normal respiratory effort Auscultation: clear to auscultation bilaterally Cardio: Rate: regular rate Rhythm: regular rhythm GI: Inspection: normal to inspection, distended and incision GI Palp: Yes Soft to palpation, No Tenderness to palpation present (GI) and No Guarding due to palpation present (GI) Objective Data Vital Signs Vital Signs: Vital Signs - 24 hr 12/17/20 10:00 12/17/20 11:55 12/17/20 12:00 Temperature 36.6 C Pulse Rate 85 83 Respiratory Rate 17 Blood Pressure 113/56 L Pulse Oximetry 99 100 12/17/20 14:00 12/17/20 16:00 12/17/20 18:00 Temperature 36.5 C Pulse Rate 85 82 76 Respiratory Rate 17 Blood Pressure 115/66 Pulse Oximetry 100 12/17/20 20:00 12/17/20 22:00 12/17/20 23:34 Temperature 35.9 C L 35.9 C L Pulse Rate 77 85 84 Respiratory Rate 18 16 Blood Pressure 113/57 L 114/68 Pulse Oximetry 100 100 12/18/20 00:00 12/18/20 02:00 12/18/20 03:44 Temperature 36.3 C L Pulse Rate 81 101 H 93 Respiratory Rate 18 Blood Pressure 109/55 L Pulse Oximetry 99 12/18/20 04:00 12/18/20 06:00 Temperature Pulse Rate 85 90 Respiratory Rate Blood Pressure Pulse Oximetry Intake/Output Intake/Output: Intake & Output 12/15/20 12/16/20 12/17/20 12/18/20 23:59 23:59 23:59 23:59 Intake Total 1200 1000 1000 0 Output Total 650 1325 650 0 Balance 550 -325 350 0 Meds/Results Medications: Active Medications Generic Name Dose Route Start Last Admin Trade Name Freq PRN Reason Stop Dose Admin Budesonide/Formoterol Fumarate 2 puff 12/15/20 08:00 12/17/20 20:30 Budesonide/Formoterol (*Sp) 160-4.5 Mcg 6 Gm Inh INHALATION 2 puff Q12HRT CHRIS Administration Dextrose 12.5 gm 12/14/20 16:43 Dextrose 50% 25 Gm/50 Ml Syringe IV PUSH PRN PRN Hypoglycemia Protocol Epoetin Cirilo-epbx 10,000 units 12/18/20 23:55 Epoetin Cirilo-Epbx 10,000 Units/Ml Vial IV PUSH 12/18/20 23:56 ONCE ONE Famotidine 20 mg 12/14/20 21:00 12/17/20 20:27 Famotidine 20 Mg/2 Ml Vial IV PUSH 20 mg Q12HR CHRIS Administration Glucagon 1 mg 12/14/20 16:43 Glucagon For Inj 1 Mg Vial IM PRN PRN Hypoglycemia Protocol Heparin Sodium (Porcine) 5,000 units 12/14/20 14:00 12/18/20 05:30 Heparin Sodium 5,000 Units/Ml Vial SUB-Q 5,000 units Q8HR CHRIS Administration Dextrose/Sodium Chloride 1,000 mls @ 40 mls/hr 12/14/20 09:30 12/17/20 18:40 Dextrose 5% Sodium Chloride 0.9% IV CONT 40 mls/hr .Q24H CHRIS Administration Dextrose 1,000 mls @ 100 mls/hr 12/14/20 16:43 Dextrose 5% 1,000 Ml IVPB PRN PRN Hypoglycemia Protocol Ibuprofen 800 mg in 200 mls @ 400 mls/hr 12/16/20 07:49 Caldolor 800 Mg/200 Ml IVPB Q6H PRN Pain Rated 1-3 Albumin Human 50 mls @ 999 mls/hr 12/18/20 00:42 Albutein IVPB
[2020-12-18] MEDS: MORPHINE SULFATE (*CRX) 4 MG/ML INJ IV PUSH ×2 (09:10→14:36)
[2020-12-18] MEDS: PANTOPRAZOLE SODIUM IV 40 MG VIAL IV PUSH ×2 (09:13→20:14)
[2020-12-18] MEDS: FAMOTIDINE 20 MG/2 ML VIAL IV PUSH ×2 (09:13→20:14)
[2020-12-18] MEDS: BUDESONIDE/FORMOTEROL (*SP) 160-4.5 MCG 6 GM INH 2 PUFF INHALATION ×2 (09:21→20:15)
--- NOTE | 2020-12-18 10:53 | PM.IMPN ---
Progress Note: A&P Assessment and Plan (1) Small bowel obstruction: Code(s): K56.609 - Unspecified intestinal obstruction, unspecified as to partial versus complete obstruction Status: Acute Assessment and Plan: cont NG decompression output per NG tube is 150ml out on 12/15, 925 ml out on 12/16, 650 ml out on 12/17. await bowel fxn, will need surgical intervention, awaiting transfer to [facility], will need TPN Abdomen sounds are still hypoactive in all quadrants NG tube remains patent, to suction with bilious fluid output. No abdominal distension or point tenderness noted on exam. No N/V/diarrhea complaints. On peripheral IVFs with dextrose for last 5+ days. persistent infusing IV Fluids. Mechanical Equipment Sales Engineer Dr. Bishop wants to avoid PICC placed in Right arm/extremity, as patient may need right upper extremity in the future for renal diaylsis access. Mechanical Equipment Sales Engineer Dr. Bishop wants a Hull catheter placed for PPN/or TPN use (not a PICC). General Surgery was consulted as such today. contacted [facility] transfer line to confirm that the patient was still on the wait list and was accepted. She was accepted on December [address] [facility] under their attending Dr. Cid for SBO with history of MRSA to Gen. Surgery floors. Transfer line hopeful for discharges today at [facility] to make room for Shelli. (2) End-stage renal disease on hemodialysis: Code(s): N18.6 - End stage renal disease; Z99.2 - Dependence on renal dialysis Status: Chronic Assessment and Plan: HD plan is per nephrology left arm fistula for HD in place and used - avoid left arm sticks/BPs/etc. Last HD UF out 500ml on December 15. Mechanical Equipment Sales Engineer Dr. Bishop wants to avoid PICC placed in Right arm/extremity, as patient may need right upper extremity in the future for renal diaylsis access. Mechanical Equipment Sales Engineer Dr. Bishop wants a Hull catheter placed for PPN/or TPN use (not a PICC). General Surgery was consulted as such today. (3) Breast asymmetry in female: Code(s): N64.89 - Other specified disorders of breast Status: Acute Assessment and Plan: right breast is now tender and significantly swollen, 3rd spacing, localized edema to right upper arm/shoulder/breast/axilla very likely due to persistent infusing IV Fluids. Completed right sided breast exam and axilla exam on right - no enlarged lymph nodes palpated, no nodules palpated, and no point tenderness noted. Right nipple noted pink in tone, no change in color or to palpation concerning, no drainage, only noted fluid edema present. Blood cultures ordered prior. Ordered right breast complete US for evaluation. Also noted right sided wheezing, ordered CXR 2 view. Advised patient that she also needed to get a mammogram within 1-3 months, as soon as possible, especially since she has never had one and her immediate family member has history of breast cancer. Using Hull for IVFs and PPN/orTPN will likely relieve her right sided breast/arm edema. No redness or pain to right arm - if develops - order DVT US. Ordered elevation to right arm and PT to work with to improve lymph drainage. Continue to monitor closely. (4) Difficult intravenous access: Code(s): Z78.9 - Other specified health status Status: Acute Assessment and Plan: Was ordering PICC line placed for TPN, when I was informed by nursing staff that the Mechanical Equipment Sales Engineer Dr. Bishop wants to avoid PICC placed in Right arm/extremity, as patient may need right upper extremity in the future for renal diaylsis access. Mechanical Equipment Sales Engineer Dr. Bishop wants a Hull catheter placed for PPN/or TPN use (not a PICC). General Surgery was consulted as such today. Blood cultures ordered prior. Using Hull for IVFs and PPN/orTPN will likely relieve her right sided breast/arm edema. Left arm has HD fistula in place. Subjective Date/time seen: 12/18/20 10:53 Shelli is feeling the same, unchanged. Abdomen sounds are still hypoactive in all q
--- NOTE | 2020-12-18 11:41 | PCDIET ---
Nutrition Follow-Up Complete: Nutrition Diagnosis: Increased kcal and protein needs related to ESRD and wt loss as evidence by daily needs of 1980 kcals and 92g protein and wt loss of 24+lbs. Nutrition Goal: Total intake will meet estimated nutrition needs Goal not met, although MD consult for TPN recommendations has been received. Recommend Clinimix 5/15 at 50mL/hr with 250mL 20% lipids for 1522kcal and 72g protein. Last recorded weight is 78.7 kg which is stable with last review. Bowel Motility: No documented BM. NG tube in place for decompression. Decreased output 12/17/20 of 650mL noted. Labs Reviewed: Hgb (8.6), Hct (28.4), BUN (22), Cr (12.5), PO4 (4.8) Meds Noted: Symbicort, D5NS at 40mL/hr, Retacrit, Pepcid, Protonix, Lopressor, Morphine Additional Notes: Patient reports feeling better today. Awaiting bed at [facility]. If peripheral nutrition initiated prior to central line placement, recommend Clinimix E 4.25/5 at 50mL/hr with 250mL 20% lipids (908kcal, 51g protein). Nutrition Monitoring and Evaluation: Follow up every Friday/Friday.
[2020-12-18 13:40] LABS: Glucose Point of Care 94 (65-105)
--- NOTE | 2020-12-18 17:21 | PM.PNNEP ---
Progress Note: A&P Assessment and Plan (1) End stage renal disease: Code(s): N18.6 - End stage renal disease Status: Chronic Assessment and Plan: normally does home hemodialysis HD today and continue M/W/F schedule while hospitalized follow elecrolytes, volume status, and clearance (2) Small bowel obstruction: Code(s): K56.609 - Unspecified intestinal obstruction, unspecified as to partial versus complete obstruction Status: Acute Assessment and Plan: recurrent problem due to her history of sclerosing peritonitis and multiple abdominal surgeries recent small-bowel follow through - contrast migrated in to the rectum so there is a little bit of a passage way likely need to start TPN for nutritional support (please see discussion as noted by Dr. Bishop yesterday). (3) Hypertension: Code(s): I10 - Essential (primary) hypertension Status: Acute Assessment and Plan: reasonable control follow hemodynamics (4) Renal osteodystrophy: Code(s): N25.0 - Renal osteodystrophy Status: Acute Assessment and Plan: phosphorus better unable to take binders due to NPO status/obstruction follow trend of parameters (5) Factor V Leiden: Onset Date: Unknown Code(s): D68.51 - Activated protein C resistance Status: Chronic Assessment and Plan: on coumadin for this this is on hold given NPO status Will continue to follow. Subjective Date/time seen: 12/18/20 17:21 Tolerating dialysis treatment at the time of my visit (seen on HD at 5:00PM); awaiting transfer to [facility] (hopefully sometime today); still feels nauseaous but in no apparent distress; seems in good spirits. Exam Narrative: Exam Narrative: General: WD/WN female - mildly nauseous and uncomfortable Heart: normal S1 and S2; no rub Lungs: clear to auscultation Abdomen: soft, hypoactive positive bowel sounds Extremities: no cyanosis or clubbing; no edema Skin: warm and dry Objective Data Vital Signs Vital Signs: Vital Signs Temp Pulse Resp BP Pulse Ox 12/18/20 16:10 36.6 C 91 19 126/71 99 12/18/20 14:00 88 12/18/20 12:00 36.6 C 96 19 122/66 98 12/18/20 10:00 91 12/18/20 08:00 36.6 C 94 19 118/66 99 12/18/20 06:00 90 12/18/20 04:00 85 12/18/20 03:44 36.3 C L 93 18 109/55 L 99 12/18/20 02:00 101 H 12/18/20 00:00 81 12/17/20 23:34 35.9 C L 84 16 114/68 100 12/17/20 22:00 85 12/17/20 20:00 35.9 C L 77 18 113/57 L 100 12/17/20 18:00 76 Intake/Output Intake/Output: Intake & Output 12/15/20 12/16/20 12/17/20 12/18/20 23:59 23:59 23:59 23:59 Intake Total 1200 1000 1000 0 Output Total 650 1325 650 0 Balance 550 -325 350 0 Meds/Results Medications: Active Medications Generic Name Dose Route Start Last Admin Trade Name Freq PRN Reason Stop Dose Admin Budesonide/Formoterol Fumarate 2 puff 12/15/20 08:00 12/18/20 09:21 Budesonide/Formoterol (*Sp) 160-4.5 Mcg 6 Gm Inh INHALATION 2 puff Q12HRT CHRIS Administration Dextrose 12.5 gm 12/14/20 16:43 Dextrose 50% 25 Gm/50 Ml Syringe IV PUSH PRN PRN Hypoglycemia Protocol Epoetin Cirilo-epbx 10,000 units 12/18/20 23:55 Epoetin Cirilo-Epbx 10,000 Units/Ml Vial IV PUSH 12/18/20 23:56 ONCE ONE Famotidine 20 mg 12/14/20 21:00 12/18/20 09:13 Famotidine 20 Mg/2 Ml Vial IV PUSH 20 mg Q12HR CHRIS Administration Glucagon 1 mg 12/14/20 16:43 Glucagon For Inj 1 Mg Vial IM PRN PRN Hypoglycemia Protocol Heparin Sodium (Porcine) 5,000 units 12/14/20 14:00 12/18/20 13:35 Heparin Sodium 5,000 Units/Ml Vial SUB-Q Not Given Q8HR CHRIS Dextrose 1,000 mls @ 100 mls/hr 12/14/20 16:43 Dextrose 5% 1,000 Ml IVPB PRN PRN Hypoglycemia Protocol Ibuprofen 800 mg in 200 mls @ 400 mls/hr 12/16/20 07:49 Caldolor 800 Mg/200 Ml IVPB Q6H P
[2020-12-18 17:29] LABS: Hepatitis B Core Ab Total Nonreactive (Nonreactive)
[2020-12-18] MEDS: EPOETIN ALFA-EPBX 10,000 UNITS/ML VIAL 10000 UNITS IV PUSH (18:22)
--- NOTE | 2020-12-18 18:56 | PC.NURSE ---
Report given to ROBBY Eubanks at [facility] @[id number]. All questions answered per ROBBY Eubanks.
[2020-12-18] MEDS: DEXTROSE 5%/0.9% SOD CHL 1,000 ML 40 ML IV CONT (20:16)
--- NOTE | 2020-12-20 07:10 | PM.TDS ---
Transfer Discharge Sum: Prov Provider Date of admission: 12/14/20 17:40 Primary care physician: Trenton Padilla MD Admitting clinician: María Elena Suarez MD Consults: 12/14/20 16:44 Consult to Physician Routine Comment: Consulting Provider: Landy Kebede Reason for consultation: general surgery Has provider been notified: Yes 12/14/20 16:45 Consult to Physician Routine Comment: Consulting Provider: Rashel Bishop Reason for consultation: nephrology Has provider been notified: Yes 12/15/20 08:52 Consult to Physician Routine Comment: OFFICE NOTIFIED OF CONSULT SPOKE WITH SPIKE Consulting Provider: Trenton Rust stonework supervisor/MD group to consult: cardiology continuous drier operator Reason for consultation: vtach overnight at 3am Has provider been notified: Yes 12/17/20 Consult to Dietitian Routine Reason for Consult:: consult for TPN recommendations in ESRD pt Consult to Physician Routine Comment: Consulting Provider: Compa Trujillo stonework supervisor/MD group to consult: Dr Trujillo Reason for consultation: eval for Hull TPN with anticipated prolonged use Has provider been notified: No Consult to Physician Routine Comment: Consulting Provider: Compa Trujillo Reason for consultation: place a hull for TPN tomorrow Has provider been notified: No 12/18/20 Consult to Physician Routine Comment: OFFICE NOTIFIED OF CONSULT Consulting Provider: Denis Cornell stonework supervisor/MD group to consult: Gen. Surg. consulted for Hull placed, see reason for consult please Reason for consultation: Twister Tender Paper Dr. Bishop wants Hull placed for TPN (not a PICC) Has provider been notified: Yes DS: Admitting Diagnosis Admitting Diagnosis Admitting Diagnosis: SBO DS: Discharge Diagnosis Discharge Diagnosis (1) Small bowel obstruction: Code(s): K56.609 - Unspecified intestinal obstruction, unspecified as to partial versus complete obstruction Status: Acute Assessment and Plan: cont NG decompression output per NG tube is 150ml out on 12/15, 925 ml out on 12/16, 650 ml out on 12/17. await bowel fxn, will need surgical intervention, awaiting transfer to [facility], will need TPN Abdomen sounds are still hypoactive in all quadrants NG tube remains patent, to suction with bilious fluid output. No abdominal distension or point tenderness noted on exam. No N/V/diarrhea complaints. On peripheral IVFs with dextrose for last 5+ days. persistent infusing IV Fluids. Twister Tender Paper Dr. Bishop wants to avoid PICC placed in Right arm/extremity, as patient may need right upper extremity in the future for renal diaylsis access. Twister Tender Paper Dr. Bishop wants a Hull catheter placed for PPN/or TPN use (not a PICC). General Surgery was consulted as such today. contacted [facility] transfer line to confirm that the patient was still on the wait list and was accepted. She was accepted on December 13 to [facility] under their attending Dr. Cid for SBO with history of MRSA to Gen. Surgery floors. Transfer line hopeful for discharges today at [facility] to make room for Shelli. (2) End-stage renal disease on hemodialysis: Code(s): N18.6 - End stage renal disease; Z99.2 - Dependence on renal dialysis Status: Chronic Assessment and Plan: HD plan is per nephrology left arm fistula for HD in place and used - avoid left arm sticks/BPs/etc. Last HD UF out 500ml on December 15. Twister Tender Paper Dr. Bishop wants to avoid PICC placed in Right arm/extremity, as patient may need right upper extremity in the future for renal diaylsis access. Twister Tender Paper Dr. Bishop wants a Hull catheter placed for PPN/or TPN use (not a PICC). General Surgery was consulted as such today. (3) Breast asymmetry in female: Code(s): N64.89 - Other specified disorders of breast Status: Acute Assessment and Plan: right breast is now tender and significantly swollen, 3rd spacing, localized edema to right upper arm/shoulde
--- NOTE | 2020-12-21 18:20 | PM.DS ---
DS: Admitting Diagnosis Admitting Diagnosis Admitting Diagnosis: Patient came in with nausea vomiting and abdominal pain. The patient noted to have emesis for the last month since she was discharged from [facility]. HX: end-stage renal disease and has dialysis at least 4 times a week; multiple small-bowel obstructions at least 23 possibly due to scar tissue; and possible G-tube in the near future at [facility]. DS: Discharge Diagnosis Discharge Diagnosis (1) Small bowel obstruction: Code(s): K56.609 - Unspecified intestinal obstruction, unspecified as to partial versus complete obstruction Status: Acute Assessment and Plan: cont NG decompression output per NG tube is 150ml out on 12/15, 925 ml out on 12/16, 650 ml out on 12/17. await bowel fxn, will need surgical intervention, awaiting transfer to [facility], will need TPN Abdomen sounds are still hypoactive in all quadrants NG tube remains patent, to suction with bilious fluid output. No abdominal distension or point tenderness noted on exam. No N/V/diarrhea complaints. On peripheral IVFs with dextrose for last 5+ days. persistent infusing IV Fluids. Pharmacy Picking Tech Dr. Bishop wants to avoid PICC placed in Right arm/extremity, as patient may need right upper extremity in the future for renal diaylsis access. Pharmacy Picking Tech Dr. Bishop wants a Hull catheter placed for PPN/or TPN use (not a PICC). General Surgery was consulted as such today. contacted [facility] transfer line to confirm that the patient was still on the wait list and was accepted. She was accepted on December 13 to [facility] under their attending Dr. Cid for SBO with history of MRSA to Gen. Surgery floors. Transfer line hopeful for discharges today at [facility] to make room for Shelli. (2) End-stage renal disease on hemodialysis: Code(s): N18.6 - End stage renal disease; Z99.2 - Dependence on renal dialysis Status: Chronic Assessment and Plan: HD plan is per nephrology left arm fistula for HD in place and used - avoid left arm sticks/BPs/etc. Last HD UF out 500ml on December 15. Pharmacy Picking Tech Dr. Bishop wants to avoid PICC placed in Right arm/extremity, as patient may need right upper extremity in the future for renal diaylsis access. Pharmacy Picking Tech Dr. Bishop wants a Hull catheter placed for PPN/or TPN use (not a PICC). General Surgery was consulted as such today. (3) Breast asymmetry in female: Code(s): N64.89 - Other specified disorders of breast Status: Acute Assessment and Plan: right breast is now tender and significantly swollen, 3rd spacing, localized edema to right upper arm/shoulder/breast/axilla very likely due to persistent infusing IV Fluids. Completed right sided breast exam and axilla exam on right - no enlarged lymph nodes palpated, no nodules palpated, and no point tenderness noted. Right nipple noted pink in tone, no change in color or to palpation concerning, no drainage, only noted fluid edema present. Blood cultures ordered prior. Ordered right breast complete US for evaluation. Also noted right sided wheezing, ordered CXR 2 view. Advised patient that she also needed to get a mammogram within 1-3 months, as soon as possible, especially since she has never had one and her immediate family member has history of breast cancer. Using Hull for IVFs and PPN/orTPN will likely relieve her right sided breast/arm edema. No redness or pain to right arm - if develops - order DVT US. Ordered elevation to right arm and PT to work with to improve lymph drainage. Continue to monitor closely. (4) Difficult intravenous access: Code(s): Z78.9 - Other specified health status Status: Acute Assessment and Plan: Was ordering PICC line placed for TPN, when I was informed by nursing staff that the Pharmacy Picking Tech Dr. Bishop wants to avoid PICC placed in Right arm/extremity, as patient may need right upper extremity in the future for renal diaylsis access. Nephrolog
--- NOTE | 2020-12-29 20:23 | PM.DS ---
DS: Admitting Diagnosis Admitting Diagnosis Admitting Diagnosis: N/V/Abdominal Pain, Acute on Chronic SBO DS: Discharge Diagnosis Discharge Diagnosis (1) Small bowel obstruction: Code(s): K56.609 - Unspecified intestinal obstruction, unspecified as to partial versus complete obstruction Status: Acute Assessment and Plan: cont NG decompression output per NG tube is 150ml out on 12/15, 925 ml out on 12/16, 650 ml out on 12/17. await bowel fxn, will need surgical intervention, awaiting transfer to [facility], will need TPN Abdomen sounds are still hypoactive in all quadrants NG tube remains patent, to suction with bilious fluid output. No abdominal distension or point tenderness noted on exam. No N/V/diarrhea complaints. On peripheral IVFs with dextrose for last 5+ days. persistent infusing IV Fluids. Pencil Inspector Dr. Bishop wants to avoid PICC placed in Right arm/extremity, as patient may need right upper extremity in the future for renal diaylsis access. Pencil Inspector Dr. Bishop wants a Hull catheter placed for PPN/or TPN use (not a PICC). General Surgery was consulted as such today. contacted [facility] transfer line to confirm that the patient was still on the wait list and was accepted. She was accepted on December 13 to [facility] under their attending Dr. Cid for SBO with history of MRSA to Gen. Surgery floors. Transfer line hopeful for discharges today at [facility] to make room for Shelli. (2) End-stage renal disease on hemodialysis: Code(s): N18.6 - End stage renal disease; Z99.2 - Dependence on renal dialysis Status: Chronic Assessment and Plan: HD plan is per nephrology left arm fistula for HD in place and used - avoid left arm sticks/BPs/etc. Last HD UF out 500ml on December 15. Pencil Inspector Dr. Bishop wants to avoid PICC placed in Right arm/extremity, as patient may need right upper extremity in the future for renal diaylsis access. Pencil Inspector Dr. Bishop wants a Hull catheter placed for PPN/or TPN use (not a PICC). General Surgery was consulted as such today. (3) Breast asymmetry in female: Code(s): N64.89 - Other specified disorders of breast Status: Acute Assessment and Plan: right breast is now tender and significantly swollen, 3rd spacing, localized edema to right upper arm/shoulder/breast/axilla very likely due to persistent infusing IV Fluids. Completed right sided breast exam and axilla exam on right - no enlarged lymph nodes palpated, no nodules palpated, and no point tenderness noted. Right nipple noted pink in tone, no change in color or to palpation concerning, no drainage, only noted fluid edema present. Blood cultures ordered prior. Ordered right breast complete US for evaluation. Also noted right sided wheezing, ordered CXR 2 view. Advised patient that she also needed to get a mammogram within 1-3 months, as soon as possible, especially since she has never had one and her immediate family member has history of breast cancer. Using Hull for IVFs and PPN/orTPN will likely relieve her right sided breast/arm edema. No redness or pain to right arm - if develops - order DVT US. Ordered elevation to right arm and PT to work with to improve lymph drainage. Continue to monitor closely. (4) Difficult intravenous access: Code(s): Z78.9 - Other specified health status Status: Acute Assessment and Plan: Was ordering PICC line placed for TPN, when I was informed by nursing staff that the Pencil Inspector Dr. Bishop wants to avoid PICC placed in Right arm/extremity, as patient may need right upper extremity in the future for renal diaylsis access. Pencil Inspector Dr. Bishop wants a Hull catheter placed for PPN/or TPN use (not a PICC). General Surgery was consulted as such today. Blood cultures ordered prior. Using Hull for IVFs and PPN/orTPN will likely relieve her right sided breast/arm edema. Left arm has HD fistula in place. DS: Summary Ho
== END 2020-12-18 23:38 | disposition short-term general hospital (02) | DRG 388 ==
LOC: ANHED 12-14 16:43 → ANHIMU 12-14 16:52
PROVIDERS: Emergency Medicine Emergency Medical Services; Internal Medicine; Internal Medicine Nephrology; Nurse Practitioner; Physician Assistant; Admitting Provider Hospitalist; Emergency Provider Emergency Medicine; PCP Family Medicine; Visit Provider Hospitalist
DX: K56.600 Partial intestinal obstruction, unspecified as to cause (principal); N18.6 End stage renal disease; I13.2 Hypertensive heart and chronic kidney disease with heart failure and with stage 5 chronic kidney disease, or end stage renal disease; I50.32 Chronic diastolic (congestive) heart failure; Z94.0 Kidney transplant status; T86.11 Kidney transplant rejection; D68.51 Activated protein C resistance; I47.1 Supraventricular tachycardia; D63.1 Anemia in chronic kidney disease; Z20.822 Contact with and (suspected) exposure to COVID-19; N64.89 Other specified disorders of breast; F63.3 Trichotillomania; Z99.2 Dependence on renal dialysis; N25.0 Renal osteodystrophy; J45.909 Unspecified asthma, uncomplicated; F41.9 Anxiety disorder, unspecified; M54.5 Low back pain; G89.29 Other chronic pain; Z79.01 Long term (current) use of anticoagulants; Z86.711 Personal history of pulmonary embolism; Z87.891 Personal history of nicotine dependence; Z80.3 Family history of malignant neoplasm of breast; Z78.9 Other specified health status; Z79.899 Other long term (current) drug therapy
CPT/HCPCS: 36415; 71046; 74019; 74176; 74250; 80048; 80053; 80069; 82948; 83605; 83690; 83735; 83880; 84100; 84484; 85014; 85018; 85025; 85027; 85055; 85610; 85730; 86704; 86705; 86706; 87040; 87340; 93005; 93306; 94640; 96361; 96372; 96374; 96375; 96376; 97161; 99285; A9270; C9113; C9803; G0257; G0378; J0131; J0780; J1644; J2060; J2270; J2405; J7030; J7040; J7042; Q5106; U0003; U0005

== ENCOUNTER 2021-01-15 17:08 | Outpatient (NON) | payer OTHER, MEDICARE, MEDICAID, SELFPAY ==
[2021-01-15 17:50] LABS: Anion Gap 8 mmol/L (8-16); Blood Urea Nitrogen 45 mg/dL (7-18); Calcium 8.8 mg/dL (8.5-10.1); Carbon Dioxide 31 mmol/L (21-32); Chloride 100 mmol/L (98-108); Estimated Glomerular Filt Rate 7; Glucose 97 mg/dL (70-99); Magnesium 2.4 mg/dL (1.8-2.4); Osmolality Calculated 299 mOsm/kg (285-295); Potassium 3.3 mmol/L (3.5-5.1); Sodium 139 mmol/L (136-145)
== END 2021-01-15 17:09 | disposition home or self-care (01) ==
LOC: CHSLAB 17:18
PROVIDERS: PCP Family Medicine
DX: K63.2 Fistula of intestine (principal); N18.6 End stage renal disease
CPT/HCPCS: 36415; 80048; 83735; 84100

== ENCOUNTER 2021-01-22 17:39 | Outpatient (NON) | payer OTHER, MEDICARE, MEDICAID, SELFPAY ==
[2021-01-22 18:48] LABS: Hemoglobin 10.3 g/dL (12.0-15.0); Mean Corpuscular HGB Conc 33.2 g/dL (32.0-36.0); Mean Corpuscular Hemoglobin 34.9 pg (27.0-31.0); Mean Corpuscular Volume 105.1 fL (78.0-102.0); Mean Platelet Volume 11.2 fl (9.2-11.8); Platelet Count Result 116 K/mm3 (150-420); Red Blood Count 2.95 M/mm3 (4.20-5.40); Red Cell Distribution Width 17.2 % (11.6-14.4); White Blood Count 2.7 K/mm3 (4.8-10.8)
[2021-01-22 19:15] LABS: Alanine Aminotransferase 33 U/L (14-59); Albumin Level 2.9 g/dL (3.4-5.0); Alkaline Phosphatase 146 U/L (46-116); Anion Gap 9 mmol/L (8-16); Aspartate Amino Transferase 21 U/L (15-37); Bilirubin,Total 0.5 mg/dL (0.00-1.00); Blood Urea Nitrogen 46 mg/dL (7-18); Calcium 8.2 mg/dL (8.5-10.1); Carbon Dioxide 29 mmol/L (21-32); Chloride 98 mmol/L (98-108); Estimated Glomerular Filt Rate 7; Glucose 80 mg/dL (70-99); Magnesium 2.3 mg/dL (1.8-2.4); Osmolality Calculated 292 mOsm/kg (285-295); Phosphorus 3.3 mg/dL (2.6-4.7); Potassium 2.8 mmol/L (3.5-5.1); Sodium 136 mmol/L (136-145); Total Protein 6.6 g/dL (6.4-8.2)
[2021-01-22 20:22] LABS: Band Neutrophils Percent 0 % (0-6); Basophils Percent Manual 0 % (0-1); Eosinophils Absolute Manual 0.02 K/mm3 (0.02-0.5); Eosinophils Percent Manual 1 % (1-6); Lymphocytes Absolute Manual 0.51 K/mm3 (1.1-4.5); Lymphocytes Percent Manual 19 % (18-44); Monocytes Percent Manual 4 % (3-9); Neutrophils Absolute Manual 2.05 K/mm3 (1.7-7.2); Neutrophils Percent Manual 76 % (46-73); Total Cells Counted 100
== END 2021-01-22 17:40 | disposition home or self-care (01) ==
LOC: CHSLAB 17:53
DX: K63.2 Fistula of intestine (principal); N18.6 End stage renal disease
CPT/HCPCS: 36415; 80053; 83735; 84100; 85025

== ENCOUNTER 2021-02-06 16:04 | Outpatient (NON) | payer MEDICARE, SELFPAY ==
[2021-02-06 16:47] LABS: Basophils Percent Auto 0.7 % (0.2-1.2); Eosinophils Absolute Auto 0.1 K/mm3 (0-0.3); Hematocrit 33.8 % (37.0-47.0); Immature Granulocyte Absolute 0.01 K/mm3 (0.00-0.031); Immature Granulocyte Percent A 0.3 % (0-0.5); Lymphocytes Absolute Auto 0.68 K/mm3 (0.9-3.2); Lymphocytes Percent Auto 22.7 % (18.3-44.2); Mean Corpuscular HGB Conc 32.5 g/dl (32-36); Mean Corpuscular Hemoglobin 33.6 pg (26-34); Mean Corpuscular Volume 103.4 fl (80-100); Monocytes Absolute Auto 0.2 K/mm3 (0.1-0.6); Neutrophils Absolute Auto 2.1 K/mm3 (1.3-6.7); Neutrophils Percent Auto 69.3 % (45.5-73.1); Platelet Count Result 117 k/mm3 (150-375); Red Blood Count 3.27 M/mm3 (4.2-5.4); Red Cell Distribution Width 15.7 % (11.5-14.5)
[2021-02-06 17:14] LABS: Alanine Aminotransferase 28 U/L (4-35); Albumin Level 3.2 g/dL (3.5-5.1); Alkaline Phosphatase 159 U/L (38-126); Anion Gap 19 mmol/L (8-16); Aspartate Amino Transferase 37 U/L (14-36); Bilirubin,Total 0.3 mg/dL (0.2-1.3); Blood Urea Nitrogen 64 mg/dL (7-17); Calcium 8.2 mg/dL (8.4-10.2); Carbon Dioxide 16 mmol/L (22-30); Chloride 101 mmol/L (98-107); Estimated Glomerular Filt Rate 5; Glucose 83 mg/dL (65-105); Magnesium 2.3 mg/dL (1.6-2.3); Phosphorus 2.6 mg/dL (2.5-4.5); Potassium 2.7 mmol/L (3.4-5.0); Sodium 136 mmol/L (137-145)
== END 2021-02-06 16:05 | disposition home or self-care (01) ==
LOC: ANHLAB 16:06
PROVIDERS: PCP Family Medicine; Visit Provider Family Medicine
DX: K63.2 Fistula of intestine (principal)
CPT/HCPCS: 36415; 80053; 83735; 84100; 85025

== ENCOUNTER 2021-02-12 19:09 | Outpatient (NON) | payer OTHER, MEDICARE, MEDICAID, SELFPAY ==
[2021-02-12 19:54] LABS: Hematocrit 34.3 % (35.0-49.0); Hemoglobin 11.9 g/dL (12.0-15.0); Mean Corpuscular HGB Conc 34.7 g/dL (32.0-36.0); Mean Corpuscular Hemoglobin 34.6 pg (27.0-31.0); Mean Corpuscular Volume 99.7 fL (78.0-102.0); Mean Platelet Volume 11.9 fl (9.2-11.8); Platelet Count Result 96 K/mm3 (150-420); Red Blood Count 3.44 M/mm3 (4.20-5.40); Red Cell Distribution Width 14.6 % (11.6-14.4); White Blood Count 3.6 K/mm3 (4.8-10.8)
[2021-02-12 20:06] LABS: Alanine Aminotransferase 57 U/L (14-59); Albumin Level 3.3 g/dL (3.4-5.0); Alkaline Phosphatase 187 U/L (46-116); Anion Gap 18 mmol/L (8-16); Aspartate Amino Transferase 48 U/L (15-37); Bilirubin,Total 0.6 mg/dL (0.00-1.00); Blood Urea Nitrogen 132 mg/dL (7-18); Calcium 7.9 mg/dL (8.5-10.1); Carbon Dioxide 22 mmol/L (21-32); Chloride 94 mmol/L (98-108); Estimated Glomerular Filt Rate 2; Glucose 91 mg/dL (70-99); Magnesium 3.1 mg/dL (1.8-2.4); Osmolality Calculated 320 mOsm/kg (285-295); Phosphorus 4.5 mg/dL (2.6-4.7); Sodium 134 mmol/L (136-145)
[2021-02-12 20:16] LABS: Band Neutrophils Percent 0 % (0-6); Basophils Absolute Manual 0.03 K/mm3 (0-0.1); Basophils Percent Manual 1 % (0-1); Eosinophils Absolute Manual 0.03 K/mm3 (0.02-0.5); Eosinophils Percent Manual 1 % (1-6); Lymphocytes Absolute Manual 0.97 K/mm3 (1.1-4.5); Lymphocytes Percent Manual 27 % (18-44); Monocytes Absolute Manual 0.14 K/mm3 (0.1-0.90); Monocytes Percent Manual 4 % (3-9); Neutrophils Absolute Manual 2.41 K/mm3 (1.7-7.2); Neutrophils Percent Manual 67 % (46-73); Platelet Estimate Decreased (Adequate); Total Cells Counted 100
[2021-02-13 10:34] LABS: Thyroid Stimulating Hormone 5.47 uIU/mL (0.36-3.74)
== END 2021-02-12 19:10 | disposition home or self-care (01) ==
LOC: CHSLAB 19:13
PROVIDERS: Family Medicine; PCP Family Medicine; Visit Provider Family Medicine
DX: K63.2 Fistula of intestine (principal); N18.6 End stage renal disease; F32.9 Major depressive disorder, single episode, unspecified; E03.9 Hypothyroidism, unspecified
CPT/HCPCS: 36415; 80053; 83735; 84100; 84443; 85025

== ENCOUNTER 2021-02-19 20:10 | Outpatient (NON) | payer MEDICARE, SELFPAY ==
[2021-02-19 20:20] LABS: Hematocrit 30.4 % (35.0-49.0); Hemoglobin 9.9 g/dL (12.0-15.0); Mean Corpuscular HGB Conc 32.6 g/dL (32.0-36.0); Mean Corpuscular Hemoglobin 33.6 pg (27.0-31.0); Mean Corpuscular Volume 103.1 fL (78.0-102.0); Mean Platelet Volume 12.3 fl (9.2-11.8); Platelet Count Result 95 K/mm3 (150-420); Red Blood Count 2.95 M/mm3 (4.20-5.40); Red Cell Distribution Width 13.8 % (11.6-14.4); White Blood Count 2.9 K/mm3 (4.8-10.8)
[2021-02-19 20:55] LABS: Alanine Aminotransferase 69 U/L (14-59); Albumin Level 3.1 g/dL (3.4-5.0); Alkaline Phosphatase 167 U/L (46-116); Anion Gap 12 mmol/L (8-16); Aspartate Amino Transferase 40 U/L (15-37); Bilirubin,Total 0.5 mg/dL (0.00-1.00); Blood Urea Nitrogen 63 mg/dL (7-18); Calcium 8.2 mg/dL (8.5-10.1); Carbon Dioxide 31 mmol/L (21-32); Chloride 96 mmol/L (98-108); Estimated Glomerular Filt Rate 5; Glucose 98 mg/dL (70-99); Magnesium 2.5 mg/dL (1.8-2.4); Osmolality Calculated 306 mOsm/kg (285-295); Phosphorus 2.6 mg/dL (2.6-4.7); Sodium 139 mmol/L (136-145); Total Protein 6.4 g/dL (6.4-8.2)
[2021-02-19 21:23] LABS: Band Neutrophils Percent 0 % (0-6); Basophils Absolute Manual 0.02 K/mm3 (0-0.1); Basophils Percent Manual 1 % (0-1); Eosinophils Percent Manual 0 % (1-6); Lymphocytes Absolute Manual 0.98 K/mm3 (1.1-4.5); Lymphocytes Percent Manual 34 % (18-44); Monocytes Percent Manual 7 % (3-9); Neutrophils Absolute Manual 1.68 K/mm3 (1.7-7.2); Neutrophils Percent Manual 58 % (46-73); Platelet Estimate Decreased (Adequate); Total Cells Counted 100
== END 2021-02-19 20:11 | disposition home or self-care (01) ==
LOC: CHSLAB 20:13
DX: K63.2 Fistula of intestine (principal)
CPT/HCPCS: 36415; 80053; 83735; 84100; 85025

== ENCOUNTER 2021-02-22 12:10 | Emergency (ER) | payer MEDICARE, MEDICAID, SELFPAY ==
[2021-02-22] VITALS (11 sets, daily range): BP systolic 80–96; BP diastolic 42–82; PULSE 90–115; RESP 20–21; TEMP 36.9; O2SAT 94–100
--- NOTE | ~2021-02-22 | XR_ITS ---
EXAMINATION: XR abdomen obstructive series DATE: 02/22/2021 14:14 INDICATION: Abdominal pain. TECHNIQUE: Upright and supine views of the abdomen on 3 radiographs were obtained. COMPARISON: CT abdomen and pelvis 12/13/2020 FINDINGS: There are no gas-filled dilated loops of bowel. No free intraperitoneal gas. There is a gas trostomy tube in expected position. Surgical clips overlie right pelvis. A calcified failed transplan t kidney overlies left pelvis. Mediastinal wires are noted. Retained epicardial pacer wires are noted . There is a catheter in right atrium. IMPRESSION: 1. Nonobstructive bowel gas pattern. Reviewed, dictated and finalized at location A.
--- NOTE | ~2021-02-22 | XR_ITS ---
EXAMINATION: XR chest 1V portable DATE: 02/22/2021 12:44 INDICATION: Shortness of breath. TECHNIQUE: A single frontal view of the chest was obtained. COMPARISON: Chest 2 views 12/18/2020 FINDINGS: There are mild airspace opacities in the lower lung zones. No pleural effusion or pneumotho rax. The heart size is normal. There are changes of tricuspid valve replacement. A right internal jug ular central venous catheter is seen with tip in the right atrium. Retained epicardial pacer wires ar e noted. IMPRESSION: 1. Mild airspace opacities in the lower lung zones, consistent with atelectasis versus pneumonia vers us mild pulmonary edema. Reviewed, dictated and finalized at location A. IMPRESSION: 1. Mild airspace opacities in the lower lung zones, consistent with atelectasis versus pneumonia versus mild pulmonary edema.
--- NOTE | 2021-02-22 12:11 | ECG_ITS ---
Measurements Intervals [place] Rate: 93 P: 63 GA: 160 QRS: 264 QRSD: 121 T: 55 QT: 374 QTc: 466 Interpretive Statements SINUS RHYTHM RIGHT BUNDLE BRANCH BLOCK BASELINE ARTIFACT- I, II, III, AVR, AVL, AVF ABNORMAL ECG Electronically Signed On 02-22-2021 13:03:30 CDT by Geo Jackson D.O.
[2021-02-22] MEDS: SODIUM CHLORIDE 0.9% IV 500 ML (12:20)
[2021-02-22 12:31] LABS: Basophils Absolute Auto 0.01 K/mm3 (0.00-0.10); Basophils Percent Auto 0.2 % (0.0-1.0); Eosinophils Absolute Auto 0.01 K/mm3 (0.02-0.50); Eosinophils Percent Auto 0.2 % (1.0-6.0); Hematocrit 27.9 % (35.0-49.0); Hemoglobin 9.3 g/dL (12.0-15.0); Immature Granulocyte Absolute 0.01 K/mm3 (0.00-0.00); Immature Granulocyte Percent A 0.2 % (0.0-0.0); Immature Platelet Fraction Pct 2.7 % (1.0-7.0); Lymphocytes Absolute Auto 0.36 K/mm3 (1.10-4.50); Lymphocytes Percent Auto 6.9 % (18.0-42.0); Mean Corpuscular HGB Conc 33.3 g/dL (32.0-36.0); Mean Corpuscular Hemoglobin 33.7 pg (27.0-31.0); Mean Corpuscular Volume 101.1 fL (78.0-102.0); Mean Platelet Volume 11.6 fl (9.2-11.8); Monocytes Absolute Auto 0.13 K/mm3 (0.10-0.90); Monocytes Percent Auto 2.5 % (2.0-11.0); Neutrophils Absolute Auto 4.7 K/mm3 (1.7-7.2); Platelet Count Result 84 K/mm3 (150-420); Red Blood Count 2.76 M/mm3 (4.20-5.40); Red Cell Distribution Width 13.7 % (11.6-14.4); White Blood Count 5.2 K/mm3 (4.8-10.8)
[2021-02-22] MEDS: IPRATROPIUM 0.5 MG/ALBUTEROL SULFATE 2.5 MG AMPUL.NEB 3 ML (12:32)
[2021-02-22 12:44] LABS: INR 1.4; Partial Thromboplastin Time 31.2 SEC (23.90-30.70); Prothrombin Time 14.5 Seconds (9.50-12.10)
--- NOTE | 2021-02-22 12:46 | ED.SOB ---
HPI - SOB/Dyspnea General Chief Complaint: Shortness of Breath/Dyspnea Stated Complaint: AMBULANCE Time Seen by Provider: 02/22/21 12:11 Source: patient Mode of arrival: EMS Limitations: altered mental status History of Present Illness HPI Narrative: 45-year-old woman with a history of end-stage renal disease on dialysis, asthma, and frequent small bowel obstructions brought to the emergency department today for altered mental status and weakness. She is also complaining of abdominal pain and leg cramps. According to EMS, the patient received 3 L IV fluids for dehydration 3 days ago while at dialysis. She did her own dialysis at home yesterday. She denies chest pain, vomiting, falls or injuries, and fever. MD elicited complaint: shortness of breath Pertinent past history: asthma and other ( Factor 5 Leiden on warfarin) Onset (ago): day(s) (1-2) Related Data Home Medications Medication Instructions Recorded Confirmed ergocalciferol (vitamin D2) 1,250 mcg PO WEEKLY 05/27/20 02/22/21 epoetin jordy-epbx 4,000 unit/mL 4,000 unit SUBCUT 3XW 02/08/21 02/22/21 injection solution lidocaine 5 % topical patch 1 patch TOPICAL DAILY 02/08/21 02/22/21 sennosides 8.6 mg tablet 8.6 mg PO DAILY 02/08/21 02/22/21 vitamin B complex-vitamin C-folic 1 tablet PO DAILY 02/08/21 02/22/21 acid 0.8 mg tablet warfarin 1 mg tablet 3 mg PO DAILY tablet 02/08/21 02/22/21 warfarin 5 mg tablet 5 mg PO DAILY 02/08/21 02/22/21 sertraline 25 mg PO DAILY 02/22/21 02/22/21 Allergies Allergy/AdvReac Type Severity Reaction Status Date / Time baclofen Allergy Unresponsiv Verified 12/13/20 10:36 e diphenhydramine Allergy Other Verified 12/13/20 10:36 [From Benadryl] vancomycin AdvReac Redness of Verified 12/13/20 10:36 Skin Review of Systems Review of Systems: All systems reviewed & are unremarkable except as noted in HPI and below Constitutional: Constitutional: Denies chills, Denies fever(s) and Reports weakness Eyes: Eyes: Denies change in vision and Denies photophobia ENT: Denies nasal congestion and Denies sore throat Cardiovascular: Cardiovascular: Denies chest pain and Denies radiating jaw, neck or arm pain Respiratory: Respiratory: Denies cough and Reports dyspnea Gastrointestinal: Gastrointestinal: Denies abdominal pain, Denies nausea and Denies vomiting Genitourinary: Comments: Does not make urine. Musculoskeletal: Musculoskeletal: Reports back pain (chronic), Denies arthralgias and Denies joint swelling Integumentary/Breasts: Skin/Breast: Denies pruritus, Denies erythema and Denies rash Neurologic: Reports confusion (per family), Denies vertigo, Denies dizziness and Denies syncope Hematologic/Lymphatic: Hematologic/Lymphatic: Reports easy bleeding and Reports easy bruising Comments: on coumadin Allergic/Immunologic: Allergic/Immunologic: Denies lip swelling and Denies throat swelling PMFSH Past Medical History Medical History Acid reflux Anemia in chronic kidney disease Anxiety Asthma Chest pain Chronic low back pain History of L4-L5 herniated disc. Coffee ground emesis Current use of mcc anticoagulation On long-term warfarin due to factor V Leiden. Current use of payroll secretary anticoagulation Dehydration Depression Diastolic CHF Last Echo October 2018 demonstrated an EF of 55% to 60% with diastolic dysfunction. 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 Factor V Leiden History of left heart catheterization 2012 showed normal coronary arteries and pulmonary hypertension. History of pulmonary embolism History of pulmonary embolus (PE) Due to Factor V Leiden on chronic Coumadin. Hyperkalemia Hypertension Hypothyroidism (acquir
[2021-02-22 12:47] LABS: Alanine Aminotransferase 46 U/L (14-59); Albumin Level 2.7 g/dL (3.4-5.0); Alkaline Phosphatase 149 U/L (46-116); Anion Gap 17 mmol/L (8-16); Aspartate Amino Transferase 34 U/L (15-37); Bilirubin,Total 0.9 mg/dL (0.00-1.00); Blood Urea Nitrogen 44 mg/dL (7-18); CRP 6.5 mg/dL (0.0-0.9); Calcium 7.9 mg/dL (8.5-10.1); Carbon Dioxide 24 mmol/L (21-32); Chloride 96 mmol/L (98-108); Estimated CRCL calculation 6 ml/min; Estimated Glomerular Filt Rate 4; Glucose 88 mg/dL (70-99); Lactic Acid Reflex 1.6 mmol/L (0.4-2.0); Lipase 121 U/L (73-393); Osmolality Calculated 294 mOsm/kg (285-295); Potassium 2.8 mmol/L (3.5-5.1); Sodium 137 mmol/L (136-145); Total Protein 6.2 g/dL (6.4-8.2); Troponin I 25.3 ng/L (0.00-60.4)
[2021-02-22 12:48] LABS: Influenza Control Valid (Valid)
[2021-02-22 13:08] LABS: SARS-CoV-2 Ag Negative (Negative)
[2021-02-22 13:16] LABS: Gastric Negative Control Negative; Gastric Positive Control Positive; Occult Blood Gastric Fluid Negative
[2021-02-22] MEDS: SODIUM CHLORIDE 0.9% IV 500 ML 999 ML IV CONT ×3 (13:41→16:10)
[2021-02-22] MEDS: traMADol HCL (*CRX) 50 MG TABLET PO (16:10)
== END 2021-02-22 17:15 | disposition home or self-care (01) ==
PROVIDERS: Emergency Provider Emergency Medicine; PCP Family Medicine
DX: E86.0 Dehydration (principal); I12.0 Hypertensive chronic kidney disease with stage 5 chronic kidney disease or end stage renal disease; N18.6 End stage renal disease; Z99.2 Dependence on renal dialysis; Z79.01 Long term (current) use of anticoagulants; Z87.891 Personal history of nicotine dependence; Z20.822 Contact with and (suspected) exposure to COVID-19
CPT/HCPCS: 71045; 74019; 80053; 82271; 83605; 83690; 83986; 84484; 85025; 85055; 85610; 85730; 86140; 87040; 87426; 87804; 93005; 94640; 96361; 96374; 99284; A9270; C9803; J0131; J7040

== ENCOUNTER 2021-02-26 16:09 | Outpatient (NON) | payer MEDICARE, SELFPAY ==
[2021-02-26 16:50] LABS: Anion Gap 12 mmol/L (8-16); Blood Urea Nitrogen 100 mg/dL (7-18); Calcium 7.8 mg/dL (8.5-10.1); Carbon Dioxide 31 mmol/L (21-32); Chloride 95 mmol/L (98-108); Glucose 100 mg/dL (70-99); Magnesium 2.2 mg/dL (1.8-2.4); Osmolality Calculated 317 mOsm/kg (285-295); Phosphorus 2.9 mg/dL (2.6-4.7); Potassium 3.8 mmol/L (3.5-5.1); Sodium 138 mmol/L (136-145)
[2021-02-26 17:03] LABS: Estimated Glomerular Filt Rate 3
== END 2021-02-26 16:10 | disposition home or self-care (01) ==
LOC: CHSLAB 16:16
DX: K63.2 Fistula of intestine (principal)
CPT/HCPCS: 36415; 80048; 83735; 84100

== ENCOUNTER 2021-03-05 17:03 | Outpatient (NON) | payer OTHER, MEDICARE, SELFPAY ==
[2021-03-05 17:30] LABS: Basophils Percent Auto 0.5 % (0.2-1.2); Eosinophils Percent Auto 0.5 % (0-4.4); Immature Granulocyte Absolute 0.01 K/mm3 (0.00-0.031); Immature Granulocyte Percent A 0.5 % (0-0.5); Lymphocytes Absolute Auto 0.63 K/mm3 (0.9-3.2); Lymphocytes Percent Auto 30.4 % (18.3-44.2); Mean Corpuscular HGB Conc 30.4 g/dl (32-36); Mean Corpuscular Hemoglobin 33.7 pg (26-34); Mean Corpuscular Volume 110.6 fl (80-100); Mean Platelet Volume 11.5 fl (7.4-10.4); Monocytes Absolute Auto 0.2 K/mm3 (0.1-0.6); Monocytes Percent Auto 8.2 % (2.6-8.5); Neutrophils Absolute Auto 1.2 K/mm3 (1.3-6.7); Neutrophils Percent Auto 59.9 % (45.5-73.1); Platelet Count Result 93 k/mm3 (150-375); Red Blood Count 2.08 M/mm3 (4.2-5.4); Red Cell Distribution Width 16.6 % (11.5-14.5); White Blood Count 2.1 K/mm3 (4.5-10.0)
[2021-03-05 17:36] LABS: Alanine Aminotransferase 27 U/L (4-35); Albumin Level 2.8 g/dL (3.5-5.1); Alkaline Phosphatase 117 U/L (38-126); Anion Gap 11 mmol/L (8-16); Aspartate Amino Transferase 31 U/L (14-36); Bilirubin,Total 0.5 mg/dL (0.2-1.3); Blood Urea Nitrogen 53 mg/dL (7-17); Calcium 7.5 mg/dL (8.4-10.2); Carbon Dioxide 29 mmol/L (22-30); Chloride 97 mmol/L (98-107); Estimated Glomerular Filt Rate 5; Glucose 101 mg/dL (65-110); Magnesium 1.8 mg/dL (1.6-2.3); Phosphorus 2.4 mg/dL (2.5-4.5); Sodium 137 mmol/L (137-145)
== END 2021-03-05 17:04 | disposition home or self-care (01) ==
LOC: HOME HLTH 17:10
PROVIDERS: PCP Family Medicine
DX: K56.609 Unspecified intestinal obstruction, unspecified as to partial versus complete obstruction (principal); E43 Unspecified severe protein-calorie malnutrition; I50.32 Chronic diastolic (congestive) heart failure
CPT/HCPCS: 80053; 83735; 84100; 85025

== ENCOUNTER 2021-03-19 16:22 | Outpatient (NON) | payer OTHER, MEDICARE, SELFPAY ==
[2021-03-19 17:05] LABS: Anion Gap 10 mmol/L (8-16); Blood Urea Nitrogen 54 mg/dL (7-18); Calcium 7.2 mg/dL (8.5-10.1); Carbon Dioxide 30 mmol/L (21-32); Chloride 100 mmol/L (98-108); Estimated Glomerular Filt Rate 4; Glucose 75 mg/dL (70-99); Magnesium 1.6 mg/dL (1.8-2.4); Osmolality Calculated 303 mOsm/kg (285-295); Phosphorus 4.4 mg/dL (2.6-4.7); Potassium 4.1 mmol/L (3.5-5.1); Sodium 140 mmol/L (136-145)
== END 2021-03-19 16:23 | disposition home or self-care (01) ==
LOC: CHSLAB 16:32
DX: E43 Unspecified severe protein-calorie malnutrition (principal); N18.6 End stage renal disease
CPT/HCPCS: 36415; 80048; 83735; 84100

== ENCOUNTER 2021-03-26 17:15 | Outpatient (NON) | payer OTHER, MEDICARE, SELFPAY ==
[2021-03-26 18:38] LABS: Anion Gap 10 mmol/L (8-16); Blood Urea Nitrogen 86 mg/dL (7-18); Calcium 7.8 mg/dL (8.5-10.1); Carbon Dioxide 31 mmol/L (21-32); Chloride 99 mmol/L (98-108); Estimated Glomerular Filt Rate 3; Glucose 96 mg/dL (70-99); Magnesium 1.6 mg/dL (1.8-2.4); Osmolality Calculated 316 mOsm/kg (285-295); Phosphorus 2.7 mg/dL (2.6-4.7); Potassium 4.3 mmol/L (3.5-5.1); Sodium 140 mmol/L (136-145)
== END 2021-03-26 17:16 | disposition home or self-care (01) ==
LOC: CHSLAB 17:25
DX: E43 Unspecified severe protein-calorie malnutrition (principal); N18.6 End stage renal disease
CPT/HCPCS: 36415; 80048; 83735; 84100; 85610

== ENCOUNTER 2021-03-27 16:36 | Emergency (ER) | payer MEDICARE, MEDICAID, SELFPAY ==
--- NOTE | 2021-03-27 17:47 | ED.ABDPAIN ---
HPI - Abdominal Pain General Source: patient and RN notes reviewed Mode of arrival: ambulatory Limitations: no limitations History of Present Illness HPI narrative: Pt is not bleeding actively in the ED. Onset (ago): hour(s) (3) Pain Consistency: other (minimal chronic LBP) Severity: mild Quality: aching and dull Radiation: none Migration to: no migration Exacerbating factors: nothing Relieving factors: nothing Associated symptoms: denies other symptoms Related Data Home Medications Medication Instructions Recorded Confirmed ergocalciferol (vitamin D2) 1,250 mcg PO WEEKLY 05/27/20 03/30/21 epoetin jordy-epbx 4,000 unit/mL 4,000 unit SUBCUT 3XW 02/08/21 03/30/21 injection solution vitamin B complex-vitamin C-folic 1 tablet PO DAILY 02/08/21 03/30/21 acid 0.8 mg tablet warfarin 1 mg tablet 3 mg PO DAILY tablet 02/08/21 03/30/21 warfarin 5 mg tablet 5 mg PO DAILY 02/08/21 03/30/21 sertraline 25 mg PO DAILY 02/22/21 03/30/21 budesonide-formoterol [Symbicort] 2 puff INHALATION Q12H 03/30/21 03/30/21 Allergies Allergy/AdvReac Type Severity Reaction Status Date / Time baclofen Allergy Unresponsiv Verified 03/27/21 18:40 e diphenhydramine Allergy Other Verified 03/27/21 18:40 [From Benadryl] vancomycin AdvReac Redness of Verified 03/27/21 18:40 Skin Review of Systems Review of Systems: All systems reviewed & are unremarkable except as noted in HPI and below PMFSH Past Medical History Medical History Acid reflux Anemia in chronic kidney disease Anxiety Asthma Chest pain Chronic low back pain History of L4-L5 herniated disc. Coffee ground emesis Current use of assisted anticoagulation On long-term warfarin due to factor V Leiden. Current use of assisted anticoagulation Dehydration Depression Diastolic CHF Last Echo October 2018 demonstrated an EF of 55% to 60% with diastolic dysfunction. 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 History of pulmonary embolism History of pulmonary embolus (PE) Due to Factor V Leiden on chronic Coumadin. Hyperkalemia Hypertension Hypothyroidism (acquired) Kidney transplant failure and rejection Major depressive disorder Nephrolithiasis Obsessive compulsive disorder Other pulmonary embolism with acute cor pulmonale Partial small bowel obstruction Renal osteodystrophy SBO (small bowel obstruction) (09/11/19) Sclerosing peritonitis Small bowel obstruction Reported 21 partial or total small bowel obstructions in the last 5 years. She stated 23 total small-bowel obstructions Small bowel obstruction Small bowel obstruction Small bowel obstruction Subtherapeutic international normalized ratio (INR) Surgical History Surgical History History of cardiac catheterization History of cholecystectomy History of parathyroidectomy History of renal transplant X3, all have failed. History of tricuspid valve annuloplasty (~2014) Status post ORIF of fracture of ankle Family History Family History Mother Rheumatoid arthritis Breast cancer Hypertension Grandparent Leukemia Alzheimer disease Father Lung cancer Mother Family history of rheumatoid arthritis Family history of malignant neoplasm of breast in first degree relative Hypertension Patient's mother is Family history of renal failure Father Patient's father is Sibling Family history of elevated blood lipids
[2021-03-27 17:48] VITALS: BP 97/53; PULSE 108; RESP 20; TEMP 36.1; O2SAT 97
[2021-03-27 17:59] LABS: Basophils Absolute Auto 0.03 K/mm3 (0.00-0.10); Basophils Percent Auto 0.7 % (0.0-1.0); Eosinophils Absolute Auto 0.04 K/mm3 (0.02-0.50); Eosinophils Percent Auto 0.9 % (1.0-6.0); Hemoglobin 7.2 g/dL (12.0-15.0); Immature Granulocyte Absolute 0.02 K/mm3 (0.00-0.00); Immature Granulocyte Percent A 0.5 % (0.0-0.0); Lymphocytes Absolute Auto 0.92 K/mm3 (1.10-4.50); Lymphocytes Percent Auto 21.6 % (18.0-42.0); Mean Corpuscular HGB Conc 31.3 g/dL (32.0-36.0); Mean Corpuscular Hemoglobin 34.4 pg (27.0-31.0); Mean Platelet Volume 11.4 fl (9.2-11.8); Monocytes Percent Auto 7.1 % (2.0-11.0); Neutrophils Absolute Auto 2.9 K/mm3 (1.7-7.2); Neutrophils Percent Auto 69.2 % (50.0-70.0); Platelet Count Result 136 K/mm3 (150-420); Red Blood Count 2.09 M/mm3 (4.20-5.40); Red Cell Distribution Width 15.9 % (11.6-14.4); White Blood Count 4.3 K/mm3 (4.8-10.8)
--- NOTE | 2021-03-27 18:00 | PC.NURSE ---
1800 pt has a central line that is used for blood draws and IVFs
[2021-03-27] MEDS: SODIUM CHLORIDE 0.9% IV 500 ML 999 ML IV CONT (18:02)
[2021-03-27] MEDS: ACETAMINOPHEN 325 MG TABLET 650 MG PO (18:02)
[2021-03-27 18:18] LABS: Alanine Aminotransferase 36 U/L (14-59); Albumin Level 2.1 g/dL (3.4-5.0); Alkaline Phosphatase 167 U/L (46-116); Anion Gap 10 mmol/L (8-16); Aspartate Amino Transferase 44 U/L (15-37); Bilirubin,Total 0.5 mg/dL (0.00-1.00); Blood Urea Nitrogen 101 mg/dL (7-18); Calcium 7.8 mg/dL (8.5-10.1); Carbon Dioxide 31 mmol/L (21-32); Chloride 98 mmol/L (98-108); Estimated CRCL calculation 4 ml/min; Estimated Glomerular Filt Rate 3; Glucose 96 mg/dL (70-99); Osmolality Calculated 319 mOsm/kg (285-295); Potassium 5.1 mmol/L (3.5-5.1); Sodium 139 mmol/L (136-145); Total Protein 6.2 g/dL (6.4-8.2)
[2021-03-27 18:31] LABS: Partial Thromboplastin Time 109.8 SEC (23.90-30.70)
[2021-03-27] MEDS: traMADol HCL (*CRX) 50 MG TABLET PO (19:20)
[2021-03-27] MEDS: PHYTONADIONE 5 MG TABLET 10 MG PO (19:20)
[2021-03-27] MEDS: CALCIUM CARBONATE (TUMS) 500 MG (200 MG ELEMENTAL) 1000 MG PO (20:15)
[2021-03-27 20:16] VITALS: BP 93/50; PULSE 93; RESP 20; TEMP 36.1; O2SAT 100
== END 2021-03-27 20:27 | disposition home or self-care (01) ==
PROVIDERS: Emergency Provider Emergency Medicine; PCP Internal Medicine Nephrology
DX: N18.9 Chronic kidney disease, unspecified (principal); D63.1 Anemia in chronic kidney disease
CPT/HCPCS: 36415; 80053; 85025; 85610; 85730; 99282; 99283; A9270; J7040

== ENCOUNTER 2021-03-29 18:32 | Inpatient (IN) | payer MEDICARE, MEDICAID, SELFPAY ==
[2021-03-29] VITALS (33 sets, daily range): BP systolic 87–118; BP diastolic 46–81; PULSE 81–107; RESP 8–27; TEMP 36.6; O2SAT 95–99
--- NOTE | ~2021-03-29 | XR_ITS ---
XR chest 2V DATE: 03/29/2021 19:05 INDICATION: Weakness, transient additional bleeding. Dialysis treatment 2 days ago. TECHNIQUE: AP and lateral views COMPARISON: 02/22/2021 portable AP chest FINDINGS: Status post sternotomy and cardiac valve replacement. Right central venous catheter tip is situated near the superior cavoatrial junction. Normal heart size. No hilar or mediastinal enlargement. No pulmonary infiltrate or consolidation, ple ural effusion or pulmonary vascular congestion or pneumothorax. IMPRESSION: Status post sternotomy/cardiac valve replacement No active cardiopulmonary disease Reviewed, dictated and finalized at [facility].
--- NOTE | ~2021-03-29 | CT_ITS ---
EXAMINATION: CT brain wo con DATE: 03/29/2021 20:12 INDICATION: Generalized weakness, lethargy TECHNIQUE: Computed tomography (CT) of the head was performed without intravenous contrast. The mA wa s adjusted according to patient size. Iterative reconstruction technique was employed. Exam dose: 52 9.67 mGy-cm total exam DLP. COMPARISON: 05/18/2018 MRI brain 01/21/2014 CT brain FINDINGS: No intracranial mass lesion or hemorrhage or cerebrovascular accident is detected. No midli ne shift or mass effect effect. Normal ventricular size. No subdural or epidural hematoma. The mastoid air cells and included paranasal sinuses are normally developed and aerated with exceptio n of some chronic soft tissue focal density in the superomedial aspect of the left frontal sinus. No fracture or bone destruction of the cranial vault. IMPRESSION: No significant intracranial finding Reviewed, dictated and finalized at [facility]. Reviewed, dictated and finalized at location [facility].
--- NOTE | 2021-03-29 18:39 | ECG_ITS ---
Measurements Intervals [place] Rate: 99 P: 34 TX: 153 QRS: -48 QRSD: 118 T: -13 QT: 343 QTc: 440 Interpretive Statements SINUS RHYTHM RIGHT BUNDLE BRANCH BLOCK ABNORMAL ECG Electronically Signed On 03-29-2021 20:19:21 CDT by Geo Jackson D.O.
[2021-03-29 19:07] LABS: Basophils Percent Auto 0.4 % (0.2-1.2); Eosinophils Percent Auto 0.2 % (0-4.4); Hematocrit 22.5 % (37.0-47.0); Immature Granulocyte Absolute 0.02 K/mm3 (0.00-0.031); Immature Granulocyte Percent A 0.4 % (0-0.5); Lymphocytes Absolute Auto 0.97 K/mm3 (0.9-3.2); Lymphocytes Percent Auto 19.6 % (18.3-44.2); Mean Corpuscular HGB Conc 31.1 g/dl (32-36); Mean Corpuscular Hemoglobin 34.1 pg (26-34); Mean Corpuscular Volume 109.8 fl (80-100); Mean Platelet Volume 11.7 fl (7.4-10.4); Monocytes Absolute Auto 0.2 K/mm3 (0.1-0.6); Monocytes Percent Auto 4.3 % (2.6-8.5); Neutrophils Absolute Auto 3.7 K/mm3 (1.3-6.7); Neutrophils Percent Auto 75.1 % (45.5-73.1); Platelet Count Result 164 k/mm3 (150-375); Red Blood Count 2.05 M/mm3 (4.2-5.4); White Blood Count 4.9 K/mm3 (4.5-10.0)
[2021-03-29 19:16] LABS: Prothrombin Time 53.4 Seconds (11.1-14.7)
[2021-03-29 19:19] LABS: Partial Thromboplastin Time 156.4 SECONDS (22.3-36.8)
[2021-03-29 19:23] LABS: Alanine Aminotransferase 31 U/L (4-35); Albumin Level 2.8 g/dL (3.5-5.1); Alkaline Phosphatase 182 U/L (38-126); Anion Gap 16 mmol/L (8-16); Aspartate Amino Transferase 53 U/L (14-36); Bilirubin,Total 0.6 mg/dL (0.2-1.3); Calcium 8.5 mg/dL (8.4-10.2); Carbon Dioxide 27 mmol/L (22-30); Chloride 88 mmol/L (98-107); Glucose 86 mg/dL (65-110); Potassium 5.1 mmol/L (3.4-5.0); Sodium 131 mmol/L (137-145)
[2021-03-29 19:32] LABS: Estimated CRCL calculation 4 ml/min; Estimated Glomerular Filt Rate 2; INR 6.3
--- NOTE | 2021-03-29 19:34 | ED.WEAKNESS ---
HPI - Weakness General Chief complaint: Weakness Stated complaint: bloody stool x 1 day Time Seen by Provider: 03/29/21 19:23 Source: patient, RN notes reviewed and old records reviewed Mode of arrival: ambulatory Limitations: no limitations History of Present Illness HPI Narrative: This is 46 year old female with multiple medical problems including valve replaced on chronic anticoagulation, ESRD on dialysis who presents for evaluation of fatigue. She noticed that her stools were dark and had blood in them 2 days ago. She was evaluated at [facility], and she was found have supratherapeutic INR and anemia. She was told to hold her coumadin and she was discharged home. She came back to ER because she is having worsening weakness. She states she is so weak she is having difficulty texting on her phone. She noticed blood in her stool again today. She states she was due for dialysis today but she did not go because she was too ill. She denies chest pain, nausea , vomiting or abdominal pain. She has history of multiple bowel obstructions but she denies abdominal pain, vomiting or blood coming from her g tube. She states there has not been any change in her fluid. Related Data Home Medications Medication Instructions Recorded Confirmed ergocalciferol (vitamin D2) 1,250 mcg PO WEEKLY 05/27/20 03/27/21 epoetin jordy-epbx 4,000 unit/mL 4,000 unit SUBCUT 3XW 02/08/21 03/27/21 injection solution lidocaine 5 % topical patch 1 patch TOPICAL DAILY 02/08/21 03/27/21 sennosides 8.6 mg tablet 8.6 mg PO DAILY 02/08/21 03/27/21 vitamin B complex-vitamin C-folic 1 tablet PO DAILY 02/08/21 03/27/21 acid 0.8 mg tablet warfarin 1 mg tablet 3 mg PO DAILY tablet 02/08/21 03/27/21 warfarin 5 mg tablet 5 mg PO DAILY 02/08/21 03/27/21 sertraline 25 mg PO DAILY 02/22/21 03/27/21 Allergies Allergy/AdvReac Type Severity Reaction Status Date / Time baclofen Allergy Unresponsiv Verified 03/27/21 18:40 e diphenhydramine Allergy Other Verified 03/27/21 18:40 [From Benadryl] vancomycin AdvReac Redness of Verified 08/17/21 18:40 Skin Review of Systems Review of Systems: All systems reviewed & are unremarkable except as noted in HPI and below Constitutional: Constitutional: Denies chills, Reports fatigue and Denies fever(s) Cardiovascular: Cardiovascular: Denies chest pain Respiratory: Respiratory: Denies cough and Denies dyspnea Gastrointestinal: Gastrointestinal: Denies abdominal pain, Denies nausea and Denies vomiting Neurologic: Denies headache(s) and Reports weakness Endocrine: Endocrine: Reports fatigue [facility] Past Medical History Medical History (Updated 03/30/21 @ 01:34 by Lynn Arshad MD) Acid reflux Anemia in chronic kidney disease Anxiety Asthma Chest pain Chronic low back pain History of L4-L5 herniated disc. Coffee ground emesis Current use of superintendent container terminal anticoagulation On long-term warfarin due to factor V Leiden. Current use of half-way anticoagulation Dehydration Depression Diastolic CHF Last Echo October 2018 demonstrated an EF of 55% to 60% with diastolic dysfunction. 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 Factor V Leiden History of left heart catheterization 2012 showed normal coronary arteries and pulmonary hypertension. History of pulmonary embolism History of pulmonary embolus (PE) Due to Factor V Leiden on chronic Coumadin. Hyperkalemia Hypertension Hypothyroidism (acquired) Kidney transplant failure and rejection Major depressive disorder Nephrolithiasis Obsessive compulsive disorder Other pulmonary embolism with acute cor pulmonale Partial small bowel obstruction Renal osteodystrophy SBO (small bowel obstruction) (09/11/19) Small bowel obstruction
--- NOTE | 2021-03-29 19:43 | PC.NURSE ---
Pt family member ([facility]- [phone]) called and updated.
[2021-03-29] MEDS: PANTOPRAZOLE SODIUM IV 40 MG VIAL 80 MG IV PUSH (19:57)
[2021-03-29] MEDS: SODIUM CHLORIDE 0.9% IV 1,000 ML 999 ML IV CONT (19:57)
[2021-03-29 20:16] LABS: Blood Urea Nitrogen 123 mg/dL (7-17)
[2021-03-30] VITALS (44 sets, daily range): BP systolic 85–117; BP diastolic 45–66; PULSE 77–105; RESP 13–22; TEMP 35.6–37; O2SAT 94–100; BMI 27.6
--- NOTE | 2021-03-30 | ECHO_ITS ---
Patient Info Name: Shelli Jaramillo Age: 46 years : 1975 Gender: Female Ht: 66 in Wt: 171 lbs BSA: 1.92 m2 HR: 78 bpm BP: 95 / 46 mmHg Heart Rhythm: Sinus Rhythm Exam Date: 03/30/2021 2:29 PM Exam Location: [facility] Patient Status: Inpatient Admit Date: 03/30/2021 Staff Ordering Physician: Rashel Bsihop MD Sealer Sander: Dat Penn, VARSHA, RT Attending Provider: Lynn Arshad MD Referring Physician: Edna SHAVER; Exam Type: CA echo doppler color flow Study Info Indications R60.0 - Localized edema Complete two-dimensional, color flow and Doppler transthoracic echocardiogram is performed. Strain analysis performed. Summary 1. Complete two-dimensional, color flow and Doppler transthoracic echocardiogram is performed. 2. There is mild aortic valve stenosis with a peak velocity of 174 cm/s, mean gradient of 6 mmHg, and aortic valve area of 1.9 cm2. 3. Unable to estimate PA systolic pressure due to poor spectral resolution of tricuspid regurgitant jet velocity. 4. Left ventricular chamber dimension is normal. 5. Left ventricular systolic function is normal, estimated at 65-70%. 6. There is no increased left ventricular wall thickness. 7. The left ventricular diastolic function is grade I diastolic dysfunction. 8. There is no aortic valve regurgitation. Left Ventricle Left ventricular chamber dimension is normal. Left ventricular systolic function is normal, estimated at 65-70%. There is no increased left ventricular wall thickness. The left ventricular diastolic function is grade I diastolic dysfunction. Global longitudinal strain is normal at -19 %. Right Ventricle Right ventricular chamber dimension is normal. Right ventricular systolic function is normal. Left Atria Left atrial chamber dimension is normal. Right Atria Right atrial chamber dimension is normal. Aortic Valve There is mild aortic valve stenosis with a peak velocity of 174 cm/s, mean gradient of 6 mmHg, and aortic valve area of 1.9 cm2. The aortic valve is probable trileaflet. There is mild aortic valve sclerosis. There is no aortic valve regurgitation. Pulmonic Valve The pulmonic valve is not well visualized. There is trace pulmonic regurgitation. Mitral Valve The mitral valve has normal leaflets. There is trace mitral valve regurgitation. The mitral valve annulus is mildly calcified. Tricuspid Valve Unable to estimate PA systolic pressure due to poor spectral resolution of tricuspid regurgitant jet velocity. The tricuspid valve leaflets are thickened. There is trace tricuspid valve regurgitation. Pericardium/Pleural The pericardium appears normal. There is no pericardial effusion. Inferior Vena Cava Normal inferior vena cava with >50% collapse upon inspiration consistent with normal right atrial pressure, 5 mmHg. Aorta The aortic root size at the sinus of Valsalva is normal. There is mild aortic atherosclerosis. Left Ventricular Outflow Tract Name Value Normal LVOT 2D LVOT Diameter 1.9 cm LVOT Doppler LVOT Peak Gradient 6 mmHg LVOT Mean Gradient
--- NOTE | 2021-03-30 01:20 | PM.IMHP ---
H&P: HPI History of Present Illness Date/Time: 03/30/21 01:20 Chief Complaint: Weakness Narrative: This is a 46-year-old female with past medical history significant for end-stage renal disease on hemodialysis, transplant rejection x3, small-bowel obstruction on recurrent, anemia of chronic disease, hypothyroidism, valve repair on chronic anticoagulation. Patient presented to the emergency room today due to generalized weakness she missed her dialysis treatment due to feeling very ill and unable to get out of bed. Patient had been seen at the [facility] emergency room 2 days ago due to dark stools she was found to have an INR of 10 she had some workup done and was sent home. Patient denies any fevers any chills any nausea vomiting any hematemesis or hematochezia, no cough no shortness of breath, no chest pain no PND no orthopnea. Preliminary workup was significant for a hemoglobin of 7 a creatinine of 16 a BUN of 121 a potassium of 5.1 INR of 6 a chest x-ray was clear. Review of Systems Review of Systems: Generalized weakness, dark color stool. Constitutional: Constitutional: Denies chills, Reports fatigue, Denies fever(s), Reports lethargy and Reports weakness Eyes: Eyes: Denies change in vision ENT: Denies dysphagia, Denies nasal congestion, Denies nasal discharge, Denies nasal obstruction and Denies odynophagia Cardiovascular: Cardiovascular: Denies irregular heart rhythm, Denies radiating jaw, neck or arm pain, Denies palpitations, Denies dyspnea and Denies dyspnea on exertion Respiratory: Respiratory: Denies cough and Denies dyspnea Gastrointestinal: Gastrointestinal: Reports melena, Denies hematochezia, Denies nausea and Denies vomiting Genitourinary: Genitourinary: Reports no additional female genitourinary complaints Musculoskeletal: Musculoskeletal: Reports no additional musculoskeletal complaints Integumentary/Breasts: Skin/Breast: Reports system reviewed and no additional complaints, except as docu Neurologic: Reports system reviewed and no additional complaints, except as documented Psychiatric: Psychiatric: Reports no additional psychiatric complaints Endocrine: Endocrine: Reports no additional endocrine complaints Hematologic/Lymphatic: Hematologic/Lymphatic: Reports no additional hematologic/lymphatic complaints Allergic/Immunologic: Allergic/Immunologic: Reports no additional allergic/immunologic complaints [facility] Past Medical History Medical History (Updated 03/30/21 @ 01:34 by Lynn Arshad MD) Acid reflux Anemia in chronic kidney disease Anxiety Asthma Chest pain Chronic low back pain History of L4-L5 herniated disc. Coffee ground emesis Current use of long-term anticoagulation On long-term warfarin due to factor V Leiden. 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 Factor V Leiden History of left heart catheterization 2012 showed normal coronary arteries and pulmonary hypertension. History of pulmonary embolism History of pulmonary embolus (PE) Due to Factor V Leiden on chronic Coumadin. Hyperkalemia Hypertension Hypothyroidism (acquired) Kidney transplant failure and rejection Major depressive disorder Nephrolithiasis Obsessive compulsive disorder Other pulmonary embolism with acute cor pulmonale Partial small bowel obstruction Renal osteodystrophy SBO (small bowel obstruction) (09/11/19) Small bowel obstruction Reported 21 partial or total small bowel obstructions in the last 5 years. She stated 23 total small-bowel obstructions Small bowel obstruction Small bowel obstruction Small bowel obstruction S
[2021-03-30] MEDS: SODIUM CHLORIDE 0.9% IV 1,000 ML 100 ML IV CONT (02:03)
--- NOTE | 2021-03-30 04:00 | PC.NURSE ---
This patient, Shelli Jaramillo, was admitted to IMU Room 203-01 on 03/30/21 at 0345. Patient/family oriented to hospital policies and general routines including ID bracelet, bed and alarms, visiting hours, pain management, procedures, bathroom and other care routines, personal items, smoking policy, room service/diet, and visiting hours. Information on how to activate the Rapid Response Team has been discussed. Patient/Family are encouraged to report perceived risks to care and to ask questions if they do not understand what they are told or what they should do.
[2021-03-30 05:25] LABS: Hematocrit 19.9 % (37.0-47.0); Hemoglobin 6.2 g/dL (12.0-15.0)
[2021-03-30 05:57] LABS: Anion Gap 12 mmol/L (8-16); Blood Urea Nitrogen 123 mg/dL (7-17); Carbon Dioxide 27 mmol/L (22-30); Chloride 94 mmol/L (98-107); Estimated CRCL calculation 5 ml/min; Estimated Glomerular Filt Rate 3; Glucose 92 mg/dL (65-110); Potassium 5.1 mmol/L (3.4-5.0); Sodium 133 mmol/L (137-145)
[2021-03-30 05:58] LABS: Alanine Aminotransferase 29 U/L (4-35); Albumin Level 2.5 g/dL (3.5-5.1); Alkaline Phosphatase 160 U/L (38-126); Aspartate Amino Transferase 53 U/L (14-36); Bilirubin,Total 0.8 mg/dL (0.2-1.3); Calcium 8.2 mg/dL (8.4-10.2); Total Protein 5.5 g/dL (6.3-8.2)
--- NOTE | 2021-03-30 07:18 | PM.IMPN ---
Progress Note: A&P Assessment and Plan (1) GI bleed: Code(s): K92.2 - Gastrointestinal hemorrhage, unspecified Status: Acute Assessment and Plan: She has G-tube which has coffee-ground material. Will reverse Coumadin effect with FFP. She has received vitamin K both oral as well as IV. Her hemoglobin dropped down to 5.5 and currently receiving 2 unit of PRBC. Two more unit of PRBC will be crossing mange. Gastroenterology service has been consulted with pending recommendation. Continue pantoprazole IV. Continue to keep her NPO for now. Continue to monitor H&H and transfuse PRBC if tolerated. (2) Supratherapeutic INR: Code(s): R79.1 - Abnormal coagulation profile Status: Acute Assessment and Plan: Current INR is 6 at the time of presentation with concern for possible active bleeding. Will give FFP and vitamin K to reverse the effect of Coumadin. Will hold Coumadin (3) End-stage renal disease on hemodialysis: Code(s): N18.6 - End stage renal disease; Z99.2 - Dependence on renal dialysis Status: Chronic Assessment and Plan: Patient missed 2-3 sessions of dialysis due to generalized weakness and unable to leave her house Nephrology has been consulted planning for hemodialysis. She is borderline hypertensive and may not tolerate dialysis. 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 She has coffee-ground material in the G tube. Continue pantoprazole twice a day. (6) Anemia in chronic kidney disease: Code(s): N18.9 - Chronic kidney disease, unspecified; D63.1 - Anemia in chronic kidney disease Status: Chronic Assessment and Plan: Procrit and IV sucrose has been ordered by nephrology team. She will get 2 unit of PRBC transfusion and 2 units of FFP in the meantime. (7) Factor V Leiden: Onset Date: Unknown Code(s): D68.51 - Activated protein C resistance Status: Chronic Assessment and Plan: On chronic anticoagulation which will be kept on hold for now. (8) Current use of long term care social worker anticoagulation: Code(s): Z79.01 - custodial (current) use of anticoagulants Status: Chronic Assessment and Plan: Patient is on Coumadin which will be on hold for now. (9) Hyperkalemia: Code(s): E87.5 - Hyperkalemia Status: Acute Assessment and Plan: Secondary to renal insufficiency She will get dialysis today. (10) Hypothyroidism (acquired): Code(s): E03.9 - Hypothyroidism, unspecified Status: Chronic Assessment and Plan: Continue levothyroxine Subjective Date/time seen: 03/30/21 07:18 She is having borderline hypotension with systolic blood pressure in early to mid 90s. She is mentating well. Her hemoglobin trended down to 5.5. She is currently receiving 2 unit of PRBC. She was given vitamin K both orally and IV. She will be transfused with 2 units of FFP as well. She is requiring 2 L of oxygen. She is looking very pale and crown [place] ill looking face. Review of Systems Review of Systems: A comprehensive review of systems has been reviewed with the patient and most of the symptoms are negative except the one's mentioned above in HPI. Exam Narrative: General awake. Not in distress. Chronically ill-looking face. Very pale. CVS S1-S2 no murmur Respiratory nonlabored. No wheezing. GI soft nontender G-tube in place with output being coffee-ground in color [employer] alert oriented x3 Psychiatric cooperative appropriate mood and affect Musculoskeletal normal range of motion or joint swelling no rashes Objective Data Vital Signs Vital Signs:
[2021-03-30 10:47] LABS: Hematocrit 18.2 % (37.0-47.0); Hemoglobin 5.5 g/dL (12.0-15.0)
[2021-03-30] MEDS: PANTOPRAZOLE SODIUM IV 40 MG VIAL IV PUSH ×2 (11:18→22:30)
[2021-03-30] MEDS: PHYTONADIONE 5 MG TABLET PO (11:19)
[2021-03-30] MEDS: TUBING, BLOOD PLUM PUMP TUBING 1 EACH XX ×2 (11:19→17:50)
[2021-03-30] MEDS: SERTRALINE HCL 25 MG TABLET PO (11:19)
[2021-03-30] MEDS: LEVOTHYROXINE SODIUM 88 MCG TABLET PO (11:19)
--- NOTE | 2021-03-30 12:04 | PM.CNNEP ---
Assessment and Plan Assessment and plan (1) End-stage renal disease on hemodialysis: Code(s): N18.6 - End stage renal disease; Z99.2 - Dependence on renal dialysis Status: Chronic Assessment and Plan: the patient has end-stage renal disease. Her BUN and creatinine are very high. Most likely she has not done dialysis in a few days. Will go ahead and do this today. She does have lots of swelling but her blood pressure is too low to take anything off. I wonder if she might have worsened heart valve. Will check an echocardiogram. Her potassium is little high so will do her on a 2 K bath. She is very lethargic. This could have multiple reasons. Perhaps her thyroid supplement is not being absorbed. Perhaps it is severe depression. Perhaps it is under dialysis. Perhaps there is some nutritional deficiency. perhaps it is the anemia. Will check vitamin levels, iron levels, She will get a transfusion. We will do dialysis today. (2) Sclerosing peritonitis: Code(s): K65.8 - Other peritonitis Status: Acute Assessment and Plan: She is on nocturnal TPN. She should continue this. She is able to take oral medications. She is able to drink sips of water and certain soft foods as well as nutritional drinks. (3) Factor V Leiden: Onset Date: Unknown Code(s): D68.51 - Activated protein C resistance Status: Chronic Assessment and Plan: She is on Coumadin for this. The Iron are went very high. This is unclear why. Nutritional issues might be the case since she has not changed her medications. (4) Hypothyroidism (acquired): Code(s): E03.9 - Hypothyroidism, unspecified Status: Chronic Assessment and Plan: She could have a low thyroid level. Perhaps she is not absorbing her Synthroid. (5) Hypertension: Code(s): I10 - Essential (primary) hypertension Status: Acute Assessment and Plan: This is a thing of the past. her blood pressure is low. She is getting some IV fluids. History of Present Illness Reason for Consult Consult date: 03/30/21 Chief Complaint Chief complaint: ESRD on Dialysis, Uremia, Anemia, History of Present Illness Narrative: Jordon is a very pleasant 46-year-old lady who has multiple medical problems including end-stage renal disease on home hemodialysis 5 days a week, sclerosing peritonitis and bowel obstruction who gets TPN every night and also has a ileostomy for relief of obstruction. The patient eats a little bit at a time and drinks water and takes her medications but otherwise does not take anything else by mouth. The patient has been getting her TPN every night and also every time she does dialysis [place] she gives herself a L of saline but still has problems with dehydration. Her blood pressure is often low. She gets extra fluid if this is the case. Lately the patient had blood in her ostomy, blood per rectum, and nose bleed. She had blood work drawn and her INR was 11. She was sent to [facility]. There her INR was better, around 8. Her hemoglobin which had been 6.2 as an outpatient was up to 7 so she was given vitamin K and discharged. Since then the patient has been feeling very lethargic. In fact yesterday she would even pickle cutter her phone. Week the dialysis unit called her brother and had her go check on her and then she called the unit. She described how she had twitching and weakness and was too weak to do her dialysis. We asked her to go the emergency room and at 1st she refused but then decided she would go so she went to [place] [facility] last night. I talked with the ER doc and she was admitted. The patient is somewhat lethargic right now. She does answer some questions but is not very verbose. She does not have any belly pain no nausea or vomiting. She has not had any more nose bleeds or bleeding from anywhere. She has no skin rash. She does still have the twitching.
--- NOTE | 2021-03-30 14:11 | WPDGICN ---
Assessment and Plan Assessment and plan (1) Supratherapeutic INR: Code(s): R79.1 - Abnormal coagulation profile Status: Acute Assessment and Plan: her INR still quite elevated. I understand that it is not desirable to reverse her INR due to her risks but I think we need to try to get it lower before she bleeds extensively (2) GI bleed: Code(s): K92.2 - Gastrointestinal hemorrhage, unspecified Status: Acute Assessment and Plan: hopefully reversing and correcting her INR will allow the bleeding to stop. We cannot perform any endoscopic procedures unless her INR is under 1.8 I will recheck her coagulation status stat. She is going to the blood as her hemoglobin is lower (3) Anemia: Code(s): D64.9 - Anemia, unspecified Status: Acute (4) End-stage renal disease on hemodialysis: Code(s): N18.6 - End stage renal disease; Z99.2 - Dependence on renal dialysis Status: Chronic Assessment and Plan: Dr. Bishop is on board. she is having dialysis today GI Consult Note Consult date/time: 03/30/21 14:11 HPI: Shelli Jaramillo is a 46 year old female who presented to the emergency room yesterday complaining of severe weakness. She states that she had been weak for about 7 days. She went to the emergency room in [place] 2 days ago. She was found to have an INR of over 8. She was told to simply go home and stop taking Coumadin. Her INR still elevated. She states that she has had blood in her stools. it was difficult to get a history because she is unable to stay awake and alert long enough to answer questions. She is denying any abdominal pain. She states she has had no vomiting or difficulty with swallowing or eating. She has an indwelling G-tube which serves as a vent because she has had numerous admissions for small-bowel obstruction. A few months ago she was at [facility] and had that tube placed. She has a complicated past medical history including chronic kidney disease for which she is on hemodialysis, history of endocarditis of the tricuspid valve for which she has had surgery. She has had a kidney transplant which failed. She has a history of de vein thrombosis and pulmonary embolism due to factor V Leiden. Review of Systems Review of Systems: All systems reviewed & are unremarkable except as noted in HPI and below PMFSH Past Medical History Medical History Acid reflux Anemia in chronic kidney disease Anxiety Asthma Chest pain Chronic low back pain History of L4-L5 herniated disc. 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 Current use of snf anticoagulation Dehydration Depression Diastolic CHF Last Echo October 2018 demonstrated an EF of 55% to 60% with diastolic dysfunction. 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 Factor V Leiden History of left heart catheterization 2012 showed normal coronary arteries and pulmonary hypertension. History of pulmonary embolism History of pulmonary embolus (PE) Due to Factor V Leiden on chronic Coumadin. Hyperkalemia Hypertension Hypothyroidism (acquired) Kidney transplant failure and rejection Major depressive disorder Nephrolithiasis Obsessive compulsive disorder Other pulmonary embolism with acute cor pulmonale Partial small bowel obstruction Renal osteodystrophy SBO (small bowel obstruction) (09/11/19) Sclerosing peritonitis Small bowel obstruction Reported 21 partial or total small bowel obstructions in the last 5 years. She stated 23 total small-bowel obstructions Small bowel obstruction Small bowel obstruction Small bowel obstruction Subtherapeutic in
[2021-03-30] MEDS: SODIUM CHLORIDE 0.9% IV 250 ML 900 ML IV CONT (14:35)
[2021-03-30] MEDS: SODIUM CHLORIDE 0.9% IV 250 ML 30 ML IV CONT (14:35)
[2021-03-30] MEDS: ALTEPLASE 2 MG VIAL (CATHFLO) IV PUSH (14:36)
[2021-03-30 14:53] LABS: Prothrombin Time 47.2 Seconds (11.1-14.7)
[2021-03-30 14:55] LABS: Partial Thromboplastin Time 125.5 SECONDS (22.3-36.8)
[2021-03-30 15:14] LABS: INR 5.4
[2021-03-30 15:58] LABS: Folic Acid 9.1 ng/mL (2.76->20)
[2021-03-30] MEDS: PHYTONADIONE ADULT INJ 10 MG in DEXTROSE 5% IN WATER 50 ML 100 MG IVPB (16:20)
[2021-03-30 16:34] LABS: Vitamin D 25 Hydroxy 63.2 ng/mL
[2021-03-30] MEDS: traMADol HCL (*CRX) 50 MG TABLET 100 MG PO (17:52)
[2021-03-30 18:05] LABS: Hematocrit 22.9 % (37.0-47.0); Hemoglobin 7.2 g/dL (12.0-15.0)
[2021-03-30 20:57] LABS: Hepatitis B Surface Antigen Negative (Negative)
[2021-03-30 21:12] LABS: Hepatitis B Surface Antibody > 1000.00 s/c
[2021-03-30 21:28] LABS: Iron 129 ug/dL (37-170); Percent Iron Saturation 74 % (20-50)
[2021-03-30 21:33] LABS: INR 1.7; Prothrombin Time 19.9 Seconds (11.1-14.7)
[2021-03-30 21:53] LABS: Hepatitis B Surface Anti Res Positive
--- NOTE | 2021-03-30 22:14 | PC.NURSE ---
Notified [facility] of pt's current INR of 1.7, after receiving one unit FFP per order. Second unit on HOLD.
[2021-03-30] MEDS: clonazePAM (*CRX) 0.5 MG TABLET 2 MG PO (22:30)
[2021-03-31] VITALS (25 sets, daily range): BP systolic 80–109; BP diastolic 43–65; PULSE 76–100; RESP 16–18; TEMP 36.5–37; O2SAT 95–100
[2021-03-31 00:10] LABS: IFOB Positive Control Positive; Immunochemical Fecal Occult Bl Positive (N)
[2021-03-31 00:12] LABS: Hematocrit 24.7 % (37.0-47.0); Hemoglobin 7.9 g/dL (12.0-15.0)
[2021-03-31] MEDS: LEVOTHYROXINE SODIUM 88 MCG TABLET PO (04:59)
[2021-03-31] MEDS: ACETAMINOPHEN 325 MG TABLET 650 MG PO ×2 (04:59→15:41)
[2021-03-31 05:24] LABS: Basophils Percent Auto 0.4 % (0.2-1.2); Eosinophils Percent Auto 1.5 % (0-4.4); Hematocrit 23.6 % (37.0-47.0); Hemoglobin 7.5 g/dL (12.0-15.0); Immature Granulocyte Absolute 0.01 K/mm3 (0.00-0.031); Immature Granulocyte Percent A 0.4 % (0-0.5); Lymphocytes Absolute Auto 0.77 K/mm3 (0.9-3.2); Lymphocytes Percent Auto 28.5 % (18.3-44.2); Mean Corpuscular HGB Conc 31.8 g/dl (32-36); Mean Corpuscular Hemoglobin 31.5 pg (26-34); Mean Corpuscular Volume 99.2 fl (80-100); Mean Platelet Volume 10.8 fl (7.4-10.4); Monocytes Absolute Auto 0.2 K/mm3 (0.1-0.6); Monocytes Percent Auto 8.1 % (2.6-8.5); Neutrophils Absolute Auto 1.7 K/mm3 (1.3-6.7); Neutrophils Percent Auto 61.1 % (45.5-73.1); Platelet Count Result 78 k/mm3 (150-375); Red Blood Count 2.38 M/mm3 (4.2-5.4); Red Cell Distribution Width 21.2 % (11.5-14.5); White Blood Count 2.7 K/mm3 (4.5-10.0)
[2021-03-31 05:47] LABS: Albumin Level 2.2 g/dL (3.5-5.1); Anion Gap 7 mmol/L (8-16); Blood Urea Nitrogen 65 mg/dL (7-17); Calcium 7.6 mg/dL (8.4-10.2); Carbon Dioxide 28 mmol/L (22-30); Chloride 94 mmol/L (98-107); Estimated CRCL calculation 7 ml/min; Estimated Glomerular Filt Rate 4; Glucose 76 mg/dL (65-110); Phosphorus 3.4 mg/dL (2.5-4.5); Potassium 4.1 mmol/L (3.4-5.0); Sodium 129 mmol/L (137-145)
[2021-03-31 08:08] LABS: Free T4 Free Thyroxine Reflex 2.29 ng/dL (0.78-2.19)
[2021-03-31] MEDS: SERTRALINE HCL 25 MG TABLET PO (08:38)
[2021-03-31] MEDS: PANTOPRAZOLE SODIUM IV 40 MG VIAL IV PUSH ×2 (08:38→20:26)
--- NOTE | 2021-03-31 08:41 | WPDGIPROGNO ---
Progress Note: A&P Assessment and Plan (1) Supratherapeutic INR: Code(s): R79.1 - Abnormal coagulation profile Status: Acute Assessment and Plan: her INR has finally come down to normal range with vitamin K and plasma. We can proceed with endoscopy which I will schedule for Friday after bowel prepping to her G-tube (2) GI bleed: Code(s): K92.2 - Gastrointestinal hemorrhage, unspecified Status: Acute Assessment and Plan: there is no evidence now of active bleeding. Her significant drop in hemoglobin over the past couple of weeks however suggest that she has been bleeding somewhere. EGD and colonoscopy to be done Friday (3) History of tricuspid valve replacement with mechanical valve: Code(s): Z95.2 - Presence of prosthetic heart valve Status: Acute Assessment and Plan: warfarin has been held. Will proceed with endoscopy with antibiotic coverage Subjective Date/time seen: 03/31/21 08:41 the patient is quiet but appears comfortable. Very taciturn. . She denies complaints of abdominal pain. She has not seen any blood in her G-tube collection bag. denies having a bowel movement last night. Review of Systems Review of Systems: All systems reviewed & are unremarkable except as noted in HPI and below Exam Const: General: ill appearing and other ( Appears very tired) Orientation/consciousness: patient oriented x3 Cardio: Rhythm: abnormal rhythm irregularly irregular GI: Inspection: scar ( extensive scarring) and other ( G-tube in left upper quadrant, bilious material in collection bag) GI Palp: No abdominal tenderness and Yes No hepatosplenomegaly present Auscultation: normal bowel sounds Neuro: General: patient oriented x3 Objective Data Vital Signs Vital Signs: Vital Signs - 24 hr 03/30/21 09:07 03/30/21 10:00 03/30/21 12:00 Temperature 36.3 C L Pulse Rate 82 88 80 Respiratory Rate 17 Blood Pressure 101/51 L Pulse Oximetry 96 94 03/30/21 12:34 03/30/21 13:12 03/30/21 13:28 Temperature 36.4 C L 35.6 C L 35.7 C L Pulse Rate 83 88 78 Respiratory Rate 20 20 18 Blood Pressure 102/48 L 95/46 L 93/46 L Pulse Oximetry 97 97 97 03/30/21 14:00 03/30/21 14:03 03/30/21 14:28 Temperature 35.7 C L Pulse Rate 84 84 Respiratory Rate 20 Blood Pressure 98/48 L 91/53 L Pulse Oximetry 98 03/30/21 15:20 03/30/21 16:00 03/30/21 17:10 Temperature 35.7 C L 36.6 C Pulse Rate 82 85 82 Respiratory Rate 20 20 Blood Pressure 91/50 L 96/60 L 109/62 Pulse Oximetry 96 96 03/30/21 17:14 03/30/21 17:40 03/30/21 17:55 Temperature 36.5 C 36.6 C Pulse Rate 82 104 H 85 Respiratory Rate 20 20 Blood Pressure 110/60 107/59 L 96/60 L Pulse Oximetry 98 96 03/30/21 18:00 03/30/21 18:12 03/30/21 18:15 Temperature 36.5 C 36.1 C L Pulse Rate 80 93 93 Respiratory Rate 18 18 Blood Pressure 102/58 L 102/58 L Pulse Oximetry 03/30/21 18:50 03/30/21 18:55 03/30/21 19:30 Temperature 36.4 C 36.4 C 36.3 C L Pulse Rate 93 93 77 Respiratory Rate 22 H 22 H 16 Blood Pressure 107/59 L 107/59 L 110/66 Pulse Oximetry 96 96 03/30/21 19:43 03/30/21 20:00 03/30/21 20:15 Temperature 36.6 C 36.5 C Pulse Rate 82 92 92 Respiratory Rate 18 18 Blood Pressure 110/60 117/62 90/45 L Pulse Oximetry 98 03/30/21 20:45 03/30/21 22:00 03/30/21 23:25 Temperature 36.8 C Pulse Rate 88 77 99 Respiratory Rate 20 16 Blood Pressure 98/55 L Pulse Oximetry 100 100 03/31/21 00:00 03/31/21 02:00 03/31/21 04:00 Temperature 36.5 C Pulse Rate 76 79 79 Respiratory Rate 18 Blood Pressure 100/53 L Pulse Oximetry 100 100 03/31/21 06:00 03/31/21 07:17 Temperature 36.5 C Pulse Rate 85 79 Respiratory Rate 18 Blood Pressure 94/57 L Pulse Oximetry 99 Intake/Output Intake/Output: Intake & Output 03/28/21 03/29/21 03/30/21 03/31/21 23:59 23:59 23:59 23:59 Intake Total 1000 2805 Output Total 0 0 Balance 1000 2805
[2021-03-31] MEDS: traMADol HCL (*CRX) 50 MG TABLET 100 MG PO (08:45)
[2021-03-31] MEDS: IRON SUCROSE COMPLEX 200 MG in SODIUM CHLORIDE 0.9% IV 50 ML 120 MG IVPB (08:55)
[2021-03-31] MEDS: oxyCODONE HCL (*CRX) 2.5 MG TAB IR PO ×3 (10:48→22:52)
--- NOTE | 2021-03-31 10:50 | PM.PNNEP ---
Progress Note: A&P Assessment and Plan (1) End-stage renal disease on hemodialysis: Code(s): N18.6 - End stage renal disease; Z99.2 - Dependence on renal dialysis Status: Chronic Assessment and Plan: the patient has end-stage renal disease. her BUN and creatinine are better after yesterday's treatment. Will get another 1 today. Her blood pressure is still somewhat soft so I do not think we need to take any fluid off. However she does have a lot of swelling. Will give 4 doses of albumin to help the blood pressure. If her blood pressure does come up however I asked the dialysis nurse to take up to 2L off. She does have lots of swelling but her blood pressure is too low to take anything off. I wonder if she might have worsened heart valve. Will check an echocardiogram. (2) Sclerosing peritonitis: Code(s): K65.8 - Other peritonitis Status: Acute Assessment and Plan: She is on nocturnal TPN. She should continue this. I will let hospitalist order this. She is able to take oral medications. She is able to drink sips of water and certain soft foods as well as nutritional drinks. (3) Factor V Leiden: Onset Date: Unknown Code(s): D68.51 - Activated protein C resistance Status: Chronic Assessment and Plan: She is on Coumadin for this. The Iron are went very high. This is unclear why. Nutritional issues might be the case since she has not changed her medications. (4) Hypothyroidism (acquired): Code(s): E03.9 - Hypothyroidism, unspecified Status: Chronic Assessment and Plan: She could have a low thyroid level. Perhaps she is not absorbing her Synthroid. (5) Hypertension: Code(s): I10 - Essential (primary) hypertension Status: Acute Assessment and Plan: This is a thing of the past. her blood pressure is low. (6) Generalized edema: Code(s): R60.1 - Generalized edema Status: Acute Assessment and Plan: the patient has swelling. The echocardiogram looks fine. She does have a low albumin. I have asked the dialysis nurse to give her 4 doses of 25 g of albumin. (7) Erythropoietin deficiency anemia: Code(s): D63.1 - Anemia in chronic kidney disease Status: Acute Assessment and Plan: patient's hemoglobin was low. This is due to her kidney disease but also from the bleeding due to the high protime. She received 2units of blood yesterday. She received Epogen yesterday as well she is getting iron now Subjective Date/time seen: 03/31/21 10:50 Interval history: Jordon seems to have a little more energy today. She is having a lot of back pain. She is on tramadol but it is not quite enough. She has no shortness of breath. She is still very swollen. Blood pressure is a bit soft but it always is at home. Review of Systems Cardiovascular: Cardiovascular: Reports no additional cardiovascular complaints Respiratory: Respiratory: Reports no additional respiratory complaints Gastrointestinal: Gastrointestinal: Reports no additional gastrointestinal complaints Genitourinary: Genitourinary: Reports no additional female genitourinary complaints Exam Narrative: WDWN in NAD skin no rash head ncat lungs clear cor reg no rub abd BS+ nontender and soft ext 2+ bilateral edema. Objective Data Vital Signs Vital Signs: Vital Signs - 24 hr 03/30/21 12:00 03/30/21 12:34 03/30/21 13:12 Temperature 36.4 C L 35.6 C L Pulse Rate 80 83 88 Respiratory Rate 20 20 Blood Pressure 102/48 L 95/46 L Pulse Oximetry 94 97 97 03/30/21 13:28 03/30/21 14:00 03/30/21 14:03 Temperature 35.7 C L Pulse Rate 78 84 Respiratory Rate 18 Blood Pressure 93/46 L 98/48 L Pulse Oximetry 97 03/30/21 14:28 03/30/21 15:20 03/30/21 16:00 Temperature 35.7 C L 35.7 C L 36.6 C Pulse Rate 84 82 85 Respiratory Rate 20 20 20 B
[2021-03-31] MEDS: EPOETIN ALFA 20,000 UNITS/ML VIAL 20000 UNITS IV PUSH (11:30)
[2021-03-31 12:32] LABS: Transferrin 114 mg/dL (206-381)
--- NOTE | 2021-03-31 12:32 | PM.EVENT ---
Event Note Event Note Event Note: On dialysis and tolerating well. Getting albumin infusions. She was seen at 12:20 p.m.
--- NOTE | 2021-03-31 13:39 | PM.IMPN ---
Progress Note: A&P Assessment and Plan (1) GI bleed: Code(s): K92.2 - Gastrointestinal hemorrhage, unspecified Status: Acute Assessment and Plan: She has G-tube which had coffee-ground output but today it seems clear. She received FFP 2 units and vitamin K on 04/03 concern for active bleeding. Her INR today was 1.7. Will continue to hold Coumadin. Her hemoglobin dropped down to 5.5 and received 2 unit of PRBC. Her H&H seems stable now. Continue to monitor H&H and transfuse PRBC if indicated. Gastroenterology service has been consulted and their recommendations appreciated. She will have upper GI endoscopy and colonoscopy on Friday. Continue pantoprazole IV on b.i.d. dosing. She has been started on liquid diet and seems to be tolerating well. She takes TPN at nighttime which will be ordered for today. (2) Supratherapeutic INR: Code(s): R79.1 - Abnormal coagulation profile Status: Acute Assessment and Plan: Current INR is 6 at the time of presentation with concern for possible active bleeding. She received FFP and vitamin K on 03/30. Her INR is 1.7 now. No concern for active bleeding at this time. Will hold Coumadin (3) End-stage renal disease on hemodialysis: Code(s): N18.6 - End stage renal disease; Z99.2 - Dependence on renal dialysis Status: Chronic Assessment and Plan: Patient missed 2-3 sessions of dialysis due to generalized weakness and unable to leave her house Nephrology service recommendation appreciated. She tolerated dialysis on 03/30. Continue Thatch of dialysis as per nephrology service. 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 TPN will be resume at nighttime. Continue pantoprazole IV twice a day. (6) Anemia in chronic kidney disease: Code(s): N18.9 - Chronic kidney disease, unspecified; D63.1 - Anemia in chronic kidney disease Status: Chronic Assessment and Plan: Procrit and IV sucrose has been ordered by nephrology team. She received 2 unit of PRBC transfusion on 03/30. (7) Factor V Leiden: Onset Date: Unknown Code(s): D68.51 - Activated protein C resistance Status: Chronic Assessment and Plan: On chronic anticoagulation which will be kept on hold for now. (8) Current use of group home anticoagulation: Code(s): Z79.01 - medical terminologist (current) use of anticoagulants Status: Chronic Assessment and Plan: Patient is on Coumadin which will be on hold for now. (9) Hyperkalemia: Code(s): E87.5 - Hyperkalemia Status: Acute Assessment and Plan: Secondary to renal insufficiency She had dialysis on 03/30. Continue Thatch of dialysis as per nephrology service. (10) Hypothyroidism (acquired): Code(s): E03.9 - Hypothyroidism, unspecified Status: Chronic Assessment and Plan: Continue levothyroxine TSH is elevated but free T4 is elevated as well. Additional Plan DVT prophylaxis with SCD boot Seems to be tolerating liquid diet. TPN will be resumed at nighttime. Will switch tramadol to low-dose oxycodone for better pain control of her back pain. Subjective Date/time seen: 03/31/21 13:39 She is doing well today. She is more energetic and less fatigue and tired today. She was complaining of back pain and thinks that the tramadol she is on is not effective. She denied have any chest pain fever and chills. She denied have any cough. She was dialyzed yesterday. She was able to tolerated well. She was transfused a to PRBC yesterday. The rise in H&H seems appropriate. The G-tube output is not bloody or coffee-ground. Her
--- NOTE | 2021-03-31 14:16 | PC.NURSE ---
Any documentation and medications given today, March 31 from 0700- 1400 that is recorded from Nata Lord RN, initials [facility], was actually done by Roseanne Contreras RN, [facility].
[2021-03-31 19:00] LABS: Glucose Point of Care 87 mg/dl (65-105)
[2021-03-31] MEDS: clonazePAM (*CRX) 0.5 MG TABLET 2 MG PO (20:26)
[2021-03-31] MEDS: FAT EMULSIONS IV 20% 250 ML 20.83 ML IVPB (22:16)
[2021-03-31 23:30] LABS: Glucose Point of Care 108 mg/dl (65-105)
[2021-04-01] VITALS (15 sets, daily range): BP systolic 93–114; BP diastolic 45–66; PULSE 88–115; RESP 14–20; TEMP 36.3–36.9; O2SAT 96–100
[2021-04-01] MEDS: oxyCODONE HCL (*CRX) 2.5 MG TAB IR PO (05:09)
[2021-04-01] MEDS: LEVOTHYROXINE SODIUM 88 MCG TABLET PO (05:10)
[2021-04-01 05:31] LABS: Basophils Percent Auto 0.6 % (0.2-1.2); Eosinophils Percent Auto 0.9 % (0-4.4); Hematocrit 22.8 % (37.0-47.0); Hemoglobin 7.2 g/dL (12.0-15.0); Immature Granulocyte Absolute 0.02 K/mm3 (0.00-0.031); Immature Granulocyte Percent A 0.6 % (0-0.5); Lymphocytes Absolute Auto 0.77 K/mm3 (0.9-3.2); Lymphocytes Percent Auto 23.3 % (18.3-44.2); Mean Corpuscular HGB Conc 31.6 g/dl (32-36); Mean Corpuscular Hemoglobin 31.9 pg (26-34); Mean Corpuscular Volume 100.9 fl (80-100); Mean Platelet Volume 10.7 fl (7.4-10.4); Monocytes Absolute Auto 0.3 K/mm3 (0.1-0.6); Monocytes Percent Auto 9.1 % (2.6-8.5); Neutrophils Absolute Auto 2.2 K/mm3 (1.3-6.7); Neutrophils Percent Auto 65.5 % (45.5-73.1); Platelet Count Result 78 k/mm3 (150-375); Red Blood Count 2.26 M/mm3 (4.2-5.4); Red Cell Distribution Width 21.8 % (11.5-14.5); White Blood Count 3.3 K/mm3 (4.5-10.0)
[2021-04-01 06:08] LABS: Triglycerides 174 mg/dL (<150)
[2021-04-01 06:12] LABS: Albumin Level 2.8 g/dL (3.5-5.1); Anion Gap 8 mmol/L (8-16); Blood Urea Nitrogen 26 mg/dL (7-17); Calcium 7.9 mg/dL (8.4-10.2); Carbon Dioxide 28 mmol/L (22-30); Chloride 98 mmol/L (98-107); Estimated CRCL calculation 15 ml/min; Estimated Glomerular Filt Rate 10; Glucose 134 mg/dL (65-110); Phosphorus 2.4 mg/dL (2.5-4.5); Potassium 3.6 mmol/L (3.4-5.0); Sodium 134 mmol/L (137-145)
[2021-04-01] MEDS: SERTRALINE HCL 25 MG TABLET PO (08:59)
[2021-04-01] MEDS: IRON SUCROSE COMPLEX 200 MG in SODIUM CHLORIDE 0.9% IV 50 ML 120 MG IVPB (09:00)
[2021-04-01] MEDS: PANTOPRAZOLE SODIUM IV 40 MG VIAL IV PUSH ×2 (09:00→22:20)
--- NOTE | 2021-04-01 09:22 | PM.PNNEP ---
Progress Note: A&P Assessment and Plan (1) End-stage renal disease on hemodialysis: Code(s): N18.6 - End stage renal disease; Z99.2 - Dependence on renal dialysis Status: Chronic Assessment and Plan: the patient has end-stage renal disease. her BUN and creatinine are better. They were able to take some fluid off in dialysis yesterday with help of the albumin. Will give more albumin today and tomorrow. (2) Sclerosing peritonitis: Code(s): K65.8 - Other peritonitis Status: Acute Assessment and Plan: She is on nocturnal TPN. She should continue this. I will let hospitalist order this. She is able to take oral medications. She is able to drink sips of water and certain soft foods as well as nutritional drinks. I will reach out to Dr. valadez. Not sure she can tolerate a bowel prep and colonoscopy with her severely sclerotic colon. (3) Factor V Leiden: Onset Date: Unknown Code(s): D68.51 - Activated protein C resistance Status: Chronic Assessment and Plan: She is on Coumadin for this. The Iron are went very high. This is unclear why. Nutritional issues might be the case since she has not changed her medications. (4) Hypothyroidism (acquired): Code(s): E03.9 - Hypothyroidism, unspecified Status: Chronic Assessment and Plan: She could have a low thyroid level. Perhaps she is not absorbing her Synthroid. (5) Hypertension: Code(s): I10 - Essential (primary) hypertension Status: Acute Assessment and Plan: This is a thing of the past. her blood pressure is low. (6) Generalized edema: Code(s): R60.1 - Generalized edema Status: Acute Assessment and Plan: the patient has swelling. The echocardiogram looks fine. will continue albumin supplements. (7) Erythropoietin deficiency anemia: Code(s): D63.1 - Anemia in chronic kidney disease Status: Acute Assessment and Plan: patient's hemoglobin was low. Hemoglobin 7.2 today. Getting EPO and iron Subjective Date/time seen: 04/01/21 09:22 Interval history: Jordon is in a lot of pain. Back pain and aches and pains everywhere. She is getting tramadol and oxycodone. Exam Narrative: WDWN in NAD skin no rash head ncat lungs clear bilaterally cor reg no rub abd BS+ nontender and soft. Ostomy site with tube and bag ext 2+ bilateral edema. Objective Data Vital Signs Vital Signs: Vital Signs - 24 hr 03/31/21 10:00 03/31/21 11:04 03/31/21 11:15 Temperature 36.7 C Pulse Rate 89 87 89 Respiratory Rate 18 Blood Pressure 109/61 108/65 Pulse Oximetry 03/31/21 11:30 03/31/21 12:00 03/31/21 12:15 Temperature Pulse Rate 100 94 99 Respiratory Rate Blood Pressure 95/54 L 90/56 L 92/46 L Pulse Oximetry 03/31/21 12:30 03/31/21 13:00 03/31/21 13:30 Temperature Pulse Rate 96 92 87 Respiratory Rate Blood Pressure 80/45 L 90/43 L 86/43 L Pulse Oximetry 03/31/21 14:00 03/31/21 14:30 03/31/21 14:45 Temperature Pulse Rate 81 78 82 Respiratory Rate Blood Pressure 88/43 L 89/52 L 90/49 L Pulse Oximetry 03/31/21 15:00 03/31/21 16:00 03/31/21 18:00 Temperature 36.7 C 36.8 C Pulse Rate 90 92 92 Respiratory Rate 18 16 Blood Pressure 92/47 L 100/47 L Pulse Oximetry 96 03/31/21 20:00 03/31/21 21:19 03/31/21 22:00 Temperature 36.8 C Pulse Rate 96 88 Respiratory Rate 18 Blood Pressure 100/52 L Pulse Oximetry 97 95 04/01/21 00:00 04/01/21 02:00 04/01/21 03:00 Temperature 36.6 C 36.4 C Pulse Rate 94 99 105 H Respiratory Rate 18 20 Blood Pressure 98/45 L 105/61 Pulse Oximetry 97 99 04/01/21 04:00 04/01/21 06:00 04/01/21 07:21 Temperature 36.3 C L Pulse Rate 115 H 110 H 98 Respiratory Rate 18 Blood Pressure 111/60 Pulse Oximetry 97 96 Intake/Output Intake/Output: Intake & Output 03/29
[2021-04-01 12:47] LABS: Glucose Point of Care 117 mg/dl (65-105)
--- NOTE | 2021-04-01 13:38 | PM.IMPN ---
Progress Note: A&P Assessment and Plan (1) GI bleed: Code(s): K92.2 - Gastrointestinal hemorrhage, unspecified Status: Acute Assessment and Plan: She has G-tube which had coffee-ground output. She received FFP 2 units and vitamin K on 04/03 concern for active bleeding. Her INR yesterday was 1.7. Will continue to hold Coumadin. Her hemoglobin dropped down to 5.5 and received 2 unit of PRBC. Her H&H seems stable now. Continue to monitor H&H and transfuse PRBC if indicated. Gastroenterology service has been consulted and their recommendations appreciated. She will have upper GI endoscopy and colonoscopy on Friday. She does have history of sclerotic colon because of sclerotic peritonitis. Nephrology service will talk to the GI service for reassessment of the needs for upper GI endoscopy and colonoscopy. It seems that her bleeding has stopped after correction of her INR. Continue pantoprazole IV on b.i.d. dosing. She has been started on liquid diet and seems to be tolerating well. She takes TPN at nighttime which will be continued. Dietitian has been consulted. (2) Supratherapeutic INR: Code(s): R79.1 - Abnormal coagulation profile Status: Acute Assessment and Plan: Current INR is 6 at the time of presentation with concern for possible active bleeding. She received FFP and vitamin K on 03/30. Her INR is 1.7 yesterday. No concern for active bleeding at this time. Will hold Coumadin. Continue to monitor H&H and INR. (3) End-stage renal disease on hemodialysis: Code(s): N18.6 - End stage renal disease; Z99.2 - Dependence on renal dialysis Status: Chronic Assessment and Plan: Patient missed 2-3 sessions of dialysis due to generalized weakness and unable to leave her house Nephrology service recommendation appreciated. She tolerated dialysis on 03/30. Continue hemodialysis as per nephrology service. She has received albumin yesterday with dialysis. 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 TPN will be resume at nighttime. Continue pantoprazole IV twice a day. (6) Anemia in chronic kidney disease: Code(s): N18.9 - Chronic kidney disease, unspecified; D63.1 - Anemia in chronic kidney disease Status: Chronic Assessment and Plan: Procrit and IV sucrose has been ordered by nephrology team. She received 2 unit of PRBC transfusion on 03/30. (7) Factor V Leiden: Onset Date: Unknown Code(s): D68.51 - Activated protein C resistance Status: Chronic Assessment and Plan: On chronic anticoagulation which will be kept on hold for now. (8) Current use of dictionary editor anticoagulation: Code(s): Z79.01 - director business intelligence (current) use of anticoagulants Status: Chronic Assessment and Plan: Patient is on Coumadin which will be on hold for now. (9) Hyperkalemia: Code(s): E87.5 - Hyperkalemia Status: Acute Assessment and Plan: Secondary to renal insufficiency She had dialysis on 03/30 and 03/31. Continue hemodialysis as per nephrology service. (10) Hypothyroidism (acquired): Code(s): E03.9 - Hypothyroidism, unspecified Status: Chronic Assessment and Plan: Continue levothyroxine TSH is elevated but free T4 is elevated as well. Additional Plan DVT prophylaxis with SCD boot Seems to be tolerating liquid diet. TPN will be resumed at nighttime. Will add Dilaudid IV with oxycodone for better pain control of her back pain. Subjective Date/time seen: 04/01/21 13:38 She has been complaining of significant pain in the back as well as aches and pains all over. She
[2021-04-01] MEDS: HYDROmorphone HCL INJ (*CRX) 1 MG/ML SYR 0.25 MG IV PUSH ×3 (14:22→22:22)
[2021-04-01] MEDS: ALBUMIN HUMAN 25% 25 GM/100 ML 100 ML IVPB ×2 (15:03→19:05)
[2021-04-01 19:24] LABS: Glucose Point of Care 95 mg/dl (65-105)
--- NOTE | 2021-04-01 20:38 | PC.NURSE ---
Patient was very tearful and stated she does not want to pursue any further treatments and she wants to go home on Hospice. She stated she wanted to do it earlier but her brother made her feel guilty because he could not afford the . She stated she has been in and out of the hospital since she was 13 years old and she does not have the energy to fight anymore. I notified Dr. Salazar of patients wishes and a Hospice consult was entered. Myranda came to interview patient and discuss options with the patient and the patient decided to go home and be cared for by MYRANDA.
[2021-04-01] MEDS: clonazePAM (*CRX) 0.5 MG TABLET 2 MG PO (22:19)
[2021-04-02] VITALS (10 sets, daily range): BP systolic 93–104; BP diastolic 49–59; PULSE 92–114; RESP 18–20; TEMP 36.3–37.1; O2SAT 96–100
[2021-04-02] MEDS: ALBUMIN HUMAN 25% 25 GM/100 ML 100 ML IVPB (00:28)
[2021-04-02] MEDS: HYDROmorphone HCL INJ (*CRX) 1 MG/ML SYR 0.25 MG IV PUSH ×4 (01:58→15:26)
[2021-04-02 05:26] LABS: Basophils Percent Auto 0.8 % (0.2-1.2); Eosinophils Percent Auto 1.2 % (0-4.4); Hematocrit 21.8 % (37.0-47.0); Immature Granulocyte Absolute 0.03 K/mm3 (0.00-0.031); Immature Granulocyte Percent A 1.2 % (0-0.5); Lymphocytes Percent Auto 31.1 % (18.3-44.2); Mean Corpuscular HGB Conc 30.3 g/dl (32-36); Mean Corpuscular Hemoglobin 31.6 pg (26-34); Mean Corpuscular Volume 104.3 fl (80-100); Mean Platelet Volume 11.3 fl (7.4-10.4); Monocytes Absolute Auto 0.2 K/mm3 (0.1-0.6); Monocytes Percent Auto 7.8 % (2.6-8.5); Neutrophils Absolute Auto 1.5 K/mm3 (1.3-6.7); Neutrophils Percent Auto 57.9 % (45.5-73.1); Platelet Count Result 67 k/mm3 (150-375); Red Blood Count 2.09 M/mm3 (4.2-5.4); Red Cell Distribution Width 21.7 % (11.5-14.5); White Blood Count 2.6 K/mm3 (4.5-10.0)
[2021-04-02 05:33] LABS: Hemoglobin 6.6 g/dL (12.0-15.0)
[2021-04-02 05:43] LABS: Albumin Level 3.6 g/dL (3.5-5.1); Anion Gap 10 mmol/L (8-16); Blood Urea Nitrogen 37 mg/dL (7-17); Calcium 8.7 mg/dL (8.4-10.2); Carbon Dioxide 27 mmol/L (22-30); Chloride 96 mmol/L (98-107); Estimated CRCL calculation 12 ml/min; Estimated Glomerular Filt Rate 7; Glucose 85 mg/dL (65-110); Magnesium 1.7 mg/dL (1.6-2.3); Phosphorus 2.7 mg/dL (2.5-4.5); Potassium 3.8 mmol/L (3.4-5.0); Sodium 133 mmol/L (137-145)
[2021-04-02 05:45] LABS: Transferrin 82 mg/dL (206-381)
[2021-04-02 05:55] LABS: INR 1.1
[2021-04-02] MEDS: LEVOTHYROXINE SODIUM 88 MCG TABLET PO (06:31)
[2021-04-02] MEDS: oxyCODONE HCL (*CRX) 5 MG TAB IR PO ×2 (09:21→15:25)
[2021-04-02] MEDS: SERTRALINE HCL 25 MG TABLET PO (09:22)
[2021-04-02] MEDS: PANTOPRAZOLE SODIUM IV 40 MG VIAL IV PUSH (09:22)
[2021-04-02] MEDS: IRON SUCROSE COMPLEX 200 MG in SODIUM CHLORIDE 0.9% IV 50 ML 120 MG IVPB (09:44)
--- NOTE | 2021-04-02 12:20 | PM.DS ---
DS: Admitting Diagnosis Admitting Diagnosis weakness DS: Discharge Diagnosis Discharge Diagnosis (1) GI bleed: Code(s): K92.2 - Gastrointestinal hemorrhage, unspecified Status: Acute Assessment and Plan: She has G-tube which had coffee-ground output. She received FFP 2 units and vitamin K on 04/03 concern for active bleeding. Her INR yesterday was 1.7. Will continue to hold Coumadin. Her hemoglobin dropped down to 5.5 and received 2 unit of PRBC. Her H&H seems stable now. Continue to monitor H&H and transfuse PRBC if indicated. Gastroenterology service has been consulted and their recommendations appreciated. She will have upper GI endoscopy and colonoscopy on Friday. She does have history of sclerotic colon because of sclerotic peritonitis. Nephrology service will talk to the GI service for reassessment of the needs for upper GI endoscopy and colonoscopy. It seems that her bleeding has stopped after correction of her INR. Continue pantoprazole IV on b.i.d. dosing. She has been started on liquid diet and seems to be tolerating well. She takes TPN at nighttime which will be continued. Dietitian has been consulted. (2) Supratherapeutic INR: Code(s): R79.1 - Abnormal coagulation profile Status: Acute Assessment and Plan: Current INR is 6 at the time of presentation with concern for possible active bleeding. She received FFP and vitamin K on 03/30. Her INR is 1.7 yesterday. No concern for active bleeding at this time. Will hold Coumadin. Continue to monitor H&H and INR. (3) End-stage renal disease on hemodialysis: Code(s): N18.6 - End stage renal disease; Z99.2 - Dependence on renal dialysis Status: Chronic Assessment and Plan: Patient missed 2-3 sessions of dialysis due to generalized weakness and unable to leave her house Nephrology service recommendation appreciated. She tolerated dialysis on 03/30. Continue hemodialysis as per nephrology service. She has received albumin yesterday with dialysis. 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 TPN will be resume at nighttime. Continue pantoprazole IV twice a day. (6) Anemia in chronic kidney disease: Qualifiers: Chronic kidney disease stage: unspecified stage Qualified Code(s): N18.9 - Chronic kidney disease, unspecified; D63.1 - Anemia in chronic kidney disease Code(s): N18.9 - Chronic kidney disease, unspecified; D63.1 - Anemia in chronic kidney disease Status: Chronic Assessment and Plan: Procrit and IV sucrose has been ordered by nephrology team. She received 2 unit of PRBC transfusion on 03/30. (7) Factor V Leiden: Onset Date: Unknown Code(s): D68.51 - Activated protein C resistance Status: Chronic Assessment and Plan: On chronic anticoagulation which will be kept on hold for now. (8) Current use of usp anticoagulation: Code(s): Z79.01 - roasterman (current) use of anticoagulants Status: Chronic Assessment and Plan: Patient is on Coumadin which will be on hold for now. (9) Hyperkalemia: Code(s): E87.5 - Hyperkalemia Status: Acute Assessment and Plan: Secondary to renal insufficiency She had dialysis on 03/30 and 03/31. Continue hemodialysis as per nephrology service. (10) Hypothyroidism (acquired): Code(s): E03.9 - Hypothyroidism, unspecified Status: Chronic Assessment and Plan: Continue levothyroxine TSH is elevated but free T4 is elevated as well. DS: Summary Hospital Course Reason for hospitalization: Chief Complaint: Weakness Narrative: This is
[2021-04-02 12:30] LABS: Glucose Point of Care 107 mg/dl (65-105)
--- NOTE | 2021-04-02 13:14 | PCDIET ---
Nutrition Follow-Up Complete: Nutrition Diagnosis: Altered GI function related to history of small bowel obstruction and sclerosing peritonitis + GI bleed as evidenced by NPO status. Nutrition Goal: Patient to meet estimated nutritional needs. Goal not met. TPN has been stopped with plan for discharge home with hospice. Consult RD if plan of care changes. Otherwise, will follow closely to monitor plan of care. Last recorded weight is 84.3 kg which is increased from last review. Bowel Motility: BM x 3 on 04/01/21. Labs Reviewed: Hgb (6.6), Hct (21.8), Glu (107), BUN (37), Cr (6.30), Na (133) Meds Noted: Symbicort, Dilaudid, Klonopin, Retacrit, Roxicodone, Protonix, Iron Sucrose, Synthroid Additional Notes: No documented skin breakdown. Nutrition Monitoring and Evaluation: Follow up every 3 days.
[2021-04-02] MEDS: SODIUM CHLORIDE 0.9% IV 250 ML 30 ML IV CONT (15:25)
[2021-04-02] MEDS: TUBING, BLOOD PLUM PUMP TUBING 1 EACH XX (15:26)
[2021-04-02 16:44] LABS: Hematocrit 28.3 % (37.0-47.0); Hemoglobin 8.8 g/dL (12.0-15.0)
== END 2021-04-02 17:24 | disposition hospice, home (50) | DRG 377 ==
LOC: ANHED 03-30 00:52 → ANHIMU 03-30 02:45
PROVIDERS: Emergency Medicine; Internal Medicine Critical Care Medicine; Internal Medicine Gastroenterology; Internal Medicine Nephrology; Admitting Provider Internal Medicine; Emergency Provider General Practice; PCP Family Medicine; Visit Provider Family Medicine
DX: K92.2 Gastrointestinal hemorrhage, unspecified (principal); N18.6 End stage renal disease; K65.8 Other peritonitis; I13.2 Hypertensive heart and chronic kidney disease with heart failure and with stage 5 chronic kidney disease, or end stage renal disease; I50.32 Chronic diastolic (congestive) heart failure; Z94.0 Kidney transplant status; D68.51 Activated protein C resistance; Z99.2 Dependence on renal dialysis; D63.1 Anemia in chronic kidney disease; E87.5 Hyperkalemia; N25.0 Renal osteodystrophy; R46.81 Obsessive-compulsive behavior; E89.0 Postprocedural hypothyroidism; I07.9 Rheumatic tricuspid valve disease, unspecified; I27.20 Pulmonary hypertension, unspecified; J45.909 Unspecified asthma, uncomplicated; Z93.1 Gastrostomy status; Z79.01 Long term (current) use of anticoagulants; Z79.899 Other long term (current) drug therapy; Z86.711 Personal history of pulmonary embolism; Z87.891 Personal history of nicotine dependence
CPT/HCPCS: 36415; 36430; 70450; 71046; 80053; 80069; 82274; 82306; 82607; 82728; 82746; 82948; 83540; 83550; 83735; 84439; 84443; 84466; 84478; 85014; 85018; 85025; 85610; 85730; 86706; 86850; 86870; 86880; 86900; 86901; 86902; 86905; 86922; 87340; 93005; 93306; 94640; 96365; 96375; 99285; A9270; C9113; G0257; G0378; J0131; J1170; J1756; J2997; J3430; J7030; J7050; J7060; P9016; P9017; P9047; Q4081